=== PATIENT | female | born 1970 | race Caucasian/White ===

== ENCOUNTER 2018-10-22 12:49 | Emergency (ER) | payer SELFPAY ==
[2018-10-22] MEDS ORDERED: NA CHLORIDE 0.9% 1,000 ML ONE (13:37)
--- NOTE | 2018-10-22 13:43 | EKG ---
Test Date: 2018-10-22 Test Time: 13:34:25 [employer]: SHARON MEASUREMENT RESULTS: Intervals: Rate: 57 CA: 176 QRSD: 72 QT: 450 QTc: 438 [place]: P: 67 CA: 176 QRS: 38 T: 26 INTERPRETIVE STATEMENTS: Sinus bradycardia Otherwise normal ECG Compared to ECG 04/28/2004 06:34:00 Sinus rhythm no longer present Electronically Signed On 10-22-18 13:42:39 CDT by Alonzo Dutton
[2018-10-22 14:03] LABS: Absolute Lymphocytes (CBC) 2.7 K/uL (0.7-4.9); Basophils % 1.1 % (0-1.3); Hematocrit 45.7 % (36.0-45.0); Lymphocytes % 26.1 % (15.3-44.8); MPV 8.2 fL (7.6-11.3); RBC Red Blood Cell Count 4.91 M/uL (3.86-4.86)
[2018-10-22 14:27] LABS: Albumin 3.8 g/dL (3.4-5.0); Bilirubin Direct 0.1 mg/dL (0-0.2); Bilirubin Total 0.6 mg/dL (0.2-1.0); Potassium 3.9 mmol/L (3.5-5.1); Protein, Total 7.4 g/dL (6.4-8.2)
--- NOTE | 2018-10-22 14:29 | RAD REPORT ---
EXAM DESCRIPTION: CT - Head Brain Wo Cont - 10/22/2018 1:52 pm CLINICAL HISTORY: Dizziness COMPARISON: None TECHNIQUE: Computed axial tomography of the head was obtained. IV contrast was not requested. All CT scans are performed using dose optimization technique as appropriate and may include automated exposure control or mA/KV adjustment according to patient size. FINDINGS: An intracranial bleed is not seen . The ventricles are normal in caliber. No extra-axial fluid collection is noted. Moderate low-density areas within periventricular, deep and subcortical white matter Fluid within the sinuses/ mastoids is not seen. IMPRESSION: Moderate low-density areas within periventricular, deep and subcortical white matter. Th horace may be secondary to ischemic changes secondary to small vessel disease. Demyelinating process can also result in this appearance. Further evaluation with MRI with contrast would be helpful to determ ine if there is an acute process
--- NOTE | 2018-10-22 15:26 | ER ---
Nurse's Notes [facility] Name: Danette Stapleton Age: 48 yrs Sex: Female : 1970 Arrival Date: 10/22/2018 Time: 12:53 Bed 14 Private MD: Diagnosis: Orthostatic hypotension;Benign paroxysmal vertigo Presentation: 10/22 12:57 Presenting complaint: Patient states: I have been feeling dizzy for the last three la1 days, worse when I lay down. Transition of care: patient was not received from another setting of care. Onset of symptoms was October 22, 2018. Risk Assessment: Do you want to hurt yourself or someone else? Patient reports no desire to harm self or others. Initial Sepsis Screen: Does the patient meet any 2 criteria? No. Patient's initial sepsis screen is negative. Does the patient have a suspected source of infection? No. Patient's initial sepsis screen is negative. Care prior to arrival: None. 12:57 Method Of Arrival: Ambulatory la1 12:57 Acuity: KESHIA 3 la1 Historical: - Allergies: 12:58 No Known Allergies; la1 - PMHx: 12:58 Hypertension; la1 - Immunization history:: Adult Immunizations up to date. - Social history:: Smoking status: Patient uses tobacco products, smokes two packs cigarettes per day. - Ebola Screening: : No symptoms or risks identified at this time. Screenin:38 Abuse screen: Denies threats or abuse. Denies injuries from another. Nutritional jl7 screening: No deficits noted. Tuberculosis screening: No symptoms or risk factors identified. Fall Risk IV access (20 points). Total Ortiz Fall Scale indicates No Risk (0-24 pts). Assessment: 14:08 General: Appears in no apparent distress. comfortable, Behavior is calm, cooperative, jl7 appropriate for age. Pain: Denies pain. Neuro: Level of Consciousness is awake, alert, obeys commands, Oriented to person, place, time, situation, Denies weakness dizziness. Cardiovascular: Denies chest pain, Patient's skin is warm and dry. Respiratory: Airway is patent Respiratory effort is even, unlabored, Respiratory pattern is regular, symmetrical, Denies shortness of breath. GI: No signs and/or symptoms were reported involving the gastrointestinal system. : No signs and/or symptoms were reported regarding the genitourinary system. EENT: No signs and/or symptoms were reported regarding the EENT system. Derm: Skin is pink, warm \T\ dry. Musculoskeletal: No signs and/or symptoms reported regarding the musculoskeletal system. 15:00 Reassessment: Patient appears in no apparent distress at this time. No changes from jl7 previously documented assessment. Patient and/or family updated on plan of care and expected duration. Pain level reassessed. Patient is alert, oriented x 3, equal unlabored respirations, skin warm/dry/pink. Vital Signs: 12:58 BP 150 / 95; Pulse 61; Resp 14; Temp 97.4; Pulse Ox 98% on R/A; Weight 83.91 kg; Height la1 5 ft. 2 in. (157.48 cm); 13:46 BP 144 / 67 Supine; Pulse 56; Resp 16; Pulse Ox 100% ; lt1 13:46 BP 149 / 73 Sitting; Pulse 61; lt1 13:46 BP 135 / 73 Standing; Pulse 55; lt1 14:48 BP 133 / 72; Pulse 65; Resp 16; Pulse Ox 99% ; jl7 12:58 Body Mass Index 33.84 (83.91 kg, 157.48 cm) la1 ED Course: 12:53 Patient arrived in ED. cf2 12:58 Triage completed. la1 12:59 Arm band placed on left wrist. la1 13:10 Henry Vargas NP is PHCP. pm1 13:10 Jax Adkins MD is Attending Physician. pm1 13:30 Patient has correct armband on for positive identification. Placed in gown. Bed in low jl7 position. Call light in reach. Side rails up X 1. Pulse ox on. NIBP on. 13:45 Missed attempt(s): 22 gauge in right antecubital area. lt1 13:46 Initial lab(s) drawn, by ED staff, sent to lab. Inserted saline lock: 22 gauge in left lt1 hand, using aseptic technique. 14:00 CT Head Brain wo Cont In Process Unspecified. EDMS 14:08 Jenna Wakefield RN is Primary Nurse. jl7 16:01 No provider procedures requiring assistance completed. IV discontinued, intact, jl7 bleeding controlled, No redness/swelling at site. Pressure dressing applied. Administered Medications: 14:08 Drug: NS 0.9% 1000 ml Route: IV; Rate: 1000 ml; Site: left hand; [facility] 15:00 Follow up: Response: No adverse reaction; IV Status: Completed infusion; IV Intake: jl7 1000ml Intake: 15:00 IV: 1000ml; Total: 1000ml. jl7 Outcome: 15:25 Discharge ordered by . pm1 16:01 Discharged to home ambulatory. jl7 16:01 Condition: stable 16:01 Discharge instructions given to patient, Instructed on discharge instructions, follow up and referral plans. medication usage, Demonstrated understanding of instructions, follow-up care, medications, Prescriptions given X 1. 16:02 Patient left the ED. jl7 Signatures: Dispatcher [employer] EDMS Nikhil Sherwood RN RN la1 Henry Vargas NP SURGICAL ASST pm1 Jenna Wakefield RN RN jl7 Sandra Crenshaw lt1 Nando Dodge cf2
--- NOTE | 2018-10-22 15:26 | EDPHYS ---
Physician Documentation [facility] Name: Danette Stapleton Age: 48 yrs Sex: Female : 1970 Arrival Date: 10/22/2018 Time: 12:53 Bed 14 Private MD: ED Physician Jax Adkins HPI: 10/22 13:25 This 48 yrs old Female presents to ER via Ambulatory with complaints of pm1 Dizziness. 13:25 The patient presents with sense of spinning, vertigo. Onset: The symptoms/episode pm1 began/occurred 3 day(s) ago. Context: occurred at home, occurred while the patient was changing position from lying to sitting, sitting to standing and turning from side to side while lying in bed. just prior to the episode the patient experienced no apparent symptoms. Modifying factors: The symptoms are alleviated by staying still, the symptoms are aggravated by changing position. Associated signs and symptoms: Pertinent negatives: abdominal pain, chest pain, headache, numbness, palpitations, shortness of breath, tingling, vomiting. Severity of symptoms: in the emergency department the symptoms are unchanged Pain is currently a 0 / 10. Patient's baseline: Neuro: alert and fully oriented, Motor: no deficits, Ambulation: walks without assistance. The patient has not recently seen a physician. Historical: - Allergies: 12:58 No Known Allergies; la1 - PMHx: 12:58 Hypertension; la1 - Immunization history:: Adult Immunizations up to date. - Social history:: Smoking status: Patient uses tobacco products, smokes two packs cigarettes per day. - Ebola Screening: : No symptoms or risks identified at this time. ROS: 13:25 Constitutional: Negative for fever, chills, and weight loss, Eyes: Negative for injury, pm1 pain, redness, and discharge, ENT: Negative for injury, pain, and discharge, Neck: Negative for injury, pain, and swelling, Cardiovascular: Negative for chest pain, palpitations, and edema, Respiratory: Negative for shortness of breath, cough, wheezing, and pleuritic chest pain, Abdomen/GI: Negative for abdominal pain, nausea, vomiting, diarrhea, and constipation, Back: Negative for injury and pain, : Negative for injury, bleeding, discharge, and swelling, MS/Extremity: Negative for injury and deformity, Skin: Negative for injury, rash, and discoloration. 13:25 Neuro: Positive for dizziness, Negative for headache, numbness, tingling, weakness. Exam: 13:25 Constitutional: This is a well developed, well nourished patient who is awake, alert, pm1 and in no acute distress. Head/Face: Normocephalic, atraumatic. Eyes: Pupils equal round and reactive to light, extra-ocular motions intact. Lids and lashes normal. Conjunctiva and sclera are non-icteric and not injected. Cornea within normal limits. Periorbital areas with no swelling, redness, or edema. ENT: Nares patent. No nasal discharge, no septal abnormalities noted. Tympanic membranes are normal and external auditory canals are clear. Oropharynx with no redness, swelling, or masses, exudates, or evidence of obstruction, uvula midline. Mucous membranes moist. Neck: Trachea midline, no thyromegaly or masses palpated, and no cervical lymphadenopathy. Supple, full range of motion without nuchal rigidity, or vertebral point tenderness. No Meningismus. Chest/axilla: Normal chest wall appearance and motion. Nontender with no deformity. No lesions are appreciated. Cardiovascular: Regular rate and rhythm with a normal S1 and S2. No gallops, murmurs, or rubs. Normal PMI, no JVD. No pulse deficits. Respiratory: Lungs have equal breath sounds bilaterally, clear to auscultation and percussion. No rales, rhonchi or wheezes noted. No increased work of breathing, no retractions or nasal flaring. Abdomen/GI: Soft, non-tender, with normal bowel sounds. No distension or tympany. No guarding or rebound. No evidence of tenderness throughout. Back: No spinal tenderness. No costovertebral tenderness. Full range of motion. Skin: Warm, dry with normal turgor. Normal color with no rashes, no lesions, and no evidence of cellulitis. MS/ Extremity: Pulses equal, no cyanosis. Neurovascular intact. Full, normal range of motion. 13:25 Neuro: Orientation: is normal, Mentation: is normal, Cranial nerves: CN II- XII are normal as tested, Cerebellar function: normal finger to nose testing, Motor: is normal, moves all fours, Sensation: is normal, no obvious gross deficits, Gait: is steady, at a normal pace, without difficulty. Vital Signs: 12:58 BP 150 / 95; Pulse 61; Resp 14; Temp 97.4; Pulse Ox 98% on R/A; Weight 83.91 kg; Height la1 5 ft. 2 in. (157.48 cm); 13:46 BP 144 / 67 Supine; Pulse 56; Resp 16; Pulse Ox 100% ; lt1 13:46 BP 149 / 73 Sitting; Pulse 61; lt1 13:46 BP 135 / 73 Standing; Pulse 55; lt1 14:48 BP 133 / 72; Pulse 65; Resp 16; Pulse Ox 99% ; jl7 12:58 Body Mass Index 33.84 (83.91 kg, 157.48 cm) la1 MDM: 13:11 Patient medically screened. pm1 14:25 Data reviewed: vital signs. Data interpreted: Pulse oximetry: on room air is 100 %. pm1 Interpretation: normal. 15:19 Refusal of service: The patient/guardian displays adequate decision making capability pm1 and despite a detailed discussion of alternatives, benefits, risks, and consequences refuses: MRI: Patient's dizziness has improved with IV fluids. Discussed radiologist results with the patient. She does not want the MRI and wants to go home . 10/22 13:16 Order name: Basic Metabolic Panel; Complete Time: 14:57 pm1 10/22 13:16 Order name: CBC with Diff pm1 10/22 13:16 Order name: CT Head Brain wo Cont; Complete Time: 15:08 pm1 10/22 13:16 Order name: LFT's; Complete Time: 14:57 pm1 10/22 13:16 Order name: EKG; Complete Time: 13:19 pm1 10/22 13:16 Order name: EKG - Nurse/Tech; Complete Time: 13:46 pm1 10/22 13:16 Order name: IV Saline Lock; Complete Time: 13:46 pm1 10/22 13:16 Order name: Labs collected and sent; Complete Time: 13:46 pm1 10/22 13:16 Order name: Orthostatics; Complete Time: 13:46 pm1 Administered Medications: 14:08 Drug: NS 0.9% 1000 ml Route: IV; Rate: 1000 ml; Site: left hand; [facility] 15:00 Follow up: Response: No adverse reaction; IV Status: Completed infusion; IV Intake: jl7 1000ml Disposition: 16:07 Co-signature as Attending Physician, Jax Adkins MD I agree with the assessment and annie plan of care. Disposition: 10/22/18 15:25 Discharged to Home. Impression: Benign paroxysmal vertigo, Orthostatic hypotension. - Condition is Stable. - Discharge Instructions: Benign Positional Vertigo, Dehydration, Adult, Orthostatic Hypotension, Rehydration, Adult. - Prescriptions for Meclizine 25 mg Oral Tablet - take 1 tablet by ORAL route every 8 hours As needed; 30 tablet. - Medication Reconciliation Form, Thank You Letter, Antibiotic Education, Prescription Opioid Use form. - Follow up: Emergency Department; When: As needed; Reason: Worsening of condition. Follow up: Private Physician; When: 2 - 3 days; Reason: Recheck today's complaints, Continuance of care, Re-evaluation by your physician. - Problem is new. - Symptoms have improved. Signatures: Dispatcher [employer] EDJax Finch MD MD cha Attema, Lee RN RN la1 Henry Vargas NP PLATFORM LOADER pm1 Jenna Wakefield RN RN jl7 Corrections: (The following items were deleted from the chart) 16:02 15:25 10/22/2018 15:25 Discharged to Home. Impression: Benign paroxysmal jl7 vertigoOrthostatic hypotension. Condition is Stable. Forms are Medication Reconciliation Form, Thank You Letter, Antibiotic Education, Prescription Opioid Use. Follow up: Emergency Department; When: As needed; Reason: Worsening of condition. Follow up: Private Physician; When: 2 - 3 days; Reason: Recheck today's complaints, Continuance of care, Re-evaluation by your physician. Problem is new. Symptoms have improved. pm1
== END 2018-10-22 16:02 | disposition home or self-care (01) ==
LOC: ER 12:49
DX: I95.1 Orthostatic hypotension (principal); H81.10 Benign paroxysmal vertigo, unspecified ear; F17.210 Nicotine dependence, cigarettes, uncomplicated
CPT/HCPCS: 36415; 70450; 80048; 80076; 85025; 93005; 96360; 99284; J7030

== ENCOUNTER 2020-01-15 01:40 | Emergency (ER) | payer SELFPAY ==
[2020-01-15] MEDS ORDERED: ATROPINE SULF 1 MG/10 ML SYR IV ONE (02:09)
[2020-01-15] MEDS ORDERED: NA CHLORIDE 0.9% 1,000 ML ONE (02:22)
[2020-01-15 02:45] LABS: Protime INR 0.96
[2020-01-15 02:46] LABS: Absolute Lymphocytes (CBC) 3.3 K/uL (0.7-4.9); Basophils % 0.9 % (0-1.3); Hematocrit 41.6 % (36.0-45.0); MPV 7.4 fL (7.6-11.3); RBC Red Blood Cell Count 4.42 M/uL (3.86-4.86)
[2020-01-15 02:57] LABS: ALT/SGPT 75 U/L (12-78); AST/SGOT 87 U/L (15-37); Albumin 3.1 g/dL (3.4-5.0); Alkaline Phosphatase 118 U/L (45-117); BUN Blood Urea Nitrogen 13 mg/dL (7-18); Bicarbonate 24 mmol/L (21-32); Bilirubin Direct < 0.1 mg/dL (0-0.2); Bilirubin Total 0.3 mg/dL (0.2-1.0); Glucose Level 170 mg/dL (74-106); Magnesium 2.3 mg/dL (1.8-2.4); NT PRO-BNP 274 pg/mL (<125); Potassium 3.7 mmol/L (3.5-5.1); Protein, Total 6.7 g/dL (6.4-8.2); Sodium Level 139 mmol/L (136-145); Troponin (Emerg Dept Use Only) < 0.02 ng/mL (0.0-0.045)
--- NOTE | 2020-01-15 03:08 | EDPHYS ---
Physician Documentation [facility] Name: Danette Stapleton Age: 50 yrs Sex: Female : 1970 Arrival Date: 01/15/2020 Time: 01:41 Bed 2 Private MD: Earl Rogers H ED Physician Enmanuel Gómez HPI: 01/14 01:59 This 50 yrs old Female presents to ER via EMS with complaints of Chest Pain, mh7 Dizziness. 01:59 The patient or guardian reports chest pain that is located primarily in the substernal mh7 area. Onset: today, 30 minute(s) ago. The pain does not radiate. Associated signs and symptoms: Pertinent positives: dizziness, lightheadedness, shortness of breath, Pertinent negatives: abdominal pain, cough, diaphoresis, headache, lower extremity pain, lower extremity swelling, nausea, near syncope, palpitations, recent travel, syncope, vomiting. The chest pain is described as sharp. Duration: The patient or guardian reports a single episode, that is still ongoing. Modifying factors: The symptoms are alleviated by nothing. the symptoms are aggravated by nothing. Severity of pain: At its worst the pain was moderate today, in the emergency department the pain is unchanged. Historical: - Allergies: 01:51 No Known Allergies; mg2 - Home Meds: 01:51 Metoprolol Tartrate Oral [Active]; amlodipine oral [Active]; mg2 - PMHx: 01:51 Hypertension; mg2 - PSHx: 01:51 None; mg2 - Immunization history:: Flu vaccine status is unknown. - Social history:: Smoking status: Patient reports the use of cigarette tobacco products, Patient/guardian denies using alcohol, street drugs, IV drugs. ROS: 01:59 Constitutional: Negative for fever, chills, and weight loss, Eyes: Negative for injury, mh7 pain, redness, and discharge, ENT: Negative for injury, pain, and discharge, Neck: Negative for injury, pain, and swelling, Abdomen/GI: Negative for abdominal pain, nausea, vomiting, diarrhea, and constipation, Back: Negative for injury and pain, : Negative for injury, bleeding, discharge, and swelling, MS/Extremity: Negative for injury and deformity, Skin: Negative for injury, rash, and discoloration, Neuro: Negative for headache, weakness, numbness, tingling, and seizure, Psych: Negative for depression, anxiety, suicide ideation, homicidal ideation, and hallucinations, Allergy/Immunology: Negative for hives, rash, and allergies, Endocrine: Negative for neck swelling, polydipsia, polyuria, polyphagia, and marked weight changes, Hematologic/Lymphatic: Negative for swollen nodes, abnormal bleeding, and unusual bruising. Exam: 01:59 Head/Face: Normocephalic, atraumatic. Eyes: Pupils equal round and reactive to light, mh7 extra-ocular motions intact. Lids and lashes normal. Conjunctiva and sclera are non-icteric and not injected. Cornea within normal limits. Periorbital areas with no swelling, redness, or edema. Neck: Trachea midline, no thyromegaly or masses palpated, and no cervical lymphadenopathy. Supple, full range of motion without nuchal rigidity, or vertebral point tenderness. No Meningismus. Chest/axilla: Normal chest wall appearance and motion. Nontender with no deformity. No lesions are appreciated. 01:59 Abdomen/GI: Soft, non-tender, with normal bowel sounds. No distension or tympany. No guarding or rebound. No evidence of tenderness throughout. Back: No spinal tenderness. No costovertebral tenderness. Full range of motion. Skin: Warm, dry with normal turgor. Normal color with no rashes, no lesions, and no evidence of cellulitis. MS/ Extremity: Pulses equal, no cyanosis. Neurovascular intact. Full, normal range of motion. Neuro: Awake and alert, GCS 15, oriented to person, place, time, and situation. Cranial nerves II-XII grossly intact. Motor strength 5/5 in all extremities. Sensory grossly intact. Cerebellar exam normal. Normal gait. Psych: Awake, alert, with orientation to person, place and time. Behavior, mood, and affect are within normal limits. 01:59 Constitutional: The patient appears alert, awake, uncomfortable. 01:59 Cardiovascular: Rate: bradycardic, Rhythm: regular, Pulses: no pulse deficits are appreciated, Heart sounds: normal, normal S1and S2, Edema: is not appreciated, JVD: is not appreciated. 01:59 Respiratory: the patient does not display signs of respiratory distress, Respirations: normal, Breath sounds: wheezing: expiratory that is mild, is scattered, Respiratory rate: 18 Vital Signs: 01:46 BP 131 / 84; Pulse 37; Resp 18; Pulse Ox 97% on R/A; Height 5 ft. 2 in. (157.48 cm); mg2 02:00 BP 118 / 68; Pulse 40; Resp 18; Pulse Ox 93% on R/A; mg2 02:08 Temp 97.4(TE); mg2 02:46 BP 130 / 72; Pulse 40; Resp 18; Pulse Ox 94% on NC; mg2 02:56 Weight 95.8 kg; mg2 03:35 BP 130 / 76; Pulse 41; Resp 18; Temp 97.4; Pulse Ox 94% on 4 lpm NC; mg2 02:56 Body Mass Index 38.63 (95.80 kg, 157.48 cm) mg2 MDM: 01:53 Patient medically screened. [facility] 03:00 Differential diagnosis: abnormal EKG, acute myocardial infarction, acute pericarditis, mh7 anxiety, coronary artery disease chest wall pain, congestive heart failure costochondritis, myocarditis, pericarditis, pneumonia, pneumothorax, pulmonary embolus, stable angina, unstable angina. HEART Score: History: Moderately Suspicious (1), ECG: Significant ST-deviation (2), Age: > 45 and < 65 years (1), Risk Factors: 1 or 2 risk factors (1), [Hypertension] [Active Smoker]. Data reviewed: vital signs, nurses notes, EMS record, lab test result(s), cardiac enzymes, CBC, electrolytes, urinalysis, EKG, radiologic studies, plain films. Data interpreted: Pulse oximetry: on room air is 98 %. Interpretation: normal. Plan: O2 by NC applied. Counseling: I had a detailed discussion with the patient and/or guardian regarding: the historical points, exam findings, and any diagnostic results supporting the discharge/admit diagnosis, the presence of at least one elevated blood pressure reading (>120/80) during this emergency department visit, lab results, radiology results, the need to transfer to another facility, for higher level of care. Physician consultation: Dexter Trejo MD regarding patient's condition, after a discussion of the case, a recommendation for transfer for higher level of care is made. 01/14 01:53 Order name: Basic Metabolic Panel [facility] 01/14 01:53 Order name: CBC with Diff; Complete Time: 02:53 [facility] 11/15 01:53 Order name: LFT's [facility] 01/14 01:53 Order name: Magnesium [facility] 01/14 01:53 Order name: NT PRO-BNP [facility] 01/14 01:53 Order name: PT-INR; Complete Time: 02:53 [facility] 01/14 01:53 Order name: Troponin (emerg Dept Use Only) [facility] 01/14 01:53 Order name: XRAY Chest (1 view) [facility] 01/14 01:53 Order name: EKG; Complete Time: 01:54 [facility] 01/14 01:53 Order name: Cardiac monitoring; Complete Time: 02:00 [facility] 01/14 01:53 Order name: EKG - Nurse/Tech; Complete Time: 02:00 [facility] 01/14 01:53 Order name: IV Saline Lock; Complete Time: 02:00 [facility] 01/14 01:53 Order name: Labs collected and sent; Complete Time: 02:00 [facility] 01/14 01:53 Order name: O2 Per Protocol; Complete Time: 02:00 [facility] 01/14 01:53 Order name: O2 Sat Monitoring; Complete Time: 02:00 [facility] Administered Medications: 01:58 Drug: Atropine 0.5 mg Route: IVP; Site: left antecubital; ea 02:21 Follow up: Response: No adverse reaction mg2 03:16 Drug: PlaVIX 300 mg Route: PO; mg2 03:35 Follow up: Response: No adverse reaction ea 03:16 Drug: Tenecteplase 50 mg {Co-Signature: michelle (Teresa Newsome RN).} Route: IV; Rate: per mg2 protocol; Site: left hand; 03:35 Follow up: Response: No adverse reaction; IV Status: Completed infusion ea 03:39 Not Given (Hemodynamic Parameters): morphine 2 mg IVP once; (PAIN>8) RASS on ADMN: mg2 Combtv4, Very Agttd3, Agttd2, Rstlss1, AlertClm0, Drwsy-1, LtSdtn-2, ModSdtn-3, DpSdtn-4, UnArsble-5 x2 Disposition: 01/15/20 03:07 Transfer ordered to [facility]. Diagnosis are Acute STEMI, Bradycardia. - Reason for transfer: Higher level of care. - Accepting physician is Dr. Taveras. - Condition is Serious. - Problem is new. - Symptoms have improved. Signatures: Dispatcher [employer] Teresa Warren RN RN ea Gardose, Michele, RN RN mg2 Enmanuel Gómez MD MD 7 Teresa Newsome RN ea Corrections: (The following items were deleted from the chart) 03:42 03:07 01/15/2020 03:07 Transfer ordered to [facility]. mg2 Diagnosis is Acute STEMI; Bradycardia. Reason for transfer: Higher level of care. Accepting physician is Dr. Taveras. Condition is Serious. Problem is new. Symptoms have improved. mh7
--- NOTE | 2020-01-15 03:08 | ER ---
Nurse's Notes [facility] Name: Danette Stapleton Age: 50 yrs Sex: Female : 1970 Arrival Date: 01/15/2020 Time: 01:41 Bed 2 Private MD: Earl Rogers H Diagnosis: Acute STEMI;Bradycardia Presentation: 01/14 01:46 Chief complaint: EMS states: she has right sided chest pain radiating to the right arm mg2 and dizziness after she takes shower \T\ 2200 pm tonight. given aspirin 324 mg enroute. she was Sinus Shaquille on EKG. Coronavirus screen: Client denies travel out of the [place] in the last 14 days. Ebola Screen: No symptoms or risks identified at this time. Initial Sepsis Screen: Does the patient meet any 2 criteria? No. Patient's initial sepsis screen is negative. Does the patient have a suspected source of infection? No. Patient's initial sepsis screen is negative. Risk Assessment: Do you want to hurt yourself or someone else? Patient reports no desire to harm self or others. Onset of symptoms was January 14, 2020 at 22:00. 01:46 Method Of Arrival: EMS: [facility] mg2 01:46 Acuity: KESHIA 1 sg Historical: - Allergies: 01:51 No Known Allergies; mg2 - Home Meds: 01:51 Metoprolol Tartrate Oral [Active]; amlodipine oral [Active]; mg2 - PMHx: 01:51 Hypertension; mg2 - PSHx: 01:51 None; mg2 - Immunization history:: Flu vaccine status is unknown. - Social history:: Smoking status: Patient reports the use of cigarette tobacco products, Patient/guardian denies using alcohol, street drugs, IV drugs. Screenin:08 Abuse screen: Denies threats or abuse. Denies injuries from another. Nutritional mg2 screening: No deficits noted. Tuberculosis screening: No symptoms or risk factors identified. Fall Risk IV access (20 points). Assessment: 02:09 General: Appears in no apparent distress. comfortable, Behavior is calm, cooperative. mg2 Pain: Complains of pain in chest Pain radiates to right arm Pain currently is 6 out of 10 on a pain scale. Quality of pain is described as aching, pressure, radiating, sharp, Pain began gradually. Neuro: Level of Consciousness is awake, alert, obeys commands, Oriented to person, place, time, situation. Neuro: Reports dizziness. Cardiovascular: Capillary refill < 3 seconds Patient's skin is warm and dry. Respiratory: Airway is patent Respiratory effort is even, unlabored, Respiratory pattern is regular, symmetrical. GI: No signs and/or symptoms were reported involving the gastrointestinal system. : No signs and/or symptoms were reported regarding the genitourinary system. EENT: No signs and/or symptoms were reported regarding the EENT system. Derm: Skin is intact, is healthy with good turgor, Skin is pink, warm \T\ dry. normal. Musculoskeletal: Circulation, motion, and sensation intact. Capillary refill < 3 seconds. 02:47 Reassessment: radiology notified pt dispo txfr, request imaging to disc and reports per sg txfr center request. spoke with [facility]. 03:02 Reassessment: spoke with [facility] coordinator. 03:04 Reassessment: [facility] Coordinator reports that the fog is too dense for safe sg transport at this time. 03:35 Reassessment: Patient and/or family updated on plan of care and expected duration. Pain ea level reassessed. Patient is alert, oriented x 3, equal unlabored respirations, skin warm/dry/pink. [facility] at facility for transport. Report given to EMS. Pt left ED via stretcher per EMS. Pt tolerating well. 03:35 Reassessment: report given to ANIL Purvis- of [facility].- direct line ([phone]). mg2 report given to [facility]. patient is awake, alert, AOx4, still bradycardic \T\ 41 bpm. Both IV intact. Vital Signs: 01:46 BP 131 / 84; Pulse 37; Resp 18; Pulse Ox 97% on R/A; Height 5 ft. 2 in. (157.48 cm); mg2 02:00 BP 118 / 68; Pulse 40; Resp 18; Pulse Ox 93% on R/A; mg2 02:08 Temp 97.4(TE); mg2 02:46 BP 130 / 72; Pulse 40; Resp 18; Pulse Ox 94% on NC; mg2 02:56 Weight 95.8 kg; mg2 03:35 BP 130 / 76; Pulse 41; Resp 18; Temp 97.4; Pulse Ox 94% on 4 lpm NC; mg2 02:56 Body Mass Index 38.63 (95.80 kg, 157.48 cm) mg2 ED Course: 01:41 Patient arrived in ED. am2 01:41 Enmanuel Gómez MD is Attending Physician. mh7 01:41 Earl Rogers DO is Private Physician. am2 01:46 Tk Adan RN is Primary Nurse. mg2 01:49 Triage completed. mg2 01:50 pt placed to [employer] monitor at this time. sg 01:55 Inserted saline lock: 20 gauge in right forearm, using aseptic technique. ds4 01:55 Oxygen administration via nasal cannula \T\ 2L/min Response to oxygen therapy: o2 sg administer per Chest Pain order set. 02:07 XRAY Chest (1 view) In Process Unspecified. EDMS 02:08 No provider procedures requiring assistance completed. Maintain EMS IV. Dressing mg2 intact. Site clean \T\ dry. Gauge \T\ site: 20 \T\ LH. 02:10 Patient maintains SpO2 saturation greater than 95% on room air. mg2 02:10 Patient has correct armband on for positive identification. campus monitor on. Pulse mg2 ox on. NIBP on. Door closed. Warm blanket given. 02:10 Arm band placed on. mg2 02:25 Initiated transfer with Makenzie at [facility]. Faxed pts ekg per her request to the tt3 physician. 03:17 [facility] unable to fly pt due to weather. [facility] to transfer pt. tt3 03:19 Patient transferred, IV remains in place. ea 03:48 ANIL Frey, reported that the nurse from [facility] informed her that the pt is going tt3 to the blood and plasma laboratory assistant instead of going to the CCU. Called [facility] back and reported that to Yaima with [facility] to pass on to [place] [facility]. Administered Medications: 01:58 Drug: Atropine 0.5 mg Route: IVP; Site: left antecubital; ea 02:21 Follow up: Response: No adverse reaction mg2 03:16 Drug: PlaVIX 300 mg Route: PO; mg2 03:35 Follow up: Response: No adverse reaction ea 03:16 Drug: Tenecteplase 50 mg {Co-Signature: michelle (Teresa Newsome RN).} Route: IV; Rate: per mg2 protocol; Site: left hand; 03:35 Follow up: Response: No adverse reaction; IV Status: Completed infusion ea 03:39 Not Given (Hemodynamic Parameters): morphine 2 mg IVP once; (PAIN>8) RASS on ADMN: mg2 Combtv4, Very Agttd3, Agttd2, Rstlss1, AlertClm0, Drwsy-1, LtSdtn-2, ModSdtn-3, DpSdtn-4, UnArsble-5 x2 Outcome: 03:07 ER care complete, transfer ordered by . desiree 03:19 Instructed on the need for transfer, Demonstrated understanding of instructions. ea 03:41 Transferred by ground EMS to [facility], Transfer form completed. mg2 03:41 critical 03:42 Patient left the ED. mg2 Signatures: Dispatcher [employer] EDMS Ubaldo Charles RN Osorio Mccray ds4 Diana Flood am2 Teresa Newsome RN Tk Bragg ea RN Enmanuel Salcido MD MD 7 Cecil Victor tt3 Teresa Newsome RN, ea Corrections: (The following items were deleted from the chart) 01:54 01:46 Pulse 106bpm; Resp 18bpm; Pulse Ox 97% RA; Height 5 ft. 2 in.; mg2 mg2 02:11 01:49 BP 188 / 92; mg2 mg2 02:14 01:46 Acuity: KESHIA 3 mg2 sg 03:15 02:56 86.18 kg; BMI: 34.7; ea mg2
[2020-01-15] MEDS ORDERED: TENECTEPLASE 50 MG/10 ML VIAL IV ONE (03:14)
[2020-01-15] MEDS ORDERED: CLOPIDOGREL 75 MG TABLET ONE (03:14)
[2020-01-15 07:11] VITALS: TEMP 97.4
[2020-01-15 07:12] VITALS: O2SAT 94
[2020-01-15 07:14] VITALS: BP 130/76
--- NOTE | 2020-01-15 07:41 | EKG ---
Test Date: 2020-01-15 Test Time: 01:44:07 Garbage Collector: SWG MEASUREMENT RESULTS: Intervals: Rate: 38 MA: 252 QRSD: 74 QT: 506 QTc: 402 [place]: P: 61 MA: 252 QRS: 66 T: 95 INTERPRETIVE STATEMENTS: Age and gender specific ECG analysis Marked sinus bradycardia with 1st degree AV block ST elevation, consider inferior injury or acute infarct ACUTE MO Consider right ventricular involvement in acute inferior infarct Abnormal ECG Compared to ECG 10/22/2018 13:34:25 First degree AV block now present ST (T wave) deviation now present Myocardial infarct finding now present Myocardial infarct finding now present Electronically Signed On 01-15-20 07:40:24 MAINTENANCE PARTS TECHNICIAN by Dexter Trejo
--- NOTE | 2020-01-16 11:48 | RAD REPORT ---
EXAM DESCRIPTION: RAD - Chest Single View - 01/15/2020 2:08 am CLINICAL HISTORY: CHEST PAIN COMPARISON: None. FINDINGS: Single frontal radiograph view of the chest. Cardiomediastinal silhouette: Normal size and contour. Lungs: No consolidation, pneumothorax, or pleural effusion. Low lung volumes. Leads overlie the chest . Bones: No acute osseous abnormality. Upper abdomen: No abnormality identified. IMPRESSION: 1. No acute pulmonary process identified. Electronically signed by: Young Olvera 01/15/2020 2:29 AM LOUVER MORTISER OPERATOR Due to temporary technical issues with the PACS/Fluency reporting system, reports are being signed by the in house radiologist without review as a courtesy to ensure prompt reporting. The interpreting r adiologist is fully responsible for the content of the report.
== END 2020-01-15 03:42 | disposition short-term general hospital (02) ==
LOC: ER 01:40
DX: R00.1 Bradycardia, unspecified (principal); I21.3 ST elevation (STEMI) myocardial infarction of unspecified site; I10 Essential (primary) hypertension; F17.210 Nicotine dependence, cigarettes, uncomplicated
CPT/HCPCS: 36415; 71045; 80048; 80076; 83735; 83880; 84484; 85025; 85610; 92977; 93005; 96365; 96375; 99291; J3101; J7030

== ENCOUNTER 2021-02-24 20:03 | Emergency (ER) | payer SELFPAY ==
--- OUTSIDE RECORDS SUMMARY | 2021-02-24 20:11 | XMS REPORT | Continuity of Care Document ---
:1970 Author Organization [facility] t Address [address] [place] [address] Care Team Providers Name Role Phone KENIA Attending Clinician Unavailable IAN Attending Clinician Unavailable KENIA Admitting Clinician Unavailable Problems This patient has no known problems. Allergies, Adverse Reactions, Alerts Allergy Allergy Status Severity Reaction(s) Onset Inactive Treating Comm ents Source Name Type Date Date Clinician NO KNOWN Allergy Active [facility] ALLERGIE S Medications This patient has no known medications. Vital Signs Vital Name Observation Time Observation Value Comments Source WEIGHT 2020-01-27 03:00:00 89.132 kg WEIGHT 2020-01-26 05:02:00 89.994 kg WEIGHT 2020-01-25 06:38:00 88.905 kg WEIGHT 2020-01-24 06:00:00 98.1 kg WEIGHT 2020-01-23 06:00:00 109.7 kg WEIGHT 2020-01-22 05:00:00 110.1 kg WEIGHT 2020-01-21 05:00:00 112.7 kg WEIGHT 2020-01-20 06:00:00 113.8 kg WEIGHT 2020-01-17 06:00:00 101.1 kg WEIGHT 2020-01-16 06:00:00 104.2 kg HEIGHT 2020-01-15 03:55:00 160 cm WEIGHT 2020-01-15 03:55:00 95.8 kg WEIGHT 2020-01-27 03:00:00 89.132 kg WEIGHT 2020-01-26 05:02:00 89.994 kg WEIGHT 2020-01-25 06:38:00 88.905 kg WEIGHT 2020-01-24 06:00:00 98.1 kg WEIGHT 2020-01-23 06:00:00 109.7 kg WEIGHT 2020-01-22 05:00:00 110.1 kg WEIGHT 2020-01-21 05:00:00 112.7 kg WEIGHT 2020-01-20 06:00:00 113.8 kg WEIGHT 2020-01-17 06:00:00 101.1 kg WEIGHT 2020-01-16 06:00:00 104.2 kg HEIGHT 2020-01-15 03:55:00 160 cm WEIGHT 2020-01-15 03:55:00 95.8 kg Procedures This patient has no known procedures. Encounters Start End Encounter Admission Attending Care Care Encounter Source Date/Time Date/Time Type Type Clinicians Facility Department ID 2020-01-15 Inpatient ER KENIA, [facility] Cardiology [id number] [facility] 04:33:00 SOUTH 2020-02-10 2020-02-10 Outpatient [facility] [id number] [facility] 00:00:00 00:00:00 DAYDAY 2020-02-08 2020-02-08 Outpatient EL [facility] [id number] [facility] 00:00:00 00:00:00 DAYDAY Results Test Description Test Time Test Comments Results Result Comments Source AFB CULTURE + SMEAR (NON-SPUTUM) 2020-03-06 09:17:00 Test Item Value Reference Range Interpretation Comme nts CULTURE (BEAKER) (test code = 1095) No acid-fast bacilli isolated i n 42 days AFB SMEAR (BEAKER) (test code = 994) No acid fast bacilli seen LEGIONELLA [id number] 11:29:00 Test Item Value Reference Range Interpretation Comments CULTURE (BEAKER) No Legionella species (test code = 1095) isolated POCT-GLUCOSE [id number] 11:57:00 Test Item Value Reference Range Interpretation Comments POC-GLUCOSE METER 164 mg/dL 70-110 H : [facility] (test code = HERLINDA Cohn [facility], 1538) [id number]: Power Project Manager/Techni edgardo ID = [id number] for ANANDA FALL BASIC METABOLIC [id number] 10:19:00 Test Item Value Reference Range Interpretation Comments SODIUM (BEAKER) 131 meq/L 136-145 L (test code = 381) POTASSIUM (BEAKER) 3.4 meq/L 3.5-5.1 L (test code = 379) CHLORIDE (BEAKER) 97 meq/L 98-107 L (test code = 382) CO2 (BEAKER) (test 23 meq/L 22-29 code = 355) BLOOD UREA NITROGEN 19 mg/dL 7-21 (BEAKER) (test code = 354) CREATININE (BEAKER) 0.91 mg/dL 0.57-1.25 (test code = 358) GLUCOSE RANDOM 150 mg/dL 70-105 H (BEAKER) (test code = 652) CALCIUM (BEAKER) 8.2 mg/dL 8.4-10.2 L (test code = 697) EGFR (BEAKER) (test 66 mL/min/1.73 ESTIMA BARBARA GFR IS code = 1092) sq m NOT ACCURATE CREATININE CLEARANCE IN PREDICTING GLOMERULAR FILTRATION RATE . ESTIMATED GFR I S NOT APPLICABLE FOR DIALYSIS PATIEN TS. Power Project Manager ID - SANTA CPOCT-GLUCOSE [id number] 08:08:00 Test Item Value Reference Range Interpretation Comments POC-GLUCOSE METER 154 mg/dL 70-110 H : TESTED A T [facility] 6720 (BEAKER) (test code = HERLINDA CES[place], 1538) [id number]: Power Project Manager/Techni edgardo ID = [id number] for ANANDA FALL VIRUS [id number] 07:11:00 Test Item Value Reference Range Interpretation Comments CULTURE (BEAKER) (test code No virus isolated = 1095) CBC (HEMOGRAM ONLY)2020-01-27 05:42:00 Test Item Value Reference Range Interpretation Comments WHITE BLOOD CELL COUNT (BEAKER) 15.5 K/ L 3.5-10.5 H (test code = 775) RED BLOOD CELL COUNT (BEAKER) 2.90 M/ L 3.93-5.22 L (test code = 761) HEMOGLOBIN (BEAKER) (test code = 9.3 GM/DL 11.2-15.7 L 410) HEMATOCRIT (BEAKER) (test code = 28.8 % 34.1-44.9 L 411) MEAN CORPUSCULAR VOLUME (BEAKER) 99.3 fL 79.4-94.8 H (test code = 753) MEAN CORPUSCULAR HEMOGLOBIN 32.1 pg 25.6-32.2 (BEAKER) (test code = 751) MEAN CORPUSCULAR HEMOGLOBIN CONC 32.3 GM/DL 32.2-35.5 (BEAKER) (test code = 752) RED CELL DISTRIBUTION WIDTH 13.9 % 11.7-14.4 (BEAKER) (test code = 412) PLATELET COUNT (BEAKER) (test 311 K/CU MM 150-450 code = 756) MEAN PLATELET VOLUME (BEAKER) 10.5 fL 9.4-12.3 (test code = 754) NUCLEATED RED BLOOD CELLS 1 /100 WBC 0-0 H (BEAKER) (test code = 413) RAD, CHEST, 1 VIEW, NON [id number] 05:39:00Reason for exam:->ECMO, respiratory failureShould this be performed at the bedside?->Yes [facility] : 1970 Sex: FFINAL REPORT Chest one view. Clinical history: ECMO, respiratory aisha lure Comparison: Chest radiograph 01/26/2020. Technique: A single frontal view of the chest was obtained. Findings: The cardiomediastinal contours are normal. There is no focal pulmonary consolidation, pleural effusion or pneumothorax. There is no pulmonary edema. The osseous structures are unremarkable. Impression: No focal pulmonary consolidation. Signed: Nyasia Juan MDReport Verified Date/Time: 01/27/2020 05:39:52 [id number] 04:43:00 Test Item Value Reference Range Interpretation Comments MAGNESIUM (BEAKER) (test code = 1.8 mg/dL 1.6-2.6 627) Power Project Manager ID - [id number] 04:43:00 Test Item Value Reference Range Interpretation Comments PHOSPHORUS (BEAKER) (test code = 4.2 mg/dL 2.3-4.7 604) Power Project Manager ID - [id number] 22:07:00 Test Item Value Reference Range Interpretation Comments MAGNESIUM (BEAKER) (test code = 1.8 mg/dL 1.6-2.6 627) Power Project Manager ID - DBPOCT-GLUCOSE [id number] 21:34:00 Test Item Value Reference Range Interpretation Comments POC-GLUCOSE METER 125 mg/dL 70-110 H : TESTED A T [facility] 6720 (BEAKER) (test code [facility], = 1538) [id number]: Power Project Manager/Techni edgardo ID = [id number] for Betzy Kimble FUNGUS CULTURE + [id number] 20:02:00 Test Item Value Reference Range Interpretation Comments CULTURE (BEAKER) A 1+ Cassi glabrata (test code = 1095) FUNGUS SMEAR No fungi seen (AKER) (test code = 1406) POCT-GLUCOSE [id number] 17:31:00 Test Item Value Reference Range Interpretation Comments POC-GLUCOSE METER 130 mg/dL 70-110 H : TESTED A T [facility] 6720 (BEAKER) (test code = [facility], 1538) [id number]: Power Project Manager/Techni edgardo ID = [id number] for ANANDA FALL [id number] 15:16:00 Test Item Value Reference Range Interpretation Comments MAGNESIUM (BEAKER) (test code = 1.8 mg/dL 1.6-2.6 627) Power Project Manager ID - DBPOCT-GLUCOSE [id number] 12:57:00 Test Item Value Reference Range Interpretation Comments POC-GLUCOSE METER 162 mg/dL 70-110 H : TESTED A T [facility] 6720 (BEAKER) (test code = [facility], 1538) [id number]: Power Project Manager/Techni edgardo ID = [id number] for ANANDA FALL RAD, CHEST, 1 VIEW, NON [id number] 10:09:00Reason for exam:->ECMO, respiratory failureShould this be performed at the bedside?->Yes [facility] 1970 Sex: FFINAL REPORT RAD, CHEST, 1 VIEW, NON DEPT INDICATION: ECMO, respirato ry failure COMPARISON: Prior day's exam FINDINGS: Portable frontal view of the chest. IMPRESSION:Support Lines: None. Lungs and pleura: Improving aeration at the right base compared to the prior examination. No new consolidation. No pneumothorax.Heart and mediastinum: Stable contours.Additional findings: None. Signed: JR Canchola Robert MDReport Verified Date/Time: 01/26/2020 10:09:03 Reading Location: [address] Neuro Reading Room POCT-GLUCOSE METER 2020-01-26 08:34:00 Test Item Value Reference Range Interpretation Comments POC-GLUCOSE METER 162 mg/dL 70-110 H : TESTED A T [facility] 6720 (BEAKER) (test code = [facility] [place], 1538) [id number]: Power Project Manager/Techni edgardo ID = [id number] for BEA GUERREROALEX ANANDA CBC (HEMOGRAM ONLY)2020-01-26 07:00:00 Test Item Value Reference Range Interpretation Comments WHITE BLOOD CELL COUNT (BEAKER) 17.6 K/ L 3.5-10.5 H (test code = 775) RED BLOOD CELL COUNT (BEAKER) 2.91 M/ L 3.93-5.22 L (test code = 761) HEMOGLOBIN (BEAKER) (test code = 9.4 GM/DL 11.2-15.7 L 410) HEMATOCRIT (BEAKER) (test code = 29.3 % 34.1-44.9 L 411) MEAN CORPUSCULAR VOLUME (BEAKER) 100.7 fL 79.4-94.8 H (test code = 753) MEAN CORPUSCULAR HEMOGLOBIN 32.3 pg 25.6-32.2 H (BEAKER) (test code = 751) MEAN CORPUSCULAR HEMOGLOBIN CONC 32.1 GM/DL 32.2-35.5 L (BEAKER) (test code = 752) RED CELL DISTRIBUTION WIDTH 14.2 % 11.7-14.4 (BEAKER) (test code = 412) PLATELET COUNT (BEAKER) (test 305 K/CU MM 150-450 code = 756) MEAN PLATELET VOLUME (BEAKER) 10.6 fL 9.4-12.3 (test code = 754) NUCLEATED RED BLOOD CELLS 1 /100 WBC 0-0 H (BEAKER) (test code = 413) [id number] 06:26:00 Test Item Value Reference Range Interpretation Comments MAGNESIUM (BEAKER) (test code = 1.9 mg/dL 1.6-2.6 627) Power Project Manager ID - DARIUS [id number] 06:26:00 Test Item Value Reference Range Interpretation Comments PHOSPHORUS (BEAKER) (test code = 4.3 mg/dL 2.3-4.7 604) Power Project Manager ID - DARIUS [id number] 21:19:00 Test Item Value Reference Range Interpretation Comments MAGNESIUM (BEAKER) (test code = 2.0 mg/dL 1.6-2.6 627) Power Project Manager ID - [id number] 21:19:00 Test Item Value Reference Range Interpretation Comments POTASSIUM (BEAKER) (test code = 3.5 meq/L 3.5-5.1 379) Power Project Manager ID - BSPOCT-GLUCOSE [id number] 21:01:00 Test Item Value Reference Range Interpretation Comments POC-GLUCOSE METER 181 mg/dL 70-110 H : TESTED A T [facility] 6720 (BEAKER) (test code = [place], 1538) [id number]: Power Project Manager/Techni edgardo ID = [id number] for SAEID LIMON BLOOD [id number] 18:01:00 Test Item Value Reference Range Interpretation Comments CULTURE (BEAKER) (test No growth in 5 days code = 1095) BLOOD [id number] 18:01:00 Test Item Value Reference Range Interpretation Comments CULTURE (BEAKER) (test No growth in 5 days code = 1095) POCT-GLUCOSE [id number] 17:08:00 Test Item Value Reference Range Interpretation Comments POC-GLUCOSE METER 214 mg/dL 70-110 H : TESTED A T [facility] 6720 (BEAKER) (test code = [facility], 1538) [id number]: Power Project Manager/Techni edgardo ID = [id number] for Dalton, Zulma POCT-GLUCOSE [id number] 12:46:00 Test Item Value Reference Range Interpretation Comments POC-GLUCOSE METER 197 mg/dL 70-110 H : TESTED A T [facility] 6720 (BEAKER) (test code = [facility], 1538) [id number]: Power Project Manager/Techni edgardo ID = [id number] for Dalton, Zulma POCT-GLUCOSE [id number] 08:53:00 Test Item Value Reference Range Interpretation Comments POC-GLUCOSE METER 165 mg/dL 70-110 H : TESTED A T [facility] 6720 (BEAKER) (test code = [facility], 1538) [id number]: Power Project Manager/Techni edgardo ID = [id number] for Ro Tayo miltoneth [id number] 07:14:00 Test Item Value Reference Range Interpretation Comments POTASSIUM (BEAKER) (test code = 3.8 meq/L 3.5-5.1 379) Power Project Manager ID - PIAYA LRAD, CHEST, 1 VIEW, NON [id number] 07:03:00Reason for exam:->ECMO, respiratory failureShould this be performed at the bedside?->[facility] : 1970 Sex: FFINAL REPORT RAD, CHEST, 1 VIEW, NON DEPT INDICATION: ECMO, respirato ry failure COMPARISON: Prior day's exam FINDINGS: Portable frontal view of the chest. IMPRESSION:Support Lines: None Lungs and pleura: No significant change near spaces. Increasing small right effusion. No pneumothorax.Heart and mediastinum: Stable contours. Additional findings: None. Signed: JR Canchola Robert MDReport Verified Date/Time: 01/25/2020 07:03:07 Reading Location: [facility] Radiology Reading Room CBC (HEMOGRAM ONLY)2020-01-25 04:47:00 Test Item Value Reference Range Interpretation Comments WHITE BLOOD CELL COUNT (BEAKER) 19.6 K/ L 3.5-10.5 H (test code = 775) RED BLOOD CELL COUNT (BEAKER) 3.23 M/ L 3.93-5.22 L (test code = 761) HEMOGLOBIN (BEAKER) (test code = 10.4 GM/DL 11.2-15.7 L 410) HEMATOCRIT (BEAKER) (test code = 32.8 % 34.1-44.9 L 411) MEAN CORPUSCULAR VOLUME (BEAKER) 101.5 fL 79.4-94.8 H (test code = 753) MEAN CORPUSCULAR HEMOGLOBIN 32.2 pg 25.6-32.2 (BEAKER) (test code = 751) MEAN CORPUSCULAR HEMOGLOBIN CONC 31.7 GM/DL 32.2-35.5 L (BEAKER) (test code = 752) RED CELL DISTRIBUTION WIDTH 14.4 % 11.7-14.4 (BEAKER) (test code = 412) PLATELET COUNT (BEAKER) (test 358 K/CU MM 150-450 code = 756) MEAN PLATELET VOLUME (BEAKER) 10.4 fL 9.4-12.3 (test code = 754) NUCLEATED RED BLOOD CELLS 1 /100 WBC 0-0 H (BEAKER) (test code = 413) [id number] 04:38:00 Test Item Value Reference Range Interpretation Comments MAGNESIUM (BEAKER) (test code = 2.4 mg/dL 1.6-2.6 627) Power Project Manager ID - PIOSWALDO [id number] 04:38:00 Test Item Value Reference Range Interpretation Comments PHOSPHORUS (BEAKER) (test code = 4.4 mg/dL 2.3-4.7 604) Power Project Manager ID - LOVE [id number] 23:33:00 Test Item Value Reference Range Interpretation Comments MAGNESIUM (BEAKER) (test code = 2.5 mg/dL 1.6-2.6 627) Power Project Manager ID - PIOSWALDO LPOCT-GLUCOSE [id number] 23:14:00 Test Item Value Reference Range Interpretation Comments POC-GLUCOSE METER 172 mg/dL 70-110 H : [facility] (BEAKER) (test code = [place], 1538) [id number]: Power Project Manager/Techni edgardo ID = [id number] for Re yes, Sairy BASIC METABOLIC [id number] 16:08:00 Test Item Value Reference Range Interpretation Comments SODIUM (BEAKER) 150 meq/L 136-145 H (test code = 381) POTASSIUM (BEAKER) 3.4 meq/L 3.5-5.1 L (test code = 379) CHLORIDE (BEAKER) 115 meq/L 98-107 H (test code = 382) CO2 (BEAKER) (test 23 meq/L 22-29 code = 355) BLOOD UREA NITROGEN 30 mg/dL 7-21 H (BEAKER) (test code = 354) CREATININE (BEAKER) 1.01 mg/dL 0.57-1.25 (test code = 358) GLUCOSE RANDOM 194 mg/dL 70-105 H (BEAKER) (test code = 652) CALCIUM (BEAKER) 7.7 mg/dL 8.4-10.2 L (test code = 697) EGFR (BEAKER) (test 58 mL/min/1.73 ESTIMA BARBARA GFR IS code = 1092) sq m NOT ACCURATE CREATININE CLEARANCE IN PREDICTING GLOMERULAR FILTRATION RATE . ESTIMATED GFR I S NOT APPLICABLE FOR DIALYSIS PATIEN TS. Power Project Manager ID - [id number] 16:07:00 Test Item Value Reference Range Interpretation Comments MAGNESIUM (BEAKER) (test code = 1.9 mg/dL 1.6-2.6 627) Power Project Manager ID - BSMR, MRA, BRAIN, WITHOUT [id number] 15:56:00Unlisted Reason for Exam - Click Yes and Enter Reason Below->No [facility] 1970 Sex: FFINAL REPORT MRA Head Clinical History: Stroke, follow up Technique: MRA of the head utilizing 3-D xmmf-vz-suxgvd technique with 3-D reconstructions. Comparison: Same day MRI brain and MRA neck Findings: An anterior outpouching at the origin of the basilar artery measures 2 to 3 mm at the neck, consistent with aneurysm. There is a long segment fenestration of the leftvertebral artery. Small fenestration of the proximal basilar artery. No major branch vessel occlusion or high-grade focal stenosis. 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 Signed: Tracy Reynoso Verified Date/Time: 01/24/2020 15:56:25 MR, MRA, NECK, WITHOUT IV [id number] 14:30:00Unlisted Reason for Exam - Click Yes and Enter Reason Below->No [facility] 1970 Sex: FFINAL REPORT MR, MRA, NECK, WITHOUT IV CONTRAST INDICATION: Stroke, f ollow up TECHNIQUE: Multiplanar, multisequence MR images of the brain. 3-D time of flight MRA of the cranial and cervical circulation. 2-D time of flight MRA of the neck. 3D MIP angiographic post-processing was performed. Stenosis evaluation utilized NASCET criteria. COMPARISON: Noncontrast brain CT of the same date FINDINGS: MRA NECK:Common carotid arteries: Unremarkable. Bifurcations: No flow-limiting stenosis. Cervical internal carotid arteries: No flow limiting stenosis.Vertebral arteries: Origins are not well-seen. No flow limiting stenosis within the visualized cervical vertebral arterialsegments. Limited assessment of the V3 segment secondary to noncontrast technique. IMPRESSION: No flow limiting stenosis in the major branch vessels of the cervical circulation. Signed: Kaela Escoto MDReport Verified Date/Time: 01/24/2020 14:30:11 Reading Location: [address] Neuro Reading Room HEPATIC FUNCTION [id number] 14:10:00 Test Item Value Reference Range Interpretation Comments TOTAL PROTEIN (BEAKER) (test code = 6.4 gm/dL 6.0-8.3 770) ALBUMIN (BEAKER) (test code = 1145) 3.4 g/dL 3.5-5.0 L BILIRUBIN TOTAL (BEAKER) (test code 0.5 mg/dL 0.2-1.2 = 377) BILIRUBIN DIRECT (BEAKER) (test 0.3 mg/dL 0.1-0.5 code = 706) ALKALINE PHOSPHATASE (BEAKER) (test 72 U/L 40-150 code = 346) AST (SGOT) (BEAKER) (test code = 20 U/L 5-34 353) ALT (SGPT) (BEAKER) (test code = 29 U/L 6-55 347) Power Project Manager ID - DAMON FMR, BRAIN, WITHOUT [id number] 13:51:00Unlisted Reason for Exam - Click Yes and Enter Reason Below->No [facility] 1970 Sex: FFINAL REPORT MR, BRAIN, WITHOUT CONTRAST INDICATION: Stroke, follow up TECHNIQUE: Multiplanar, multisequence MR imaging of the brain was obtained. COMPARISON: None FINDINGS:Multiple small acute infarcts throughout the right MCA territory within the right frontal and parietal parenchyma. No hemorrhagic conversion or significant mass effect. Midline structures are normally developed. No abnormal susceptibility. Scattered T2/FLAIR hyperintense foci within the periventricular and subcortical white matter are nonspecific, however, statistically represent chronic microvascular ischemic changes. No hydrocephalus. Orbits are within normal limits. No obstructive paranasal sinus disease. Moderate mucosal thickening of the sphenoid sinuses. IMPRESSION: Multiple small acute infarcts throughout the right MCA territory within the right frontal and parietal parenchyma. No hemorrhagic conversion or significant mass effect. Signed: Kaela Escoto MDReport Verified Date/Time: 01/24/2020 13:51:33 Reading Location: [address] Neuro Reading Room POCT-GLUCOSE METER 2020-01-24 11:20:00 Test Item Value Reference Range Interpretation Comments POC-GLUCOSE METER 192 mg/dL 70-110 H : TESTED A T [facility] 6720 (BEAKER) (test code = [place], 1538) [id number]: Power Project Manager/Techni edgardo ID = [id number] for AGNIESZKA ANIKA MEDINA CBC (HEMOGRAM ONLY)2020-01-24 07:04:00 Test Item Value Reference Range Interpretation Comments WHITE BLOOD CELL COUNT (BEAKER) 17.1 K/ L 3.5-10.5 H (test code = 775) RED BLOOD CELL COUNT (BEAKER) 3.28 M/ L 3.93-5.22 L (test code = 761) HEMOGLOBIN (BEAKER) (test code = 10.8 GM/DL 11.2-15.7 L 410) HEMATOCRIT (BEAKER) (test code = 34.1 % 34.1-44.9 411) MEAN CORPUSCULAR VOLUME (BEAKER) 104.0 fL 79.4-94.8 H (test code = 753) MEAN CORPUSCULAR HEMOGLOBIN 32.9 pg 25.6-32.2 H (BEAKER) (test code = 751) MEAN CORPUSCULAR HEMOGLOBIN CONC 31.7 GM/DL 32.2-35.5 L (BEAKER) (test code = 752) RED CELL DISTRIBUTION WIDTH 14.3 % 11.7-14.4 (BEAKER) (test code = 412) PLATELET COUNT (BEAKER) (test 334 K/CU MM 150-450 code = 756) MEAN PLATELET VOLUME (BEAKER) 10.3 fL 9.4-12.3 (test code = 754) BASIC METABOLIC [id number] 04:45:00 Test Item Value Reference Range Interpretation Comments SODIUM (BEAKER) 151 meq/L 136-145 H (test code = 381) POTASSIUM (BEAKER) 3.9 meq/L 3.5-5.1 (test code = 379) CHLORIDE (BEAKER) 113 meq/L 98-107 H (test code = 382) CO2 (BEAKER) (test 29 meq/L 22-29 code = 355) BLOOD UREA NITROGEN 33 mg/dL 7-21 H (BEAKER) (test code = 354) CREATININE (BEAKER) 1.09 mg/dL 0.57-1.25 (test code = 358) GLUCOSE RANDOM 154 mg/dL 70-105 H (BEAKER) (test code = 652) CALCIUM (BEAKER) 8.7 mg/dL 8.4-10.2 (test code = 697) EGFR (BEAKER) (test 53 mL/min/1.73 ESTIMA BARBARA GFR IS code = 1092) sq m NOT ACCURATE CREATININE CLEARANCE IN PREDICTING GLOMERULAR FILTRATION RATE . ESTIMATED GFR I S NOT APPLICABLE FOR DIALYSIS PATIEN TS. Power Project Manager ID - [id number] 04:45:00 Test Item Value Reference Range Interpretation Comments MAGNESIUM (BEAKER) (test code = 2.6 mg/dL 1.6-2.6 627) Power Project Manager ID - [id number] 04:45:00 Test Item Value Reference Range Interpretation Comments PHOSPHORUS (BEAKER) (test code = 4.4 mg/dL 2.3-4.7 604) Power Project Manager ID - EDASIRAD, CHEST, 1 VIEW, NON [id number] 03:38:00Reason for exam:->ECMO, respiratory failureShould this be performed at the bedside?->[facility] : 1970 Sex: FFINAL REPORT RAD, CHEST, 1 VIEW, NON DEPT INDICATION: ECMO, respirato ry failure COMPARISON: Prior day's exam FINDINGS: Portable frontal view of the chest. IMPRESSION:Support Lines: None. Lungs and pleura: Improving aeration of the bilateral lower lungs with persistent bibasilar atelectasis and layering pleural effusions. No pneumothorax.Heart and mediastinum: Stable contours. Additional findings: None. Signed: Ifrah Lopez Verified Date/Time: 01/24/2020 03:38:01 SARS-COV2/RT-PCR ([facility]) 2020-01-23 21:17:00 Test Item Value Reference Range Interpretation Comments SARS-COV2/RT-PCR (test Negative Not Detected, Negative, code = 5383298) See external report for linked test SARS-COV-2 PERFORMING LAB [facility] ADAM (test code = 2531760) Negative result for this test determines that SARS-CoV-2 RNA was not present in the specimen above the Limit of Detection (LOD). However, Negative results do not preclude SARS-CoV-2 infection and should not be used as the sole basis for treatment or patient management decisions. Negative results mustbe combined with clinical observations, patient history, and epidemiological information. A false negative result may occur if a specimen is improperly collected, transported or handled. A false negative result should be considered if patient's recent exposures or clinical presentation indicate that COVID-19 (SARS-CoV-2) is likely and diagnostic tests for other causes of illness are negative. Re-testing should be considered in cases of suspected false negatives.The limit of detection for this assay is 800 copies/mL.This SARS CoV-2 test is a real-time RT-PCR test intended for the qualitative detection of nucleic acid from SARS-CoV-2 in a nasopharyngeal swab specimen collected from individuals susp ected of COVID-19 by their healthcare provider.This test has not been Food and Drug Administration (FDA) cleared or approved. This is a modified version of an approved Emergency Use Authorization (EUA) and is in the process of review by the FDA. Once authorized by the FDA, the issued EUA will be effective until the declaration that circumstances exist justifying the authorization of the emergency use of in vitro diagnostic tests for detection and/or diagnosis of COVID-19 is terminated under Section 564(b)(2) of the Act or the EUA is revoked under Section 564(g) of the Act.Fact Sheet for Healthcare Providers:https://www.[employer].com/sites/default/files/product/documents/Fact_Shee z_[place]_Worfnvmhh_Wsct_EVHO-IvF-4.pdfFact Sheet for Healthcare Patients:https://www.[facility].com/sites/default/files/product/ documents/Vjmt_Miwyc_Lksbabwx_Svrd_OFZS-RoK-7.pdfPerforming Laboratory:[facility] [id number], [place] [id number] METER 2020-01-23 18:41:00 Test Item Value Reference Range Interpretation Comments POC-GLUCOSE METER 171 mg/dL 70-110 H : TESTED Uvaldo Madsen [facility] 6720 (PATITO) (test code = HERLINDA C[place], 1538) [id number]: Power Project Manager/Techni edgardo ID = [id number] for REJI BARNES CT, BRAIN, WITHOUT [id number] 18:03:00Unlisted Reason for Exam - Click Yes and Enter Reason Below->No [facility] 1970 Sex: FAddendum BeginsREPORT STATUS:A The findings were relayed to CARA Oropeza at 6:03 PM on 01/23/2020. Signed: Tracy Reynoso MDReport Verified Date/Time: 01/23/2020 18:03:[address], BRAIN, WITHOUT CONTRAST INDICATION: Neuro deficit, acute, stroke suspected TECHNIQUE: Noncontrast axial imaging was obtained from the vertex to the skull base. Axial images were reconstructed using a bone algorithm. DOSE REDUCTION: Dose modulation, iterative reconstruction, and/or weight-based adjustment of the mA/kV was utilized to reduce the radiation dose to as low as reasonably achievable. COMPARISON: None. FINDINGS: Intracranial: Multiple foci of hypoattenuation with loss of friend-white differentiation within the right frontal and parietallobes, suspicious for acute MCA territory infarcts. No intracranial hemorrhage or abnormal extra-axial collection. No mass effect. No hydrocephalus. Scattered foci of hypoattenuation within the periventricular and subcortical white matter are a nonspecific finding commonly attributed to chronic small vessel ischemic disease. Osseous structures: No fracture. No suspicious lesion. Paranasal sinuses and mastoid air cells: No evidence of sinusitis. Mastoids are clear. Orbital contents: Globes are intact. IMPRESSION: 1.Suspect multifocal acute infarcts within the right MCA distribution. MRI may be performed to ascertain the timing.2.No acute intracranial hemorrhage. Addendum will be made to this report upon successful communication with the ordering physician. Signed: Tracy Reynoso VerifiedDate/Time: 01/23/2020 17:58:21 C METABOLIC [id number] 14:32:00 Test Item Value Reference Range Interpretation Comments SODIUM (BEAKER) 146 meq/L 136-145 H (test code = 381) POTASSIUM (BEAKER) 3.8 meq/L 3.5-5.1 (test code = 379) CHLORIDE (BEAKER) 110 meq/L 98-107 H (test code = 382) CO2 (BEAKER) (test 24 meq/L 22-29 code = 355) BLOOD UREA NITROGEN 35 mg/dL 7-21 H (BEAKER) (test code = 354) CREATININE (BEAKER) 1.15 mg/dL 0.57-1.25 (test code = 358) GLUCOSE RANDOM 152 mg/dL 70-105 H (BEAKER) (test code = 652) CALCIUM (BEAKER) 8.7 mg/dL 8.4-10.2 (test code = 697) EGFR (BEAKER) (test 50 mL/min/1.73 ESTIMA BARBARA GFR IS code = 1092) sq m NOT ACCURATE CREATININE CLEARANCE IN PREDICTING GLOMERULAR FILTRATION RATE . ESTIMATED GFR I S NOT APPLICABLE FOR DIALYSIS PATIEN TS. Power Project Manager ID - [id number] 14:32:00 Test Item Value Reference Range Interpretation Comments MAGNESIUM (BEAKER) (test code = 2.8 mg/dL 1.6-2.6 H 627) Power Project Manager ID - [id number] 11:55:00Medical Cytology Report Case: [id number] Authorizing Provider: Olive Cottrell NP Collected: 01/20/2020 02:19 PM Ordering Location: [place] [address] CCU Received: 01/23/2020 08:43 AM Pathologist: Jairo Baird MD Specimen: Bronchial Wash, (laterality not designated) BRONCHIAL WASHING(LATERALITY NOT SPECIFIED) (CYTOSPINS): - MUCOUS, ACUTE INFLAMMATION, HISTIOCYTES AND FEW SQUAMOUSCELLS PRESENT Signing Pathologist Direct Phone Line: [phone] signed by Jairo Baird MD on 01/23/2020 at 11:55 [id number] failure, systemic diseaseBRONCHIAL WASHING (LATERALITY NOT SPECIFIED)0.2 mls cloudy white fluid, 4 cytospinsPerformed. LimitedLow cellularityBaylor [facility], Department of Pathology, [address] [place] [address], [facility], [facility] of [facility], [address] [place] [address], [facility], Department of Pathology, [address] [place] [address], QDC (HEMOGRAM ONLY)2020-01-23 06:26:00 Test Item Value Reference Range Interpretation Comments WHITE BLOOD CELL COUNT (BEAKER) 16.8 K/ L 3.5-10.5 H (test code = 775) RED BLOOD CELL COUNT (BEAKER) 3.31 M/ L 3.93-5.22 L (test code = 761) HEMOGLOBIN (BEAKER) (test code = 10.4 GM/DL 11.2-15.7 L 410) HEMATOCRIT (BEAKER) (test code = 33.9 % 34.1-44.9 L 411) MEAN CORPUSCULAR VOLUME (BEAKER) 102.4 fL 79.4-94.8 H (test code = 753) MEAN CORPUSCULAR HEMOGLOBIN 31.4 pg 25.6-32.2 (BEAKER) (test code = 751) MEAN CORPUSCULAR HEMOGLOBIN CONC 30.7 GM/DL 32.2-35.5 L (BEAKER) (test code = 752) RED CELL DISTRIBUTION WIDTH 14.4 % 11.7-14.4 (BEAKER) (test code = 412) PLATELET COUNT (BEAKER) (test 294 K/CU MM 150-450 code = 756) MEAN PLATELET VOLUME (BEAKER) 10.4 fL 9.4-12.3 (test code = 754) NUCLEATED RED BLOOD CELLS 1 /100 WBC 0-0 H (BEAKER) (test code = 413) [id number] 06:24:00 Test Item Value Reference Range Interpretation Comments FIBRINOGEN LEVEL (BEAKER) (test 495 mg/dl 225-434 H code = 658) [id number] 06:10:00 Test Item Value Reference Range Interpretation Comments MAGNESIUM (BEAKER) 2.7 mg/dL 1.6-2.6 H Specimen slightly (test code = 627) hemolyzed Power Project Manager ID - [id number] 06:10:00 Test Item Value Reference Range Interpretation Comments PHOSPHORUS (BEAKER) 3.7 mg/dL 2.3-4.7 Specimen slightly (test code = 604) hemolyzed Power Project Manager ID - ADMINBASIC METABOLIC [id number] 06:10:00 Test Item Value Reference Range Interpretation Comments SODIUM (BEAKER) 148 meq/L 136-145 H (test code = 381) POTASSIUM (BEAKER) 4.0 meq/L 3.5-5.1 Specimen slightly (test code = 379) hemolyzed CHLORIDE (BEAKER) 112 meq/L 98-107 H (test code = 382) CO2 (BEAKER) (test 26 meq/L 22-29 code = 355) BLOOD UREA NITROGEN 35 mg/dL 7-21 H (BEAKER) (test code = 354) CREATININE (BEAKER) 1.08 mg/dL 0.57-1.25 Specimen slightly (test code = 358) hemolyzed GLUCOSE RANDOM 141 mg/dL 70-105 H (BEAKER) (test code = 652) CALCIUM (BEAKER) 8.5 mg/dL 8.4-10.2 (test code = 697) EGFR (BEAKER) (test 54 mL/min/1.73 ESTIMA BARBARA GFR IS code = 1092) sq m NOT ACCURATE CREATININE CLEARANCE IN PREDICTING GLOMERULAR FILTRATION RATE . ESTIMATED GFR I S NOT APPLICABLE FOR DIALYSIS PATIEN TS. Power Project Manager ID - ADMINBLOOD GAS, [id number] 05:55:00 Test Item Value Reference Range Interpretation Comments PH ARTERIAL (BEAKER) (test code = 7.47 7.35-7.45 H 383) PCO2 ARTERIAL (BEAKER) (test code 36 mm Hg 35-45 = 384) PO2 ARTERIAL (BEAKER) (test code = 60 mm Hg 80-90 L 385) O2 SATURATION ARTERIAL (BEAKER) 92.7 % 96.0-97.0 L (test code = 386) HCO3 ARTERIAL (BEAKER) (test code 26 mmol/L 21-29 = 388) BASE EXCESS ARTERIAL (BEAKER) 2.6 mmol/L -2.0-3.0 (test code = 387) PATIENT TEMPERATURE (BEAKER) (test 36.9 code = 1818) FIO2 (BEAKER) (test code = 1819) 60.0 RAD, CHEST, 1 VIEW, NON [id number] 04:28:00Reason for exam:->ECMO, respiratory failureShould this be performed at the bedside?->Yes [facility] 1970 Sex: FFINAL REPORT RAD, CHEST, 1 VIEW, NON DEPT INDICATION: ECMO, respirato ry failure COMPARISON: Prior day's exam FINDINGS: Portable frontal view of the chest. IMPRESSION:Support Lines: No significant change. Lungs and pleura: Increased basilar hazy opacities possibly layering effusions, atelectasis or aspiration. Improved left mid lung discoid atelectasis. No pneumothorax.Heart and mediastinum: Stable contours. Additional findings: None. Signed: Fredis Mclain MDReport Verified Date/Time: 01/23/2020 04:28:41 Electronically signed by: FREDIS MCLAIN MD on01/23/2020 04:28 AMPOCT-GLUCOSE METER 2020-01-23 01:13:00 Test Item Value Reference Range Interpretation Comments POC-GLUCOSE METER 135 mg/dL 70-110 H : TESTED A T [facility] 6720 (BEAKER) (test code = [facility] Suki [facility], 1538) [address]: Power Project Manager/Techni edgardo ID = [id number] for Wilbert Ivan [id number] 22:53:00 Test Item Value Reference Range Interpretation Comments MAGNESIUM (BEAKER) 2.6 mg/dL 1.6-2.6 Specimen slightly (test code = 627) hemolyzed Power Project Manager ID - DBPOCT-GLUCOSE [id number] 17:01:00 Test Item Value Reference Range Interpretation Comments POC-GLUCOSE METER 121 mg/dL 70-110 H : TESTED A T [facility] 6720 (BEAKER) (test code = [facility] Suki [facility], 1538) [address]: Power Project Manager/Techni edgardo ID = [id number] for TOMASA GARCIA [id number] 12:39:00 Test Item Value Reference Range Interpretation Comments MAGNESIUM (BEAKER) (test code = 2.6 mg/dL 1.6-2.6 627) Power Project Manager ID - SANTA [id number] 12:39:00 Test Item Value Reference Range Interpretation Comments POTASSIUM (BEAKER) (test code = 3.6 meq/L 3.5-5.1 379) Power Project Manager ID - SANTA CPOCT-GLUCOSE [id number] 12:32:00 Test Item Value Reference Range Interpretation Comments POC-GLUCOSE METER 116 mg/dL 70-110 H : TESTED A T [facility] 6720 (BEAKER) (test code [facility], = 1538) [address]: Power Project Manager/Techni edgardo ID = [id number] for NAI HYATT BRONCHIAL CULTURE + GRAM [id number] 10:03:00 Test Item Value Reference Range Interpretation Comments CULTURE (BEAKER) (test KLEBSIELLA A 4+ Kl ebsiella code = 1095) PNEUMONIAE SSP pneumoniae ss p PNEUMONIAE pneumoniae Amikacin (test code = S 1) Ampicillin + Sulbactam S (test code = 6) Aztreonam (test code = S 32) Cefepime (test code = S 51) Cefoxitin (test code = S 68) Ceftazidime (test code S = 27) Ceftriaxone (test code S = 52) Ertapenem (test code = S 38) Gentamicin (test code = S 18) Levofloxacin (test code S = 22) Meropenem (test code = S 34) Nitrofurantoin (test I code = 23) Piperacillin + S Tazobactam (test code = 29) Tetracycline (test code S = 2) Tobramycin (test code = S 25) Trimethoprim + S Sulfamethoxazole (test code = 47) GRAM STAIN RESULT 2+ WBCs (BEAKER) (test code = 1123) GRAM STAIN RESULT 1+ gram negative (BEAKER) (test code = rods 215728) GRAM STAIN RESULT 1+ gram positive (BEAKER) (test code = cocci in pairs 605612) and clusters RAD, CHEST, 1 VIEW, NON [id number] 08:28:00Reason for exam:->ECMO, respiratory failureShould this be performed at the bedside?->Yes [facility] 1970 Sex: FFINAL REPORT TECHNIQUE: Frontal view of the chest. INDICATION: 50-yea r-old woman with respiratory failure. COMPARISON: Chest radiograph 01/21/2020. FINDINGS: LINES/TUBES: Interval extubation and removal of the feeding tube. LUNGS: Decreased atelectasis in the right lower lung zone. Persistent atelectasis in the left midlung zone. No new consolidation or pulmonary edema. PLEURA: No pneumothorax or significant pleural effusion. HEART AND MEDIASTINUM: Cardiomediastinal silhouette is unchanged. BONES AND SOFT TISSUES: Unremarkable. IMPRESSION:Lines/tubes as above. Improved right basilar atelectasis. Otherwise, no significant change since 01/21/2020. Signed: Cecilio Harkins MDReport Verified Date/Time: 01/22/2020 08:28:57 Reading Location: [address] Consult Reading Room CBC (HEMOGRAM ONLY)2020-01-22 05:46:00 Test Item Value Reference Range Interpretation Comments WHITE BLOOD CELL COUNT (BEAKER) 15.0 K/ L 3.5-10.5 H (test code = 775) RED BLOOD CELL COUNT (BEAKER) 3.19 M/ L 3.93-5.22 L (test code = 761) HEMOGLOBIN (BEAKER) (test code = 10.2 GM/DL 11.2-15.7 L 410) HEMATOCRIT (BEAKER) (test code = 32.5 % 34.1-44.9 L 411) MEAN CORPUSCULAR VOLUME (BEAKER) 101.9 fL 79.4-94.8 H (test code = 753) MEAN CORPUSCULAR HEMOGLOBIN 32.0 pg 25.6-32.2 (BEAKER) (test code = 751) MEAN CORPUSCULAR HEMOGLOBIN CONC 31.4 GM/DL 32.2-35.5 L (BEAKER) (test code = 752) RED CELL DISTRIBUTION WIDTH 14.4 % 11.7-14.4 (BEAKER) (test code = 412) PLATELET COUNT (BEAKER) (test 229 K/CU MM 150-450 code = 756) MEAN PLATELET VOLUME (BEAKER) 10.3 fL 9.4-12.3 (test code = 754) NUCLEATED RED BLOOD CELLS 1 /100 WBC 0-0 H (BEAKER) (test code = 413) [id number] 05:32:00 Test Item Value Reference Range Interpretation Comments MAGNESIUM (BEAKER) 2.5 mg/dL 1.6-2.6 Specimen slightly (test code = 627) hemolyzed Power Project Manager ID - PIAYA [id number] 05:32:00 Test Item Value Reference Range Interpretation Comments PHOSPHORUS (BEAKER) 4.1 mg/dL 2.3-4.7 Specimen slightly (test code = 604) hemolyzed Power Project Manager ID - PIAYA LBASIC METABOLIC [id number] 05:32:00 Test Item Value Reference Range Interpretation Comments SODIUM (BEAKER) 147 meq/L 136-145 H (test code = 381) POTASSIUM (BEAKER) 3.6 meq/L 3.5-5.1 Specimen slightly (test code = 379) hemolyzed CHLORIDE (BEAKER) 111 meq/L 98-107 H (test code = 382) CO2 (BEAKER) (test 23 meq/L 22-29 code = 355) BLOOD UREA NITROGEN 31 mg/dL 7-21 H (BEAKER) (test code = 354) CREATININE (BEAKER) 1.09 mg/dL 0.57-1.25 Specimen slightly (test code = 358) hemolyzed GLUCOSE RANDOM 131 mg/dL 70-105 H (BEAKER) (test code = 652) CALCIUM (BEAKER) 8.6 mg/dL 8.4-10.2 (test code = 697) EGFR (BEAKER) (test 53 mL/min/1.73 ESTIMA BARBARA GFR IS code = 1092) sq m NOT ACCURATE CREATININE CLEARANCE IN PREDICTING GLOMERULAR FILTRATION RATE . ESTIMATED GFR I S NOT APPLICABLE FOR DIALYSIS PATIEN TS. Power Project Manager ID - PIAYA [id number] 04:52:00 Test Item Value Reference Range Interpretation Comments FIBRINOGEN LEVEL (BEAKER) (test 510 mg/dl 225-434 H code = 658) BLOOD GAS, [id number] 04:01:00 Test Item Value Reference Range Interpretation Comments PH VENOUS (BEAKER) (test code = 7.43 7.32-7.42 H 701) PCO2 VENOUS (BEAKER) (test code = 38 mm Hg 41-51 L 755) PO2 VENOUS (BEAKER) (test code = 54 mm Hg 25-40 H 702) O2 SATURATION VENOUS (BEAKER) 88.6 % 40.0-70.0 H (test code = 703) HCO3 VENOUS (BEAKER) (test code = 25 mmol/L 21-29 705) BASE EXCESS VENOUS (BEAKER) (test 0.7 mmol/L -2.0-3.0 code = 704) PATIENT TEMPERATURE (BEAKER) (test 37.4 code = 1818) FIO2 (BEAKER) (test code = 1819) 70.0 POCT-GLUCOSE [id number] 00:34:00 Test Item Value Reference Range Interpretation Comments POC-GLUCOSE METER 134 mg/dL 70-110 H : TESTED A T [facility] 6720 (BEAKER) (test code = [facility], 153) [address]: Power Project Manager/Techni edgardo ID = [id number] for Linus Mendez [id number] 23:33:00 Test Item Value Reference Range Interpretation Comments MAGNESIUM (BEAKER) (test code = 2.5 mg/dL 1.6-2.6 627) Power Project Manager ID - LOVE [id number] 23:33:00 Test Item Value Reference Range Interpretation Comments POTASSIUM (BEAKER) (test code = 3.6 meq/L 3.5-5.1 379) Power Project Manager ID - LOVE LPOCT-GLUCOSE [id number] 17:58:00 Test Item Value Reference Range Interpretation Comments POC-GLUCOSE METER 193 mg/dL 70-110 H : TESTED A T [facility] 6720 (BEAKER) (test code = [facility], 153) [address]: Power Project Manager/Techni edgardo ID = [id number] for RE YES, TOMASA [id number] 12:54:00 Test Item Value Reference Range Interpretation Comments MAGNESIUM (BEAKER) (test code = 2.5 mg/dL 1.6-2.6 627) Power Project Manager ID - SANTA [id number] 12:54:00 Test Item Value Reference Range Interpretation Comments POTASSIUM (BEAKER) (test code = 3.5 meq/L 3.5-5.1 379) Power Project Manager ID - SANTA CPOCT-GLUCOSE [id number] 12:32:00 Test Item Value Reference Range Interpretation Comments POC-GLUCOSE METER 159 mg/dL 70-110 H : TESTED A T [facility] 6720 (BEAKER) (test code = [facility], 153) [address]: Power Project Manager/Techni edgardo ID = [id number] for RE YES, TOMASA SPIN/CONCENTRATION [id number] 09:42:00 Test Item Value Reference Range Interpretation Comments CONCENTRATION CHARGED (BEAKER) (test Done code = 2657) RAD, CHEST, 1 VIEW, NON [id number] 08:01:00Reason for exam:->ECMO, respiratory failureShould this be performed at the bedside?->Yes [facility] 1970 Sex: FFINAL REPORT RAD, CHEST, 1 VIEW, NON DEPT INDICATION: ECMO, respirato ry failure COMPARISON: Prior day's exam FINDINGS: Portable frontal view of the chest. IMPRESSION:Support Lines: Stable. Lungs and pleura: Increased airspace and pleural opacities. No pneumothorax.Heart and mediastinum: Stable contours. Stable surgical changes.Additional findings: None. Signed: Kaela Escoto MDReport Verified Date/Time: 01/21/2020 08:01:01 Reading Location: [address] Neuro Reading Room COMPREHENSIVE METABOLIC [id number] 06:17:00 Test Item Value Reference Range Interpretation Comments TOTAL PROTEIN 6.0 gm/dL 6.0-8.3 (BEAKER) (test code = 770) ALBUMIN (BEAKER) 3.3 g/dL 3.5-5.0 L (test code = 1145) ALKALINE PHOSPHATASE 67 U/L 40-150 (BEAKER) (test code = 346) BILIRUBIN TOTAL 0.4 mg/dL 0.2-1.2 (BEAKER) (test code = 377) SODIUM (BEAKER) (test 143 meq/L 136-145 code = 381) POTASSIUM (BEAKER) 3.9 meq/L 3.5-5.1 (test code = 379) CHLORIDE (BEAKER) 110 meq/L 98-107 H (test code = 382) CO2 (BEAKER) (test 23 meq/L 22-29 code = 355) BLOOD UREA NITROGEN 44 mg/dL 7-21 H (BEAKER) (test code = 354) CREATININE (BEAKER) 1.23 mg/dL 0.57-1.25 (test code = 358) GLUCOSE RANDOM 195 mg/dL 70-105 H (BEAKER) (test code = 652) CALCIUM (BEAKER) 8.4 mg/dL 8.4-10.2 (test code = 697) AST (SGOT) (BEAKER) 28 U/L 5-34 (test code = 353) ALT (SGPT) (BEAKER) 43 U/L 6-55 (test code = 347) EGFR (BEAKER) (test 46 mL/min/1.73 ESTIMA BARBARA GFR IS code = 1092) sq m NOT ACCURATE CREATININE CLEARANCE IN PREDICTING GLOMERULAR FILTRATION RATE . ESTIMATED GFR I S NOT APPLICABLE FOR DIALYSIS PATIEN TS. Power Project Manager ID - [id number] 06:17:00 Test Item Value Reference Range Interpretation Comments MAGNESIUM (BEAKER) (test code = 2.5 mg/dL 1.6-2.6 627) Power Project Manager ID - [id number] 06:17:00 Test Item Value Reference Range Interpretation Comments PHOSPHORUS (BEAKER) (test code = 3.9 mg/dL 2.3-4.7 604) Power Project Manager ID - EDASICREATINE KINASE (CK)2020-01-21 06:17:00 Test Item Value Reference Range Interpretation Comments CREATINE KINASE TOTAL (BEAKER) (test 393 U/L 29-200 H code = 380) Power Project Manager ID - EDASICBC (HEMOGRAM ONLY)2020-01-21 05:57:00 Test Item Value Reference Range Interpretation Comments WHITE BLOOD CELL COUNT (BEAKER) 12.0 K/ L 3.5-10.5 H (test code = 775) RED BLOOD CELL COUNT (BEAKER) 3.00 M/ L 3.93-5.22 L (test code = 761) HEMOGLOBIN (BEAKER) (test code = 9.5 GM/DL 11.2-15.7 L 410) HEMATOCRIT (BEAKER) (test code = 29.8 % 34.1-44.9 L 411) MEAN CORPUSCULAR VOLUME (BEAKER) 99.3 fL 79.4-94.8 H (test code = 753) MEAN CORPUSCULAR HEMOGLOBIN 31.7 pg 25.6-32.2 (BEAKER) (test code = 751) MEAN CORPUSCULAR HEMOGLOBIN CONC 31.9 GM/DL 32.2-35.5 L (BEAKER) (test code = 752) RED CELL DISTRIBUTION WIDTH 14.3 % 11.7-14.4 (BEAKER) (test code = 412) PLATELET COUNT (BEAKER) (test 188 K/CU MM 150-450 code = 756) MEAN PLATELET VOLUME (BEAKER) 10.1 fL 9.4-12.3 (test code = 754) NUCLEATED RED BLOOD CELLS 1 /100 WBC 0-0 H (BEAKER) (test code = 413) BLOOD GAS, [id number] 05:42:00 Test Item Value Reference Range Interpretation Comments PH ARTERIAL (BEAKER) (test code = 7.47 7.35-7.45 H 383) PCO2 ARTERIAL (BEAKER) (test code 34 mm Hg 35-45 L = 384) PO2 ARTERIAL (BEAKER) (test code = 74 mm Hg 80-90 L 385) O2 SATURATION ARTERIAL (BEAKER) 95.2 % 96.0-97.0 L (test code = 386) HCO3 ARTERIAL (BEAKER) (test code 24 mmol/L 21-29 = 388) BASE EXCESS ARTERIAL (BEAKER) 0.5 mmol/L -2.0-3.0 (test code = 387) PATIENT TEMPERATURE (BEAKER) (test 38.0 code = 1818) FIO2 (BEAKER) (test code = 1819) 40.0 HEPARIN ASSAY - [id number] 05:39:00 Test Item Value Reference Range Interpretation Comments UNFRACTIONATED HEPARIN-ANTI 10A < u/ml 0.30-0.70 L (BEAKER) (test code = 1606) Recommendations for Monitoring Unfractionated Heparin Therapeutic Range: 0.3- 0.7 u/mL with continuous IV infusionLACTIC ACID, [id number] 05:39:00 Test Item Value Reference Range Interpretation Comments LACTATE BLOOD VENOUS (2) (BEAKER) 1.25 mmol/L 0.50-2.20 (test code = 2872) Power Project Manager ID - EDASIPROTHROMBIN [id number] 05:36:00 Test Item Value Reference Range Interpretation Comments PROTIME (BEAKER) (test code = 14.7 seconds 11.9-14.2 H 759) INR (BEAKER) (test code = 370) 1.18 <=5.90 Effective 07/28/2018: PT Reference Range ChangeNew: 11.9-14.2 Previous: 11.7- 14.7RECOMMENDED COUMADIN/WARFARIN INR THERAPY RANGESSTANDARD DOSE: 2.0-3.0 Includes: PROPHYLAXIS for venous thrombosis, systemic embolization; TREATMENT for venous thrombosis and/or pulmonary embolus.HIGH RISK: Target INR is2.5-3.5 for patients wiht mechanical heart valves.[id number] 05:36:00 Test Item Value Reference Range Interpretation Comments FIBRINOGEN LEVEL (BEAKER) (test 479 mg/dl 225-434 H code = 658) OXYGEN SATURATION, [id number] 05:08:00 Test Item Value Reference Range Interpretation Comments O2 SATURATION (MEASURED) (BEAKER) 85.9 % (test code = 1455) POCT-GLUCOSE [id number] 23:59:00 Test Item Value Reference Range Interpretation Comments POC-GLUCOSE METER 171 mg/dL 70-110 H : Notified RN/MD: (BEAKER) (test code = TESTED AT [facility] 6668 6888) [facility], [address]: Power Project Manager/Techni edgardo ID = [id number] for SA GALICIAJADEN BASIC METABOLIC [id number] 22:06:00 Test Item Value Reference Range Interpretation Comments SODIUM (BEAKER) 141 meq/L 136-145 (test code = 381) POTASSIUM (BEAKER) 3.8 meq/L 3.5-5.1 (test code = 379) CHLORIDE (BEAKER) 108 meq/L 98-107 H (test code = 382) CO2 (BEAKER) (test 20 meq/L 22-29 L code = 355) BLOOD UREA NITROGEN 44 mg/dL 7-21 H (BEAKER) (test code = 354) CREATININE (BEAKER) 1.34 mg/dL 0.57-1.25 H (test code = 358) GLUCOSE RANDOM 234 mg/dL 70-105 H (BEAKER) (test code = 652) CALCIUM (BEAKER) 8.2 mg/dL 8.4-10.2 L (test code = 697) EGFR (BEAKER) (test 42 mL/min/1.73 ESTIMA BARBARA GFR IS code = 1092) sq m NOT ACCURATE CREATININE CLEARANCE IN PREDICTING GLOMERULAR FILTRATION RATE . ESTIMATED GFR I S NOT APPLICABLE FOR DIALYSIS PATIEN TS. Power Project Manager ID - [id number] 22:06:00 Test Item Value Reference Range Interpretation Comments MAGNESIUM (PATITO) (test code = 2.5 mg/dL 1.6-2.6 627) Power Project Manager ID - DBPOCT-GLUCOSE [id number] 18:27:00 Test Item Value Reference Range Interpretation Comments POC-GLUCOSE METER 200 mg/dL 70-110 H : TESTED A T [facility] 6720 (PATITO) (test code = HERLINDA Cohn [place], 1538) [address]: Power Project Manager/Techni edgardo ID = [id number] for CARLIE HOLLIDAY RAD, ABDOMEN/KUB, 1 VIEW [id number] 17:36:00Reason for exam:->abdominal distensionShould this be performed at the bedside?->Yes [facility] 1970 Sex: FFINAL REPORT TECHNIQUE: Frontal view of the abdomen. INDICATION: 50-y ear-old woman with abdominal distention. COMPARISON: Abdomen radiographs 01/18/2020. IMPRESSION:Nonspecific bowel gas pattern with mild gaseous distention of the transverse colon. Unchanged feeding tube terminates over the expected region of the proximal duodenum. Otherwise, no significant change since 01/18/2020. Signed: Cecilio Harkins MDReport Verified Date/Time: 01/20/2020 17:36:10 Reading Location: [facility] C0[facility] Consult Reading Room URINALYSIS W/ REFLEX URINE [id number] 17:15:00 Test Item Value Reference Range Interpretation Comments COLOR (BEAKER) (test code = 470) Yellow CLARITY (BEAKER) (test code = 469) Clear SPECIFIC GRAVITY UA (BEAKER) (test 1.019 1.001-1.035 code = 468) PH UA (BEAKER) (test code = 467) 8.0 5.0-8.0 PROTEIN UA (BEAKER) (test code = 20 mg/dL Negative A 464) GLUCOSE UA (BEAKER) (test code = Negative Negative 365) KETONES UA (BEAKER) (test code = Negative Negative 371) BILIRUBIN UA (BEAKER) (test code = Negative Negative 462) BLOOD UA (BEAKER) (test code = 461) Moderate Negative A NITRITE UA (BEAKER) (test code = Negative Negative 465) LEUKOCYTE ESTERASE UA (BEAKER) Negative Negative (test code = 466) UROBILINOGEN UA (BEAKER) (test code 0.2 mg/dL 0.2-1.0 = 463) RBC UA (BEAKER) (test code = 519) 112 /HPF WBC UA (BEAKER) (test code = 520) 0 /HPF SOURCE(BEAKER) (test code = 2795) Power Project Manager ID - [auto]Power Project Manager ID - techHEPARIN ASSAY - [id number] 15:43:00 Test Item Value Reference Range Interpretation Comments UNFRACTIONATED HEPARIN-ANTI 10A < u/ml 0.30-0.70 L (BEAKER) (test code = 1606) Recommendations for Monitoring Unfractionated Heparin Therapeutic Range: 0.3- 0.7 u/mL with continuous IV infusionBASIC METABOLIC [id number] 15:25:00 Test Item Value Reference Range Interpretation Comments SODIUM (BEAKER) 142 meq/L 136-145 (test code = 381) POTASSIUM (BEAKER) 4.0 meq/L 3.5-5.1 (test code = 379) CHLORIDE (BEAKER) 108 meq/L 98-107 H (test code = 382) CO2 (BEAKER) (test 23 meq/L 22-29 code = 355) BLOOD UREA NITROGEN 42 mg/dL 7-21 H (BEAKER) (test code = 354) CREATININE (BEAKER) 1.47 mg/dL 0.57-1.25 H (test code = 358) GLUCOSE RANDOM 214 mg/dL 70-105 H (BEAKER) (test code = 652) CALCIUM (BEAKER) 8.3 mg/dL 8.4-10.2 L (test code = 697) EGFR (BEAKER) (test 38 mL/min/1.73 ESTIMA BARBARA GFR IS code = 1092) sq m NOT ACCURATE CREATININE CLEARANCE IN PREDICTING GLOMERULAR FILTRATION RATE . ESTIMATED GFR I S NOT APPLICABLE FOR DIALYSIS PATIEN TS. Power Project Manager ID - [id number] 15:25:00 Test Item Value Reference Range Interpretation Comments MAGNESIUM (BEAKER) (test code = 2.3 mg/dL 1.6-2.6 627) Power Project Manager ID - ADMINPOCT-GLUCOSE [id number] 12:00:00 Test Item Value Reference Range Interpretation Comments POC-GLUCOSE METER 179 mg/dL 70-110 H : TESTED A T [facility] 6720 (PATITO) (test code = HERLINDA Cohn [facility], 1538) [id number]: Power Project Manager/Techni edgardo ID = [id number] for FO X, PARISA RAD, CHEST, 1 VIEW, NON [id number] 07:46:00Reason for exam:->ECMO, respiratory failureShould this be performed at the bedside?->Yes [facility] 1970 Sex: FFINAL REPORT CLINICAL HISTORY: ECMO, respiratory failure TECHNIQUE: 1 view of the chest. COMPARISON: 01/19/2020 IMPRESSION: The supporting lines and tubes are similar appearing. Right lower lung airspace opacity appears slightly increased. Left lower lung opacity is unchanged. A small layering right pleural effusion is again noted. The cardiomediastinal silhouette is magnified by technique. Signed: Vale Torres MDReport Verified Date/Time: 01/20/2020 07:46:44 Reading Location: [facility] Radiology Reading Room HEPARIN ASSAY - [id number] 05:12:00 Test Item Value Reference Range Interpretation Comments UNFRACTIONATED HEPARIN-ANTI 10A < u/ml 0.30-0.70 L (BEAKER) (test code = 1606) Recommendations for Monitoring Unfractionated Heparin Therapeutic Range: 0.3- 0.7 u/mL with continuous IV infusionPROTHROMBIN [id number] 04:58:00 Test Item Value Reference Range Interpretation Comments PROTIME (ICON AircraftAKER) (test code = 14.3 seconds 11.9-14.2 H 759) INR (BEAKER) (test code = 370) 1.14 <=5.90 Effective 07/28/2018: PT Reference Range ChangeNew: 11.9-14.2 Previous: 11.7- 14.7RECOMMENDED COUMADIN/WARFARIN INR THERAPY RANGESSTANDARD DOSE: 2.0-3.0 Includes: PROPHYLAXIS for venous thrombosis, systemic embolization; TREATMENT for venous thrombosis and/or pulmonary embolus.HIGH RISK: Target INR is2.5-3.5 for patients wiht mechanical heart valves.[id number] 04:58:00 Test Item Value Reference Range Interpretation Comments FIBRINOGEN LEVEL (BEAKER) (test 598 mg/dl 225-434 H code = 658) [id number] 04:58:00 Test Item Value Reference Range Interpretation Comments PARTIAL THROMBOPLASTIN TIME 25.4 seconds 22.5-36.0 (BEAKER) (test code = 760) [id number] 04:34:00 Test Item Value Reference Range Interpretation Comments MAGNESIUM (BEAKER) 2.4 mg/dL 1.6-2.6 Specimen slightly (test code = 627) hemolyzed Power Project Manager ID - [id number] 04:34:00 Test Item Value Reference Range Interpretation Comments PHOSPHORUS (BEAKER) 3.7 mg/dL 2.3-4.7 Specimen slightly (test code = 604) hemolyzed Power Project Manager ID - EDASICOMPREHENSIVE METABOLIC [id number] 04:34:00 Test Item Value Reference Range Interpretation Comments TOTAL PROTEIN 6.4 gm/dL 6.0-8.3 Specimen sligh tly (BEAKER) (test code = hemoly zed 770) ALBUMIN (BEAKER) 3.4 g/dL 3.5-5.0 L Specimen sl ightly (test code = 1145) hemolyzed ALKALINE PHOSPHATASE 73 U/L 40-150 (BEAKER) (test code = 346) BILIRUBIN TOTAL 0.6 mg/dL 0.2-1.2 Specimen sli ghtly (BEAKER) (test code = hemoly zed 377) SODIUM (BEAKER) (test 142 meq/L 136-145 code = 381) POTASSIUM (BEAKER) 3.3 meq/L 3.5-5.1 L Specimen slightly (test code = 379) hemolyzed CHLORIDE (BEAKER) 104 meq/L 98-107 (test code = 382) CO2 (BEAKER) (test 25 meq/L 22-29 code = 355) BLOOD UREA NITROGEN 37 mg/dL 7-21 H (BEAKER) (test code = 354) CREATININE (BEAKER) 1.30 mg/dL 0.57-1.25 H Specimen slightly (test code = 358) hemolyzed GLUCOSE RANDOM 164 mg/dL 70-105 H (BEAKER) (test code = 652) CALCIUM (BEAKER) 8.7 mg/dL 8.4-10.2 (test code = 697) AST (SGOT) (BEAKER) 41 U/L 5-34 H Specimen slightly (test code = 353) hemolyzed ALT (SGPT) (BEAKER) 49 U/L 6-55 Specimen slightly (test code = 347) hemolyzed EGFR (BEAKER) (test 44 mL/min/1.73 ESTIMA BARBARA GFR IS code = 1092) sq m NOT ACCURATE CREATININE CLEARANCE IN PREDICTING GLOMERULAR FILTRATION RATE . ESTIMATED GFR I S NOT APPLICABLE FOR DIALYSIS PATIEN TS. Power Project Manager ID - EDASICREATINE KINASE (CK)2020-01-20 04:34:00 Test Item Value Reference Range Interpretation Comments CREATINE KINASE TOTAL (BEAKER) (test 335 U/L 29-200 H code = 380) Power Project Manager ID - EDASILACTIC ACID, [id number] 04:24:00 Test Item Value Reference Range Interpretation Comments LACTATE BLOOD 0.8 mmol/L 0.5-2.2 Specimen sligh tly ARTERIAL (2) (BEAKER) hemoly zed (test code = 2874) Power Project Manager ID - LOVE LCBC (HEMOGRAM ONLY)2020-01-20 04:23:00 Test Item Value Reference Range Interpretation Comments WHITE BLOOD CELL COUNT (BEAKER) 10.3 K/ L 3.5-10.5 (test code = 775) RED BLOOD CELL COUNT (BEAKER) 3.28 M/ L 3.93-5.22 L (test code = 761) HEMOGLOBIN (BEAKER) (test code = 10.3 GM/DL 11.2-15.7 L 410) HEMATOCRIT (BEAKER) (test code = 31.9 % 34.1-44.9 L 411) MEAN CORPUSCULAR VOLUME (BEAKER) 97.3 fL 79.4-94.8 H (test code = 753) MEAN CORPUSCULAR HEMOGLOBIN 31.4 pg 25.6-32.2 (BEAKER) (test code = 751) MEAN CORPUSCULAR HEMOGLOBIN CONC 32.3 GM/DL 32.2-35.5 (BEAKER) (test code = 752) RED CELL DISTRIBUTION WIDTH 14.2 % 11.7-14.4 (BEAKER) (test code = 412) PLATELET COUNT (BEAKER) (test 168 K/CU MM 150-450 code = 756) MEAN PLATELET VOLUME (BEAKER) 9.7 fL 9.4-12.3 (test code = 754) NUCLEATED RED BLOOD CELLS 1 /100 WBC 0-0 H (BEAKER) (test code = 413) CALCIUM, [id number] 04:20:00 Test Item Value Reference Range Interpretation Comments CALCIUM IONIZED (BEAKER) (test 1.08 mmol/L 1.12-1.27 L code = 698) PH, BLOOD (BEAKER) (test code = 7.52 1810) BLOOD GAS, [id number] 04:16:00 Test Item Value Reference Range Interpretation Comments PH ARTERIAL (BEAKER) (test code = 7.51 7.35-7.45 H 383) PCO2 ARTERIAL (BEAKER) (test code 34 mm Hg 35-45 L = 384) PO2 ARTERIAL (BEAKER) (test code = 101 mm Hg 80-90 H 385) O2 SATURATION ARTERIAL (BEAKER) 98.0 % 96.0-97.0 H (test code = 386) HCO3 ARTERIAL (BEAKER) (test code 27 mmol/L 21-29 = 388) BASE EXCESS ARTERIAL (BEAKER) 4.2 mmol/L -2.0-3.0 H (test code = 387) PATIENT TEMPERATURE (BEAKER) (test 37.5 code = 1818) FIO2 (BEAKER) (test code = 1819) 40.0 OXYGEN SATURATION, [id number] 04:16:00 Test Item Value Reference Range Interpretation Comments O2 SATURATION (MEASURED) (BEAKER) 78.4 % (test code = 1455) [id number] 02:02:00 Test Item Value Reference Range Interpretation Comments POTASSIUM (BEAKER) (test code = 3.5 meq/L 3.5-5.1 379) Power Project Manager ID - EDASIPOCT-GLUCOSE [id number] 00:12:00 Test Item Value Reference Range Interpretation Comments POC-GLUCOSE METER 164 mg/dL 70-110 H : Notified RN/MD: (BEAKER) (test code = TESTED AT [facility] 6720 9722) [facility], [id number]: Power Project Manager/Techni edgardo ID = [id number] for JADEN MICHELLE [id number] 21:42:00 Test Item Value Reference Range Interpretation Comments MAGNESIUM (BEAKER) 2.6 mg/dL 1.6-2.6 Specimen slightly (test code = 627) hemolyzed Power Project Manager ID - DBBASIC METABOLIC [id number] 21:42:00 Test Item Value Reference Range Interpretation Comments SODIUM (BEAKER) 139 meq/L 136-145 (test code = 381) POTASSIUM (BEAKER) 3.2 meq/L 3.5-5.1 L Specimen slightly (test code = 379) hemolyzed CHLORIDE (BEAKER) 100 meq/L 98-107 (test code = 382) CO2 (BEAKER) (test 27 meq/L 22-29 code = 355) BLOOD UREA NITROGEN 34 mg/dL 7-21 H (BEAKER) (test code = 354) CREATININE (BEAKER) 1.28 mg/dL 0.57-1.25 H Specimen slightly (test code = 358) hemolyzed GLUCOSE RANDOM 164 mg/dL 70-105 H (BEAKER) (test code = 652) CALCIUM (BEAKER) 8.5 mg/dL 8.4-10.2 (test code = 697) EGFR (BEAKER) (test 44 mL/min/1.73 ESTIMA BARBARA GFR IS code = 1092) sq m NOT ACCURATE CREATININE CLEARANCE IN PREDICTING GLOMERULAR FILTRATION RATE . ESTIMATED GFR I S NOT APPLICABLE FOR DIALYSIS PATIEN TS. Power Project Manager ID - DBPOCT-GLUCOSE [id number] 18:39:00 Test Item Value Reference Range Interpretation Comments POC-GLUCOSE METER 193 mg/dL 70-110 H : TESTED A T [facility] 6720 (BEAKER) (test code = HERLINDA Cohn [facility], 1538) [address]: Power Project Manager/Techni edgardo ID = [id number] for KOSTA SPANN HEPARIN ASSAY - [id number] 14:48:00 Test Item Value Reference Range Interpretation Comments UNFRACTIONATED HEPARIN-ANTI 10A < u/ml 0.30-0.70 L (BEAKER) (test code = 1606) Recommendations for Monitoring Unfractionated Heparin Therapeutic Range: 0.3- 0.7 u/mL with continuous IV infusionBASIC METABOLIC [id number] 14:04:00 Test Item Value Reference Range Interpretation Comments SODIUM (BEAKER) 141 meq/L 136-145 (test code = 381) POTASSIUM (BEAKER) 3.2 meq/L 3.5-5.1 L (test code = 379) CHLORIDE (BEAKER) 101 meq/L 98-107 (test code = 382) CO2 (BEAKER) (test 34 meq/L 22-29 H code = 355) BLOOD UREA NITROGEN 32 mg/dL 7-21 H (BEAKER) (test code = 354) CREATININE (BEAKER) 1.30 mg/dL 0.57-1.25 H (test code = 358) GLUCOSE RANDOM 196 mg/dL 70-105 H (BEAKER) (test code = 652) CALCIUM (BEAKER) 8.4 mg/dL 8.4-10.2 (test code = 697) EGFR (BEAKER) (test 44 mL/min/1.73 ESTIMA BARBARA GFR IS code = 1092) sq m NOT ACCURATE CREATININE CLEARANCE IN PREDICTING GLOMERULAR FILTRATION RATE . ESTIMATED GFR I S NOT APPLICABLE FOR DIALYSIS PATIEN TS. Power Project Manager ID - [id number] 14:04:00 Test Item Value Reference Range Interpretation Comments MAGNESIUM (BEAKER) (test code = 2.4 mg/dL 1.6-2.6 627) Power Project Manager ID - JMBLOOD GAS, [id number] 13:25:00 Test Item Value Reference Range Interpretation Comments PH ARTERIAL (BEAKER) (test code = 7.54 7.35-7.45 H 383) PCO2 ARTERIAL (BEAKER) (test code 35 mm Hg 35-45 = 384) PO2 ARTERIAL (BEAKER) (test code = 64 mm Hg 80-90 L 385) O2 SATURATION ARTERIAL (BEAKER) 94.8 % 96.0-97.0 L (test code = 386) HCO3 ARTERIAL (BEAKER) (test code 29 mmol/L 21-29 = 388) BASE EXCESS ARTERIAL (BEAKER) 6.1 mmol/L -2.0-3.0 H (test code = 387) PATIENT TEMPERATURE (BEAKER) (test 37.0 code = 1818) FIO2 (BEAKER) (test code = 1819) 40.0 POCT-GLUCOSE [id number] 13:02:00 Test Item Value Reference Range Interpretation Comments POC-GLUCOSE METER 180 mg/dL 70-110 H : TESTED A T [facility] 6720 (BEAKER) (test code [facility], = 1538) [id number]: Power Project Manager/Techni edgardo ID = [id number] for EBER TOSULAIMAN TROPONIN [id number] 06:01:00 Test Item Value Reference Range Interpretation Comments TROPONIN I (BEAKER) (test code = 17.95 ng/mL 0.00-0.03 397) Troponin I (TnI) levels must be interpreted in the context of the presenting symptoms and the clinical findings. Elevated TnI levels indicate myocardial damage, but are not specific for ischemic heart disease. Elevated TnI levels are seen in patients with other cardiac conditions (including myocarditis and congestive heart failure), and slight TnI elevations occur in patients with other conditions, including sepsis, renal failure, acidosis, acute neurological disease, and persistent tachyarrhythmia.Power Project Manager ID - PIAYA LPROTHROMBIN [id number] 04:50:00 Test Item Value Reference Range Interpretation Comments PROTIME (BEAKER) (test code = 14.0 seconds 11.9-14.2 759) INR (BEAKER) (test code = 370) 1.11 <=5.90 Effective 07/28/2018: PT Reference Range ChangeNew: 11.9-14.2 Previous: 11.7- 14.7RECOMMENDED COUMADIN/WARFARIN INR THERAPY RANGESSTANDARD DOSE: 2.0-3.0 Includes: PROPHYLAXIS for venous thrombosis, systemic embolization; TREATMENT for venous thrombosis and/or pulmonary embolus.HIGH RISK: Target INR is2.5-3.5 for patients wiht mechanical heart valves.COMPREHENSIVE METABOLIC PANEL 2020-01-19 04:50:00 Test Item Value Reference Range Interpretation Comments TOTAL PROTEIN 5.8 gm/dL 6.0-8.3 L (BEAKER) (test code = 770) ALBUMIN (BEAKER) 3.1 g/dL 3.5-5.0 L (test code = 1145) ALKALINE PHOSPHATASE 69 U/L 40-150 (BEAKER) (test code = 346) BILIRUBIN TOTAL 0.4 mg/dL 0.2-1.2 (BEAKER) (test code = 377) SODIUM (BEAKER) (test 140 meq/L 136-145 code = 381) POTASSIUM (BEAKER) 3.6 meq/L 3.5-5.1 (test code = 379) CHLORIDE (BEAKER) 102 meq/L 98-107 (test code = 382) CO2 (BEAKER) (test 26 meq/L 22-29 code = 355) BLOOD UREA NITROGEN 32 mg/dL 7-21 H (BEAKER) (test code = 354) CREATININE (BEAKER) 1.35 mg/dL 0.57-1.25 H (test code = 358) GLUCOSE RANDOM 169 mg/dL 70-105 H (BEAKER) (test code = 652) CALCIUM (BEAKER) 8.2 mg/dL 8.4-10.2 L (test code = 697) AST (SGOT) (BEAKER) 38 U/L 5-34 H (test code = 353) ALT (SGPT) (BEAKER) 47 U/L 6-55 (test code = 347) EGFR (BEAKER) (test 42 mL/min/1.73 ESTIMA BARBARA GFR IS code = 1092) sq m NOT ACCURATE CREATININE CLEARANCE IN PREDICTING GLOMERULAR FILTRATION RATE . ESTIMATED GFR I S NOT APPLICABLE FOR DIALYSIS PATIEN TS. Power Project Manager ID - LOVE [id number] 04:50:00 Test Item Value Reference Range Interpretation Comments MAGNESIUM (BEAKER) (test code = 2.2 mg/dL 1.6-2.6 627) Power Project Manager ID - LOVE [id number] 04:50:00 Test Item Value Reference Range Interpretation Comments PHOSPHORUS (BEAKER) (test code = 4.3 mg/dL 2.3-4.7 604) Power Project Manager ID - LOVE LCREATINE KINASE (CK)2020-01-19 04:50:00 Test Item Value Reference Range Interpretation Comments CREATINE KINASE TOTAL (BEAKER) (test 479 U/L 29-200 H code = 380) Power Project Manager ID - LOVE [id number] 04:50:00 Test Item Value Reference Range Interpretation Comments FIBRINOGEN LEVEL (BEAKER) (test 546 mg/dl 225-434 H code = 658) [id number] 04:50:00 Test Item Value Reference Range Interpretation Comments PARTIAL THROMBOPLASTIN TIME 24.8 seconds 22.5-36.0 (BEAKER) (test code = 760) LACTIC ACID, [id number] 04:36:00 Test Item Value Reference Range Interpretation Comments LACTATE BLOOD ARTERIAL (2) 1.4 mmol/L 0.5-2.2 (BEAKER) (test code = 2874) Power Project Manager ID - LOVE LCBC (HEMOGRAM ONLY)2020-01-19 04:24:00 Test Item Value Reference Range Interpretation Comments WHITE BLOOD CELL COUNT (BEAKER) 10.4 K/ L 3.5-10.5 (test code = 775) RED BLOOD CELL COUNT (BEAKER) 2.91 M/ L 3.93-5.22 L (test code = 761) HEMOGLOBIN (BEAKER) (test code = 9.4 GM/DL 11.2-15.7 L 410) HEMATOCRIT (BEAKER) (test code = 28.9 % 34.1-44.9 L 411) MEAN CORPUSCULAR VOLUME (BEAKER) 99.3 fL 79.4-94.8 H (test code = 753) MEAN CORPUSCULAR HEMOGLOBIN 32.3 pg 25.6-32.2 H (BEAKER) (test code = 751) MEAN CORPUSCULAR HEMOGLOBIN CONC 32.5 GM/DL 32.2-35.5 (BEAKER) (test code = 752) RED CELL DISTRIBUTION WIDTH 14.6 % 11.7-14.4 H (BEAKER) (test code = 412) PLATELET COUNT (BEAKER) (test 131 K/CU MM 150-450 L code = 756) MEAN PLATELET VOLUME (BEAKER) 9.7 fL 9.4-12.3 (test code = 754) NUCLEATED RED BLOOD CELLS 0 /100 WBC 0-0 (BEAKER) (test code = 413) BLOOD GAS, [id number] 04:20:00 Test Item Value Reference Range Interpretation Comments PH ARTERIAL (BEAKER) (test code = 7.47 7.35-7.45 H 383) PCO2 ARTERIAL (BEAKER) (test code 39 mm Hg 35-45 = 384) PO2 ARTERIAL (BEAKER) (test code = 62 mm Hg 80-90 L 385) O2 SATURATION ARTERIAL (BEAKER) 93.3 % 96.0-97.0 L (test code = 386) HCO3 ARTERIAL (BEAKER) (test code 28 mmol/L 21-29 = 388) BASE EXCESS ARTERIAL (BEAKER) 3.8 mmol/L -2.0-3.0 H (test code = 387) PATIENT TEMPERATURE (BEAKER) (test 36.7 code = 1818) FIO2 (BEAKER) (test code = 1819) 35.0 CALCIUM, [id number] 04:20:00 Test Item Value Reference Range Interpretation Comments CALCIUM IONIZED (BEAKER) (test 1.06 mmol/L 1.12-1.27 L code = 698) PH, BLOOD (BEAKER) (test code = 7.46 1810) OXYGEN SATURATION, [id number] 04:19:00 Test Item Value Reference Range Interpretation Comments O2 SATURATION (MEASURED) (BEAKER) 72.6 % (test code = 1455) RAD, CHEST, 1 VIEW, NON [id number] 03:49:00Reason for exam:->ECMO, respiratory failureShould this be performed at the bedside?->Yes [facility] 1970 Sex: FFINAL REPORT RAD, CHEST, 1 VIEW, NON DEPT INDICATION: ECMO, respirato ry failure COMPARISON: Prior day's exam FINDINGS: Portable frontal view of the chest. IMPRESSION:Support Lines: Burgin-Brandi catheter has been removed. NG tube is been exchanged for a duotube extends below the field of view. Right IJ sheath is in place. ET tube terminates 4 cm above the bang. Lungsand pleura: Unchanged airspace and pleural opacities. No pneumothorax.Heart and mediastinum: Stable contours. Additional findings: None. Signed: Fredis Mclain MDReport Verified Date/Time: 01/19/202003:49:38 [id number] 20:39:00 Test Item Value Reference Range Interpretation Comments POTASSIUM (BEAKER) (test code = 3.7 meq/L 3.5-5.1 379) Power Project Manager ID - BSBLOOD GAS, [id number] 20:18:00 Test Item Value Reference Range Interpretation Comments PH ARTERIAL (BEAKER) (test code = 7.44 7.35-7.45 383) PCO2 ARTERIAL (BEAKER) (test code 38 mm Hg 35-45 = 384) PO2 ARTERIAL (BEAKER) (test code = 72 mm Hg 80-90 L 385) O2 SATURATION ARTERIAL (BEAKER) 94.9 % 96.0-97.0 L (test code = 386) HCO3 ARTERIAL (BEAKER) (test code 25 mmol/L 21-29 = 388) BASE EXCESS ARTERIAL (BEAKER) 0.5 mmol/L -2.0-3.0 (test code = 387) PATIENT TEMPERATURE (BEAKER) (test 37.1 code = 1818) FIO2 (BEAKER) (test code = 1819) 35.0 CALCIUM, [id number] 20:18:00 Test Item Value Reference Range Interpretation Comments CALCIUM IONIZED (BEAKER) (test 1.05 mmol/L 1.12-1.27 L code = 698) PH, BLOOD (BEAKER) (test code = 7.44 1810) BLOOD GAS, [id number] 17:26:00 Test Item Value Reference Range Interpretation Comments PH ARTERIAL (BEAKER) (test code = 7.42 7.35-7.45 383) PCO2 ARTERIAL (BEAKER) (test code 39 mm Hg 35-45 = 384) PO2 ARTERIAL (BEAKER) (test code = 83 mm Hg 80-90 385) O2 SATURATION ARTERIAL (BEAKER) 96.3 % 96.0-97.0 (test code = 386) HCO3 ARTERIAL (BEAKER) (test code 25 mmol/L 21-29 = 388) BASE EXCESS ARTERIAL (BEAKER) 0.4 mmol/L -2.0-3.0 (test code = 387) PATIENT TEMPERATURE (BEAKER) (test 37.2 code = 1818) FIO2 (BEAKER) (test code = 1819) 40.0 GLUCOSE-STAT [id number] 17:26:00 Test Item Value Reference Range Interpretation Comments GLUCOSE RANDOM (BEAKER) (test code 146 mg/dL 70-110 H = 652) RAD, ABDOMEN/KUB, 1 VIEW [id number] 15:19:00Reason for exam:->[facility] : 1970 Sex: FFINAL REPORT CLINICAL HISTORY: feeding tube placement TECHNIQUE: Supi ne abdomen IMPRESSION: The tip of the feeding tube is in the duodenum. There is a nonspecific paucity of bowel gas, and dilated fluid-filled loops of bowel cannot be excluded. The partially visualized bowel gas pattern is nonspecific. Signed: Vale Torres MDReport Verified Date/Time: 01/18/2020 15:19:34 Reading Location: [facility] Radiology Reading Room BASI METABOLIC [id number] 15:08:00 Test Item Value Reference Range Interpretation Comments SODIUM (BEAKER) 141 meq/L 136-145 (test code = 381) POTASSIUM (BEAKER) 3.7 meq/L 3.5-5.1 (test code = 379) CHLORIDE (BEAKER) 107 meq/L 98-107 (test code = 382) CO2 (BEAKER) (test 23 meq/L 22-29 code = 355) BLOOD UREA NITROGEN 19 mg/dL 7-21 (BEAKER) (test code = 354) CREATININE (BEAKER) 1.29 mg/dL 0.57-1.25 H (test code = 358) GLUCOSE RANDOM 162 mg/dL 70-105 H (BEAKER) (test code = 652) CALCIUM (BEAKER) 7.7 mg/dL 8.4-10.2 L (test code = 697) EGFR (BEAKER) (test 44 mL/min/1.73 ESTIMA BARBARA GFR IS code = 1092) sq m NOT ACCURATE CREATININE CLEARANCE IN PREDICTING GLOMERULAR FILTRATION RATE . ESTIMATED GFR I S NOT APPLICABLE FOR DIALYSIS PATIEN TS. Power Project Manager ID - [id number] 15:06:00 Test Item Value Reference Range Interpretation Comments MAGNESIUM (BEAKER) (test code = 2.3 mg/dL 1.6-2.6 627) Power Project Manager ID - ADMINCALCIUM, [id number] 14:58:00 Test Item Value Reference Range Interpretation Comments CALCIUM IONIZED (BEAKER) (test 1.04 mmol/L 1.12-1.27 L code = 698) PH, BLOOD (BEAKER) (test code = 7.40 1810) Check serum Ionized Calcium level after 4 hours after IV Calcium replacement. BLOOD GAS, [id number] 12:58:00 Test Item Value Reference Range Interpretation Comments PH ARTERIAL (BEAKER) (test code = 7.36 7.35-7.45 383) PCO2 ARTERIAL (BEAKER) (test code 42 mm Hg 35-45 = 384) PO2 ARTERIAL (BEAKER) (test code 79 mm Hg 80-90 L = 385) O2 SATURATION ARTERIAL (BEAKER) 94.7 % 96.0-97.0 L (test code = 386) HCO3 ARTERIAL (BEAKER) (test code 23 mmol/L 21-29 = 388) BASE EXCESS ARTERIAL (BEAKER) -2.2 mmol/L -2.0-3.0 L (test code = 387) PATIENT TEMPERATURE (BEAKER) 37.6 (test code = 1818) FIO2 (BEAKER) (test code = 1819) 40.0 GLUCOSE-STAT [id number] 12:58:00 Test Item Value Reference Range Interpretation Comments GLUCOSE RANDOM (BEAKER) (test code 168 mg/dL 70-110 H = 652) POCT-GLUCOSE [id number] 10:16:00 Test Item Value Reference Range Interpretation Comments POC-GLUCOSE METER 119 mg/dL 70-110 H : [facility] (BEAKER) (test code = HERLINDA Cohn [place], 1538) [id number]: Power Project Manager/Techni edgardo ID = [id number] for GÓMEZ CHOWDARY GLUCOSE-STAT [id number] 07:58:00 Test Item Value Reference Range Interpretation Comments GLUCOSE RANDOM (BEAKER) (test code = 99 mg/dL 70-110 652) BLOOD GAS, [id number] 07:58:00 Test Item Value Reference Range Interpretation Comments PH ARTERIAL (BEAKER) (test code = 7.43 7.35-7.45 383) PCO2 ARTERIAL (BEAKER) (test code 37 mm Hg 35-45 = 384) PO2 ARTERIAL (BEAKER) (test code 107 mm Hg 80-90 H = 385) O2 SATURATION ARTERIAL (BEAKER) 97.9 % 96.0-97.0 H (test code = 386) HCO3 ARTERIAL (BEAKER) (test code 24 mmol/L 21-29 = 388) BASE EXCESS ARTERIAL (BEAKER) -0.1 mmol/L -2.0-3.0 (test code = 387) PATIENT TEMPERATURE (BEAKER) 38.1 (test code = 1818) FIO2 (BEAKER) (test code = 1819) 60.0 [id number] 06:56:00 Test Item Value Reference Range Interpretation Comments FIBRINOGEN LEVEL (BEAKER) (test 562 mg/dl 225-434 H code = 658) TROPONIN [id number] 05:20:00 Test Item Value Reference Range Interpretation Comments TROPONIN I (BEAKER) (test code = 18.09 ng/mL 0.00-0.03 HH 397) Troponin I (TnI) levels must be interpreted in the context of the presenting symptoms and the clinical findings. Elevated TnI levels indicate myocardial damage, but are not specific for ischemic heart disease. Elevated TnI levels are seen in patients with other cardiac conditions (including myocarditis and congestive heart failure), and slight TnI elevations occur in patients with other conditions, including sepsis, renal failure, acidosis, acute neurological disease, and persistent tachyarrhythmia.Power Project Manager ID - EDASICOMPREHENSIVE METABOLIC [id number] 04:43:00 Test Item Value Reference Range Interpretation Comments TOTAL PROTEIN 5.3 gm/dL 6.0-8.3 L (BEAKER) (test code = 770) ALBUMIN (BEAKER) 2.8 g/dL 3.5-5.0 L (test code = 1145) ALKALINE PHOSPHATASE 69 U/L 40-150 (BEAKER) (test code = 346) BILIRUBIN TOTAL 0.4 mg/dL 0.2-1.2 (BEAKER) (test code = 377) SODIUM (BEAKER) (test 139 meq/L 136-145 code = 381) POTASSIUM (BEAKER) 4.0 meq/L 3.5-5.1 (test code = 379) CHLORIDE (BEAKER) 108 meq/L 98-107 H (test code = 382) CO2 (BEAKER) (test 24 meq/L 22-29 code = 355) BLOOD UREA NITROGEN 13 mg/dL 7-21 (BEAKER) (test code = 354) CREATININE (BEAKER) 0.99 mg/dL 0.57-1.25 (test code = 358) GLUCOSE RANDOM 127 mg/dL 70-105 H (BEAKER) (test code = 652) CALCIUM (BEAKER) 7.9 mg/dL 8.4-10.2 L (test code = 697) AST (SGOT) (BEAKER) 67 U/L 5-34 H (test code = 353) ALT (SGPT) (BEAKER) 60 U/L 6-55 H (test code = 347) EGFR (BEAKER) (test 60 mL/min/1.73 ESTIMA BARBARA GFR IS code = 1092) sq m NOT ACCURATE CREATININE CLEARANCE IN PREDICTING GLOMERULAR FILTRATION RATE . ESTIMATED GFR I S NOT APPLICABLE FOR DIALYSIS PATIEN TS. Power Project Manager ID - EDASICREATINE KINASE (CK)2020-01-18 04:34:00 Test Item Value Reference Range Interpretation Comments CREATINE KINASE TOTAL (BEAKER) (test 849 U/L 29-200 H code = 380) Power Project Manager ID - [id number] 04:33:00 Test Item Value Reference Range Interpretation Comments MAGNESIUM (BEAKER) (test code = 2.1 mg/dL 1.6-2.6 627) Power Project Manager ID - [id number] 04:33:00 Test Item Value Reference Range Interpretation Comments PHOSPHORUS (BEAKER) (test code = 4.5 mg/dL 2.3-4.7 604) Power Project Manager ID - EDASILACTIC ACID, [id number] 04:22:00 Test Item Value Reference Range Interpretation Comments LACTATE BLOOD ARTERIAL (2) 0.8 mmol/L 0.5-2.2 (BEAKER) (test code = 2874) Power Project Manager ID - EDASIPROTHROMBIN TIME/[id number] 04:21:00 Test Item Value Reference Range Interpretation Comments PROTIME (BEAKER) (test code = 13.6 seconds 11.9-14.2 759) INR (BEAKER) (test code = 370) 1.07 <=5.90 Effective 07/28/2018: PT Reference Range ChangeNew: 11.9-14.2 Previous: 11.7- 14.7RECOMMENDED COUMADIN/WARFARIN INR THERAPY RANGESSTANDARD DOSE: 2.0-3.0 Includes: PROPHYLAXIS for venous thrombosis, systemic embolization; TREATMENT for venous thrombosis and/or pulmonary embolus.HIGH RISK: Target INR is2.5-3.5 for patients wiht mechanical heart valves.[id number] 04:21:00 Test Item Value Reference Range Interpretation Comments PARTIAL THROMBOPLASTIN TIME 31.0 seconds 22.5-36.0 (BEAKER) (test code = 760) CBC (HEMOGRAM ONLY)2020-01-18 04:12:00 Test Item Value Reference Range Interpretation Comments WHITE BLOOD CELL COUNT (BEAKER) 11.9 K/ L 3.5-10.5 H (test code = 775) RED BLOOD CELL COUNT (BEAKER) 2.95 M/ L 3.93-5.22 L (test code = 761) HEMOGLOBIN (BEAKER) (test code = 9.5 GM/DL 11.2-15.7 L 410) HEMATOCRIT (BEAKER) (test code = 29.8 % 34.1-44.9 L 411) MEAN CORPUSCULAR VOLUME (BEAKER) 101.0 fL 79.4-94.8 H (test code = 753) MEAN CORPUSCULAR HEMOGLOBIN 32.2 pg 25.6-32.2 (BEAKER) (test code = 751) MEAN CORPUSCULAR HEMOGLOBIN CONC 31.9 GM/DL 32.2-35.5 L (BEAKER) (test code = 752) RED CELL DISTRIBUTION WIDTH 14.4 % 11.7-14.4 (BEAKER) (test code = 412) PLATELET COUNT (BEAKER) (test 114 K/CU MM 150-450 L code = 756) MEAN PLATELET VOLUME (BEAKER) 9.8 fL 9.4-12.3 (test code = 754) NUCLEATED RED BLOOD CELLS 0 /100 WBC 0-0 (BEAKER) (test code = 413) OXYGEN SATURATION, [id number] 04:03:00 Test Item Value Reference Range Interpretation Comments O2 SATURATION (MEASURED) (BEAKER) 82.0 % (test code = 1455) BLOOD GAS, [id number] 04:03:00 Test Item Value Reference Range Interpretation Comments PH ARTERIAL (BEAKER) (test code = 7.35 7.35-7.45 383) PCO2 ARTERIAL (BEAKER) (test code 46 mm Hg 35-45 H = 384) PO2 ARTERIAL (BEAKER) (test code 107 mm Hg 80-90 H = 385) O2 SATURATION ARTERIAL (BEAKER) 97.5 % 96.0-97.0 H (test code = 386) HCO3 ARTERIAL (BEAKER) (test code 24 mmol/L 21-29 = 388) BASE EXCESS ARTERIAL (BEAKER) -1.3 mmol/L -2.0-3.0 (test code = 387) PATIENT TEMPERATURE (BEAKER) 37.4 (test code = 1818) FIO2 (BEAKER) (test code = 1819) 60.0 CALCIUM, [id number] 04:03:00 Test Item Value Reference Range Interpretation Comments CALCIUM IONIZED (BEAKER) (test 1.06 mmol/L 1.12-1.27 L code = 698) PH, BLOOD (BEAKER) (test code = 7.35 1810) RAD, CHEST, 1 VIEW, NON [id number] 04:02:00Reason for exam:->ECMO, respiratory failureShould this be performed at the bedside?->Yes [facility] 1970 Sex: FFINAL REPORT RAD, CHEST, 1 VIEW, NON DEPT INDICATION: ECMO, respirato ry failure COMPARISON: Exam from 10 hours prior FINDINGS: Portable frontal view of the chest. IMPRESSION: Support Lines: Stable. Lungs and pleura: No significant change in bilateral hazy airspace opacities. No new consolidation or pleural effusion. No pneumothorax.Heart and mediastinum: Stable conto urs.Additional findings: None. Signed: [facility] Verified Date/Time: 01/18/2020 04:02:48 POCT-GLUCOSE [id number] 00:30:00 Test Item Value Reference Range Interpretation Comments POC-GLUCOSE METER 116 mg/dL 70-110 H : TESTED A T [facility] 6720 (BEAKER) (test code = [facility], 1538) [id number]: Power Project Manager/Techni edgardo ID = [id number] for Bhakti Stephenson BLOOD GAS, [id number] 00:21:00 Test Item Value Reference Range Interpretation Comments PH ARTERIAL (BEAKER) (test code = 7.40 7.35-7.45 383) PCO2 ARTERIAL (BEAKER) (test code 41 mm Hg 35-45 = 384) PO2 ARTERIAL (BEAKER) (test code 95 mm Hg 80-90 H = 385) O2 SATURATION ARTERIAL (BEAKER) 97.2 % 96.0-97.0 H (test code = 386) HCO3 ARTERIAL (BEAKER) (test code 25 mmol/L 21-29 = 388) BASE EXCESS ARTERIAL (BEAKER) -0.2 mmol/L -2.0-3.0 (test code = 387) PATIENT TEMPERATURE (BEAKER) 37.1 (test code = 1818) FIO2 (BEAKER) (test code = 1819) 60.0 POCT-GLUCOSE [id number] 22:51:00 Test Item Value Reference Range Interpretation Comments POC-GLUCOSE METER 109 mg/dL 70-110 : TESTED A T [facility] 6720 (BEAKER) (test code = [facility], 1538) [id number]: Power Project Manager/Techni edgardo ID = [id number] for Bhakti Stephenson BASIC METABOLIC [id number] 21:13:00 Test Item Value Reference Range Interpretation Comments SODIUM (BEAKER) 138 meq/L 136-145 (test code = 381) POTASSIUM (BEAKER) 3.8 meq/L 3.5-5.1 (test code = 379) CHLORIDE (BEAKER) 107 meq/L 98-107 (test code = 382) CO2 (BEAKER) (test 23 meq/L 22-29 code = 355) BLOOD UREA NITROGEN 11 mg/dL 7-21 (BEAKER) (test code = 354) CREATININE (BEAKER) 0.81 mg/dL 0.57-1.25 (test code = 358) GLUCOSE RANDOM 125 mg/dL 70-105 H (BEAKER) (test code = 652) CALCIUM (BEAKER) 8.1 mg/dL 8.4-10.2 L (test code = 697) EGFR (BEAKER) (test 75 mL/min/1.73 ESTIMA BARBARA GFR IS code = 1092) sq m NOT ACCURATE CREATININE CLEARANCE IN PREDICTING GLOMERULAR FILTRATION RATE . ESTIMATED GFR I S NOT APPLICABLE FOR DIALYSIS PATIEN TS. Power Project Manager ID - [id number] 21:13:00 Test Item Value Reference Range Interpretation Comments MAGNESIUM (BEAKER) (test code = 2.3 mg/dL 1.6-2.6 627) Power Project Manager ID - BSBLOOD GAS, [id number] 20:45:00 Test Item Value Reference Range Interpretation Comments PH ARTERIAL (BEAKER) (test code = 7.35 7.35-7.45 383) PCO2 ARTERIAL (BEAKER) (test code 44 mm Hg 35-45 = 384) PO2 ARTERIAL (BEAKER) (test code 90 mm Hg 80-90 = 385) O2 SATURATION ARTERIAL (BEAKER) 96.8 % 96.0-97.0 (test code = 386) HCO3 ARTERIAL (BEAKER) (test code 24 mmol/L 21-29 = 388) BASE EXCESS ARTERIAL (BEAKER) -1.6 mmol/L -2.0-3.0 (test code = 387) PATIENT TEMPERATURE (BEAKER) 36.3 (test code = 1818) FIO2 (BEAKER) (test code = 1819) 60.0 LACTIC ACID, [id number] 19:43:00 Test Item Value Reference Range Interpretation Comments LACTATE BLOOD ARTERIAL (2) 1.0 mmol/L 0.5-2.2 (BEAKER) (test code = 2874) Power Project Manager ID - BSBLOOD GAS, [id number] 19:06:00 Test Item Value Reference Range Interpretation Comments PH ARTERIAL (BEAKER) (test code = 7.32 7.35-7.45 L 383) PCO2 ARTERIAL (BEAKER) (test code 50 mm Hg 35-45 H = 384) PO2 ARTERIAL (BEAKER) (test code 90 mm Hg 80-90 = 385) O2 SATURATION ARTERIAL (BEAKER) 96.6 % 96.0-97.0 (test code = 386) HCO3 ARTERIAL (BEAKER) (test code 25 mmol/L 21-29 = 388) BASE EXCESS ARTERIAL (BEAKER) -1.5 mmol/L -2.0-3.0 (test code = 387) PATIENT TEMPERATURE (BEAKER) 36.1 (test code = 1818) FIO2 (BEAKER) (test code = 1819) 60.0 GLUCOSE-STAT [id number] 19:06:00 Test Item Value Reference Range Interpretation Comments GLUCOSE RANDOM (BEAKER) (test code 134 mg/dL 70-110 H = 652) BLOOD GAS, [id number] 17:59:00 Test Item Value Reference Range Interpretation Comments PH ARTERIAL (BEAKER) (test code = 7.30 7.35-7.45 L 383) PCO2 ARTERIAL (BEAKER) (test code 50 mm Hg 35-45 H = 384) PO2 ARTERIAL (BEAKER) (test code 85 mm Hg 80-90 = 385) O2 SATURATION ARTERIAL (BEAKER) 95.7 % 96.0-97.0 L (test code = 386) HCO3 ARTERIAL (BEAKER) (test code 25 mmol/L -29 = 388) BASE EXCESS ARTERIAL (BEAKER) -2.3 mmol/L -2.0-3.0 L (test code = 387) PATIENT TEMPERATURE (BEAKER) 36.3 (test code = 1818) FIO2 (BEAKER) (test code = 1819) 60.0 GLUCOSE-STAT [id number] 17:59:00 Test Item Value Reference Range Interpretation Comments GLUCOSE RANDOM (BEAKER) (test code 145 mg/dL 70-110 H = 652) POCT-GLUCOSE [id number] 16:14:00 Test Item Value Reference Range Interpretation Comments POC-GLUCOSE METER 161 mg/dL 70-110 H : [facility] (test code = [facility] [place], 1538) [id number]: Power Project Manager/Techni edgardo ID = [id number] for GÓMEZ CHOWDARY BLOOD GAS, [id number] 15:15:00 Test Item Value Reference Range Interpretation Comments PH ARTERIAL (BEAKER) (test code = 7.38 7.35-7.45 383) PCO2 ARTERIAL (BEAKER) (test code 40 mm Hg 35-45 = 384) PO2 ARTERIAL (BEAKER) (test code 87 mm Hg 80-90 = 385) O2 SATURATION ARTERIAL (BEAKER) 97.1 % 96.0-97.0 H (test code = 386) HCO3 ARTERIAL (BEAKER) (test code 23 mmol/L 21-29 = 388) BASE EXCESS ARTERIAL (BEAKER) -2.3 mmol/L -2.0-3.0 L (test code = 387) PATIENT TEMPERATURE (BEAKER) 35.0 (test code = 1818) FIO2 (BEAKER) (test code = 1819) 70.0 GLUCOSE-STAT [id number] 15:15:00 Test Item Value Reference Range Interpretation Comments GLUCOSE RANDOM (BEAKER) (test code 153 mg/dL 70-110 H = 652) RAD, CHEST, 1 VIEW, NON [id number] 13:48:00Reason for exam:->s/p ecmo decannulationShould this be performed at the bedside?->Yes [facility] 1970 Sex: FFINAL REPORT CLINICAL HISTORY: s/p ecmo decannulation TECHNIQUE: 1 v iew of the chest. COMPARISON: 01/17/2020 IMPRESSION: The inferior approach ECMO cannula has been removed. The other lines and tubes remain. Bilateral airspace opacities are unchanged. Blunting of left costophrenic angle is noted. The cardiomediastinal silhouette is magnified by technique. Signed: Vale Torres MDReport Verified Date/Time: 01/17/2020 13:48:55 Reading [facility] GLUCOSE-STAT [id number] 13:28:00 Test Item Value Reference Range Interpretation Comments GLUCOSE RANDOM (BEAKER) (test code 151 mg/dL 70-110 H = 652) BLOOD GAS, [id number] 13:27:00 Test Item Value Reference Range Interpretation Comments PH ARTERIAL (BEAKER) (test code = 7.35 7.35-7.45 383) PCO2 ARTERIAL (BEAKER) (test code 43 mm Hg 35-45 = 384) PO2 ARTERIAL (BEAKER) (test code 65 mm Hg 80-90 L = 385) O2 SATURATION ARTERIAL (BEAKER) 93.8 % 96.0-97.0 L (test code = 386) HCO3 ARTERIAL (BEAKER) (test code 24 mmol/L 21-29 = 388) BASE EXCESS ARTERIAL (BEAKER) -2.1 mmol/L -2.0-3.0 L (test code = 387) PATIENT TEMPERATURE (BEAKER) 35.0 (test code = 1818) FIO2 (BEAKER) (test code = 1819) 60.0 [id number] 12:37:00 Test Item Value Reference Range Interpretation Comments MAGNESIUM (BEAKER) 2.2 mg/dL 1.6-2.6 Specimen moderately (test code = 627) hemolyzed Power Project Manager GAGAN [facility] FCOMPREHENSIVE METABOLIC [id number] 12:37:00 Test Item Value Reference Range Interpretation Comments TOTAL PROTEIN 5.7 gm/dL 6.0-8.3 L Specimen moder ately (BEAKER) (test code = hemoly zed 770) ALBUMIN (BEAKER) 2.8 g/dL 3.5-5.0 L Specimen mo derately (test code = 1145) hemolyzed ALKALINE PHOSPHATASE 77 U/L 40-150 (BEAKER) (test code = 346) BILIRUBIN TOTAL 0.4 mg/dL 0.2-1.2 Specimen mod erately (BEAKER) (test code = hemoly zed 377) SODIUM (BEAKER) (test 136 meq/L 136-145 code = 381) POTASSIUM (BEAKER) 4.1 meq/L 3.5-5.1 Specimen moderately (test code = 379) hemolyzed CHLORIDE (BEAKER) 106 meq/L 98-107 (test code = 382) CO2 (BEAKER) (test 22 meq/L 22-29 code = 355) BLOOD UREA NITROGEN 8 mg/dL 7-21 (BEAKER) (test code = 354) CREATININE (BEAKER) 0.75 mg/dL 0.57-1.25 Specimen moderately (test code = 358) hemolyzed GLUCOSE RANDOM 157 mg/dL 70-105 H (BEAKER) (test code = 652) CALCIUM (BEAKER) 8.6 mg/dL 8.4-10.2 (test code = 697) AST (SGOT) (BEAKER) 92 U/L 5-34 H Specimen moderately (test code = 353) hemolyzed ALT (SGPT) (BEAKER) 67 U/L 6-55 H Specimen moderately (test code = 347) hemolyzed EGFR (BEAKER) (test 82 mL/min/1.73 ESTIMA BARBARA GFR IS code = 1092) sq m NOT ACCURATE CREATININE CLEARANCE IN PREDICTING GLOMERULAR FILTRATION RATE . ESTIMATED GFR I S NOT APPLICABLE FOR DIALYSIS PATIALEX TS. Power Project Manager ID - DAMON [id number] 12:30:00 Test Item Value Reference Range Interpretation Comments PARTIAL THROMBOPLASTIN TIME 32.8 seconds 22.5-36.0 (BEAKER) (test code = 760) While on heparin. aPTT target range 50 to 80 seconds Notify MD if aPTT is out of range.PT/[id number] 12:30:00 Test Item Value Reference Range Interpretation Comments PROTIME (BEAKER) (test code = 13.8 seconds 11.9-14.2 759) INR (BEAKER) (test code = 370) 1.09 <=5.90 PARTIAL THROMBOPLASTIN TIME 32.8 seconds 22.5-36.0 (BEAKER) (test code = 760) Effective 07/28/2018: PT Reference Range ChangeNew: 11.9-14.2 Previous: 11.7- 14.7RECOMMENDED COUMADIN/WARFARIN INR THERAPY RANGESSTANDARD DOSE: 2.0-3.0 Includes: PROPHYLAXIS for venous thrombosis, systemic embolization; TREATMENT for venous thrombosis and/or pulmonary embolus.HIGH RISK: Target INR is2.5-3.5 for patients wiht mechanical heart valves.PROTHROMBIN [id number] 12:29:00 Test Item Value Reference Range Interpretation Comments PROTIME (BEAKER) (test code = 13.8 seconds 11.9-14.2 759) INR (BEAKER) (test code = 370) 1.09 <=5.90 Effective 07/28/2018: PT Reference Range ChangeNew: 11.9-14.2 Previous: 11.7- 14.7RECOMMENDED COUMADIN/WARFARIN INR THERAPY RANGESSTANDARD DOSE: 2.0-3.0 Includes: PROPHYLAXIS for venous thrombosis, systemic embolization; TREATMENT for venous thrombosis and/or pulmonary embolus.HIGH RISK: Target INR is2.5-3.5 for patients wiht mechanical heart valves.While on heparin. aPTT target range 50 to 80 seconds Notify MD if aPTT is out of range.LACTIC ACID, [id number] 12:25:00 Test Item Value Reference Range Interpretation Comments LACTATE BLOOD ARTERIAL (2) 1.7 mmol/L 0.5-2.2 (BEAKER) (test code = 2874) Power Project Manager GAGAN - DAMON [facility] (HEMOGRAM ONLY)2020-01-17 12:20:00 Test Item Value Reference Range Interpretation Comments WHITE BLOOD CELL COUNT (BEAKER) 7.9 K/ L 3.5-10.5 (test code = 775) RED BLOOD CELL COUNT (BEAKER) 3.16 M/ L 3.93-5.22 L (test code = 761) HEMOGLOBIN (BEAKER) (test code = 10.2 GM/DL 11.2-15.7 L 410) HEMATOCRIT (BEAKER) (test code = 31.7 % 34.1-44.9 L 411) MEAN CORPUSCULAR VOLUME (BEAKER) 100.3 fL 79.4-94.8 H (test code = 753) MEAN CORPUSCULAR HEMOGLOBIN 32.3 pg 25.6-32.2 H (BEAKER) (test code = 751) MEAN CORPUSCULAR HEMOGLOBIN CONC 32.2 GM/DL 32.2-35.5 (BEAKER) (test code = 752) RED CELL DISTRIBUTION WIDTH 14.2 % 11.7-14.4 (BEAKER) (test code = 412) PLATELET COUNT (BEAKER) (test 110 K/CU MM 150-450 L code = 756) MEAN PLATELET VOLUME (BEAKER) 9.8 fL 9.4-12.3 (test code = 754) NUCLEATED RED BLOOD CELLS 0 /100 WBC 0-0 (BEAKER) (test code = 413) SODIUM NA-STAT [id number] 12:12:00 Test Item Value Reference Range Interpretation Comments SODIUM (BEAKER) (test code = 381) 137 meq/L 136-145 POTASSIUM-STAT [id number] 12:12:00 Test Item Value Reference Range Interpretation Comments POTASSIUM (BEAKER) (test code = 3.7 meq/L 3.6-5.5 379) BLOOD GAS, [id number] 12:12:00 Test Item Value Reference Range Interpretation Comments PH ARTERIAL (BEAKER) (test code = 7.31 7.35-7.45 L 383) PCO2 ARTERIAL (BEAKER) (test code 47 mm Hg 35-45 H = 384) PO2 ARTERIAL (BEAKER) (test code 86 mm Hg 80-90 = 385) O2 SATURATION ARTERIAL (BEAKER) 95.8 % 96.0-97.0 L (test code = 386) HCO3 ARTERIAL (BEAKER) (test code 23 mmol/L 21-29 = 388) BASE EXCESS ARTERIAL (BEAKER) -3.4 mmol/L -2.0-3.0 L (test code = 387) PATIENT TEMPERATURE (BEAKER) 36.7 (test code = 1818) FIO2 (BEAKER) (test code = 1819) 60.0 GLUCOSE-STAT [id number] 12:12:00 Test Item Value Reference Range Interpretation Comments GLUCOSE RANDOM (BEAKER) (test code 145 mg/dL 70-110 H = 652) HGB/HCT (H&H) - STAT [id number] 12:12:00 Test Item Value Reference Range Interpretation Comments HEMOGLOBIN (BEAKER) (test code = 10.9 GM/DL 12.0-15.0 L 410) HEMATOCRIT (BEAKER) (test code = 32.0 % 36.0-45.0 L 411) OXYGEN SATURATION, [id number] 12:12:00 Test Item Value Reference Range Interpretation Comments O2 SATURATION (MEASURED) (BEAKER) 80.1 % (test code = 1455) [id number] 10:54:00 Test Item Value Reference Range Interpretation Comments TRIGLYCERIDES (BEAKER) 394 mg/dL Speci men slightly (test code = 540) hemolyzed TRIGLYCERIDE REFERENCE RANGELow Risk <150Borderline Risk 150-199High Risk 200-499Very High Risk>=500Operator ID - SANTA CSpecimen slightly lipemic HEMOGLOBIN [id number] 09:48:00 Test Item Value Reference Range Interpretation Comments HEMOGLOBIN A1C (BEAKER) (test code = 6.4 % 4.3-6.1 H 368) SODIUM NA-STAT [id number] 09:44:00 Test Item Value Reference Range Interpretation Comments SODIUM (BEAKER) (test code = 381) 135 meq/L 136-145 L POTASSIUM-STAT [id number] 09:44:00 Test Item Value Reference Range Interpretation Comments POTASSIUM (BEAKER) (test code = 3.6 meq/L 3.6-5.5 379) CALCIUM, [id number] 09:44:00 Test Item Value Reference Range Interpretation Comments CALCIUM IONIZED (BEAKER) (test 1.08 mmol/L 1.12-1.27 L code = 698) PH, BLOOD (BEAKER) (test code = 7.34 1810) BLOOD GAS, [id number] 09:44:00 Test Item Value Reference Range Interpretation Comments PH ARTERIAL (BEAKER) (test code = 7.35 7.35-7.45 383) PCO2 ARTERIAL (BEAKER) (test code 44 mm Hg 35-45 = 384) PO2 ARTERIAL (BEAKER) (test code 166 mm Hg 80-90 H = 385) O2 SATURATION ARTERIAL (BEAKER) 99.1 % 96.0-97.0 H (test code = 386) HCO3 ARTERIAL (BEAKER) (test code 24 mmol/L 21-29 = 388) BASE EXCESS ARTERIAL (BEAKER) -2.0 mmol/L -2.0-3.0 (test code = 387) PATIENT TEMPERATURE (BEAKER) 36.0 (test code = 1818) FIO2 (BEAKER) (test code = 1819) 100.0 GLUCOSE-STAT [id number] 09:44:00 Test Item Value Reference Range Interpretation Comments GLUCOSE RANDOM (BEAKER) (test code 164 mg/dL 70-110 H = 652) HGB/HCT (H&H) - STAT [id number] 09:44:00 Test Item Value Reference Range Interpretation Comments HEMOGLOBIN (BEAKER) (test code = 11.3 GM/DL 12.0-15.0 L 410) HEMATOCRIT (BEAKER) (test code = 33.0 % 36.0-45.0 L 411) BLOOD GAS, [id number] 07:27:00 Test Item Value Reference Range Interpretation Comments PH ARTERIAL (BEAKER) (test code = 7.39 7.35-7.45 383) PCO2 ARTERIAL (BEAKER) (test code 40 mm Hg 35-45 = 384) PO2 ARTERIAL (BEAKER) (test code 83 mm Hg 80-90 = 385) O2 SATURATION ARTERIAL (BEAKER) 96.4 % 96.0-97.0 (test code = 386) HCO3 ARTERIAL (BEAKER) (test code 24 mmol/L 21-29 = 388) BASE EXCESS ARTERIAL (BEAKER) -1.0 mmol/L -2.0-3.0 (test code = 387) PATIENT TEMPERATURE (BEAKER) 36.4 (test code = 1818) FIO2 (BEAKER) (test code = 1819) 60.0 POCT-GLUCOSE [id number] 07:21:00 Test Item Value Reference Range Interpretation Comments POC-GLUCOSE METER 173 mg/dL 70-110 H : TESTED A T [facility] 6720 (BEAKER) (test code = [facility], 1538) 15[address]: Power Project Manager/Techni edgardo ID = [id number] for LIANET, RUBEN THROMBOELASTOGRAPH (TEG)2020-01-17 06:39:00 Test Item Value Reference Range Interpretation Comments TEG ACTIVATED CLOTTING TIME 51.5 minutes 4.0-7.0 H (BEAKER) (test code = 1407) TEG FIBRINOGEN ACTIVITY (BEAKER) 11.8 degrees 61.0-73.0 L (test code = 1408) TEG PLT. AGGREGATION (BEAKER) 19.0 MM 55.0-65.0 L (test code = 1409) TGH ACTIVATED CLOTTING TIME 9.1 minutes 4.0-7.0 H (BEAKER) (test code = 1411) TGH FIBRINOGEN ACTIVITY (BEAKER) 75.2 degrees 61.0-73.0 H (test code = 1412) TGH PLT. AGGREGATION (BEAKER) 62.9 MM 55.0-65.0 (test code = 1413) POCT-GLUCOSE [id number] 05:46:00 Test Item Value Reference Range Interpretation Comments POC-GLUCOSE METER 150 mg/dL 70-110 H : TESTED A T [facility] 6720 ([facility]) (test code = [facility], 1538) [id number]: Power Project Manager/Techni edgardo ID = [id number] for YASMIN AMAD, RUBEN POCT-GLUCOSE [id number] 05:42:00 Test Item Value Reference Range Interpretation Comments POC-GLUCOSE METER 146 mg/dL 70-110 H : TESTED A T [facility] 6720 ([facility]) (test code = [facility], 1538) [id number]: Power Project Manager/Techni edgardo ID = [id number] for YASMIN AMAD, RUBEN TROPONIN [id number] 05:04:00 Test Item Value Reference Range Interpretation Comments TROPONIN I ([facility]) (test code = 21.20 ng/mL 0.00-0.03 [facility]) Troponin I (TnI) levels must be interpreted in the context of the presenting symptoms and the clinical findings. Elevated TnI levels indicate myocardial damage, but are not specific for ischemic heart disease. Elevated TnI levels are seen in patients with other cardiac conditions (including myocarditis and congestive heart failure), and slight TnI elevations occur in patients with other conditions, including sepsis, renal failure, acidosis, acute neurological disease, and persistent tachyarrhythmia.Power Project Manager ID - DARIUS MHEPARIN ASSAY - [id number] 05:01:00 Test Item Value Reference Range Interpretation Comments UNFRACTIONATED HEPARIN-ANTI 10A 0.18 u/ml 0.30-0.70 L ([facility]) (test code = 1606) Recommendations for Monitoring Unfractionated Heparin Therapeutic Range: 0.3- 0.7 u/mL with continuous IV infusionWhile on heparin. aPTT target range 50 to 80 seconds Notify MD if aPTT is out of range.LACTATE DEHYDROGENASE ([facility])2020-01-17 05:00:00 Test Item Value Reference Range Interpretation Comments LACTATE DEHYDROGENASE 748 U/L 125-220 H Specim en slightly ([facility]) (test code = hemoly zed 635) Power Project Manager ID - DARIUS [id number] 04:59:00 Test Item Value Reference Range Interpretation Comments PARTIAL THROMBOPLASTIN TIME 60.8 seconds 22.5-36.0 H (BEAKER) (test code = 760) While on heparin. aPTT target range 50 to 80 seconds Notify MD if aPTT is out of range.COMPREHENSIVE METABOLIC [id number] 04:59:00 Test Item Value Reference Range Interpretation Comments TOTAL PROTEIN 6.0 gm/dL 6.0-8.3 Specimen sligh tly (BEAKER) (test code = hemoly zed 770) ALBUMIN (BEAKER) 3.0 g/dL 3.5-5.0 L Specimen sl ightly (test code = 1145) hemolyzed ALKALINE PHOSPHATASE 82 U/L 40-150 (BEAKER) (test code = 346) BILIRUBIN TOTAL 0.8 mg/dL 0.2-1.2 Specimen sli ghtly (BEAKER) (test code = hemoly zed 377) SODIUM (BEAKER) (test 136 meq/L 136-145 code = 381) POTASSIUM (BEAKER) 4.7 meq/L 3.5-5.1 Specimen slightly (test code = 379) hemolyzed CHLORIDE (BEAKER) 105 meq/L 98-107 (test code = 382) CO2 (BEAKER) (test 24 meq/L 22-29 code = 355) BLOOD UREA NITROGEN 7 mg/dL 7-21 (BEAKER) (test code = 354) CREATININE (BEAKER) 0.71 mg/dL 0.57-1.25 Specimen slightly (test code = 358) hemolyzed GLUCOSE RANDOM 159 mg/dL 70-105 H (BEAKER) (test code = 652) CALCIUM (BEAKER) 8.1 mg/dL 8.4-10.2 L (test code = 697) AST (SGOT) (BEAKER) 111 U/L 5-34 H Specimen slightly (test code = 353) hemolyzed ALT (SGPT) (BEAKER) 76 U/L 6-55 H Specimen slightly (test code = 347) hemolyzed EGFR (BEAKER) (test INSUFFIC IENT CLINICAL code = 1092) DATA TO CALCULA TE ESTIMATED GFR. Power Project Manager ID - DARIUS MSpecimen slightly lipemicPROTHROMBIN TIME/[id number] 04:58:00 Test Item Value Reference Range Interpretation Comments PROTIME (BEAKER) (test code = 14.8 seconds 11.9-14.2 H 759) INR (BEAKER) (test code = 370) 1.20 <=5.90 Effective 07/28/2018: PT Reference Range ChangeNew: 11.9-14.2 Previous: 11.7- 14.7RECOMMENDED COUMADIN/WARFARIN INR THERAPY RANGESSTANDARD DOSE: 2.0-3.0 Includes: PROPHYLAXIS for venous thrombosis, systemic embolization; TREATMENT for venous thrombosis and/or pulmonary embolus.HIGH RISK: Target INR is2.5-3.5 for patients wiht mechanical heart valves.While on heparin. aPTT target range 50 to 80 seconds Notify MD if aPTT is out of range.[id number] 04:58:00 Test Item Value Reference Range Interpretation Comments FIBRINOGEN LEVEL (BEAKER) (test 571 mg/dl 225-434 H code = 658) While on heparin. aPTT target range 50 to 80 seconds Notify MD if aPTT is out of range.[id number] 04:54:00 Test Item Value Reference Range Interpretation Comments MAGNESIUM (BEAKER) 2.2 mg/dL 1.6-2.6 Specimen slightly (test code = 627) hemolyzed Power Project Manager ID - DARIUS MCREATINE KINASE (CK)2020-01-17 04:54:00 Test Item Value Reference Range Interpretation Comments CREATINE KINASE TOTAL (BEAKER) (test 1618 U/L 29-200 H code = 380) Power Project Manager ID - DARIUS MLACTIC ACID, [id number] 04:48:00 Test Item Value Reference Range Interpretation Comments LACTATE BLOOD ARTERIAL (2) 0.6 mmol/L 0.5-2.2 (BEAKER) (test code = 2874) Power Project Manager ID - EDASICALCIUM, [id number] 04:38:00 Test Item Value Reference Range Interpretation Comments CALCIUM IONIZED (BEAKER) (test 1.10 mmol/L 1.12-1.27 L code = 698) PH, BLOOD (BEAKER) (test code = 7.29 9280) Check serum Ionized Calcium level after 4 hours after IV Calcium replacement.Check serum Ionized Calcium level after 4 hours after IV Calcium replacement.BLOOD GAS, [id number] 04:38:00 Test Item Value Reference Range Interpretation Comments PH ARTERIAL (BEAKER) (test code = 7.29 7.35-7.45 L 383) PCO2 ARTERIAL (BEAKER) (test code 55 mm Hg 35-45 H = 384) PO2 ARTERIAL (BEAKER) (test code 73 mm Hg 80-90 L = 385) O2 SATURATION ARTERIAL (BEAKER) 93.1 % 96.0-97.0 L (test code = 386) HCO3 ARTERIAL (BEAKER) (test code 26 mmol/L 21-29 = 388) BASE EXCESS ARTERIAL (BEAKER) -1.7 mmol/L -2.0-3.0 (test code = 387) PATIENT TEMPERATURE (BEAKER) 36.7 (test code = 1818) FIO2 (BEAKER) (test code = 1819) 65.0 OXYGEN SATURATION, [id number] 04:37:00 Test Item Value Reference Range Interpretation Comments O2 SATURATION (MEASURED) (BEAKER) 76.5 % (test code = 1455) CBC (HEMOGRAM ONLY)2020-01-17 04:37:00 Test Item Value Reference Range Interpretation Comments WHITE BLOOD CELL COUNT (BEAKER) 9.9 K/ L 3.5-10.5 (test code = 775) RED BLOOD CELL COUNT (BEAKER) 3.35 M/ L 3.93-5.22 L (test code = 761) HEMOGLOBIN (BEAKER) (test code = 10.8 GM/DL 11.2-15.7 L 410) HEMATOCRIT (BEAKER) (test code = 33.3 % 34.1-44.9 L 411) MEAN CORPUSCULAR VOLUME (BEAKER) 99.4 fL 79.4-94.8 H (test code = 753) MEAN CORPUSCULAR HEMOGLOBIN 32.2 pg 25.6-32.2 (BEAKER) (test code = 751) MEAN CORPUSCULAR HEMOGLOBIN CONC 32.4 GM/DL 32.2-35.5 (BEAKER) (test code = 752) RED CELL DISTRIBUTION WIDTH 14.5 % 11.7-14.4 H (BEAKER) (test code = 412) PLATELET COUNT (BEAKER) (test 141 K/CU MM 150-450 L code = 756) MEAN PLATELET VOLUME (BEAKER) 9.6 fL 9.4-12.3 (test code = 754) NUCLEATED RED BLOOD CELLS 0 /100 WBC 0-0 (BEAKER) (test code = 413) POCT-GLUCOSE [id number] 04:02:00 Test Item Value Reference Range Interpretation Comments POC-GLUCOSE METER 158 mg/dL 70-110 H : TESTED A T [facility] 6720 (BEAKER) (test code = HERLINDA Cohn [facility], 1538) [address]: Power Project Manager/Techni edgardo ID = [id number] for YASMIN AMAD, RUBEN LACTIC ACID, [id number] 03:01:00 Test Item Value Reference Range Interpretation Comments LACTATE BLOOD ARTERIAL (2) 0.7 mmol/L 0.5-2.2 (BEAKER) (test code = 2874) Power Project Manager ID - EDASIPOCT-GLUCOSE [id number] 02:54:00 Test Item Value Reference Range Interpretation Comments POC-GLUCOSE METER 159 mg/dL 70-110 H : TESTED A T [facility] 6720 (BEAKER) (test code = HERLINDA Cohn [facility], 1538) [id number]: Power Project Manager/Techni edgardo ID = [id number] for AH AMAD, RUBEN BLOOD GAS, [id number] 02:50:00 Test Item Value Reference Range Interpretation Comments PH ARTERIAL (BEAKER) (test code = 7.35 7.35-7.45 383) PCO2 ARTERIAL (BEAKER) (test code 44 mm Hg 35-45 = 384) PO2 ARTERIAL (BEAKER) (test code 66 mm Hg 80-90 L = 385) O2 SATURATION ARTERIAL (BEAKER) 92.6 % 96.0-97.0 L (test code = 386) HCO3 ARTERIAL (BEAKER) (test code 24 mmol/L 21-29 = 388) BASE EXCESS ARTERIAL (BEAKER) -1.9 mmol/L -2.0-3.0 (test code = 387) PATIENT TEMPERATURE (BEAKER) 36.5 (test code = 1818) FIO2 (BEAKER) (test code = 1819) 65.0 RAD, CHEST, 1 VIEW, NON [id number] 02:15:00Reason for exam:->ECMO, respiratory failureShould this be performed at the bedside?->Yes [facility] 1970 Sex: FFINAL REPORT Chest one view. Clinical history: ECMO, respiratory aisha lure Comparison: Chest radiograph 01/16/2020, 9:27 PM. Technique: A single frontal view of the chestwas obtained. Findings:Support lines and tubes are in satisfactory positions.The cardiomediastinal contours are stable. There are diffuse bilateral airspace opacities, not significantly changed. Thereis no definite pleural effusion. There is no pneumothorax. Signed: Nyasia Juan Verified Date/Time: 01/17/2020 02:15:51 POCT-GLUCOSE [id number] 01:24:00 Test Item Value Reference Range Interpretation Comments POC-GLUCOSE METER 142 mg/dL 70-110 H : TESTED A T [facility] 6720 (BEAKER) (test code = [facility], 1538) [id number]: Power Project Manager/Techni edgardo ID = [id number] for AH AMAD, RUBEN POCT-GLUCOSE [id number] 01:23:00 Test Item Value Reference Range Interpretation Comments POC-GLUCOSE METER 143 mg/dL 70-110 H : TESTED A T [facility] 6720 (BEAKER) (test code = [facility], 1538) 08784: Power Project Manager/Techni edgardo ID = [id number] for AH AMAD, RUBEN LACTIC ACID, [id number] 00:57:00 Test Item Value Reference Range Interpretation Comments LACTATE BLOOD ARTERIAL (2) 0.7 mmol/L 0.5-2.2 (BEAKER) (test code = 2874) Power Project Manager ID - ADMINSpecimen slightly lipemicBLOOD GAS, [id number] 00:44:00 Test Item Value Reference Range Interpretation Comments PH ARTERIAL (BEAKER) (test code = 7.46 7.35-7.45 H 383) PCO2 ARTERIAL (BEAKER) (test code 33 mm Hg 35-45 L = 384) PO2 ARTERIAL (BEAKER) (test code 67 mm Hg 80-90 L = 385) O2 SATURATION ARTERIAL (BEAKER) 94.5 % 96.0-97.0 L (test code = 386) HCO3 ARTERIAL (BEAKER) (test code 23 mmol/L 21-29 = 388) BASE EXCESS ARTERIAL (BEAKER) -0.1 mmol/L -2.0-3.0 (test code = 387) PATIENT TEMPERATURE (BEAKER) 36.8 (test code = 1818) FIO2 (BEAKER) (test code = 1819) 50.0 SARS-COV2/RT-PCR ([facility])2020-01-17 00:42:00 Test Item Value Reference Range Interpretation Comments SARS-COV2/RT-PCR (test Negative Not Detected, Negative, code = 1410217) See external report for linked test SARS-COV-2 PERFORMING LAB [facility] (test code = 7195466) Negative result for this test determines that SARS-CoV-2 RNA was not present in the specimen above the Limit of Detection (LOD). However, Negative results do not preclude SARS-CoV-2 infection and should not be used as the sole basis for treatment or patient management decisions. Negative results mustbe combined with clinical observations, patient history, and epidemiological information. A false negative result may occur if a specimen is improperly collected, transported or handled. A false negative result should be considered if patient's recent exposures or clinical presentation indicate that COVID-19 (SARS-CoV-2) is likely and diagnostic tests for other causes of illness are negative. Re-testing should be considered in cases of suspected false negatives.The limit of detection for this assay is 800 copies/mL.This SARS CoV-2 test is a real-time RT-PCR test intended for the qualitative detection of nucleic acid from SARS-CoV-2 in a nasopharyngeal swab specimen collected from individuals suspected of COVID-19 by their healthcare provider.This test has not been Food and Drug Administration (FDA) cleared or approved. This is a modified version of an approved Emergency Use Authorization (EUA) and is in the process of review by the FDA. Once authorized by the FDA, the issued EUA will be effective until the declaration that circumstances exist justifying the authorization of the emergency use of in vitro diagnostic tests for detection and/or diagnosis of COVID-19 is terminated under Section 564(b)(2) of the Act or the EUA is revoked under Section 564(g) of the Act.Fact Sheet for Healthcare Providers:https://www.[employer]/sites/default/files/product/documents/Fact_Shee f_TS_Itqjkiepu_Kmnc_SGHU-VqJ-7.pdfFact Sheet for Healthcare Patients:https://www.[employer]/sites/default/files/product/ documents/Piua_Qizls_Gzgcrdbv_Wmqo_IZGK-EoG-0.pdfPerforming Laboratory:[facility], [place] [address]RFFXYD ACID, ARTERIAL 2020-01-16 23:58:00 Test Item Value Reference Range Interpretation Comments LACTATE BLOOD 0.9 mmol/L 0.5-2.2 Specimen moder ately ARTERIAL (2) (BEAKER) hemoly zed (test code = 2874) Power Project Manager ID - ADMINSpecimen slightly lipemicPOCT-GLUCOSE [id number] 23:37:00 Test Item Value Reference Range Interpretation Comments POC-GLUCOSE METER 137 mg/dL 70-110 H : TESTED A T [facility] 6720 (BEAKER) (test code = HERLINDA Cohn [facility], 1538) 53840: Power Project Manager/Techni edgardo ID = [id number] for AH AMAD, RUBEN BLOOD GAS, [id number] 23:35:00 Test Item Value Reference Range Interpretation Comments PH ARTERIAL (BEAKER) (test code = 7.50 7.35-7.45 H 383) PCO2 ARTERIAL (BEAKER) (test code 30 mm Hg 35-45 L = 384) PO2 ARTERIAL (BEAKER) (test code = 72 mm Hg 80-90 L 385) O2 SATURATION ARTERIAL (BEAKER) 96.0 % 96.0-97.0 (test code = 386) HCO3 ARTERIAL (BEAKER) (test code 23 mmol/L 21-29 = 388) BASE EXCESS ARTERIAL (BEAKER) 0.4 mmol/L -2.0-3.0 (test code = 387) PATIENT TEMPERATURE (BEAKER) (test 36.7 code = 1818) FIO2 (BEAKER) (test code = 1819) 50.0 POCT-GLUCOSE [id number] 23:02:00 Test Item Value Reference Range Interpretation Comments POC-GLUCOSE METER 137 mg/dL 70-110 H : TESTED A T [facility] 6720 (PATITO) (test code = [facility] Suki [facility], 1538) 11532: Power Project Manager/Techni edgardo ID = [id number] for AH AMAD, RUBEN POCT-GLUCOSE [id number] 22:58:00 Test Item Value Reference Range Interpretation Comments POC-GLUCOSE METER 89 mg/dL 70-110 : TESTED A T [facility] 6720 (PATITO) (test code = [facility], 1538) 60168: Power Project Manager/Techni edgardo ID = [id number] for AHAM AD, RUBEN RAD, CHEST, 1 VIEW, NON [id number] 22:40:00Reason for exam:- >hypoxiaShould this be performed at the bedside?->Yes [facility] 1970 Sex: FFINAL REPORT Chest, 1 view. History: Hypoxia. Comparison: 01/16/2020at 1413. IMPRESSION: Support lines/tubes identified in stable position. Airspace opacities identified within the left perihilar and midlung zone which are increased from the prior examination. The right lung is grossly clear. There is no evidence for pneumothorax. The cardiomediastinal silhouette is stable in appearance. No acute osseous abnormalities identified. Signed: Moise Moran Verified Date/Time: 01/16/2020 22:40:05 Reading Location: [address] Consult Reading Room RAD, ABDOMEN/KUB, 1 VIEW [id number] 22:13:00Reason for exam:->distension [facility] 1970 Sex: FFINAL REPORT TECHNIQUE: Supine views of the abdomen. INDICATION: Dist ention. COMPARISON: Exam from 13 hours prior. FINDINGS/IMPRESSION: The enteric tube descends below the gastroesophageal junction and has been advanced now terminating in the antropyloric region of thestomach. ECMO cannula overlies the right hemiabdomen and lower chest. A pulmonary arterial catheter terminates at the right main pulmonary outflow tract. Bowel gas pattern is nonspecific with paucity of bowel gas similar in appearance compared to prior. Otherwise, no acute interval abnormality. Signed: Paradise Lindo MDReport Verified Date/Time: 01/16/2020 22:13:06 VANCOMYCIN LEVEL, [id number] 21:49:00 Test Item Value Reference Range Interpretation Comments VANCOMYCIN TROUGH (BEAKER) (test 5.9 ug/mL 10.0-20.0 L code = 522) Power Project Manager ID - [id number] 21:11:00 Test Item Value Reference Range Interpretation Comments PARTIAL THROMBOPLASTIN TIME 60.2 seconds 22.5-36.0 H (BEAKER) (test code = 760) While on heparin. aPTT target range 50 to 80 seconds Notify MD if aPTT is out of range. SCREEN, [id number] 21:09:00 Test Item Value Reference Range Interpretation Comments TEST URINE (BEAKER) (test Negative code = 583) BLOOD GAS, [id number] 20:56:00 Test Item Value Reference Range Interpretation Comments PH ARTERIAL (BEAKER) (test code = 7.45 7.35-7.45 383) PCO2 ARTERIAL (BEAKER) (test code 34 mm Hg 35-45 L = 384) PO2 ARTERIAL (BEAKER) (test code 72 mm Hg 80-90 L = 385) O2 SATURATION ARTERIAL (BEAKER) 95.3 % 96.0-97.0 L (test code = 386) HCO3 ARTERIAL (BEAKER) (test code 23 mmol/L 21-29 = 388) BASE EXCESS ARTERIAL (BEAKER) -0.6 mmol/L -2.0-3.0 (test code = 387) PATIENT TEMPERATURE (BEAKER) 36.9 (test code = 1818) FIO2 (BEAKER) (test code = 1819) 50.0 OXYGEN SATURATION, [id number] 20:54:00 Test Item Value Reference Range Interpretation Comments O2 SATURATION (MEASURED) (BEAKER) 73.1 % (test code = 1455) BLOOD GAS, [id number] 20:30:00 Test Item Value Reference Range Interpretation Comments PH ARTERIAL (BEAKER) (test code = 7.41 7.35-7.45 383) PCO2 ARTERIAL (BEAKER) (test code 37 mm Hg 35-45 = 384) PO2 ARTERIAL (BEAKER) (test code 557 mm Hg 80-90 H = 385) O2 SATURATION ARTERIAL (BEAKER) 99.9 % 96.0-97.0 H (test code = 386) HCO3 ARTERIAL (BEAKER) (test code 23 mmol/L 21-29 = 388) BASE EXCESS ARTERIAL (BEAKER) -1.1 mmol/L -2.0-3.0 (test code = 387) PATIENT TEMPERATURE (BEAKER) 36.8 (test code = 1818) FIO2 (BEAKER) (test code = 1819) 100.0 BASIC METABOLIC [id number] 19:20:00 Test Item Value Reference Range Interpretation Comments SODIUM (BEAKER) (test 138 meq/L 136-145 code = 381) POTASSIUM (BEAKER) 4.2 meq/L 3.5-5.1 Specimen moderately (test code = 379) hemolyzed CHLORIDE (BEAKER) 108 meq/L 98-107 H (test code = 382) CO2 (BEAKER) (test 23 meq/L 22-29 code = 355) BLOOD UREA NITROGEN 6 mg/dL 7-21 L (BEAKER) (test code = 354) CREATININE (BEAKER) 0.65 mg/dL 0.57-1.25 Specimen moderately (test code = 358) hemolyzed GLUCOSE RANDOM 142 mg/dL 70-105 H (BEAKER) (test code = 652) CALCIUM (BEAKER) 7.9 mg/dL 8.4-10.2 L (test code = 697) EGFR (BEAKER) (test INSUFFIC IENT CLINICAL code = 1092) DATA TO CALCULA TE ESTIMATED GFR. Power Project Manager ID - [id number] 19:18:00 Test Item Value Reference Range Interpretation Comments MAGNESIUM (BEAKER) 2.1 mg/dL 1.6-2.6 Specimen moderately (test code = 627) hemolyzed Power Project Manager ID - BSLACTIC ACID, [id number] 19:13:00 Test Item Value Reference Range Interpretation Comments LACTATE BLOOD 2.4 mmol/L 0.5-2.2 H Specimen sligh tly ARTERIAL (2) (BEAKER) hemoly zed (test code = 2874) Power Project Manager ID - BSSpecimen slightly lipemicTHROMBOELASTOGRAPH (TEG)2020-01-16 18:59:00 Test Item Value Reference Range Interpretation Comments TEG ACTIVATED CLOTTING TIME 20.0 minutes 4.0-7.0 H (BEAKER) (test code = 1407) TEG FIBRINOGEN ACTIVITY (BEAKER) 42.2 degrees 61.0-73.0 L (test code = 1408) TEG PLT. AGGREGATION (BEAKER) 65.1 MM 55.0-65.0 H (test code = 1409) TEG FIBRINOLYSIS (BEAKER) (test 0.0 % 0.0-5.0 code = 1410) TGH ACTIVATED CLOTTING TIME 6.1 minutes 4.0-7.0 (BEAKER) (test code = 1411) TGH FIBRINOGEN ACTIVITY (BEAKER) 67.4 degrees 61.0-73.0 (test code = 1412) TGH PLT. AGGREGATION (BEAKER) 66.4 MM 55.0-65.0 H (test code = 1413) TGH FIBRINOLYSIS (BEAKER) (test 0.0 % 0.0-5.0 code = 1414) BLOOD GAS, [id number] 18:55:00 Test Item Value Reference Range Interpretation Comments PH ARTERIAL (BEAKER) (test code = 7.46 7.35-7.45 H 383) PCO2 ARTERIAL (BEAKER) (test code 32 mm Hg 35-45 L = 384) PO2 ARTERIAL (BEAKER) (test code 68 mm Hg 80-90 L = 385) O2 SATURATION ARTERIAL (BEAKER) 95.0 % 96.0-97.0 L (test code = 386) HCO3 ARTERIAL (BEAKER) (test code 22 mmol/L 21-29 = 388) BASE EXCESS ARTERIAL (BEAKER) -1.0 mmol/L -2.0-3.0 (test code = 387) PATIENT TEMPERATURE (BEAKER) 36.4 (test code = 1818) FIO2 (BEAKER) (test code = 1819) 50.0 GLUCOSE-STAT [id number] 18:55:00 Test Item Value Reference Range Interpretation Comments GLUCOSE RANDOM (BEAKER) (test code 138 mg/dL 70-110 H = 652) HGB/HCT (H&H) - STAT [id number] 18:55:00 Test Item Value Reference Range Interpretation Comments HEMOGLOBIN (BEAKER) (test code = 11.2 GM/DL 12.0-15.0 L 410) HEMATOCRIT (BEAKER) (test code = 33.0 % 36.0-45.0 L 411) SODIUM NA-STAT [id number] 18:54:00 Test Item Value Reference Range Interpretation Comments SODIUM (BEAKER) (test code = 381) 135 meq/L 136-145 L POTASSIUM-STAT [id number] 18:54:00 Test Item Value Reference Range Interpretation Comments POTASSIUM (BEAKER) (test code = 3.9 meq/L 3.6-5.5 379) POCT-GLUCOSE [id number] 18:20:00 Test Item Value Reference Range Interpretation Comments POC-GLUCOSE METER 167 mg/dL 70-110 H : TESTED A T [facility] 6720 (BEAKER) (test code = [facility]DA [place], 1538) [address]: Power Project Manager/Techni edgardo ID = [id number] for MO DIC, MALCOLM POCT-GLUCOSE [id number] 17:33:00 Test Item Value Reference Range Interpretation Comments POC-GLUCOSE METER 166 mg/dL 70-110 H : TESTED A T [facility] 6720 (BEAKER) (test code = [facility], 1538) 01848: Power Project Manager/Techni edgardo ID = [id number] for MO DIC, MALCOLM BLOOD GAS, [id number] 17:29:00 Test Item Value Reference Range Interpretation Comments PH ARTERIAL (BEAKER) (test code = 7.46 7.35-7.45 H 383) PCO2 ARTERIAL (BEAKER) (test code 32 mm Hg 35-45 L = 384) PO2 ARTERIAL (BEAKER) (test code 69 mm Hg 80-90 L = 385) O2 SATURATION ARTERIAL (BEAKER) 95.4 % 96.0-97.0 L (test code = 386) HCO3 ARTERIAL (BEAKER) (test code 23 mmol/L 21-29 = 388) BASE EXCESS ARTERIAL (BEAKER) -0.9 mmol/L -2.0-3.0 (test code = 387) PATIENT TEMPERATURE (BEAKER) 36.4 (test code = 1818) FIO2 (BEAKER) (test code = 1819) 50.0 POCT-GLUCOSE [id number] 15:32:00 Test Item Value Reference Range Interpretation Comments POC-GLUCOSE METER 157 mg/dL 70-110 H : TESTED A T [facility] 6720 (BEAKER) (test code = [facility], 1538) [id number]: Power Project Manager/Techni edgardo ID = [id number] for MO DIC, MALCOLM RAD, CHEST, 1 VIEW, NON [id number] 14:44:00Reason for exam:->Post bronchoscopyShould this be performed at the bedside?->Yes [facility] 1970 Sex: FFINAL REPORT History: Status post bronchoscopy Comparison: 01/16/2020 at 0034 hours Findings: No pneumothorax is visualized. Airspace consolidation in the left perihilar region and left lung base, increased since the prior study. Question small left pleural effusion. Endotracheal tube tip is 4 cm proximal to the bang. Right jugular pulmonary arterial catheter is inthe region of the right atrium. ECMO cannula projects at the junction of the superior vena cava and right atrium. Nasogastric tube passes below the diaphragm, with the tip not imaged. Signed: Sherri Raphaeleport Verified Date/Time: 01/16/2020 14:44:03 Reading Location: [facility] Radiology Reading Room APTT 2020-01-16 14:14:00 Test Item Value Reference Range Interpretation Comments PARTIAL THROMBOPLASTIN TIME 64.8 seconds 22.5-36.0 H (BEAKER) (test code = 760) While on heparin. aPTT target range 50 to 80 seconds Notify if aPTT is out of range.[id number] 14:07:00 Test Item Value Reference Range Interpretation Comments POTASSIUM (BEAKER) 4.1 meq/L 3.5-5.1 Specimen slightly (test code = 379) hemolyzed Power Project Manager ID - EDASIPOCT-GLUCOSE [id number] 13:52:00 Test Item Value Reference Range Interpretation Comments POC-GLUCOSE METER 150 mg/dL 70-110 H : TESTED A T [facility] 6720 (BEAKER) (test code = HERLINDA Cohn [place], 1538) 39[address]: Power Project Manager/Techni edgardo ID = [id number] for MALCOLM ELLIS HEMOGLOBIN [id number] 12:51:00 Test Item Value Reference Range Interpretation Comments HEMOGLOBIN A1C (BEAKER) (test code = 6.4 % 4.3-6.1 H 368) POCT-GLUCOSE [id number] 12:15:00 Test Item Value Reference Range Interpretation Comments POC-GLUCOSE METER 130 mg/dL 70-110 H : TESTED A T [facility] 6720 (Publictivity) (test code = HERLINDA Cohn [facility], 1538) 91409: Power Project Manager/Techni edgardo ID = [id number] for MO DIC, MALCOLM POCT-GLUCOSE [id number] 11:09:00 Test Item Value Reference Range Interpretation Comments POC-GLUCOSE METER 94 mg/dL 70-110 : TESTED A T [facility] 6720 (PATITO) (test code = HERLINDA Cohn [facility], 1538) 74995: Power Project Manager/Techni edgardo ID = [id number] for RAMA C, MALCOLM LACTIC ACID, [id number] 10:53:00 Test Item Value Reference Range Interpretation Comments LACTATE BLOOD 1.6 mmol/L 0.5-2.2 Specimen sligh tly ARTERIAL (2) ([employer]) hemoly zed (test code = 2874) Power Project Manager ID - EDASISpecimen slightly lipemicRAD, ABDOMEN/KUB, 1 VIEW AP 2020-01-16 10:49:00Reason for exam:->abdominal distension [facility] 1970 Sex: FFINAL REPORT CLINICAL HISTORY: abdominal distension TECHNIQUE: Supine abdomen COMPARISON: None IMPRESSION: There is a nonspecific paucity of bowel gas, and dilated fluid-filled loops of bowel cannot be excluded. Free air and air-fluid levels are not definitively seen, but also cannot be excluded on the supine view. The tip of the nasogastric tube appears to be in the gastric fundus with the sidehole near the gastroesophageal junction. Advancement is recommended. Signed: Vale Torreseport Verified Date/Time: 01/16/2020 10:49:18 Reading Location: [facility] Radiology Reading Room BLOOD GAS, [id number] 10:48:00 Test Item Value Reference Range Interpretation Comments PH ARTERIAL (BEAKER) (test code = 7.46 7.35-7.45 H 383) PCO2 ARTERIAL (BEAKER) (test code 34 mm Hg 35-45 L = 384) PO2 ARTERIAL (BEAKER) (test code = 123 mm Hg 80-90 H 385) O2 SATURATION ARTERIAL (BEAKER) 98.7 % 96.0-97.0 H (test code = 386) HCO3 ARTERIAL (BEAKER) (test code 24 mmol/L 21-29 = 388) BASE EXCESS ARTERIAL (BEAKER) 0.2 mmol/L -2.0-3.0 (test code = 387) PATIENT TEMPERATURE (BEAKER) (test 36.4 code = 1818) FIO2 (BEAKER) (test code = 1819) 50.0 THROMBOELASTOGRAPH (TEG)2020-01-16 10:07:00 Test Item Value Reference Range Interpretation Comments TEG ACTIVATED CLOTTING TIME 18.6 minutes 4.0-7.0 H (BEAKER) (test code = 1407) TEG FIBRINOGEN ACTIVITY (BEAKER) 37.4 degrees 61.0-73.0 L (test code = 1408) TEG PLT. AGGREGATION (BEAKER) 57.7 MM 55.0-65.0 (test code = 1409) TEG FIBRINOLYSIS (BEAKER) (test 0.0 % 0.0-5.0 code = 1410) TGH ACTIVATED CLOTTING TIME 7.0 minutes 4.0-7.0 (BEAKER) (test code = 1411) TGH FIBRINOGEN ACTIVITY (BEAKER) 69.4 degrees 61.0-73.0 (test code = 1412) TGH PLT. AGGREGATION (BEAKER) 63.1 MM 55.0-65.0 (test code = 1413) TGH FIBRINOLYSIS (BEAKER) (test 0.1 % 0.0-5.0 code = 1414) SARS-COV2/RT-PCR ([facility])2020-01-16 10:06:00 Test Item Value Reference Range Interpretation Comments SARS-COV2/RT-PCR (test Negative Not Detected, Negative, code = 9247202) See external report for linked test SARS-COV-2 PERFORMING LAB [facility] ADAM (test code = 7684354) Negative result for this test determines that SARS-CoV-2 RNA was not present in the specimen above the Limit of Detection (LOD). However, Negative results do not preclude SARS-CoV-2 infection and should not be used as the sole basis for treatment or patient management decisions. Negative results mustbe combined with clinical observations, patient history, and epidemiological information. A false negative result may occur if a specimen is improperly collected, transported or handled. A false negative result should be considered if patient's recent exposures or clinical presentation indicate that COVID-19 (SARS-CoV-2) is likely and diagnostic tests for other causes of illness are negative. Re-testing should be considered in cases of suspected false negatives.The limit of detection for this assay is 800 copies/mL.This SARS CoV-2 test is a real-time RT-PCR test intended for the qualitative detection of nucleic acid from SARS-CoV-2 in a nasopharyngeal swab specimen collected from individuals suspected of COVID-19 by their healthcare provider.This test has not been Food and Drug Administration (FDA) cleared or approved. This is a modified version of an approved Emergency Use Authorization (EUA) and is in the process of review by the FDA. Once authorized by the FDA, the issued EUA will be effective until the declaration that circumstances exist justifying the authorization of the emergency use of in vitro diagnostic tests for detection and/or diagnosis of COVID-19 is terminated under Section 564(b)(2) of the Act or the EUA is revoked under Section 564(g) of the Act.Fact Sheet for Healthcare Providers:https://www.Advitechidel.com/sites/default/files/product/documents/Fact_Shee u_XY_Jleohyiwi_Uqfu_ETZZ-FpK-7.pdfFact Sheet for Healthcare Patients:https://www.Advitechidel.com/sites/default/files/product/ documents/Qisj_Jtghb_Wdtwladu_Hebz_XPOL-VzJ-4.pdfPerforming Laboratory:[facility], [place] [address]HFUTAG ACID, ARTERIAL 2020-01-16 09:58:00 Test Item Value Reference Range Interpretation Comments LACTATE BLOOD ARTERIAL (2) 2.3 mmol/L 0.5-2.2 H (BEAKER) (test code = 2874) Power Project Manager ID - EDASIPOCT-GLUCOSE [id number] 09:44:00 Test Item Value Reference Range Interpretation Comments POC-GLUCOSE METER 101 mg/dL 70-110 : [facility] (BEAKER) (test code = [place], 1538) [address]: Power Project Manager/Techni edgardo ID = [id number] for MO DIC, MALCOLM [id number] 08:40:00 Test Item Value Reference Range Interpretation Comments MAGNESIUM (BEAKER) 2.4 mg/dL 1.6-2.6 Specimen slightly (test code = 627) hemolyzed Power Project Manager ID - [id number] 08:40:00 Test Item Value Reference Range Interpretation Comments POTASSIUM (BEAKER) 3.6 meq/L 3.5-5.1 Specimen slightly (test code = 379) hemolyzed Power Project Manager ID - EDASICREATINE KINASE (CK)2020-01-16 08:40:00 Test Item Value Reference Range Interpretation Comments CREATINE KINASE TOTAL (BEAKER) (test 1245 U/L 29-200 H code = 380) Power Project Manager ID - [id number] 08:40:00 Test Item Value Reference Range Interpretation Comments PARTIAL THROMBOPLASTIN TIME 61.8 seconds 22.5-36.0 H (BEAKER) (test code = 760) While on heparin. aPTT target range 50 to 80 seconds Notify MD if aPTT is out of range.PROTHROMBIN [id number] 08:39:00 Test Item Value Reference Range Interpretation Comments PROTIME (BEAKER) (test code = 15.2 seconds 11.9-14.2 H 759) INR (BEAKER) (test code = 370) 1.23 <=5.90 Effective 07/28/2018: PT Reference Range ChangeNew: 11.9-14.2 Previous: 11.7- 14.7RECOMMENDED COUMADIN/WARFARIN INR THERAPY RANGESSTANDARD DOSE: 2.0-3.0 Includes: PROPHYLAXIS for venous thrombosis, systemic embolization; TREATMENT for venous thrombosis and/or pulmonary embolus.HIGH RISK: Target INR is2.5-3.5 for patients wiht mechanical heart valves.While on heparin. aPTT target range 50 to 80 seconds Notify MD if aPTT is out of range.POCT-GLUCOSE [id number] 08:31:00 Test Item Value Reference Range Interpretation Comments POC-GLUCOSE METER 115 mg/dL 70-110 H : TESTED A T [facility] 6720 (BEAKER) (test code = [facility], 1538) [address]: Power Project Manager/Techni edgardo ID = [id number] for CO BURN, SUZETTE BLOOD GAS, [id number] 08:21:00 Test Item Value Reference Range Interpretation Comments PH ARTERIAL (BEAKER) (test code = 7.47 7.35-7.45 H 383) PCO2 ARTERIAL (BEAKER) (test code 32 mm Hg 35-45 L = 384) PO2 ARTERIAL (BEAKER) (test code 69 mm Hg 80-90 L = 385) O2 SATURATION ARTERIAL (BEAKER) 95.4 % 96.0-97.0 L (test code = 386) HCO3 ARTERIAL (BEAKER) (test code 23 mmol/L 21-29 = 388) BASE EXCESS ARTERIAL (BEAKER) -0.6 mmol/L -2.0-3.0 (test code = 387) PATIENT TEMPERATURE (BEAKER) 36.4 (test code = 1818) FIO2 (BEAKER) (test code = 1819) 50.0 CALCIUM, [id number] 08:21:00 Test Item Value Reference Range Interpretation Comments CALCIUM IONIZED (BEAKER) (test 1.07 mmol/L 1.12-1.27 L code = 698) PH, BLOOD (BEAKER) (test code = 7.46 1810) Check serum Ionized Calcium level after 4 hours after IV Calcium replacement.Check serum Ionized Calcium level after 4 hours after IV Calcium replacement.POCT-GLUCOSE [id number] 06:14:00 Test Item Value Reference Range Interpretation Comments POC-GLUCOSE METER 140 mg/dL 70-110 H : TESTED A T [facility] 6720 (BEAKER) (test code = [facility], 153) [id number]: Power Project Manager/Techni edgardo ID = [id number] for THOMAS SALGADO (V)VALDEZEL CALCIUM, [id number] 05:50:00 Test Item Value Reference Range Interpretation Comments CALCIUM IONIZED (BEAKER) (test 1.04 mmol/L 1.12-1.27 L code = 698) PH, BLOOD (BEAKER) (test code = 7.48 1810) POCT-GLUCOSE [id number] 05:34:00 Test Item Value Reference Range Interpretation Comments POC-GLUCOSE METER 158 mg/dL 70-110 H : [facility] (BEAKER) (test code = [address] [address] [place], 1538) [address]: Power Project Manager/Techni edgardo ID = [id number] for THOMAS SALGADO (MARITA [place] [id number] 05:33:00 Test Item Value Reference Range Interpretation Comments MAGNESIUM (BEAKER) (test code = 2.0 mg/dL 1.6-2.6 627) Power Project Manager ID - EDASIHEPARIN ASSAY - [id number] 05:21:00 Test Item Value Reference Range Interpretation Comments UNFRACTIONATED HEPARIN-ANTI 10A 0.22 u/ml 0.30-0.70 L (BEAKER) (test code = 1606) Recommendations for Monitoring Unfractionated Heparin Therapeutic Range: 0.3- 0.7 u/mL with continuous IV infusionTROPONIN [id number] 05:19:00 Test Item Value Reference Range Interpretation Comments TROPONIN I (BEAKER) (test code = 47.81 ng/mL 0.00-0.03 HH 397) Troponin I (TnI) levels must be interpreted in the context of the presenting symptoms and the clinical findings. Elevated TnI levels indicate myocardial damage, but are not specific for ischemic heart disease. Elevated TnI levels are seen in patients with other cardiac conditions (including myocarditis and congestive heart failure), and slight TnI elevations occur in patients with other conditions, including sepsis, renal failure, acidosis, acute neurological disease, and persistent tachyarrhythmia.Power Project Manager ID - [id number] 05:17:00 Test Item Value Reference Range Interpretation Comments FIBRINOGEN LEVEL (BEAKER) (test 340 mg/dl 225-434 code = 658) PROTHROMBIN [id number] 05:16:00 Test Item Value Reference Range Interpretation Comments PROTIME (BEAKER) (test code = 14.7 seconds 11.9-14.2 H 759) INR (BEAKER) (test code = 370) 1.18 <=5.90 Effective 07/28/2018: PT Reference Range ChangeNew: 11.9-14.2 Previous: 11.7- 14.7RECOMMENDED COUMADIN/WARFARIN INR THERAPY RANGESSTANDARD DOSE: 2.0-3.0 Includes: PROPHYLAXIS for venous thrombosis, systemic embolization; TREATMENT for venous thrombosis and/or pulmonary embolus.HIGH RISK: Target INR is2.5-3.5 for patients wiht mechanical heart valves.COMPREHENSIVE METABOLIC PANEL 2020-01-16 05:10:00 Test Item Value Reference Range Interpretation Comments TOTAL PROTEIN 5.5 gm/dL 6.0-8.3 L Specimen sligh tly (BEAKER) (test code = hemoly zed 770) ALBUMIN (BEAKER) 3.1 g/dL 3.5-5.0 L Specimen sl ightly (test code = 1145) hemolyzed ALKALINE PHOSPHATASE 72 U/L 40-150 (BEAKER) (test code = 346) BILIRUBIN TOTAL 0.6 mg/dL 0.2-1.2 Specimen sli ghtly (BEAKER) (test code = hemoly zed 377) SODIUM (BEAKER) (test 140 meq/L 136-145 code = 381) POTASSIUM (BEAKER) 3.4 meq/L 3.5-5.1 L Specimen slightly (test code = 379) hemolyzed CHLORIDE (BEAKER) 108 meq/L 98-107 H (test code = 382) CO2 (BEAKER) (test 22 meq/L 22-29 code = 355) BLOOD UREA NITROGEN 10 mg/dL 7-21 (BEAKER) (test code = 354) CREATININE (BEAKER) 0.74 mg/dL 0.57-1.25 Specimen slightly (test code = 358) hemolyzed GLUCOSE RANDOM 166 mg/dL 70-105 H (BEAKER) (test code = 652) CALCIUM (BEAKER) 8.0 mg/dL 8.4-10.2 L (test code = 697) AST (SGOT) (BEAKER) 172 U/L 5-34 H Specimen slightly (test code = 353) hemolyzed ALT (SGPT) (BEAKER) 98 U/L 6-55 H Specimen slightly (test code = 347) hemolyzed EGFR (BEAKER) (test INSUFFIC IENT CLINICAL code = 1092) DATA TO CALCULA TE ESTIMATED GFR. Power Project Manager ID - EDASISpecimen slightly lipemicLACTATE DEHYDROGENASE (LDH) 2020-01-16 05:10:00 Test Item Value Reference Range Interpretation Comments LACTATE DEHYDROGENASE 817 U/L 125-220 H Specim en slightly (BEAKER) (test code = hemoly zed 635) Power Project Manager ID - EDASICREATINE KINASE (CK)2020-01-16 05:09:00 Test Item Value Reference Range Interpretation Comments CREATINE KINASE TOTAL (BEAKER) (test 1346 U/L 29-200 H code = 380) Power Project Manager ID - EDASILACTIC ACID, [id number] 05:03:00 Test Item Value Reference Range Interpretation Comments LACTATE BLOOD 2.5 mmol/L 0.5-2.2 H Specimen moder ately ARTERIAL (2) (BEAKER) hemoly zed (test code = 2874) Power Project Manager ID - EDASISpecimen slightly lipemicOXYGEN SATURATION, MEASURED 2020-01-16 04:54:00 Test Item Value Reference Range Interpretation Comments O2 SATURATION (MEASURED) (BEAKER) 80.1 % (test code = 1455) BLOOD GAS, [id number] 04:53:00 Test Item Value Reference Range Interpretation Comments PH ARTERIAL (BEAKER) (test code = 7.48 7.35-7.45 H 383) PCO2 ARTERIAL (BEAKER) (test code 31 mm Hg 35-45 L = 384) PO2 ARTERIAL (BEAKER) (test code 75 mm Hg 80-90 L = 385) O2 SATURATION ARTERIAL (BEAKER) 96.3 % 96.0-97.0 (test code = 386) HCO3 ARTERIAL (BEAKER) (test code 23 mmol/L 21-29 = 388) BASE EXCESS ARTERIAL (BEAKER) -0.4 mmol/L -2.0-3.0 (test code = 387) PATIENT TEMPERATURE (BEAKER) 36.5 (test code = 1818) FIO2 (BEAKER) (test code = 1819) 60.0 POCT-GLUCOSE [id number] 04:45:00 Test Item Value Reference Range Interpretation Comments POC-GLUCOSE METER 158 mg/dL 70-110 H : TESTED A T [facility] 6720 (BEAKER) (test code = [place], 1538) [id number]: Power Project Manager/Techni edgardo ID = [id number] for THOMAS SALGADO (Tay)MARITA CBC (HEMOGRAM ONLY)2020-01-16 04:44:00 Test Item Value Reference Range Interpretation Comments WHITE BLOOD CELL COUNT (BEAKER) 11.1 K/ L 3.5-10.5 H (test code = 775) RED BLOOD CELL COUNT (BEAKER) 3.44 M/ L 3.93-5.22 L (test code = 761) HEMOGLOBIN (BEAKER) (test code = 11.0 GM/DL 11.2-15.7 L 410) HEMATOCRIT (BEAKER) (test code = 32.9 % 34.1-44.9 L 411) MEAN CORPUSCULAR VOLUME (BEAKER) 95.6 fL 79.4-94.8 H (test code = 753) MEAN CORPUSCULAR HEMOGLOBIN 32.0 pg 25.6-32.2 (BEAKER) (test code = 751) MEAN CORPUSCULAR HEMOGLOBIN CONC 33.4 GM/DL 32.2-35.5 (BEAKER) (test code = 752) RED CELL DISTRIBUTION WIDTH 13.7 % 11.7-14.4 (BEAKER) (test code = 412) PLATELET COUNT (BEAKER) (test 172 K/CU MM 150-450 code = 756) MEAN PLATELET VOLUME (BEAKER) 9.3 fL 9.4-12.3 L (test code = 754) NUCLEATED RED BLOOD CELLS 0 /100 WBC 0-0 (BEAKER) (test code = 413) POCT-GLUCOSE [id number] 03:35:00 Test Item Value Reference Range Interpretation Comments POC-GLUCOSE METER 192 mg/dL 70-110 H : TESTED A T [facility] 6720 (BEAKER) (test code = [facility], 1538) [address]: Power Project Manager/Techni edgardo ID = [id number] for THOMAS SALGADO (Tay)MARITA LACTIC ACID, [id number] 03:24:00 Test Item Value Reference Range Interpretation Comments LACTATE BLOOD 2.6 mmol/L 0.5-2.2 H Specimen sligh tly ARTERIAL (2) (BEAKER) hemoly zed (test code = 2874) Power Project Manager ID - EDASISpecimen slightly lipemicBLOOD GAS, [id number] 03:09:00 Test Item Value Reference Range Interpretation Comments PH ARTERIAL (BEAKER) (test code = 7.47 7.35-7.45 H 383) PCO2 ARTERIAL (BEAKER) (test code 31 mm Hg 35-45 L = 384) PO2 ARTERIAL (BEAKER) (test code 65 mm Hg 80-90 L = 385) O2 SATURATION ARTERIAL (BEAKER) 94.7 % 96.0-97.0 L (test code = 386) HCO3 ARTERIAL (BEAKER) (test code 22 mmol/L 21-29 = 388) BASE EXCESS ARTERIAL (BEAKER) -0.6 mmol/L -2.0-3.0 (test code = 387) PATIENT TEMPERATURE (BEAKER) 36.4 (test code = 1818) FIO2 (BEAKER) (test code = 1819) 60.0 POCT-GLUCOSE [id number] 02:41:00 Test Item Value Reference Range Interpretation Comments POC-GLUCOSE METER 186 mg/dL 70-110 H : TESTED A T [facility] 6720 (BEAKER) (test code = [facility], 1538) [address]: Power Project Manager/Techni edgardo ID = [id number] for THOMAS SALGADO (V), MARITA POCT-GLUCOSE [id number] 02:40:00 Test Item Value Reference Range Interpretation Comments POC-GLUCOSE METER 189 mg/dL 70-110 H : TESTED A T [facility] 6720 (BEAKER) (test code = [facility], 1538) [address]: Power Project Manager/Techni edgardo ID = [id number] for THOMAS SALGADO (V), MARITA [id number] 01:26:00 Test Item Value Reference Range Interpretation Comments PARTIAL THROMBOPLASTIN TIME 48.1 seconds 22.5-36.0 H (BEAKER) (test code = 760) While on heparin. aPTT target range 50 to 80 seconds Notify MD if aPTT is out of range.RAD, CHEST, 1 VIEW, NON [id number] 01:04:00Reason for exam:->ECMO, respiratory failureShould this be performed at the bedside?->Yes [facility] 1970 Sex: FFINAL REPORT Chest one view. Clinical history: ECMO, respiratory aisha lure Comparison: Chest radiograph 01/15/2020, 5:37 PM. Technique: A single frontal view of the chestwas obtained. Findings: There has been interval removal of intra-aortic balloon pump.Support lines and tubes are in satisfactory positions.The cardiomediastinal contours are stable. There is a left lower lobe opacity which may represent atelectasis and/or pneumonia. There is no pulmonary edema, pleural effusion or pneumothorax. Signed: Nyasia Juan MDRveterans administration medical center Verified Date/Time: 01/16/2020 01:04:29 BLOOD GAS, [id number] 00:39:00 Test Item Value Reference Range Interpretation Comments PH ARTERIAL (BEAKER) (test code = 7.48 7.35-7.45 H 383) PCO2 ARTERIAL (BEAKER) (test code 31 mm Hg 35-45 L = 384) PO2 ARTERIAL (BEAKER) (test code 76 mm Hg 80-90 L = 385) O2 SATURATION ARTERIAL (BEAKER) 96.4 % 96.0-97.0 (test code = 386) HCO3 ARTERIAL (BEAKER) (test code 23 mmol/L 21-29 = 388) BASE EXCESS ARTERIAL (BEAKER) -0.1 mmol/L -2.0-3.0 (test code = 387) PATIENT TEMPERATURE (BEAKER) 36.6 (test code = 1818) FIO2 (BEAKER) (test code = 1819) 60.0 LACTIC ACID, [id number] 00:34:00 Test Item Value Reference Range Interpretation Comments LACTATE BLOOD ARTERIAL (2) 3.2 mmol/L 0.5-2.2 H (BEAKER) (test code = 2874) Power Project Manager ID - EDASISpecimen slightly lipemicPOCT-GLUCOSE [id number] 00:33:00 Test Item Value Reference Range Interpretation Comments POC-GLUCOSE METER 229 mg/dL 70-110 H : TESTED A T [facility] 6720 (BEAKER) (test code = [facility], 1538) 13851: Power Project Manager/Techni edgardo ID = [id number] for THOMAS GUILON (V), MARITA POCT-GLUCOSE [id number] 23:33:00 Test Item Value Reference Range Interpretation Comments POC-GLUCOSE METER 227 mg/dL 70-110 H : TESTED A T [facility] 6720 (BEAKER) (test code = [facility], 1538) 6[address]: Power Project Manager/Techni edgardo ID = [id number] for JU GUILON (V), MARITA POCT-GLUCOSE [id number] 22:57:00 Test Item Value Reference Range Interpretation Comments POC-GLUCOSE METER 218 mg/dL 70-110 H : TESTED A T [facility] 6720 (BEAKER) (test code = [facility], 1538) 35[address]: Power Project Manager/Techni edgardo ID = [id number] for JU GUILON (V), MARITA CREATINE KINASE (CK)2020-01-15 22:41:00 Test Item Value Reference Range Interpretation Comments CREATINE KINASE TOTAL (BEAKER) (test 1800 U/L 29-200 H code = 380) Power Project Manager ID - EDASILACTIC ACID, [id number] 22:38:00 Test Item Value Reference Range Interpretation Comments LACTATE BLOOD ARTERIAL (2) 3.7 mmol/L 0.5-2.2 H (BEAKER) (test code = 2874) Power Project Manager ID - EDASISpecimen slightly lipemicBLOOD GAS, [id number] 22:16:00 Test Item Value Reference Range Interpretation Comments PH ARTERIAL (BEAKER) (test code = 7.46 7.35-7.45 H 383) PCO2 ARTERIAL (BEAKER) (test code 31 mm Hg 35-45 L = 384) PO2 ARTERIAL (BEAKER) (test code 65 mm Hg 80-90 L = 385) O2 SATURATION ARTERIAL (BEAKER) 94.4 % 96.0-97.0 L (test code = 386) HCO3 ARTERIAL (BEAKER) (test code 21 mmol/L 21-29 = 388) BASE EXCESS ARTERIAL (BEAKER) -2.0 mmol/L -2.0-3.0 (test code = 387) PATIENT TEMPERATURE (BEAKER) 36.6 (test code = 1818) FIO2 (BEAKER) (test code = 1819) 60.0 POCT-GLUCOSE [id number] 21:49:00 Test Item Value Reference Range Interpretation Comments POC-GLUCOSE METER 238 mg/dL 70-110 H : TESTED A T [facility] 6720 (BEAKER) (test code = [facility] [employer] [facility], 1538) 67[address]: Power Project Manager/Techni edgardo ID = [id number] for THOMAS SALGADO (Tay)MARITA THROMBOELASTOGRAPH (TEG)2020-01-15 20:53:00 Test Item Value Reference Range Interpretation Comments TEG ACTIVATED CLOTTING TIME 9.6 minutes 4.0-7.0 H (BEAKER) (test code = 1407) TEG FIBRINOGEN ACTIVITY (BEAKER) 52.8 degrees 61.0-73.0 L (test code = 1408) TEG PLT. AGGREGATION (BEAKER) 60.7 MM 55.0-65.0 (test code = 1409) TEG FIBRINOLYSIS (BEAKER) (test 0.0 % 0.0-5.0 code = 1410) TGH ACTIVATED CLOTTING TIME 5.8 minutes 4.0-7.0 (BEAKER) (test code = 1411) TGH FIBRINOGEN ACTIVITY (BEAKER) 70.7 degrees 61.0-73.0 (test code = 1412) TGH PLT. AGGREGATION (BEAKER) 63.7 MM 55.0-65.0 (test code = 1413) TGH FIBRINOLYSIS (BEAKER) (test 2.0 % 0.0-5.0 code = 1414) LACTIC ACID, [id number] 20:45:00 Test Item Value Reference Range Interpretation Comments LACTATE BLOOD ARTERIAL (2) 4.1 mmol/L 0.5-2.2 HH (BEAKER) (test code = 2874) Power Project Manager ID - EDASISpecimen slightly lipemicPOCT-GLUCOSE [id number] 20:36:00 Test Item Value Reference Range Interpretation Comments POC-GLUCOSE METER 247 mg/dL 70-110 H : TESTED A T [facility] 6720 (BEAKER) (test code = HERLINDA Cohn [facility], 1538) [address]: Power Project Manager/Techni edgardo ID = [id number] for MARITA MASSEY CREATINE KINASE (CK)2020-01-15 20:33:00 Test Item Value Reference Range Interpretation Comments CREATINE KINASE TOTAL (BEAKER) (test 1984 U/L 29-200 H code = 380) Power Project Manager ID - EDASIPOTASSIUM-STAT [id number] 20:15:00 Test Item Value Reference Range Interpretation Comments POTASSIUM (BEAKER) (test code = 3.2 meq/L 3.6-5.5 L 379) BLOOD GAS, [id number] 20:15:00 Test Item Value Reference Range Interpretation Comments PH ARTERIAL (BEAKER) (test code = 7.48 7.35-7.45 H 383) PCO2 ARTERIAL (BEAKER) (test code 29 mm Hg 35-45 L = 384) PO2 ARTERIAL (BEAKER) (test code 67 mm Hg 80-90 L = 385) O2 SATURATION ARTERIAL (BEAKER) 95.2 % 96.0-97.0 L (test code = 386) HCO3 ARTERIAL (BEAKER) (test code 21 mmol/L 21-29 = 388) BASE EXCESS ARTERIAL (BEAKER) -1.5 mmol/L -2.0-3.0 (test code = 387) PATIENT TEMPERATURE (BEAKER) 36.4 (test code = 1818) FIO2 (BEAKER) (test code = 1819) 60.0 LACTIC ACID, [id number] 19:11:00 Test Item Value Reference Range Interpretation Comments LACTATE BLOOD 5.8 mmol/L 0.5-2.2 HH Specimen sligh tly ARTERIAL (2) (BEAKER) hemoly zed (test code = 2874) Power Project Manager ID - EDASISpecimen slightly [id number] 18:44:00 Test Item Value Reference Range Interpretation Comments PARTIAL THROMBOPLASTIN TIME 41.0 seconds 22.5-36.0 H (BEAKER) (test code = 760) While on heparin. aPTT target range 50 to 80 seconds Notify MD if aPTT is out of range.POCT-GLUCOSE [id number] 18:39:00 Test Item Value Reference Range Interpretation Comments POC-GLUCOSE METER 269 mg/dL 70-110 H : TESTED A T [facility] 6720 (BEAKER) (test code = [place], 1538) [id number]: Power Project Manager/Techni edgardo ID = [id number] for QU BRITTANY RAMOS BLOOD GAS, [id number] 18:31:00 Test Item Value Reference Range Interpretation Comments PH ARTERIAL (BEAKER) (test code = 7.46 7.35-7.45 H 383) PCO2 ARTERIAL (BEAKER) (test code 30 mm Hg 35-45 L = 384) PO2 ARTERIAL (BEAKER) (test code 69 mm Hg 80-90 L = 385) O2 SATURATION ARTERIAL (BEAKER) 95.2 % 96.0-97.0 L (test code = 386) HCO3 ARTERIAL (BEAKER) (test code 21 mmol/L 21-29 = 388) BASE EXCESS ARTERIAL (BEAKER) -2.7 mmol/L -2.0-3.0 L (test code = 387) PATIENT TEMPERATURE (BEAKER) 36.4 (test code = 1818) FIO2 (BEAKER) (test code = 1819) 100.0 RAD, CHEST, 1 VIEW, NON [id number] 17:59:00Reason for exam:->PA-cath placementShould this be performed at the bedside?->Yes [facility] 1970 Sex: FFINAL REPORT History: Pulmonary arterial catheter placement. FINDINGS: Single AP view of the chest shows a new right internal jugular pulmonary arterial catheter to lie with its tip in the expected location of the pulmonary outflow tract. Other tube and line positions appear stable. No pneumothorax. The heart and mediastinum are stable. As before, the heart is enlarged. Lung volumes remain low. Mild patchy bilateral pulmonary airspace opacity is present, likely mild lung edema. Small to moderate left-sided pleural effusion is suspected. IMPRESSION: 1. Pulmonary arterial catheter tip in the expected location of the pulmonary outflow tract. No pneumothorax. 2. Findings consistent with mild congestive failure. Small to moderate left-sided pleural effusion is also suspected. Signed: Lia Lewis MDReport Verified Date/Time: 01/15/2020 17:59:34 Reading Location: [address] Transitional Reading Room LACTIC ACID, [id number] 17:45:00 Test Item Value Reference Range Interpretation Comments LACTATE BLOOD 7.3 mmol/L 0.5-2.2 HH Specimen moder ately ARTERIAL (2) (BEAKER) hemoly zed (test code = 2874) Power Project Manager ID - EDASICREATINE KINASE (CK)2020-01-15 17:16:00 Test Item Value Reference Range Interpretation Comments CREATINE KINASE TOTAL (BEAKER) (test 2312 U/L 29-200 H code = 380) Power Project Manager ID - EDASIOXYGEN SATURATION, [id number] 17:01:00 Test Item Value Reference Range Interpretation Comments O2 SATURATION (MEASURED) (BEAKER) 81.8 % (test code = 1455) POCT-GLUCOSE [id number] 17:00:00 Test Item Value Reference Range Interpretation Comments POC-GLUCOSE METER 280 mg/dL 70-110 H : [facility] ([facility] (test code = CHRISTIEVALERI Cohn [facility], 1538) [id number]: Power Project Manager/Techni edgardo ID = [id number] for QU IBLAT, BRITTANY BLOOD GAS, [id number] 16:59:00 Test Item Value Reference Range Interpretation Comments PH ARTERIAL (BEAKER) (test code = 7.45 7.35-7.45 383) PCO2 ARTERIAL (BEAKER) (test code 30 mm Hg 35-45 L = 384) PO2 ARTERIAL (BEAKER) (test code 74 mm Hg 80-90 L = 385) O2 SATURATION ARTERIAL (BEAKER) 95.9 % 96.0-97.0 L (test code = 386) HCO3 ARTERIAL (BEAKER) (test code 20 mmol/L 21-29 L = 388) BASE EXCESS ARTERIAL (BEAKER) -2.9 mmol/L -2.0-3.0 L (test code = 387) PATIENT TEMPERATURE (BEAKER) 36.4 (test code = 1818) FIO2 (BEAKER) (test code = 1819) 60.0 LACTIC ACID, [id number] 14:54:00 Test Item Value Reference Range Interpretation Comments LACTATE BLOOD ARTERIAL (2) 9.5 mmol/L 0.5-2.2 HH (BEAKER) (test code = 2874) Power Project Manager ID - EDASICOMPREHENSIVE METABOLIC [id number] 14:54:00 Test Item Value Reference Range Interpretation Comments TOTAL PROTEIN 4.9 gm/dL 6.0-8.3 L (BEAKER) (test code = 770) ALBUMIN (BEAKER) 2.8 g/dL 3.5-5.0 L (test code = 1145) ALKALINE PHOSPHATASE 81 U/L 40-150 (BEAKER) (test code = 346) BILIRUBIN TOTAL 0.8 mg/dL 0.2-1.2 (BEAKER) (test code = 377) SODIUM (BEAKER) (test 141 meq/L 136-145 code = 381) POTASSIUM (BEAKER) 3.7 meq/L 3.5-5.1 (test code = 379) CHLORIDE (BEAKER) 108 meq/L 98-107 H (test code = 382) CO2 (BEAKER) (test 20 meq/L 22-29 L code = 355) BLOOD UREA NITROGEN 15 mg/dL 7-21 (BEAKER) (test code = 354) CREATININE (BEAKER) 0.99 mg/dL 0.57-1.25 (test code = 358) GLUCOSE RANDOM 290 mg/dL 70-105 H (BEAKER) (test code = 652) CALCIUM (BEAKER) 8.1 mg/dL 8.4-10.2 L (test code = 697) AST (SGOT) (BEAKER) 296 U/L 5-34 H (test code = 353) ALT (SGPT) (BEAKER) 125 U/L 6-55 H (test code = 347) EGFR (BEAKER) (test INSUFFIC IENT CLINICAL code = 1092) DATA TO CALCULA TE ESTIMATED GFR. Power Project Manager ID - [id number] 14:53:00 Test Item Value Reference Range Interpretation Comments MAGNESIUM (BEAKER) (test code = 1.7 mg/dL 1.6-2.6 627) Power Project Manager ID - EDASICREATINE KINASE ([id number] 14:53:00 Test Item Value Reference Range Interpretation Comments CREATINE KINASE TOTAL (BEAKER) (test 2781 U/L 29-200 H code = 380) Power Project Manager ID - EDASIANTITHROMBIN [id number] 14:35:00 Test Item Value Reference Range Interpretation Comments ANTITHROMBIN III ACTIVITY (BEAKER) 68.0 % 80.0-120.0 L (test code = 711) While on heparin. aPTT target range 50 to 80 seconds Notify MD if aPTT is out of range.[id number] 14:18:00 Test Item Value Reference Range Interpretation Comments PARTIAL THROMBOPLASTIN TIME 69.6 seconds 22.5-36.0 H (BEAKER) (test code = 760) OXYGEN SATURATION, [id number] 14:04:00 Test Item Value Reference Range Interpretation Comments O2 SATURATION (MEASURED) (BEAKER) 90.3 % (test code = 1455) BLOOD GAS, [id number] 14:03:00 Test Item Value Reference Range Interpretation Comments PH ARTERIAL (BEAKER) (test code = 7.40 7.35-7.45 383) PCO2 ARTERIAL (BEAKER) (test code 31 mm Hg 35-45 L = 384) PO2 ARTERIAL (BEAKER) (test code 101 mm Hg 80-90 H = 385) O2 SATURATION ARTERIAL (BEAKER) 97.8 % 96.0-97.0 H (test code = 386) HCO3 ARTERIAL (BEAKER) (test code 19 mmol/L 21-29 L = 388) BASE EXCESS ARTERIAL (BEAKER) -5.1 mmol/L -2.0-3.0 L (test code = 387) PATIENT TEMPERATURE (BEAKER) 36.4 (test code = 1818) FIO2 (BEAKER) (test code = 1819) 80.0 THROMBOELASTOGRAPH (TEG)2020-01-15 13:58:00 Test Item Value Reference Range Interpretation Comments TEG ACTIVATED CLOTTING No Cl ot Detected TIME (BEAKER) (test code = 1407) TEG FIBRINOGEN ACTIVITY No C lot Detected. (BEAKER) (test code = 1408) TEG PLT. AGGREGATION No Clot Detected. (BEAKER) (test code = 1409) TEG FIBRINOLYSIS No Clot Det ected. (BEAKER) (test code = 1410) TGH ACTIVATED CLOTTING 7.1 minutes 4.0-7.0 H TIME (BEAKER) (test code = 1411) TGH FIBRINOGEN ACTIVITY 71.2 degrees 61.0-73.0 (BEAKER) (test code = 1412) TGH PLT. AGGREGATION 61.9 MM 55.0-65.0 (BEAKER) (test code = 1413) TGH FIBRINOLYSIS 0.0 % 0.0-5.0 (BEAKER) (test code = 1414) POCT-GLUCOSE [id number] 13:40:00 Test Item Value Reference Range Interpretation Comments POC-GLUCOSE METER 280 mg/dL 70-110 H : TESTED A T [facility] ([facility]) (test code = CHRISTIEVALERI CESAR [place], 1538) [address]: Power Project Manager/Techni edgardo ID = [id number] for QU IBJASKARAN BRITTANY [id number] 13:33:00 Test Item Value Reference Range Interpretation Comments D-DIMER QUANTITATIVE (ICON AircraftAKER) 6.93 MG/L FEU <0.50 H (test code = 671) Intended Use: The D-Dimer Assay can be used to aid in the diagnosis of Deep Vein Thrombosis (DVT) and Pulmonary Embolism Disease (PED).In patients with low pre- test probability, various studies concerning STA Liatest D-dimer test have reported that with a cutoff value of 0.50 MG/L FEU, the Negative Predictive Value (NPV) regarding the exclusion of thrombosis is within 95-100% range.While on heparin. aPTT target range 50 to 80 seconds Notify MD if aPTT is out of range.[id number] 13:27:00 Test Item Value Reference Range Interpretation Comments PARTIAL THROMBOPLASTIN TIME 129.5 seconds 22.5-36.0 H (ICON AircraftAKER) (test code = 760) While on heparin. aPTT target range 50 to 80 seconds Notify MD if aPTT is out of range.LACTIC ACID, [id number] 13:23:00 Test Item Value Reference Range Interpretation Comments LACTATE BLOOD ARTERIAL (2) 10.2 mmol/L 0.5-2.2 HH (BEAKER) (test code = 2874) Power Project Manager ID - EDASIPROTHROMBIN TIME/[id number] 13:23:00 Test Item Value Reference Range Interpretation Comments PROTIME (BEAKER) (test code = 15.5 seconds 11.9-14.2 H 759) INR (BEAKER) (test code = 370) 1.26 <=5.90 Effective 07/28/2018: PT Reference Range ChangeNew: 11.9-14.2 Previous: 11.7- 14.7RECOMMENDED COUMADIN/WARFARIN INR THERAPY RANGESSTANDARD DOSE: 2.0-3.0 Includes: PROPHYLAXIS for venous thrombosis, systemic embolization; TREATMENT for venous thrombosis and/or pulmonary embolus.HIGH RISK: Target INR is2.5-3.5 for patients wiht mechanical heart valves.While on heparin. aPTT target range 50 to 80 seconds Notify MD if aPTT is out of range.B-TYPE NATRIURETIC FACTOR (BNP) 2020-01-15 13:07:00 Test Item Value Reference Range Interpretation Comments B-TYPE NATRIURETIC PEPTIDE (BEAKER) 137 pg/mL 0-100 H (test code = 700) Power Project Manager ID - EDASICREATINE KINASE (CK)2020-01-15 13:04:00 Test Item Value Reference Range Interpretation Comments CREATINE KINASE TOTAL (BEAKER) (test 2747 U/L 29-200 H code = 380) Power Project Manager ID - EDASIBLOOD GAS, [id number] 12:39:00 Test Item Value Reference Range Interpretation Comments PH ARTERIAL (BEAKER) (test code = 7.40 7.35-7.45 383) PCO2 ARTERIAL (BEAKER) (test code 34 mm Hg 35-45 L = 384) PO2 ARTERIAL (BEAKER) (test code 110 mm Hg 80-90 H = 385) O2 SATURATION ARTERIAL (BEAKER) 98.2 % 96.0-97.0 H (test code = 386) HCO3 ARTERIAL (BEAKER) (test code 21 mmol/L 21-29 = 388) BASE EXCESS ARTERIAL (BEAKER) -3.8 mmol/L -2.0-3.0 L (test code = 387) PATIENT TEMPERATURE (BEAKER) 36.4 (test code = 1818) FIO2 (BEAKER) (test code = 1819) 100.0 BLOOD GAS, [id number] 12:14:00 Test Item Value Reference Range Interpretation Comments PH ARTERIAL (BEAKER) (test code = 7.40 7.35-7.45 383) PCO2 ARTERIAL (BEAKER) (test code 31 mm Hg 35-45 L = 384) PO2 ARTERIAL (BEAKER) (test code 488 mm Hg 80-90 H = 385) O2 SATURATION ARTERIAL (BEAKER) 99.9 % 96.0-97.0 H (test code = 386) HCO3 ARTERIAL (BEAKER) (test code 19 mmol/L 21-29 L = 388) BASE EXCESS ARTERIAL (BEAKER) -4.9 mmol/L -2.0-3.0 L (test code = 387) PATIENT TEMPERATURE (BEAKER) 36.4 (test code = 1818) FIO2 (BEAKER) (test code = 1819) 100.0 RAD, CHEST, 1 VIEW, NON [id number] 12:03:00Reason for exam:->ECMO cannulationShould this be performed at the bedside?->Yes [facility] 1970 Sex: FFINAL REPORT History: ECMO cannulation. FINDINGS: Chest, single view: Single AP view of the chest shows low lung volumes. Multiple life support tubes and lines are present and appear in expected positions including an ECMO catheter which appears to have been placed through a femoral approach and overlies the right atrium. Lung volumes are low. Slight increased opacity is present in the lung bases, likely atelectasis. Mild increased pulmonary vascularity is present without overt edema. No pneumothorax. Heart and mediastinum are unremarkable. Bones are unremarkable. IMPRESSION: 1. Multiple life support tubes and lines appear in expected positions. No pneumothorax. 2. L ow lung volumes and probable bilateral lower lobe atelectasis. Signed: Lia Lewis MDReport Verified Date/Time: 01/15/2020 12:03:38 Reading Location: [address] Transitional Reading Room BLOOD GAS, [id number] 11:01:00 Test Item Value Reference Range Interpretation Comments PH ARTERIAL (BEAKER) (test code 7.29 7.35-7.45 L = 383) PCO2 ARTERIAL (BEAKER) (test 32 mm Hg 35-45 L code = 384) PO2 ARTERIAL (BEAKER) (test code 108 mm Hg 80-90 H = 385) O2 SATURATION ARTERIAL (BEAKER) 97.6 % 96.0-97.0 H (test code = 386) HCO3 ARTERIAL (BEAKER) (test 15 mmol/L 21-29 L code = 388) BASE EXCESS ARTERIAL (BEAKER) -10.6 mmol/L -2.0-3.0 L (test code = 387) PATIENT TEMPERATURE (BEAKER) 36.7 (test code = 1818) FIO2 (BEAKER) (test code = 1819) 100.0 GLUCOSE-STAT [id number] 11:01:00 Test Item Value Reference Range Interpretation Comments GLUCOSE RANDOM (BEAKER) (test code 329 mg/dL 70-110 H = 652) POTASSIUM-STAT [id number] 11:01:00 Test Item Value Reference Range Interpretation Comments POTASSIUM (BEAKER) (test code = 2.9 meq/L 3.6-5.5 L 379) HGB/HCT (H&H) - STAT [id number] 11:00:00 Test Item Value Reference Range Interpretation Comments HEMOGLOBIN (BEAKER) (test code = 12.9 GM/DL 12.0-15.0 410) HEMATOCRIT (BEAKER) (test code = 38.0 % 36.0-45.0 411) SODIUM NA-STAT [id number] 10:59:00 Test Item Value Reference Range Interpretation Comments SODIUM (BEAKER) (test code = 381) 136 meq/L 136-145 TROPONIN [id number] 10:50:00 Test Item Value Reference Range Interpretation Comments TROPONIN I (BEAKER) (test code = 174.53 ng/mL 0.00-0.03 HH 397) Troponin I (TnI) levels must be interpreted in the context of the presenting symptoms and the clinical findings. Elevated TnI levels indicate myocardial damage, but are not specific for ischemic heart disease. Elevated TnI levels are seen in patients with other cardiac conditions (including myocarditis and congestive heart failure), and slight TnI elevations occur in patients with other conditions, including sepsis, renal failure, acidosis, acute neurological disease, and persistent tachyarrhythmia.Power Project Manager ID - EDASIOperator ID - EDASI LACTIC ACID, [id number] 10:43:00 Test Item Value Reference Range Interpretation Comments LACTATE BLOOD 9.0 mmol/L 0.5-2.2 HH Specimen sligh tly ARTERIAL (2) (BEAKER) hemoly zed (test code = 2874) Power Project Manager ID - EDASICOMPREHENSIVE METABOLIC [id number] 10:42:00 Test Item Value Reference Range Interpretation Comments TOTAL PROTEIN 5.7 gm/dL 6.0-8.3 L Specimen sligh tly (BEAKER) (test code = hemoly zed 770) ALBUMIN (BEAKER) 3.2 g/dL 3.5-5.0 L Specimen sl ightly (test code = 1145) hemolyzed ALKALINE PHOSPHATASE 104 U/L 40-150 (BEAKER) (test code = 346) BILIRUBIN TOTAL 0.8 mg/dL 0.2-1.2 Specimen sli ghtly (BEAKER) (test code = hemoly zed 377) SODIUM (BEAKER) (test 137 meq/L 136-145 code = 381) POTASSIUM (BEAKER) 2.7 meq/L 3.5-5.1 L Specimen slightly (test code = 379) hemolyzed CHLORIDE (BEAKER) 103 meq/L 98-107 (test code = 382) CO2 (BEAKER) (test 15 meq/L 22-29 L code = 355) BLOOD UREA NITROGEN 15 mg/dL 7-21 (BEAKER) (test code = 354) CREATININE (BEAKER) 1.10 mg/dL 0.57-1.25 Specimen slightly (test code = 358) hemolyzed GLUCOSE RANDOM 393 mg/dL 70-105 H (BEAKER) (test code = 652) CALCIUM (BEAKER) 8.7 mg/dL 8.4-10.2 (test code = 697) AST (SGOT) (BEAKER) 299 U/L 5-34 H Specimen slightly (test code = 353) hemolyzed ALT (SGPT) (BEAKER) 126 U/L 6-55 H Specimen slightly (test code = 347) hemolyzed EGFR (BEAKER) (test INSUFFIC IENT CLINICAL code = 1092) DATA TO CALCULA TE ESTIMATED GFR. Power Project Manager ID - [id number] 10:30:00 Test Item Value Reference Range Interpretation Comments PARTIAL THROMBOPLASTIN TIME > seconds 22.5-36.0 HH (BEAKER) (test code = 760) CBC (HEMOGRAM ONLY)2020-01-15 10:04:00 Test Item Value Reference Range Interpretation Comments WHITE BLOOD CELL COUNT (BEAKER) 17.9 K/ L 3.5-10.5 H (test code = 775) RED BLOOD CELL COUNT (BEAKER) 4.07 M/ L 3.93-5.22 (test code = 761) HEMOGLOBIN (BEAKER) (test code = 13.1 GM/DL 11.2-15.7 410) HEMATOCRIT (BEAKER) (test code = 40.1 % 34.1-44.9 411) MEAN CORPUSCULAR VOLUME (BEAKER) 98.5 fL 79.4-94.8 H (test code = 753) MEAN CORPUSCULAR HEMOGLOBIN 32.2 pg 25.6-32.2 (BEAKER) (test code = 751) MEAN CORPUSCULAR HEMOGLOBIN CONC 32.7 GM/DL 32.2-35.5 (BEAKER) (test code = 752) RED CELL DISTRIBUTION WIDTH 13.4 % 11.7-14.4 (BEAKER) (test code = 412) PLATELET COUNT (BEAKER) (test 252 K/CU MM 150-450 code = 756) MEAN PLATELET VOLUME (BEAKER) 9.4 fL 9.4-12.3 (test code = 754) NUCLEATED RED BLOOD CELLS 0 /100 WBC 0-0 (BEAKER) (test code = 413) CALCIUM, [id number] 09:55:00 Test Item Value Reference Range Interpretation Comments CALCIUM IONIZED (BEAKER) (test 1.13 mmol/L 1.12-1.27 code = 698) PH, BLOOD (BEAKER) (test code = 7.27 1810) OXYGEN SATURATION, [id number] 09:53:00 Test Item Value Reference Range Interpretation Comments O2 SATURATION (MEASURED) (BEAKER) 88.6 % (test code = 1455) [id number] 07:04:00 Test Item Value Reference Range Interpretation Comments ACTIVATED CLOTTING TIME 401 sec : 74 -137 seconds, (BEAKER) (test code = Baseli ne: TESTED AT 441) [address], [facility] 30: Power Project Manager/Techni edgardo ID = [id number] for PAULETTE KRAMER [id number] 06:13:00 Test Item Value Reference Range Interpretation Comments ACTIVATED CLOTTING TIME 241 sec : 74 -137 seconds, (BEAKER) (test code = Baseli ne: TESTED AT 441) [address], [facility] 30: Power Project Manager/Techni edgardo ID = [id number] for SE LEMON PAULETTE
[2021-02-24] MEDS ORDERED: IBUPROFEN 400 MG TAB ONE (22:55)
[2021-02-24] MEDS ORDERED: HYDROCODONE/APAP 7.5/325 MG TAB ONE (22:56)
[2021-02-24 23:39] LABS: Absolute Lymphocytes (CBC) 2.6 K/uL (0.7-4.9); Hematocrit 42.5 % (36.0-45.0); Lymphocytes % 13.6 % (15.3-44.8); MPV 7.5 fL (7.6-11.3); RBC Red Blood Cell Count 5.41 M/uL (3.86-4.86)
--- NOTE | 2021-02-24 23:47 | ER ---
Nurse's Notes [facility] Name: Danette Stapleton Age: 51 yrs Sex: Female : 1970 Arrival Date: 02/24/2021 Time: 20:05 Bed 12 Private MD: Diagnosis: Displaced fracture of base of neck of right femur, initial encounter for closed fracture;Hypertensive heart disease without heart failure Presentation: 02/24 20:05 Chief complaint: Patient states: has been having right hip pain for 3 weeks , right hip iw popped while walking down the porch tonight. Coronavirus screen: At this time, the client does not indicate any symptoms associated with coronavirus-19. Ebola Screen: Patient negative for fever greater than or equal to 101.5 degrees Fahrenheit, and additional compatible Ebola Virus Disease symptoms Patient denies exposure to infectious person. Patient denies travel to an Ebola-affected area in the 21 days before illness onset. No symptoms or risks identified at this time. Initial Sepsis Screen: Does the patient meet any 2 criteria? No. Patient's initial sepsis screen is negative. Does the patient have a suspected source of infection? No. Patient's initial sepsis screen is negative. Risk Assessment: Do you want to hurt yourself or someone else? Patient reports no desire to harm self or others. Onset of symptoms was February 24, 2021. 20:05 Method Of Arrival: EMS: [facility] iw 20:05 Acuity: KESHIA 3 iw Triage Assessment: 23:45 General: Appears in no apparent distress. Behavior is cooperative. iw Historical: - Allergies: 20:06 No Known Allergies; iw - PMHx: 20:06 Hypertension; Myocardial infarction; cva; iw Screenin/27 01:00 Abuse screen: Denies threats or abuse. Denies injuries from another. Nutritional iw screening: No deficits noted. Tuberculosis screening: No symptoms or risk factors identified. Fall Risk Fall in past 12 months (25 points). Assessment: 02/24 23:00 General: Appears in no apparent distress. uncomfortable, Behavior is calm, cooperative. iw Pain: Complains of pain in right hip. Neuro: Level of Consciousness is awake, alert, obeys commands, Oriented to person, place, time, situation, Moves all extremities. Full function. Cardiovascular: Patient's skin is warm and dry. Respiratory: Respiratory effort is even, unlabored, Respiratory pattern is regular. Derm: Skin is intact, is healthy with good turgor. Musculoskeletal: Range of motion: intact in all extremities. 02/25 01:50 Reassessment: Patient appears in no apparent distress at this time. Patient and/or iw family updated on plan of care and expected duration. Pain level reassessed. Patient is alert, oriented x 3, equal unlabored respirations, skin warm/dry/pink. Vital Signs: 02/24 22:58 BP 224 / 110; Pulse 89; Resp 16; Pulse Ox 95% on R/A; iw 02/25 00:43 BP 203 / 107; Pulse 70; iw 00:52 BP 182 / 73; Pulse 66; Resp 22 S; Pulse Ox 95% on R/A; iw 01:28 BP 151 / 78; Pulse 80; Resp 22; Pulse Ox 94% on R/A; iw ED Course: 02/24 20:05 Patient arrived in ED. mw2 20:06 Triage completed. iw 20:08 Jax Orantes PA is PHCP. cp 20:08 William Metcalf MD is Attending Physician. cp 20:26 Radiology exam delayed due to pt unable to stand from wheelchair upon picking pt up md1 from ED lobby. 22:31 Georgia Tristan, RN is Primary Nurse. iw 23:14 XRAY Pelvis In Process Unspecified. EDMS 23:14 XRAY Hip RIGHT 2 view In Process Unspecified. EDMS 23:30 Initial lab(s) drawn, by pr, sent to lab. Inserted saline lock: 20 gauge in right kj1 antecubital area, using aseptic technique. Blood collected. 23:30 Thakur cath inserted, using sterile technique, 16 Fr., by me, balloon inflated, urine kj1 specimen collected. 23:31 initiated a transfer with Elza from [facility] [place]. mw2 23:43 initiated a transfer with Rebekah from [facility] [place]. mw2 23:50 X-ray(s) taken. kj1 23:53 [facility] denied due to capacity. mw2 23:54 initiated a transfer with Amaris from [facility]. mw2 02/25 00:37 administrative approval given by Amaris Carlson/ patient has been accepted to [address] to the ER/ Dr. Juarez accepted the patient in transfer/ report to be called to [phone]. 01:13 XRAY Chest (1 view) In Process Unspecified. EDMS Administered Medications: 02/24 22:58 Drug: Hydrocodone-Acetaminophen (7.5 mg-325 mg) 1 tabs Route: PO; iw 22:58 Drug: Ibuprofen 800 mg Route: PO; iw 23:22 CANCELLED (Physician Discretion): Dilaudid (HYDROmorphone) 1 mg IVP once; RASS on cp ADMIN: Combtv4, Very Agttd3, Agttd2, Rstlss1, AlertClm0, Drwsy-1, Lt Sdtn-2, Mod Sdtn-3, Dp Sdtn-4, UnArsble-5 23:58 Drug: morphine 4 mg Route: IVP; Site: right antecubital; iw 23:59 Drug: Trandate (labetalol) 20 mg Route: IVP; Site: right antecubital; iw 02/25 00:53 Not Given (Physician Discretion): Albuterol 2.5 mg Inhalation once cp 00:53 Not Given (Physician Discretion): AtroVENT (ipratropium) Aerosol 0.5 mg Inhalation once cp 00:55 CANCELLED (Physician Discretion): Albuterol - atroVENT (ipratropium) (3:1) (2.5 mg - cp 0.5 mg) 3 ml Nebulizer once 01:27 Not Given (Hemodynamic Parameters): hydrALAZINE 10 mg IVP once iw 01:27 Drug: Xopenex (levalbuterol) (3) 1.25 mg Route: Inhalation; iw 01:38 Not Given (Patient Refused): NS 0.9% 1000 ml IV at 100 ml/hr continuous iw 01:38 Not Given (Patient Refused): GI Cocktail without - (Maalox Suspension 30 ml, iw Lidocaine Liquid 2 % 15 ml) PO once Outcome: 02/24 23:47 ER care complete, transfer ordered by . horacio 02/25 01:54 Patient left the ED. iw Signatures: Dispatcher [employer] EDMS Georgia Tristan RN RN iw Jax Orantes PA PA cp Senia Randhawa mw2 Lona Mayo kj1 Di Sa[place], Shanta md1
--- NOTE | 2021-02-24 23:48 | EDPHYS ---
Physician Documentation [facility] Name: Danette Stapleton Age: 51 yrs Sex: Female : 1970 Arrival Date: 02/24/2021 Time: 20:05 Bed 12 Private MD: ED Physician William Metcalf HPI: 02/24 20:08 This 51 yrs old Female presents to ER via EMS with complaints of Hip Pain. cp 20:08 The patient or guardian reports pain. cp 20:08 The complaints affect the right hip. cp 20:08 Onset: The symptoms/episode began/occurred 3-4 weeks ago, became worse tonight. cp 20:08 Associated signs and symptoms: Pertinent negatives: abdominal pain, chest pain, fever, cp headache, trauma. 20:08 Patient reports she has been using a walker due to right hip pain over past several cp weeks and hip pain suddenly became worse after she stumbled while going down ramp at home. Patient denies fall. Historical: - Allergies: 20:06 No Known Allergies; iw - PMHx: 20:06 Hypertension; Myocardial infarction; cva; iw ROS: 20:15 MS/extremity: Positive for pain, of the right hip, Negative for injury or acute cp deformity, paresthesias. 20:15 Constitutional: Negative for body aches, chills, fever, poor PO intake. cp 20:15 Respiratory: Positive for wheezing, Negative for cough. 20:15 Eyes: Negative for injury, pain, redness, and discharge. cp 20:15 ENT: Negative for ear pain, sore throat, difficulty swallowing, difficulty handling secretions. 20:15 Cardiovascular: Negative for chest pain, edema, palpitations. 20:15 Abdomen/GI: Negative for abdominal pain, nausea, vomiting, and diarrhea. 20:15 Back: Negative for pain at rest, pain with movement. cp 20:15 Neuro: Negative for altered mental status, headache, numbness, weakness. 20:15 All other systems are negative. Exam: 20:20 Constitutional: The patient appears in no acute distress, alert, awake, cp non-diaphoretic, non-toxic, well developed, well nourished, obese. 20:20 Head/Face: Normocephalic, atraumatic. cp 20:20 Eyes: Periorbital structures: appear normal, Conjunctiva: normal, no exudate, no injection, Sclera: no appreciated abnormality, Lids and lashes: appear normal, bilaterally. 20:20 ENT: External ear(s): are unremarkable, Nose: is normal, Mouth: Lips: moist, Oral mucosa: moist, Posterior pharynx: Airway: no evidence of obstruction, patent. 20:20 Neck: ROM/movement: is normal, is supple, without pain, no range of motions limitations. 20:20 Chest/axilla: Inspection: normal. 20:20 Cardiovascular: Rate: normal, Rhythm: regular, Edema: is not appreciated, JVD: is not appreciated. 20:20 Respiratory: the patient does not display signs of respiratory distress, Respirations: normal, no use of accessory muscles, no retractions, labored breathing, is not present, Breath sounds: bronchial sounds, that are mild, are heard diffusely, wheezing: that is mild, is heard diffusely. 20:20 Abdomen/GI: Inspection: obese Bowel sounds: active, all quadrants, Palpation: abdomen is soft and non-tender, in all quadrants. 20:20 Back: pain, is absent. 20:20 Musculoskeletal/extremity: Extremities: grossly normal except: noted in the right hip: pain, tenderness, ROM: limited active range of motion due to pain, in the right hip. 20:20 Neuro: Orientation: to person, place \\T\\ time. Mentation: is normal, Motor: moves all fours, strength is normal. Vital Signs: 22:58 BP 224 / 110; Pulse 89; Resp 16; Pulse Ox 95% on R/A; iw 02/25 00:43 BP 203 / 107; Pulse 70; iw 00:52 BP 182 / 73; Pulse 66; Resp 22 S; Pulse Ox 95% on R/A; iw 01:28 BP 151 / 78; Pulse 80; Resp 22; Pulse Ox 94% on R/A; iw MDM: 02/24 22:21 Patient medically screened. cp 23:00 Differential diagnosis: intertrochanteric fracture, femoral neck fracture, femoral cp shaft fracture, bursitis. 23:15 Data reviewed: vital signs, nurses notes, radiologic studies, plain films. cp 23:15 Test interpretation: by ED physician or midlevel provider: xrays of right hip show cp femoral neck fracture. Counseling: I had a detailed discussion with the patient and/or guardian regarding: the historical points, exam findings, and any diagnostic results supporting the discharge/admit diagnosis, radiology results, the need to transfer to another facility, [facility] does not immediately have the required specialist. 02/24 23:12 Order name: Basic Metabolic Panel; Complete Time: 00:42 cp 02/25 00:43 Interpretation: Normal except: NA 134; GLUC 154; BUN 22; GFR 55. 02/24 23:12 Order name: CBC with Diff; Complete Time: 00:42 cp 02/25 00:43 Interpretation: Normal except: WBC 19.10; RBC 5.41; MCV 78.6; MCH 24.7; MCHC 31.4; PLT cp 466; RDW 17.7; MPV 7.5; JANINE% 79.4; LYM% 13.6; NEUT A 15.2. 02/24 23:12 Order name: LFT's; Complete Time: 00:42 02/24 23:12 Order name: Magnesium; Complete Time: 00:42 02/24 23:12 Order name: PT-INR 02/24 23:12 Order name: Troponin (emerg Dept Use Only); Complete Time: 00:42 02/24 20:09 Order name: XRAY Pelvis 02/24 20:09 Order name: XRAY Hip RIGHT 2 view 02/24 23:19 Order name: COVID-19 SARS RT PCR (Document "Date of Onset" if Symptomatic) 2 02/24 23:19 Order name: SARS-COV-2 RT PCR; Complete Time: 00:42 EDHI 02/25 00:54 Order name: XRAY Chest (1 view) 02/25 01:12 Order name: Urine Dipstick-Ancillary EDHI 02/24 23:12 Order name: Cardiac monitoring; Complete Time: 01:39 02/24 23:12 Order name: EKG - Nurse/Tech; Complete Time: 01:39 02/24 23:12 Order name: IV Saline Lock; Complete Time: 01:39 02/24 23:12 Order name: Labs collected and sent; Complete Time: 01:39 02/24 23:12 Order name: O2 Per Protocol; Complete Time: 01:39 02/24 23:12 Order name: O2 Sat Monitoring; Complete Time: 01:39 02/24 23:19 Order name: Thakur; Complete Time: 23:47 cp 02/25 00:53 Order name: Urine Dipstick-Ancillary (obtain specimen); Complete Time: 01:38 cp Administered Medications: 22:58 Drug: Hydrocodone-Acetaminophen (7.5 mg-325 mg) 1 tabs Route: PO; iw 22:58 Drug: Ibuprofen 800 mg Route: PO; iw 23:22 CANCELLED (Physician Discretion): Dilaudid (HYDROmorphone) 1 mg IVP once; RASS on cp ADMIN: Combtv4, Very Agttd3, Agttd2, Rstlss1, AlertClm0, Drwsy-1, Lt Sdtn-2, Mod Sdtn-3, Dp Sdtn-4, UnArsble-5 23:58 Drug: morphine 4 mg Route: IVP; Site: right antecubital; iw 23:59 Drug: Trandate (labetalol) 20 mg Route: IVP; Site: right antecubital; iw 02/25 00:53 Not Given (Physician Discretion): Albuterol 2.5 mg Inhalation once cp 00:53 Not Given (Physician Discretion): AtroVENT (ipratropium) Aerosol 0.5 mg Inhalation once cp 00:55 CANCELLED (Physician Discretion): Albuterol - atroVENT (ipratropium) (3:1) (2.5 mg - cp 0.5 mg) 3 ml Nebulizer once 01:27 Not Given (Hemodynamic Parameters): hydrALAZINE 10 mg IVP once iw 01:27 Drug: Xopenex (levalbuterol) (3) 1.25 mg Route: Inhalation; iw 01:38 Not Given (Patient Refused): NS 0.9% 1000 ml IV at 100 ml/hr continuous iw 01:38 Not Given (Patient Refused): GI Cocktail without - (Maalox Suspension 30 ml, iw Lidocaine Liquid 2 % 15 ml) PO once Disposition: 06:09 Co-signature as Attending Physician, William Metcalf MD. pkl Disposition Summary: 02/24/21 23:47 Transfer Ordered Reason: Higher level of care cp Condition: Stable cp Problem: new cp Symptoms: have improved cp Transfer Location: [facility](02/25/21 00:42) cp Accepting Physician: DR Juarez(02/25/21 01:54) iw Diagnosis - Displaced fracture of base of neck of right femur, initial encounter for closed cp fracture - Hypertensive heart disease without heart failure cp Forms: - Medication Reconciliation Form cp - SBAR form cp Signatures: Dispatcher [employer] EDWilliam Sutherland MD MD pkGeorgia Hatfield RN RN iw Jax Orantes, PA PA cp Corrections: (The following items were deleted from the chart) 02/24 23:22 23:19 Dilaudid (HYDROmorphone) 1 mg IVP once; RASS on ADMIN: Combtv4, Very Agttd3, cp Agttd2, Rstlss1, AlertClm0, Drwsy-1, Lt Sdtn-2, Mod Sdtn-3, Dp Sdtn-4, UnArsble-5 ordered. cp 02/25 00:42 02/24 23:47 Doctor cp cp 02/25 00:42 02/24 23:47 [facility] cp cp 02/25 00:55 00:54 Albuterol - atroVENT (ipratropium) (3:1) (2.5 mg - 0.5 mg) 3 ml Nebulizer once cp ordered. cp 01:38 00:53 Urine Test ordered. cp iw 01:54 00:42 DR Juarez cp iw
[2021-02-24] MEDS ORDERED: ALBUTEROL 2.5 MG/3 ML NEB SOL ONE (23:50)
[2021-02-24] MEDS ORDERED: IPRATROPIUM BROM 0.5MG/2.5ML ONE (23:50)
[2021-02-24] MEDS ORDERED: MORPHINE 4 MG/ML SYR ONE (23:50)
[2021-02-24] MEDS ORDERED: LABETALOL 20 MG/4ML SYRINGE IV ONE (23:51)
[2021-02-24 23:59] LABS: ALT/SGPT 27 U/L (12-78); AST/SGOT 8 U/L (15-37); Albumin 3.4 g/dL (3.4-5.0); Alkaline Phosphatase 165 U/L (45-117); BUN Blood Urea Nitrogen 22 mg/dL (7-18); Bicarbonate 29 mmol/L (21-32); Bilirubin Direct 0.2 mg/dL (0-0.2); Bilirubin Total 0.7 mg/dL (0.2-1.0); Glucose Level 154 mg/dL (74-106); Magnesium 2.4 mg/dL (1.8-2.4); Potassium 3.8 mmol/L (3.5-5.1); Protein, Total 7.2 g/dL (6.4-8.2); Sodium Level 134 mmol/L (136-145); Troponin (Emerg Dept Use Only) < 0.02 ng/mL (0.0-0.045)
[2021-02-25 01:05] LABS: Protime INR 0.98
[2021-02-25 01:13] LABS: Urine Blood Trace-intact (Negative); Urine Glucose Negative (Negative); Urine Protein 1+ (Negative); Urine Specific Gravity 1.025 (1.005-1.030)
[2021-02-25] MEDS ORDERED: LEVALBUTEROL 1.25 MG/3 ML NEB ONE (01:26)
[2021-02-25] MEDS ORDERED: MORPHINE 4 MG/ML SYR ONE (01:37)
[2021-02-25 02:04] VITALS: BP 151/78; O2SAT 94
--- NOTE | 2021-02-25 07:57 | RAD REPORT ---
EXAM DESCRIPTION: RAD - Pelvis - 02/24/2021 11:14 pm CLINICAL HISTORY: hip pain COMPARISON: Hip Right 2 View dated 02/24/2021 TECHNIQUE: AP imaging of the pelvis was obtained. FINDINGS: Detail is limited on this portable study. Patient has L4-5 disc and endplate degenerative changes. Facet joint degenerative change also suspected. Lumbar spine assessment is limited on a sing le-view portable pelvis examination. No fracture of the bony pelvis identified. Surgical clips overlie the lower pelvis. No significant SI joint finding. Left hip joint and proximal left femur are intact. Right femoral neck fracture is present detailed on the separate right hip report. IMPRESSION: No fracture of the bony pelvis. Right femur fracture detailed on separate right hip report.
--- NOTE | 2021-02-25 07:59 | RAD REPORT ---
EXAM DESCRIPTION: RAD - Hip Right 2 View - 02/24/2021 11:14 pm CLINICAL HISTORY: PAIN COMPARISON: Pelvis dated 02/24/2021 FINDINGS: AP and frog-leg views of the right hip were obtained. Transverse fracture is present through the base of the femoral neck. Extension into the intertrochant elisha region is not identified. No pathologic bone changes are present. The medial margin of the femor al shaft fracture is impacted into the femoral neck. Lesser trochanter is intact. No AVN or focal hea d abnormality. No significant soft tissue finding. IMPRESSION: Right femoral neck fracture as detailed.
--- NOTE | 2021-02-25 08:30 | RAD REPORT ---
EXAM DESCRIPTION: RAD - Chest Single View - 02/25/2021 1:13 am CLINICAL HISTORY: SOB COMPARISON: January 2020 TECHNIQUE: AP portable chest image was obtained 02/25/2021 1:13 am . FINDINGS: Lungs are clear. Heart and vasculature are normal. No measurable pleural effusion and no p neumothorax. No acute bony abnormality seen. No acute aortic findings suspected. IMPRESSION: No acute cardiopulmonary process. No significant change from comparison study.
== END 2021-02-25 01:54 | disposition short-term general hospital (02) ==
LOC: ER 20:03
DX: S72.041A Displaced fracture of base of neck of right femur, initial encounter for closed fracture (principal); I11.9 Hypertensive heart disease without heart failure; W18.40XA Slipping, tripping and stumbling without falling, unspecified, initial encounter; Y93.01 Activity, walking, marching and hiking; Y92.009 Unspecified place in unspecified non-institutional (private) residence as the place of occurrence of the external cause; I10 Essential (primary) hypertension
CPT/HCPCS: 36415; 51702; 71045; 72170; 80048; 80076; 81003; 83735; 84484; 85025; 85610; 96374; 96375; 99285; U0003

== ENCOUNTER 2022-03-30 12:32 | Observation (INO) | payer OTHER, SELFPAY ==
--- OUTSIDE RECORDS SUMMARY | 2022-03-30 12:53 | XMS REPORT | Continuity of Care Document ---
:1970 Author Organization [facility] t Address [address] [place] [address] Care Team Providers Name Role Phone None, None Primary Care Physician Unavailable SHERRI STERN Attending Clinician Unavailable [place] Attending Clinician Unavailable DAYDAY COTTRELL Attending Clinician Unavailable [place] Admitting Clinician Unavailable Problems Condition Condition Condition Status Onset Resolution Last Treating Co mments Source Name Details Category Date Date Treatment Clinician Date Lactic Lactic Disease Active 2019-[address] [facility] [address] [facility] STEMI (ST STEMI (ST Disease Active 2019-[address] [facility] elevation elevation 15 Luke s myocardial myocardial 00:00: Me dical infarction infarction 00 Ce nter ) ) Cardiogeni Cardiogeni Disease Active 2019-[address] c shock. c shock. 03-16kes [facility] ECMO [facility] ECMO 00:00: Medical (01/14; (01/14; [address] 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 Smoker Smoker Disease Active [facility] Wheezing Wheezing Disease Active [facility] Allergies, Adverse Reactions, Alerts Allergy Allergy Status Severity Reaction(s) Onset Inactive Treating Comm ents Source Name Type Date Date Clinician NO KNOWN Allergy Active [facility]IE S Social History Social Habit Start Date Stop Date Quantity Comments Source Exposure to Not sure [facility] SARS-CoV-2 (event) Tobacco use and 2020-02-10 2020-02-10 Never used [facility] exposure 00:00:00 00:00:00 Medical Center History of tobacco 2020-01-26 [address] smoker [facility] use 00[facility]:00 Medical Center Sex Assigned At [birth year] [facility] 00:00:00 00:00:00 Medical Center Smoking Status Start Date Stop Date Source Tobacco smoking [facility] consumption unknown Former smoker 2020-02-10 00:00:00 2020-02-10 [facility] 00:00:00 Center Medications Ordered Filled Start Stop Current Ordering Indication Dosage Frequency Signature Comments Components Source Medication Medication Date Date Medication? Clinician (SIG) Name Name oxyCODONE 2020-03 Yes TAKE ONE UT (Roxicodone 2-30 (1) Health ) 10 MG 00:00: TABLET(S) immediate 00 BY MOUTH release EVERY SIX tablet HOURS FOR 5 DAYS. Vital Signs Vital Name Observation Time Observation [...] Procedures This patient has no known procedures. Plan of Care Planned Activity Planned Date Details Comments Source Future Scheduled 2022-03-[address] [facility] Test 00:00:00 (12+) [code = Medical Center DEPRESSION SCREENING (12+)] Future Scheduled 2021-10-31 INFLUENZA VACCINE (#1) [facility] 00:00:00 [code = INFLUENZA Medical Ce nter VACCINE (#1)] Future Scheduled 2021-02-[address] [facility] Test 00:00:00 Counseling and Medical Cente r Screening (12+) [code = Tobacco Cessation Counseling and Screening (12+)] Future Scheduled 2021 SHINGLES VACCINES ([address] [facility] Test 00:00:00 2) [code = SHINGLES Medical Center VACCINES (1 of 2)] Future Scheduled 2016-01-05 Lipid panel (procedure) [facility] Test 00:00:00 [code = 43944469] Medical Ce nter Future Scheduled 1992-01-05 Screening for malignant [facility] Test 00:00:00 neoplasm of cervix Medical C enter (procedure) [code = 422616215] Future Scheduled 1990 DTAP/TDAP/TD VACCINES [facility] 00:00:00 (1 - Tdap) [code = Medical C enter DTAP/TDAP/TD VACCINES (1 - Tdap)] Future Scheduled 1989 HEPATITIS C SCREENING [facility] 00:00:00 [code = HEPATITIS C Medical Center SCREENING] Future Scheduled 1970 COVID-19 VACCINE (#1) [facility] 00:00:00 [code = COVID-[address] VACCINE (#1)] Future Scheduled 1971 Screening for malignant [facility] Test 00:00:00 neoplasm of breast Medical C enter (procedure) [code = 425693273] Future Scheduled 1971 CT Colonography (combo) [facility] Test 00:00:00 [code = CT Colonography [facility] (combo)] Future Scheduled 1971 Screening for malignant [facility] Test 00:00:00 neoplasm of colon Medical Ce nter (procedure) [code = 252553777] Future Scheduled 1971 Screening for malignant [facility] Test 00:00:00 neoplasm of colon Medical Ce nter (procedure) [code = 037885123] Future Scheduled 1971 Screening for malignant [facility] Test 00:00:00 neoplasm of colon Medical Ce nter (procedure) [code = 128602946] Future Scheduled 1971 Screening for malignant [facility] Test 00:00:00 neoplasm of colon Medical Ce nter (procedure) [code = 340443821] Future Scheduled 1970 Sigmoidoscopy [code = [facility] Test 00:00:00 Sigmoidoscopy] Medical Cente r Encounters Start End Encounter Admission Attending Care Care Encounter Source Date/Time Date/Time Type Type Clinicians Facility Department ID 2021-05-29 Outpatient STERN, [facility] [id number] [place] 01:04:22 SHERRI [id number] [facility] 2021-03-12 Outpatient STERN, [facility] [id number] [place] 13:36:00 [facility] 2021-03-12 Outpatient [facility] [id number] [place] 12:49:26 [facility] 2021-03-04 Outpatient STERN, [facility] [id number] [place] 14:24:55 [facility] 2020-01-15 Inpatient ER MASSUMI, [facility] Cardiology [id number] [facility] 04:33:00 [facility] 2021-03-12 2021-03-12 Office Stern, [facility] [id number] [place] 13:15:00 13:34:32 Visit Sherri CALDERÓN AND [id number] Health [facility] [id number] MEDICAL [id number] [address] 2020-02-10 2020-02-10 Outpatient VINITA COTTRELL [facility] [id number] [facility] 00:00:00 00:00:00 DAYDAY 2020-02-08 2020-02-08 Outpatient EL VINITA COTTRELL [facility] [id number] [facility] 00:00:00 00:00:00 DAYDAY Results Test Description Test Time Test Comments Results Result Comments Source AFB CULTURE + SMEAR (NON-SPUTUM) 2020-03-06 09:17:00 Test Item Value Reference Range Interpretation Comme nts CULTURE (BEAKER) (test code = 1095) No acid-fast bacilli isolated i n 42 days AFB SMEAR (BEAKER) (test code = 994) No acid fast bacilli seen LEGIONELLA [id number] 11:29:00 Test Item Value Reference Range Interpretation Comments CULTURE (BEAKER) No Legionella species (test code = 1095) isolated POCT-GLUCOSE [id number] 11:57:00 Test Item Value Reference Range Interpretation Comments POC-GLUCOSE METER 164 mg/dL 70-110 H : TESTED A T [facility] 6720 (BEAKER) (test code = [place], 1538) 22324: Instructional Technology Instructor/Techni edgardo ID = [id number] for ANANDA FALL BASIC METABOLIC [id number] 10:19:00 Test Item Value Reference Range Interpretation [...] S NOT APPLICABLE FOR DIALYSIS PATIEN TS. Instructional Technology Instructor ID - SANTA CPOCT-GLUCOSE [id number] 08:08:00 Test Item Value Reference Range Interpretation Comments POC-GLUCOSE METER 154 mg/dL 70-110 H : TESTED A T [facility] 6720 (BEAKER) (test code = [place], 1538) 78618: Instructional Technology Instructor/Techni edgardo ID = [id number] for ANANDA FALL VIRUS [id number] 07:11:00 Test Item Value Reference Range Interpretation [...] = 413) RAD, CHEST, 1 VIEW, NON [id number] 05:39:00Reason for exam:->ECMO, respiratory failureShould this be performed at the bedside?->Yes [facility] 1970 Sex: FFINALREPORT Chest one view. Clinical history: ECMO, respiratory failure Comparison: Chest radiograph 01/26/2020. Technique: A single frontal view of the chest was obtained. Findings: The cardiomediastinal contours are normal. There is no focal pulmonary consolidation, pleural effusion or pneumothorax. There is no pulmonary edema. The osseous structures are unremarkable. Impression: Nofocal pulmonary consolidation. Signed: Nyasia Juan MDReport Verified Date/Time: 01/27/2020 05:39:52 [id number] 04:43:00 Test Item Value Reference Range Interpretation Comments MAGNESIUM (BEAKER) (test code = 1.8 mg/dL 1.6-2.6 627) Instructional Technology Instructor ID - [id number] 04:43:00 Test Item Value Reference Range Interpretation Comments PHOSPHORUS (BEAKER) (test code = 4.2 mg/dL 2.3-4.7 604) Instructional Technology Instructor ID - [id number] 22:07:00 Test Item Value Reference Range Interpretation Comments MAGNESIUM (BEAKER) (test code = 1.8 mg/dL 1.6-2.6 627) Instructional Technology Instructor ID - DBPOCT-GLUCOSE [id number] 21:34:00 Test Item Value Reference Range Interpretation Comments POC-GLUCOSE METER 125 mg/dL 70-110 H : TESTED A T [facility] (BEAKER) (test code [facility], = 1538) 21489: Instructional Technology Instructor/Techni edgardo ID = [id number] for Betzy Kimble FUNGUS CULTURE + [id number] 20:02:00 Test Item Value Reference Range Interpretation Comments CULTURE (BEAKER) A 1+ Cassi glabrata (test code = 1095) FUNGUS SMEAR No fungi seen (BEAKER) (test code = 1406) POCT-GLUCOSE [id number] 17:31:00 Test Item Value Reference Range Interpretation Comments POC-GLUCOSE METER 130 mg/dL 70-110 H : TESTED A T [facility] 6720 (BEAKER) (test code = HERLINDA Cohn [facility], 1538) 90685: Instructional Technology Instructor/Techni edgardo ID = [id number] for ANANDA FALL [id number] 15:16:00 Test Item Value Reference Range Interpretation Comments MAGNESIUM (BEAKER) (test code = 1.8 mg/dL 1.6-2.6 627) Instructional Technology Instructor ID - DBPOCT-GLUCOSE [id number] 12:57:00 Test Item Value Reference Range Interpretation Comments POC-GLUCOSE METER 162 mg/dL 70-110 H : TESTED A T [facility] 6720 (BEAKER) (test code = [facility] C[facility], 1538) 99730: Instructional Technology Instructor/Techni edgardo ID = [id number] for ANANDA FALL RAD, CHEST, 1 VIEW, NON [id number] 10:09:00Reason for exam:->ECMO, respiratory failureShould this be performed at the bedside?->Yes [facility] 1970 Sex: FFINALREPORT RAD, CHEST, 1 VIEW, NON DEPT INDICATION: ECMO, respiratory failure COMPARISON: Prior day's exam FINDINGS: Portable frontal view of the chest. IMPRESSION: Support Lines: None. Lungs and pleura: Improving aeration at the right base compared to the prior examination. No new consolidation. No pneumothorax.Heart and mediastinum: Stable contours.Additional findings: None. Signed: JR Canchola Robert MDReport Verified Date/Time: 01/26/2020 10:09:03 Reading Location: [facility] C013V Neuro Reading Room POCT-GLUCOSE [id number] 08:34:00 Test Item Value Reference Range Interpretation Comments POC-GLUCOSE METER 162 mg/dL 70-110 H : TESTED A T [facility] 6720 (BEAKER) (test code = [place], 1538) 07544: Instructional Technology Instructor/Techni edgardo ID = [id number] for ANANDA FALL CBC (HEMOGRAM ONLY)2020-01-26 07:00:00 Test Item Value [...] 0-0 H (BEAKER) (test code = 413) [id number] 06:26:00 Test Item Value Reference Range Interpretation Comments MAGNESIUM (BEAKER) (test code = 1.9 mg/dL 1.6-2.6 627) Instructional Technology Instructor ID - DARIUS [id number] 06:26:00 Test Item Value Reference Range Interpretation Comments PHOSPHORUS (BEAKER) (test code = 4.3 mg/dL 2.3-4.7 604) Instructional Technology Instructor ID - DARIUS [id number] 21:19:00 Test Item Value Reference Range Interpretation Comments MAGNESIUM (BEAKER) (test code = 2.0 mg/dL 1.6-2.6 627) Instructional Technology Instructor ID - [id number] 21:19:00 Test Item Value Reference Range Interpretation Comments POTASSIUM (BEAKER) (test code = 3.5 meq/L 3.5-5.1 379) Instructional Technology Instructor ID - BSPOCT-GLUCOSE [id number] 21:01:00 Test Item Value Reference Range Interpretation Comments POC-GLUCOSE METER 181 mg/dL 70-110 H : TESTED A T [facility] 6720 (BEAKER) (test code = [facility], 1538) 78306: Instructional Technology Instructor/Techni edgardo ID = [id number] for BRAXTON, SAEID Y BLOOD [id number] 18:01:00 Test Item Value Reference Range Interpretation Comments CULTURE (BEAKER) (test No growth in 5 days code = 1095) BLOOD [id number] 18:01:00 Test Item Value Reference Range Interpretation Comments CULTURE (BEAKER) (test No growth in 5 days code = 1095) POCT-GLUCOSE [id number] 17:08:00 Test Item Value Reference Range Interpretation Comments POC-GLUCOSE METER 214 mg/dL 70-110 H : TESTED A T [facility] 6720 (BEAKER) (test code = [facility], 1538) 09146: Instructional Technology Instructor/Techni edgardo ID = [id number] for Zulma Hoffman POCT-GLUCOSE [id number] 12:46:00 Test Item Value Reference Range Interpretation Comments POC-GLUCOSE METER 197 mg/dL 70-110 H : TESTED A T [facility] 6720 (BEAKER) (test code = [facility], 1538) 64520: Instructional Technology Instructor/Techni edgardo ID = [id number] for Zulma Hoffman POCT-GLUCOSE [id number] 08:53:00 Test Item Value Reference Range Interpretation Comments POC-GLUCOSE METER 165 mg/dL 70-110 H : TESTED A T [facility] 6720 (BEAKER) (test code = [facility], 1538) 58425: Instructional Technology Instructor/Techni edgardo ID = [id number] for Mychal Julien [id number] 07:14:00 Test Item Value Reference Range Interpretation Comments POTASSIUM (GURPREETAKER) (test code = 3.8 meq/L 3.5-5.1 379) Instructional Technology Instructor ID - PIAYA LRAD, CHEST, 1 VIEW, NON [id number] 07:03:00Reason for exam:->ECMO, respiratory failureShould this be performed at the bedside?->[facility] 1970 Sex: FFINALREPORT RAD, CHEST, 1 VIEW, NON DEPT INDICATION: ECMO, respiratory failure COMPARISON: Prior day's exam FINDINGS: Portable frontal view of the chest. IMPRESSION: Support Lines: NoneLungs and pleura: No significant change near spaces. Increasing small right effusion. No pneumothorax.Heart and mediastinum: Stable contours. Additional findings: None. Signed: JR Canchola Robert MDRepthu Verified Date/Time: 01/25/2020 07:03:07 Reading Location: [facility] Rad[facility] Reading Room CBC (HEMOGRAM ONLY)2020-01-25 04:47:00 [...] 0-0 H (BEAKER) (test code = 413) [id number] 04:38:00 Test Item Value Reference Range Interpretation Comments MAGNESIUM (BEAKER) (test code = 2.4 mg/dL 1.6-2.6 627) Instructional Technology Instructor ID - LOVE [id number] 04:38:00 Test Item Value Reference Range Interpretation Comments PHOSPHORUS (BEAKER) (test code = 4.4 mg/dL 2.3-4.7 604) Instructional Technology Instructor ID - LOVE [id number] 23:33:00 Test Item Value Reference Range Interpretation Comments MAGNESIUM (BEAKER) (test code = 2.5 mg/dL 1.6-2.6 627) Instructional Technology Instructor ID - PIAYA LPOCT-GLUCOSE [id number] 23:14:00 Test Item Value Reference Range Interpretation Comments POC-GLUCOSE METER 172 mg/dL 70-110 H : TESTED A T [facility] (BEAKER) (test code = [place], 1538) 50138: Instructional Technology Instructor/Techni edgardo ID = [id number] for Re yes, Sairy BASIC METABOLIC [id number] 16:08:00 Test Item Value Reference Range Interpretation [...] S NOT APPLICABLE FOR DIALYSIS PATIEN TS. Instructional Technology Instructor ID - [id number] 16:07:00 Test Item Value Reference Range Interpretation Comments MAGNESIUM (BEAKER) (test code = 1.9 mg/dL 1.6-2.6 627) Instructional Technology Instructor ID - BSMR, MRA, BRAIN, WITHOUT [id number] 15:56:00Unlisted Reason for Exam - Click Yes and Enter Reason Below->No [facility] 1970 Sex: FFINALREPORT MRA Head Clinical History: Stroke, follow up Technique: MRA of the head utilizing 3-D bbqg-dk-sikmxm technique with 3-D reconstructions. Comparison: Same day MRI brain and MRA neck Findings: An anterior outpouching at the origin of the basilar artery measures 2 to 3 mm at the neck, consistent with aneurysm. There is a long segment fenestration of the left vertebral artery. Small fenestration of the proximal basilar artery. No major branch vessel occlusion or high-grade focal stenosis. 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 Signed: Tracy Reynoso [facility] Verified Date/Time: 01/24/2020 15:56:25 MR, MRA, NECK, WITHOUT IV [id number] 14:30:00Unlisted Reason for Exam - Click Yes and Enter Reason Below->No [facility] : 1970 Sex: FFINALREPORT MR, MRA, NECK, WITHOUT IV CONTRAST INDICATION: Stroke, follow up TECHNIQUE: Multiplanar, multisequence MR images of [...] limiting stenosis within the visualized cervical vertebral arterial segments. Limited ass essment of the V3 segment secondary to noncontrast technique. IMPRESSION: No flow limiting stenosis in the major branch vessels of the cervical circulation. Signed: Kaela Esocto MDReport Verified Date/Time: 01/24/2020 14:30:11 Reading Location: [address] Neuro Reading Room HEPATIC FUNCTION [id number] 14:10:00 Test Item Value Reference Range Interpretation [...] (test code = 29 U/L 6-55 347) Instructional Technology Instructor ID - DAMON FMR, BRAIN, WITHOUT [id number] 13:51:00Unlisted Reason for Exam - Click Yes and Enter Reason Below->No [facility] : 1970 Sex: FFINALREPORT MR, BRAIN, WITHOUT CONTRAST INDICATION: Stroke, follow up TECHNIQUE: Multiplanar, multisequence MR imaging of the brain was obtained. COMPARISON: None FINDINGS:Multiple small acute infarcts throughout the right MCA territory within the right frontal and parietal parenchyma.No hemorrhagic conversion or significant mass effect. Midline structures are normally developed. No abnormal susceptibility. Scattered T2/FLAIR hyperintense foci within the periventricular and subcortical white matter are nonspecific, however, statistically represent chronic microvascular ischemic changes. No hydrocephalus. Orbits are within normal limits. No obstructive paranasal sinus disease. Moderate mucosal thickening of the sphenoid sinuses. IMPRESSION: Multiple small acute infarcts throughoutthe right MCA territory within the right frontal and parietal parenchyma. No hemorrhagic conversion or significant mass effect. Signed: Kaela Escoto MDReport Verified Date/Time: 01/24/2020 13:51:33 Reading Location: [address] Neuro Reading Room POCT-GLUCOSE [id number] 11:20:00 Test Item Value Reference Range Interpretation Comments POC-GLUCOSE METER 192 mg/dL 70-110 H : TESTED A T [facility] 6720 (BEAKER) (test code = [facility] Cohn [facility], 1538) 73089: Instructional Technology Instructor/Techni edgardo ID = [id number] for ANIKA MESA CBC (HEMOGRAM ONLY)2020-01-24 07:04:00 Test Item Value [...] 9.4-12.3 (test code = 754) BASIC METABOLIC [id number] 04:45:00 Test Item Value Reference Range Interpretation [...] S NOT APPLICABLE FOR DIALYSIS PATIEN TS. Instructional Technology Instructor ID - [id number] 04:45:00 Test Item Value Reference Range Interpretation Comments MAGNESIUM (BEAKER) (test code = 2.6 mg/dL 1.6-2.6 627) Instructional Technology Instructor ID - [id number] 04:45:00 Test Item Value Reference Range Interpretation Comments PHOSPHORUS (BEAKER) (test code = 4.4 mg/dL 2.3-4.7 604) Instructional Technology Instructor ID - EDASIRAD, CHEST, 1 VIEW, NON [id number] 03:38:00Reason for exam:->ECMO, respiratory failureShould this be performed at the bedside?->[facility] 1970 Sex: FFINALREPORT RAD, CHEST, 1 VIEW, NON DEPT INDICATION: ECMO, respiratory failure COMPARISON: Prior day's exam FINDINGS: Portable frontal view of the chest. IMPRESSION: Support Lines: None. Lungs and pleura: Improving aeration of the bilateral lower lungs with persistent bibasilar atelectasis and layering pleural effusions. No pneumothorax.Heart and mediastinum: Stable contours. Additional findings: None. Signed: Ifrah Lopez [facility] Verified Date/Time: 01/24/2020 03:38:01 SARS-COV2/RT-PCR ([facility])2020-01-23 21:17:00 Test Item Value Reference Range Interpretation Comments SARS-COV2/RT-PCR (test Negative Not Detected, Negative, code = 6878762) See external report for linked test SARS-COV-2 PERFORMING LAB [facility] ADAM (test code = 7554521) Negative result for this test determines that SARS-CoV-2 RNA was not present in the specimen above the Limit of Detection (LOD). However, Negative results do not preclude SARS-CoV-2 infection and should not be used as the sole basis for treatment or patient management decisions. Negative results must be combined with clinical observations, patient history, and [...] justifying the authorization of the emergency use ofin vitro diagnostic tests for detection and/or diagnosis of COVID-19 is terminated under Section 564(b)(2) of the Act or the EUA is revoked under Section 564(g) of the Act.Fact Sheet for Healthcare Prov iders:https://www.[employer]/sites/default/files/product/documents/Fact_Sheet_HC _Xemhddcpy_Hhtf_SRSE-HaZ-4.pdfFact Sheet for Healthcare Patients:https://www.[employer]/sites/default/files/product/docume nts/Vnyn_Tbyey_Hthuglop_Vtyj_POTA-OzM-1.pdfPerforming Laboratory:[facility], [place] [address]MXNO-RRIEPDI METER 2020-01-23 18:41:00 Test Item Value Reference Range Interpretation Comments POC-GLUCOSE METER 171 mg/dL 70-110 H : TESTED A T [facility] 6720 (PATITO) (test code = [facility] C[facility], 1538) 30093: Instructional Technology Instructor/Techni edgardo ID = [id number] for BE RNABE, REJI CT, BRAIN, WITHOUT [id number] 18:03:00Unlisted Reason for Exam - Click Yes and Enter Reason Below->No [facility] 1970 Sex: FAddendum BeginsREPORT STATUS:A The findings were relayed to CARA Oropeza at 6:03 PM on 01/23/2020. Signed: Tracy Reynoso Verified Date/Time: 01/23/2020 18:03:31 Addendum EndsFINAL REPORT [...] friend-white differentiation within the right frontal and parietal lobes, suspicious for acute MCA territory infarcts. No [...] distribution. MRI may be performed to ascertain thetiming.2.No acute intracranial hemorrhage. Addendum will be made to this report upon successful communication with the ordering physician. Signed: Tracy Reynoso Verified Date/Time: 01/23/202017:58:21 BASI METABOLIC [id number] 14:32:00 Test Item Value Reference Range Interpretation [...] S NOT APPLICABLE FOR DIALYSIS PATIEN TS. Instructional Technology Instructor ID - [id number] 14:32:00 Test Item Value Reference Range Interpretation Comments MAGNESIUM (BEAKER) (test code = 2.8 mg/dL 1.6-2.6 H 627) Instructional Technology Instructor ID - [id number] 11:55:00Medical Cytology Report Case: [id number] Authorizing Provider: Olive Cottrell NP Collected: 01/20/2020 02:19 PM Ordering Location: [place] [address] CCU Received: 01/23/2020 08:43 AM Pathologist: Jairo Baird MD Specimen: Bronchial Wash, (laterality not designated) BRONCHIAL WASHING (LATERALITY NOT SPECIFIED) (CYTOSPINS): - MUCOUS, ACUTE INFLAMMATION, HISTIOCYTES AND FEW SQUAMOUS CELLS P RESENT Signing Pathologist Direct Phone Line: [phone] signed by Jairo Baird MD on 01/23/2020 at 11:55 [id number] failure, systemic diseaseBRONCHIAL WASHING (LATERALITY NOT SPECIFIED)0.2 mls cloudy white fluid, 4 cytospinsPerformed. LimitedLow cellularityBaylor [facility], Department of Pathology, [address] [place] [address], [facility], [facility] of [facility]ology, [address] [place], [place] [id number], [facility], Department of [facility]ology, [address] [place] [address], UDX (HEMOGRAM ONLY)2020-01-23 06:26:00 Test Item Value Reference [...] 0-0 H (BEAKER) (test code = 413) [id number] 06:24:00 Test Item Value Reference Range Interpretation Comments FIBRINOGEN LEVEL (BEAKER) (test 495 mg/dl 225-434 H code = 658) [id number] 06:10:00 Test Item Value Reference Range Interpretation Comments MAGNESIUM (BEAKER) 2.7 mg/dL 1.6-2.6 H Specimen slightly (test code = 627) hemolyzed Instructional Technology Instructor ID - [id number] 06:10:00 Test Item Value Reference Range Interpretation Comments PHOSPHORUS (BEAKER) 3.7 mg/dL 2.3-4.7 Specimen slightly (test code = 604) hemolyzed Instructional Technology Instructor ID - ADMINBASIC METABOLIC [id number] 06:10:00 Test Item Value Reference Range Interpretation [...] S NOT APPLICABLE FOR DIALYSIS PATIEN TS. Instructional Technology Instructor ID - ADMINBLOOD GAS, [id number] 05:55:00 Test Item Value Reference Range Interpretation [...] 1819) 60.0 RAD, CHEST, 1 VIEW, NON [id number] 04:28:00Reason for exam:->ECMO, respiratory failureShould this be performed at the bedside?->Yes [facility] 1970 Sex: FFINALREPORT RAD, CHEST, 1 VIEW, NON DEPT INDICATION: ECMO, respiratory failure COMPARISON: Prior day's exam FINDINGS: Portable frontal view of the chest. IMPRESSION: Support Lines: No significant change. Lungs and pleura: Increased basilar hazy opacities possibly layering effusions, atelectasis or aspiration. Improved left mid lung discoid atelectasis. No pneumothorax.Heart and mediast inum: Stable contours. Additional findings: None. Signed: Fredis Mclain MDReport Verified Date/Time: 01/23/2020 04:28:41 POCT-GLUCOSE [id number] 01:13:00 Test Item Value Reference Range Interpretation Comments POC-GLUCOSE METER 135 mg/dL 70-110 H : TESTED A T [facility] 6720 (BEAKER) (test code = [place], 1538) [address]: Instructional Technology Instructor/Techni edgardo ID = [id number] for Rochellecarmencita Wilbertsuki Naylor [id number] 22:53:00 Test Item Value Reference Range Interpretation Comments MAGNESIUM (BEAKER) 2.6 mg/dL 1.6-2.6 Specimen slightly (test code = 627) hemolyzed Instructional Technology Instructor ID - DBPOCT-GLUCOSE [id number] 17:01:00 Test Item Value Reference Range Interpretation Comments POC-GLUCOSE METER 121 mg/dL 70-110 H : TESTED A T [facility] 6720 (BEAKER) (test code = HERLINDA Cohn [facility], 1538) [address]: Instructional Technology Instructor/Techni edgardo ID = [id number] for RE YES, TOMASA [id number] 12:39:00 Test Item Value Reference Range Interpretation Comments MAGNESIUM (BEAKER) (test code = 2.6 mg/dL 1.6-2.6 627) Instructional Technology Instructor ID - SANTA [id number] 12:39:00 Test Item Value Reference Range Interpretation Comments POTASSIUM (BEAKER) (test code = 3.6 meq/L 3.5-5.1 379) Instructional Technology Instructor ID - SANTA CPOCT-GLUCOSE [id number] 12:32:00 Test Item Value Reference Range Interpretation Comments POC-GLUCOSE METER 116 mg/dL 70-110 H : TESTED A T [facility] 6720 (BEAKER) (test code [facility], = 1538) [address]: Instructional Technology Instructor/Techni edgardo ID = [id number] for NAI HYATT BRONCHIAL CULTURE + GRAM [id number] 10:03:00 Test Item Value Reference Range Interpretation [...] gram negative (BEAKER) (test code = rods 553145) GRAM STAIN RESULT 1+ gram positive (BEAKER) (test code = cocci in pairs 290844) and clusters RAD, CHEST, 1 VIEW, NON [id number] 08:28:00Reason for exam:->ECMO, respiratory failureShould this be performed at the bedside?->Yes [facility] 1970 Sex: FFINAL REPORT TECHNIQUE: Frontal view of the chest. INDICATION: 50-year-old woman with respiratory failure. COMPARISON: Chest radiograph 01/21/2020. FINDINGS: LINES/TUBES: Interval extubation and removal of the feeding tube. LUNGS: Decreased atelectasis in the right lower lung zone. Pers istent atelectasis in the left midlung zone. No new consolidation or pulmonary edema. PLEURA: No pneumothorax or significant pleural effusion. HEART AND MEDIASTINUM: Cardiomediastinal silhouette is unchanged. BONES AND SOFT TISSUES: Unremarkable. IMPRESSION:Lines/tubes as above. Improved right basilar atelectasis. Otherwise, no significant change since 01/21/2020. Signed: Cecilio Harkins MDReport Verified Date/Time: 01/22/2020 08:28:57 Reading Location: [facility] [id number] Consult Reading Room CBC (HEMOGRAM ONLY)2020-01-22 05:46:00 [...] 0-0 H (BEAKER) (test code = 413) [id number] 05:32:00 Test Item Value Reference Range Interpretation Comments MAGNESIUM (BEAKER) 2.5 mg/dL 1.6-2.6 Specimen slightly (test code = 627) hemolyzed Instructional Technology Instructor ID - PIAYA [id number] 05:32:00 Test Item Value Reference Range Interpretation Comments PHOSPHORUS (BEAKER) 4.1 mg/dL 2.3-4.7 Specimen slightly (test code = 604) hemolyzed Instructional Technology Instructor ID - PIAYA LBASIC METABOLIC [id number] 05:32:00 Test Item Value Reference Range Interpretation [...] S NOT APPLICABLE FOR DIALYSIS PATIEN TS. Instructional Technology Instructor ID - PIAYA [id number] 04:52:00 Test Item Value Reference Range Interpretation Comments FIBRINOGEN LEVEL (BEAKER) (test 510 mg/dl 225-434 H code = 658) BLOOD GAS, [id number] 04:01:00 Test Item Value Reference Range Interpretation [...] (BEAKER) (test code = 1819) 70.0 POCT-GLUCOSE [id number] 00:34:00 Test Item Value Reference Range Interpretation Comments POC-GLUCOSE METER 134 mg/dL 70-110 H : [facility] ([facility]ER) (test code = [place], 1538) [address]: Instructional Technology Instructor/Techni edgardo ID = [id number] for Linus Mendez [id number] 23:33:00 Test Item Value Reference Range Interpretation Comments MAGNESIUM (BEAKER) (test code = 2.5 mg/dL 1.6-2.6 627) Instructional Technology Instructor ID - LOVE [id number] 23:33:00 Test Item Value Reference Range Interpretation Comments POTASSIUM (BEAKER) (test code = 3.6 meq/L 3.5-5.1 379) Instructional Technology Instructor ID - LOVE LPOCT-GLUCOSE [id number] 17:58:00 Test Item Value Reference Range Interpretation Comments POC-GLUCOSE METER 193 mg/dL 70-110 H : TESTED A T [facility] 6720 (BEAKER) (test code = [facility] Suki [facility], 1538) [address]: Instructional Technology Instructor/Techni edgardo ID = [id number] for RE YES, TOMASA [id number] 12:54:00 Test Item Value Reference Range Interpretation Comments MAGNESIUM (BEAKER) (test code = 2.5 mg/dL 1.6-2.6 627) Instructional Technology Instructor ID - SANTA [id number] 12:54:00 Test Item Value Reference Range Interpretation Comments POTASSIUM (BEAKER) (test code = 3.5 meq/L 3.5-5.1 379) Instructional Technology Instructor ID - SANTA CPOCT-GLUCOSE [id number] 12:32:00 Test Item Value Reference Range Interpretation Comments POC-GLUCOSE METER 159 mg/dL 70-110 H : TESTED A T [facility] 6720 (BEAKER) (test code = [facility], 1538) [address]: Instructional Technology Instructor/Techni edgardo ID = [id number] for RE YES, TOMASA SPIN/CONCENTRATION [id number] 09:42:00 Test Item Value Reference Range Interpretation Comments CONCENTRATION CHARGED (BEAKER) (test Done code = 2657) RAD, CHEST, 1 VIEW, NON [id number] 08:01:00Reason for exam:->ECMO, respiratory failureShould this be performed at the bedside?->Yes [facility]OR [facility] : 1970 Sex: FFINALREPORT RAD, CHEST, 1 VIEW, NON DEPT INDICATION: ECMO, respiratory failure COMPARISON: Prior day's exam FINDINGS: Portable frontal view of the chest. IMPRESSION: Support Lines: Stable. Lungs and pleura: Increased airspace and pleural opacities. No pneumothorax.Heart and mediastinum: Stable contours. Stable surgical changes.Additional findings: None. Signed: Kaela Escoto MDReport Verified Date/Time: 01/21/2020 08:01:01 Reading Location: [address] Neuro Reading Room COMPREHENSIVE METABOLIC [id number] 06:17:00 Test Item Value Reference Range Interpretation [...] S NOT APPLICABLE FOR DIALYSIS PATIEN TS. Instructional Technology Instructor ID - [id number] 06:17:00 Test Item Value Reference Range Interpretation Comments MAGNESIUM (BEAKER) (test code = 2.5 mg/dL 1.6-2.6 627) Instructional Technology Instructor ID - [id number] 06:17:00 Test Item Value Reference Range Interpretation Comments PHOSPHORUS (BEAKER) (test code = 3.9 mg/dL 2.3-4.7 604) Instructional Technology Instructor ID - EDASICREATINE KINASE (CK)2020-01-21 06:17:00 Test Item Value Reference Range Interpretation Comments CREATINE KINASE TOTAL (BEAKER) (test 393 U/L 29-200 H code = 380) Instructional Technology Instructor ID - EDASICBC (HEMOGRAM ONLY)2020-01-21 05:57:00 Test [...] (BEAKER) (test code = 413) BLOOD GAS, [id number] 05:42:00 Test Item Value Reference Range Interpretation [...] code = 1819) 40.0 HEPARIN ASSAY - [id number] 05:39:00 Test Item Value Reference Range Interpretation Comments UNFRACTIONATED HEPARIN-ANTI 10A < u/ml 0.30-0.70 L (BEAKER) (test code = 1606) Recommendations for Monitoring Unfractionated Heparin Therapeutic Range: 0.3-0.7 u/mL with continuous IV infusionLACTIC ACID, [id number] 05:39:00 Test Item Value Reference Range Interpretation Comments LACTATE BLOOD VENOUS (2) (BEAKER) 1.25 mmol/L 0.50-2.20 (test code = 2872) Instructional Technology Instructor ID - EDASIPROTHROMBIN [id number] 05:36:00 Test Item Value Reference Range Interpretation Comments PROTIME (BEAKER) (test code = 14.7 seconds 11.9-14.2 H 759) INR (BEAKER) (test code = 370) 1.18 <=5.90 Effective 07/28/2018: PT Reference Range ChangeNew: 11.9-14.2 Previous: 11.7- 14.7RECOMMENDED COUMADIN/WARFARIN INR THERAPY RANGESSTANDARD DOSE: 2.0-3.0 Includes: PROPHYLAXIS for venous thrombosis, systemic embolization; TREATMENT for venous thrombosis and/or pulmonary embolus.HIGH RISK: Target INR is 2.5-3.5 for patients wiht mechanical heart valves.[id number] 05:36:00 Test Item Value Reference Range Interpretation Comments FIBRINOGEN LEVEL (BEAKER) (test 479 mg/dl 225-434 H code = 658) OXYGEN SATURATION, [id number] 05:08:00 Test Item Value Reference Range Interpretation Comments O2 SATURATION (MEASURED) (BEAKER) 85.9 % (test code = 1455) POCT-GLUCOSE [id number] 23:59:00 Test Item Value Reference Range Interpretation Comments POC-GLUCOSE METER 171 mg/dL 70-110 H : Notified RN/MD: (BEAKER) (test code = TESTED AT [facility] 6795 1535) [facility], [address]: Instructional Technology Instructor/Techni edgardo ID = [id number] for JADEN MICHELLE BASIC METABOLIC [id number] 22:06:00 Test Item Value Reference Range Interpretation [...] S NOT APPLICABLE FOR DIALYSIS PATIEN TS. Instructional Technology Instructor ID - [id number] 22:06:00 Test Item Value Reference Range Interpretation Comments MAGNESIUM (BEAKER) (test code = 2.5 mg/dL 1.6-2.6 627) Instructional Technology Instructor ID - DBPOCT-GLUCOSE [id number] 18:27:00 Test Item Value Reference Range Interpretation Comments POC-GLUCOSE METER 200 mg/dL 70-110 H : TESTED A T [facility] 6720 (BEAKER) (test code = [place], 1538) [address]: Instructional Technology Instructor/Techni edgardo ID = [id number] for AG CARLIE GAMBLE RAD, ABDOMEN/KUB, 1 VIEW [id number] 17:36:00Reason for exam:->abdominal distensionShould this be performed at the bedside?->Yes [facility] : 1970 Sex: FFINAL REPORT TECHNIQUE: Frontal view of the abdomen. INDICATION: 50-year-old woman with abdominal distention. COMPARISON: Abdomen radiographs 01/18/2020. IMPRESSION:Nonspecific bowel gas pattern with mild gaseous distention of the transverse colon. Unchanged feeding tube terminates over the expected region of the proximal duodenum. Otherwise, no significant change since 01/18/2020. Signed: Cecilio Harkins MDReport Verified Date/Time: 01/20/2020 17:36:10 Reading Location: [address] URINALYSIS W/ REFLEX URINE [id number] 17:15:00 Test Item Value Reference Range Interpretation [...] 0 /HPF SOURCE(BEAKER) (test code = 2795) Instructional Technology Instructor ID - [auto]Instructional Technology Instructor ID - techHEPARIN ASSAY - [id number] 15:43:00 Test Item Value Reference Range Interpretation Comments UNFRACTIONATED HEPARIN-ANTI 10A < u/ml 0.30-0.70 L (BEAKER) (test code = 1606) Recommendations for Monitoring Unfractionated Heparin Therapeutic Range: 0.3-0.7 u/mL with continuous IV infusionBASIC METABOLIC [id number] 15:25:00 Test Item Value Reference Range Interpretation [...] S NOT APPLICABLE FOR DIALYSIS PATIEN TS. Instructional Technology Instructor ID - [id number] 15:25:00 Test Item Value Reference Range Interpretation Comments MAGNESIUM (PATITO) (test code = 2.3 mg/dL 1.6-2.6 627) Instructional Technology Instructor ID - ADMINPOCT-GLUCOSE [id number] 12:00:00 Test Item Value Reference Range Interpretation Comments POC-GLUCOSE METER 179 mg/dL 70-110 H : [facility] (PATITO) (test code = HERLINDA [place], 1538) [address]: Instructional Technology Instructor/Techni edgardo ID = [id number] for FO X, PARISA RAD, CHEST, 1 VIEW, NON [id number] 07:46:00Reason for exam:->ECMO, respiratory failureShould this be performed at the bedside?->Yes [facility] : 1970 Sex: FFINAL REPORT CLINICAL HISTORY: ECMO, respiratory failure TECHNIQUE: 1 view of the chest. COMPARISON: 01/19/2020 IMPRESSION: The supporting lines and tubes are similar appearing. Right lower lung airspace opacity appears slightly increased. Left lower lung opacity is unchanged. A small layering right pleural effusion is again noted. The cardiomediastinal silhouette is magnified by techn ique. Signed: Vale Torres Verified Date/Time: 01/20/2020 07:46:44 Reading Location: [facility] Radiology Reading Room HEPARIN ASSAY - UNFRACTIONATED 2020-01-20 05:12:00 Test Item Value Reference Range Interpretation Comments UNFRACTIONATED HEPARIN-ANTI 10A < u/ml 0.30-0.70 L (PATITO) (test code = 1606) Recommendations for Monitoring Unfractionated Heparin Therapeutic Range: 0.3-0.7 u/mL with continuous IV infusionPROTHROMBIN [id number] 04:58:00 Test Item Value Reference Range Interpretation Comments PROTIME (BEAKER) (test code = 14.3 seconds 11.9-14.2 H 759) INR (BEAKER) (test code = 370) 1.14 <=5.90 Effective 07/28/2018: PT Reference Range ChangeNew: 11.9-14.2 Previous: 11.7- 14.7RECOMMENDED COUMADIN/WARFARIN INR THERAPY RANGESSTANDARD DOSE: 2.0-3.0 Includes: PROPHYLAXIS for venous thrombosis, systemic embolization; TREATMENT for venous thrombosis and/or pulmonary embolus.HIGH RISK: Target INR is 2.5-3.5 for patients wiht mechanical heart valves.[id number] 04:58:00 Test Item Value Reference Range Interpretation Comments FIBRINOGEN LEVEL (BEAKER) (test 598 mg/dl 225-434 H code = 658) [id number] 04:58:00 Test Item Value Reference Range Interpretation Comments PARTIAL THROMBOPLASTIN TIME 25.4 seconds 22.5-36.0 (BEAKER) (test code = 760) [id number] 04:34:00 Test Item Value Reference Range Interpretation Comments MAGNESIUM (BEAKER) 2.4 mg/dL 1.6-2.6 Specimen slightly (test code = 627) hemolyzed Instructional Technology Instructor ID - [id number] 04:34:00 Test Item Value Reference Range Interpretation Comments PHOSPHORUS (BEAKER) 3.7 mg/dL 2.3-4.7 Specimen slightly (test code = 604) hemolyzed Instructional Technology Instructor ID - EDASICOMPREHENSIVE METABOLIC [id number] 04:34:00 Test Item Value Reference Range Interpretation [...] S NOT APPLICABLE FOR DIALYSIS PATIEN TS. Instructional Technology Instructor ID - EDASICREATINE KINASE (CK)2020-01-20 04:34:00 Test Item Value Reference Range Interpretation Comments CREATINE KINASE TOTAL (BEAKER) (test 335 U/L 29-200 H code = 380) Instructional Technology Instructor ID - EDASILACTIC ACID, [id number] 04:24:00 Test Item Value Reference Range Interpretation Comments LACTATE BLOOD 0.8 mmol/L 0.5-2.2 Specimen sligh tly ARTERIAL (2) (BEAKER) hemoly zed (test code = 2874) Instructional Technology Instructor ID - LOVE LCBC (HEMOGRAM ONLY)2020-01-20 04:23:00 [...] H (BEAKER) (test code = 413) CALCIUM, [id number] 04:20:00 Test Item Value Reference Range Interpretation Comments CALCIUM IONIZED (BEAKER) (test 1.08 mmol/L 1.12-1.27 L code = 698) PH, BLOOD (BEAKER) (test code = 7.52 1810) BLOOD GAS, [id number] 04:16:00 Test Item Value Reference Range Interpretation [...] (test code = 1819) 40.0 OXYGEN SATURATION, [id number] 04:16:00 Test Item Value Reference Range Interpretation Comments O2 SATURATION (MEASURED) (BEAKER) 78.4 % (test code = 1455) [id number] 02:02:00 Test Item Value Reference Range Interpretation Comments POTASSIUM (BEAKER) (test code = 3.5 meq/L 3.5-5.1 379) Instructional Technology Instructor ID - EDASIPOCT-GLUCOSE [id number] 00:12:00 Test Item Value Reference Range Interpretation Comments POC-GLUCOSE METER 164 mg/dL 70-110 H : Notified RN/MD: (BEAKER) (test code = TESTED AT [facility] 6720 1538) [facility], [address]: Instructional Technology Instructor/Techni edgardo ID = [id number] for JADEN MICHELLE [id number] 21:42:00 Test Item Value Reference Range Interpretation Comments MAGNESIUM (BEAKER) 2.6 mg/dL 1.6-2.6 Specimen slightly (test code = 627) hemolyzed Instructional Technology Instructor ID - DBBASIC METABOLIC [id number] 21:42:00 Test Item Value Reference Range Interpretation [...] S NOT APPLICABLE FOR DIALYSIS PATIEN TS. Instructional Technology Instructor ID - DBPOCT-GLUCOSE [id number] 18:39:00 Test Item Value Reference Range Interpretation Comments POC-GLUCOSE METER 193 mg/dL 70-110 H : [facility] 67[facility] (BEAKER) (test code = [place]LINDA [place], 1538) [address]: Instructional Technology Instructor/Techni edgardo ID = [id number] for KOSTA SPANN HEPARIN ASSAY - [id number] 14:48:00 Test Item Value Reference Range Interpretation Comments UNFRACTIONATED HEPARIN-ANTI 10A < u/ml 0.30-0.70 L (BEAKER) (test code = 1606) Recommendations for Monitoring Unfractionated Heparin Therapeutic Range: 0.3-0.7 u/mL with continuous IV infusionBASIC METABOLIC [id number] 14:04:00 Test Item Value Reference Range Interpretation [...] S NOT APPLICABLE FOR DIALYSIS PATIEN TS. Instructional Technology Instructor ID - [id number] 14:04:00 Test Item Value Reference Range Interpretation Comments MAGNESIUM (BEAKER) (test code = 2.4 mg/dL 1.6-2.6 627) Instructional Technology Instructor ID - JMBLOOD GAS, [id number] 13:25:00 Test Item Value Reference Range Interpretation [...] (BEAKER) (test code = 1819) 40.0 POCT-GLUCOSE [id number] 13:02:00 Test Item Value Reference Range Interpretation Comments POC-GLUCOSE METER 180 mg/dL 70-110 H : TESTED A T [facility] 6720 (BEAKER) (test code [facility], = 1538) [address]: Instructional Technology Instructor/Techni edgardo ID = [id number] for EBER TOSULAIMAN TROPONIN [id number] 06:01:00 Test Item Value Reference Range Interpretation [...] failure, acidosis, acute neurological disease, and persistent tachyarrhythmia.Instructional Technology Instructor ID - PIAYA LPROTHROMBIN [id number] 04:50:00 Test Item Value Reference Range Interpretation Comments PROTIME (BEAKER) (test code = 14.0 seconds 11.9-14.2 759) INR (BEAKER) (test code = 370) 1.11 <=5.90 Effective 07/28/2018: PT Reference Range ChangeNew: 11.9-14.2 Previous: 11.7- 14.7RECOMMENDED COUMADIN/WARFARIN INR THERAPY RANGESSTANDARD DOSE: 2.0-3.0 Includes: PROPHYLAXIS for venous thrombosis, systemic embolization; TREATMENT for venous thrombosis and/or pulmonary embolus.HIGH RISK: Target INR is 2.5-3.5 for patients wiht mechanical heart valves.COMPREHENSIVE METABOLIC [...] S NOT APPLICABLE FOR DIALYSIS PATIEN TS. Instructional Technology Instructor ID - PIAYA [id number] 04:50:00 Test Item Value Reference Range Interpretation Comments MAGNESIUM (BEAKER) (test code = 2.2 mg/dL 1.6-2.6 627) Instructional Technology Instructor ID - LOVE [id number] 04:50:00 Test Item Value Reference Range Interpretation Comments PHOSPHORUS (BEAKER) (test code = 4.3 mg/dL 2.3-4.7 604) Instructional Technology Instructor ID Luz ALEMAN LCREATINE KINASE (CK)2020-01-19 04:50:00 Test Item Value Reference Range Interpretation Comments CREATINE KINASE TOTAL (BEAKER) (test 479 U/L 29-200 H code = 380) Instructional Technology Instructor ID - LOVE [id number] 04:50:00 Test Item Value Reference Range Interpretation Comments FIBRINOGEN LEVEL (BEAKER) (test 546 mg/dl 225-434 H code = 658) [id number] 04:50:00 Test Item Value Reference Range Interpretation Comments PARTIAL THROMBOPLASTIN TIME 24.8 seconds 22.5-36.0 (BEAKER) (test code = 760) LACTIC ACID, [id number] 04:36:00 Test Item Value Reference Range Interpretation Comments LACTATE BLOOD ARTERIAL (2) 1.4 mmol/L 0.5-2.2 (BEAKER) (test code = 2874) Instructional Technology Instructor ID - LOVE LCBC (HEMOGRAM ONLY)2020-01-19 04:24:00 [...] (BEAKER) (test code = 413) BLOOD GAS, [id number] 04:20:00 Test Item Value Reference Range Interpretation [...] (BEAKER) (test code = 1819) 35.0 CALCIUM, [id number] 04:20:00 Test Item Value Reference Range Interpretation Comments CALCIUM IONIZED (BEAKER) (test 1.06 mmol/L 1.12-1.27 L code = 698) PH, BLOOD (BEAKER) (test code = 7.46 1810) OXYGEN SATURATION, [id number] 04:19:00 Test Item Value Reference Range Interpretation Comments O2 SATURATION (MEASURED) (BEAKER) 72.6 % (test code = 1455) RAD, CHEST, 1 VIEW, NON [id number] 03:49:00Reason for exam:->ECMO, respiratory failureShould this be performed at the bedside?->Yes [facility] 1970 Sex: FFINALREPORT RAD, CHEST, 1 VIEW, NON DEPT INDICATION: ECMO, respiratory failure COMPARISON: Prior day's exam FINDINGS: Portable frontal view of the chest. IMPRESSION: Support Lines: [place]andi catheter has been removed. NG tube is been exchanged for a duotube extends below the field of view. Right IJ sheath is in place. ET tube terminates 4 cm above the bang. Lungs and pleura: Unchanged airspace and pleural opacities. No pneumothorax.Heart and mediastinum: Stable contours. Additionalfindings: None. Signed: Fredis Mclain MDReport Verified Date/Time: 01/19/2020 03:49:38 [id number] 20:39:00 Test Item Value Reference Range Interpretation Comments POTASSIUM (BEAKER) (test code = 3.7 meq/L 3.5-5.1 379) Instructional Technology Instructor ID - BSBLOOD GAS, [id number] 20:18:00 Test Item Value Reference Range Interpretation [...] (BEAKER) (test code = 1819) 35.0 CALCIUM, [id number] 20:18:00 Test Item Value Reference Range Interpretation Comments CALCIUM IONIZED (BEAKER) (test 1.05 mmol/L 1.12-1.27 L code = 698) PH, BLOOD (BEAKER) (test code = 7.44 1810) BLOOD GAS, [id number] 17:26:00 Test Item Value Reference Range Interpretation [...] (BEAKER) (test code = 1819) 40.0 GLUCOSE-STAT [id number] 17:26:00 Test Item Value Reference Range Interpretation Comments GLUCOSE RANDOM (BEAKER) (test code 146 mg/dL 70-110 H = 652) RAD, ABDOMEN/KUB, 1 VIEW [id number] 15:19:00Reason for exam:->[facility] : 1970 Sex: FFINALREPORT CLINICAL HISTORY: feeding tube placement TECHNIQUE: Supine abdomen IMPRESSION: The tip of the feeding tube is in the duodenum. There is a nonspecific paucity of bowel gas, and dilated fluid-filled loops of bowel cannot be excluded. The partially visualized bowel gas patternis nonspecific. Signed: Vale Torres MDReport Verified Date/Time: 01/18/2020 15:19:34 Reading Location: [facility] Radiology Reading Room BASIC METABOLIC [id number] 15:08:00 Test Item Value Reference Range Interpretation [...] S NOT APPLICABLE FOR DIALYSIS PATIEN TS. Instructional Technology Instructor ID - [id number] 15:06:00 Test Item Value Reference Range Interpretation Comments MAGNESIUM (BEAKER) (test code = 2.3 mg/dL 1.6-2.6 627) Instructional Technology Instructor ID - ADMINCALCIUM, [id number] 14:58:00 Test Item Value Reference Range Interpretation Comments CALCIUM IONIZED (BEAKER) (test 1.04 mmol/L 1.12-1.27 L code = 698) PH, BLOOD (BEAKER) (test code = 7.40 1810) Check serum Ionized Calcium level after 4 hours after IV Calcium replacement. BLOOD GAS, [id number] 12:58:00 Test Item Value Reference Range Interpretation [...] (BEAKER) (test code = 1819) 40.0 GLUCOSE-STAT [id number] 12:58:00 Test Item Value Reference Range Interpretation Comments GLUCOSE RANDOM (BEAKER) (test code 168 mg/dL 70-110 H = 652) POCT-GLUCOSE [id number] 10:16:00 Test Item Value Reference Range Interpretation Comments POC-GLUCOSE METER 119 mg/dL 70-110 H : TESTED A T [facility] 6720 (BEAKER) (test code = [place], 1538) [id number]: Instructional Technology Instructor/Techni edgardo ID = [id number] for GÓMEZ CHOWDARY GLUCOSE-STAT [id number] 07:58:00 Test Item Value Reference Range Interpretation Comments GLUCOSE RANDOM (BEAKER) (test code = 99 mg/dL 70-110 652) BLOOD GAS, [id number] 07:58:00 Test Item Value Reference Range Interpretation [...] FIO2 (BEAKER) (test code = 1819) 60.0 [id number] 06:56:00 Test Item Value Reference Range Interpretation Comments FIBRINOGEN LEVEL (BEAKER) (test 562 mg/dl 225-434 H code = 658) TROPONIN [id number] 05:20:00 Test Item Value Reference Range Interpretation Comments TROPONIN I (BEAKER) (test code = 18.09 ng/mL 0.00-0.03 397) Troponin I (TnI) levels [...] failure, acidosis, acute neurological disease, and persistent tachyarrhythmia.Instructional Technology Instructor ID - EDASICOMPREHENSIVE METABOLIC [id number] 04:43:00 Test Item Value Reference Range Interpretation [...] S NOT APPLICABLE FOR DIALYSIS PATIEN TS. Instructional Technology Instructor ID - EDASICREATINE KINASE (CK)2020-01-18 04:34:00 Test Item Value Reference Range Interpretation Comments CREATINE KINASE TOTAL (BEAKER) (test 849 U/L 29-200 H code = 380) Instructional Technology Instructor ID - [id number] 04:33:00 Test Item Value Reference Range Interpretation Comments MAGNESIUM (BEAKER) (test code = 2.1 mg/dL 1.6-2.6 627) Instructional Technology Instructor ID - [id number] 04:33:00 Test Item Value Reference Range Interpretation Comments PHOSPHORUS (BEAKER) (test code = 4.5 mg/dL 2.3-4.7 604) Instructional Technology Instructor ID - EDASILACTIC ACID, [id number] 04:22:00 Test Item Value Reference Range Interpretation Comments LACTATE BLOOD ARTERIAL (2) 0.8 mmol/L 0.5-2.2 (BEAKER) (test code = 2874) Instructional Technology Instructor ID - EDASIPROTHROMBIN [id number] 04:21:00 Test Item Value Reference Range Interpretation Comments PROTIME (BEAKER) (test code = 13.6 seconds 11.9-14.2 759) INR (BEAKER) (test code = 370) 1.07 <=5.90 Effective 07/28/2018: PT Reference Range ChangeNew: 11.9-14.2 Previous: 11.7- 14.7RECOMMENDED COUMADIN/WARFARIN INR THERAPY RANGESSTANDARD DOSE: 2.0-3.0 Includes: PROPHYLAXIS for venous thrombosis, systemic embolization; TREATMENT for venous thrombosis and/or pulmonary embolus.HIGH RISK: Target INR is 2.5-3.5 for patients wiht mechanical heart valves.[id number] 04:21:00 Test Item Value Reference Range Interpretation [...] (BEAKER) (test code = 413) OXYGEN SATURATION, [id number] 04:03:00 Test Item Value Reference Range Interpretation Comments O2 SATURATION (MEASURED) (BEAKER) 82.0 % (test code = 1455) BLOOD GAS, [id number] 04:03:00 Test Item Value Reference Range Interpretation [...] (BEAKER) (test code = 1819) 60.0 CALCIUM, [id number] 04:03:00 Test Item Value Reference Range Interpretation Comments CALCIUM IONIZED (BEAKER) (test 1.06 mmol/L 1.12-1.27 L code = 698) PH, BLOOD (BEAKER) (test code = 7.35 1810) RAD, CHEST, 1 VIEW, NON [id number] 04:02:00Reason for exam:->ECMO, respiratory failureShould this be performed at the bedside?->Yes [facility] : 1970 Sex: FFINALREPORT RAD, CHEST, 1 VIEW, NON DEPT INDICATION: ECMO, respiratory failure COMPARISON: Exam from 10 hours prior FINDINGS: Portable frontal view of the chest. IMPRESSION: Support Lines: Stable. Lungs and pleura: No significant change in bilateral hazy airspace opacities. No new consolidation or pleural effusion. No pneumothorax.Heart and mediastinum: Stable contours.Additional findings: None. Signed: Paradise Lindo MDReport Verified Date/Time: 01/18/2020 04:02:48 POCT- GLUCOSE [id number] 00:30:00 Test Item Value Reference Range Interpretation Comments POC-GLUCOSE METER 116 mg/dL 70-110 H : TESTED A T [facility] 6720 (BEAKER) (test code = [place]LINDA C[place], 1538) [address]: Instructional Technology Instructor/Techni edgardo ID = [id number] for Bhakti Stephenson BLOOD GAS, [id number] 00:21:00 Test Item Value Reference Range Interpretation [...] (BEAKER) (test code = 1819) 60.0 POCT-GLUCOSE [id number] 22:51:00 Test Item Value Reference Range Interpretation Comments POC-GLUCOSE METER 109 mg/dL 70-110 : [facility] (BEAKER) (test code = [place], 1538) [address]: Instructional Technology Instructor/Techni edgardo ID = [id number] for Bhakti Stephenson BASIC METABOLIC [id number] 21:13:00 Test Item Value Reference Range Interpretation [...] S NOT APPLICABLE FOR DIALYSIS PATIEN TS. Instructional Technology Instructor ID - [id number] 21:13:00 Test Item Value Reference Range Interpretation Comments MAGNESIUM (BEAKER) (test code = 2.3 mg/dL 1.6-2.6 627) Instructional Technology Instructor ID - BSBLOOD GAS, [id number] 20:45:00 Test Item Value Reference Range Interpretation [...] (test code = 1819) 60.0 LACTIC ACID, [id number] 19:43:00 Test Item Value Reference Range Interpretation Comments LACTATE BLOOD ARTERIAL (2) 1.0 mmol/L 0.5-2.2 (BEAKER) (test code = 2874) Instructional Technology Instructor ID - BSBLOOD GAS, [id number] 19:06:00 Test Item Value Reference Range Interpretation [...] (BEAKER) (test code = 1819) 60.0 GLUCOSE-STAT [id number] 19:06:00 Test Item Value Reference Range Interpretation Comments GLUCOSE RANDOM (BEAKER) (test code 134 mg/dL 70-110 H = 652) BLOOD GAS, [id number] 17:59:00 Test Item Value Reference Range Interpretation [...] (BEAKER) (test code = 1819) 60.0 GLUCOSE-STAT [id number] 17:59:00 Test Item Value Reference Range Interpretation Comments GLUCOSE RANDOM (BEAKER) (test code 145 mg/dL 70-110 H = 652) POCT-GLUCOSE [id number] 16:14:00 Test Item Value Reference Range Interpretation Comments POC-GLUCOSE METER 161 mg/dL 70-110 H : TESTED A T [facility] 6720 (BEAKER) (test code = [place], 1538) [address]: Instructional Technology Instructor/Techni edgardo ID = [id number] for GÓMEZ CHOWDARY BLOOD GAS, [id number] 15:15:00 Test Item Value Reference Range Interpretation [...] (BEAKER) (test code = 1819) 70.0 GLUCOSE-STAT [id number] 15:15:00 Test Item Value Reference Range Interpretation Comments GLUCOSE RANDOM (BEAKER) (test code 153 mg/dL 70-110 H = 652) RAD, CHEST, 1 VIEW, NON [id number] 13:48:00Reason for exam:->s/p ecmo decannulationShould this be performed at the bedside?->Yes [facility] 1970 Sex: FFINALREPORT CLINICAL HISTORY: s/p ecmo decannulation TECHNIQUE: 1 view of the chest.COMPARISON: 01/17/2020 IMPRESSION: The inferior approach ECMO cannula has been removed. The other lines and tubes remain. Bilateral airspace opacities are unchanged. Blunting of left costophrenic angleis noted. The cardiomediastinal silhouette is magnified by technique. Signed: Vale Torres MDReportVerified Date/Time: 01/17/2020 13:48:55 Reading Location: [facility] Radiology Reading Room OSE-STAT [id number] 13:28:00 Test Item Value Reference Range Interpretation Comments GLUCOSE RANDOM (BEAKER) (test code 151 mg/dL 70-110 H = 652) BLOOD GAS, [id number] 13:27:00 Test Item Value Reference Range Interpretation [...] FIO2 (BEAKER) (test code = 1819) 60.0 [id number] 12:37:00 Test Item Value Reference Range Interpretation Comments MAGNESIUM (BEAKER) 2.2 mg/dL 1.6-2.6 Specimen moderately (test code = 627) hemolyzed Instructional Technology Instructor GAGAN - DAMON FCOMPREHENSIVE METABOLIC [id number] 12:37:00 Test Item Value Reference Range Interpretation [...] S NOT APPLICABLE FOR DIALYSIS PATIEN TS. Instructional Technology Instructor ID - DAMON [id number] 12:30:00 Test Item Value Reference Range Interpretation Comments PARTIAL THROMBOPLASTIN TIME 32.8 seconds 22.5-36.0 (BEAKER) (test code = 760) While on heparin. aPTT target range 50 to 80 seconds Notify MD if aPTT is out of range.[id number] 12:30:00 Test Item Value Reference Range Interpretation [...] thrombosis and/or pulmonary embolus.HIGH RISK: Target INR is 2.5-3.5 for patients wiht mechanical heart valves.PROTHROMBIN [id number] 12:29:00 Test Item Value Reference Range Interpretation Comments PROTIME (BEAKER) (test code = 13.8 seconds 11.9-14.2 759) INR (BEAKER) (test code = 370) 1.09 <=5.90 Effective 07/28/2018: PT Reference Range ChangeNew: 11.9-14.2 Previous: 11.7- 14.7RECOMMENDED COUMADIN/WARFARIN INR THERAPY RANGESSTANDARD DOSE: 2.0-3.0 Includes: PROPHYLAXIS for venous thrombosis, systemic embolization; TREATMENT for venous thrombosis and/or pulmonary embolus.HIGH RISK: Target INR is 2.5-3.5 for patients wiht mechanical heart valves.While on heparin. aPTT target range 50 to 80 secondsNotify MD if aPTT is out of range.LACTIC ACID, [id number] 12:25:00 Test Item Value Reference Range Interpretation Comments LACTATE BLOOD ARTERIAL (2) 1.7 mmol/L 0.5-2.2 (BEAKER) (test code = 2874) Instructional Technology Instructor ID - DAMON [facility] (HEMOGRAM ONLY)2020-01-17 12:20:00 Test Item Value Reference [...] (BEAKER) (test code = 413) SODIUM NA-STAT [id number] 12:12:00 Test Item Value Reference Range Interpretation Comments SODIUM (BEAKER) (test code = 381) 137 meq/L 136-145 POTASSIUM-STAT [id number] 12:12:00 Test Item Value Reference Range Interpretation Comments POTASSIUM (BEAKER) (test code = 3.7 meq/L 3.6-5.5 379) BLOOD GAS, [id number] 12:12:00 Test Item Value Reference Range Interpretation [...] (BEAKER) (test code = 1819) 60.0 GLUCOSE-STAT [id number] 12:12:00 Test Item Value Reference Range Interpretation Comments GLUCOSE RANDOM (BEAKER) (test code 145 mg/dL 70-110 H = 652) HGB/HCT (H&H) - STAT [id number] 12:12:00 Test Item Value Reference Range Interpretation Comments HEMOGLOBIN (BEAKER) (test code = 10.9 GM/DL 12.0-15.0 L 410) HEMATOCRIT (BEAKER) (test code = 32.0 % 36.0-45.0 L 411) OXYGEN SATURATION, [id number] 12:12:00 Test Item Value Reference Range Interpretation Comments O2 SATURATION (MEASURED) (BEAKER) 80.1 % (test code = 1455) [id number] 10:54:00 Test Item Value Reference Range Interpretation Comments TRIGLYCERIDES (BEAKER) 394 mg/dL Speci men slightly (test code = 540) hemolyzed TRIGLYCERIDE REFERENCE RANGELow Risk <150Borderline Risk 150-199High Risk 200-499Very High Risk >=500Operator ID - SANTA CSpecimen slightly lipemic HEMOGLOBIN [id number] 09:48:00 Test Item Value Reference Range Interpretation Comments HEMOGLOBIN A1C (BEAKER) (test code = 6.4 % 4.3-6.1 H 368) SODIUM NA-STAT [id number] 09:44:00 Test Item Value Reference Range Interpretation Comments SODIUM (BEAKER) (test code = 381) 135 meq/L 136-145 L POTASSIUM-STAT [id number] 09:44:00 Test Item Value Reference Range Interpretation Comments POTASSIUM (BEAKER) (test code = 3.6 meq/L 3.6-5.5 379) CALCIUM, [id number] 09:44:00 Test Item Value Reference Range Interpretation Comments CALCIUM IONIZED (BEAKER) (test 1.08 mmol/L 1.12-1.27 L code = 698) PH, BLOOD (BEAKER) (test code = 7.34 1810) BLOOD GAS, [id number] 09:44:00 Test Item Value Reference Range Interpretation [...] (BEAKER) (test code = 1819) 100.0 GLUCOSE-STAT [id number] 09:44:00 Test Item Value Reference Range Interpretation Comments GLUCOSE RANDOM (BEAKER) (test code 164 mg/dL 70-110 H = 652) HGB/HCT (H&H) - STAT [id number] 09:44:00 Test Item Value Reference Range Interpretation Comments HEMOGLOBIN (BEAKER) (test code = 11.3 GM/DL 12.0-15.0 L 410) HEMATOCRIT (BEAKER) (test code = 33.0 % 36.0-45.0 L 411) BLOOD GAS, [id number] 07:27:00 Test Item Value Reference Range Interpretation [...] (BEAKER) (test code = 1819) 60.0 POCT-GLUCOSE [id number] 07:21:00 Test Item Value Reference Range Interpretation Comments POC-GLUCOSE METER 173 mg/dL 70-110 H : TESTED A T [facility] 6720 (BEAKER) (test code = [facility] [employer] [facility], 1538) [address]: Instructional Technology Instructor/Techni edgardo ID = [id number] for AH AMAD, RUBEN THROMBOELASTOGRAPH (TEG)2020-01-17 06:39:00 Test Item Value [...] MM 55.0-65.0 (test code = 1413) POCT-GLUCOSE [id number] 05:46:00 Test Item Value Reference Range Interpretation Comments POC-GLUCOSE METER 150 mg/dL 70-110 H : TESTED A T [facility] 6720 (BEAKER) ([facility] = [facility] 1538) [address]: Instructional Technology Instructor/Techni edgardo ID = [id number] for AH AMAD, RUBEN POCT-GLUCOSE [id number] 05:42:00 Test Item Value Reference Range Interpretation Comments POC-GLUCOSE METER 146 mg/dL 70-110 H : TESTED A T [facility] 6720 ([facility]) (test code = [place], 1538) [address]: Instructional Technology Instructor/Techni edgardo ID = [id number] for RUBEN URIARTE TROPONIN [id number] 05:04:00 Test Item Value Reference Range Interpretation Comments TROPONIN I ([facility]) (test code = 21.20 ng/mL 0.00-0.03 [facility]) Troponin I (TnI) levels must be [...] failure, acidosis, acute neurological disease, and persistent tachyarrhythmia.Instructional Technology Instructor ID - DARIUS MHEPARIN ASSAY - [id number] 05:01:00 Test Item Value Reference Range Interpretation Comments UNFRACTIONATED HEPARIN-ANTI 10A 0.18 u/ml 0.30-0.70 L ([facility]) (test code = 1606) Recommendations for Monitoring Unfractionated Heparin Therapeutic Range: 0.3-0.7 u/mL with continuous IV infusionWhile on heparin. aPTT target range 50 to 80 seconds Notify MD if aPTT is out of range.LACTATE DEHYDROGENASE (LDH)2020-01-17 05:00:00 Test Item Value Reference Range Interpretation Comments LACTATE DEHYDROGENASE 748 U/L 125-220 H Specim en slightly ([facility]) (test code = hemoly zed 635) Instructional Technology Instructor ID - DARIUS [id number] 04:59:00 Test Item Value Reference Range Interpretation Comments PARTIAL THROMBOPLASTIN TIME 60.8 seconds 22.5-36.0 H (AKER) (test code = 760) While on heparin. aPTT target range 50 to 80 seconds Notify MD if aPTT is out of range.COMPREHENSIVE METABOLIC [id number] 04:59:00 Test Item Value Reference Range Interpretation Comments TOTAL PROTEIN 6.0 gm/dL 6.0-8.3 Specimen sligh tly (BEAKER) (test code = hemoly zed 770) ALBUMIN ([facility]) 3.0 g/dL 3.5-5.0 L Specimen sl ightly [...] 1092) DATA TO CALCULA TE ESTIMATED GFR. Instructional Technology Instructor ID - DARIUS MSpecimen slightly lipemicPROTHROMBIN [id number] 04:58:00 Test Item Value Reference Range Interpretation Comments PROTIME (BEAKER) (test code = 14.8 seconds 11.9-14.2 H 759) INR (BEAKER) (test code = 370) 1.20 <=5.90 Effective 07/28/2018: PT Reference Range ChangeNew: 11.9-14.2 Previous: 11.7- 14.7RECOMMENDED COUMADIN/WARFARIN INR THERAPY RANGESSTANDARD DOSE: 2.0-3.0 Includes: PROPHYLAXIS for venous thrombosis, systemic embolization; TREATMENT for venous thrombosis and/or pulmonary embolus.HIGH RISK: Target INR is 2.5-3.5 for patients wiht mechanical heart valves.While on heparin. aPTT target range 50 to 80 secondsNotify MD if aPTT is out of range.[id number] 04:58:00 Test Item Value Reference Range Interpretation Comments FIBRINOGEN LEVEL (BEAKER) (test 571 mg/dl 225-434 H code = 658) While on heparin. aPTT target range 50 to 80 seconds Notify MD if aPTT is out of range.[id number] 04:54:00 Test Item Value Reference Range Interpretation Comments MAGNESIUM (BEAKER) 2.2 mg/dL 1.6-2.6 Specimen slightly (test code = 627) hemolyzed Instructional Technology Instructor ID - DARIUS MCREATINE KINASE (CK)2020-01-17 04:54:00 Test Item Value Reference Range Interpretation Comments CREATINE KINASE TOTAL (BEAKER) (test 1618 U/L 29-200 H code = 380) Instructional Technology Instructor ID - DARIUS MLACTIC ACID, [id number] 04:48:00 Test Item Value Reference Range Interpretation Comments LACTATE BLOOD ARTERIAL (2) 0.6 mmol/L 0.5-2.2 (BEAKER) (test code = 2874) Instructional Technology Instructor ID - EDASICALCIUM, [id number] 04:38:00 Test Item Value Reference Range Interpretation Comments CALCIUM IONIZED (BEAKER) (test 1.10 mmol/L 1.12-1.27 L code = 698) PH, BLOOD (BEAKER) (test code = 7.29 1810) Check serum Ionized Calcium level after 4 hours after IV Calcium replacement.Check serum Ionized Calcium level after 4 hours after IV Calcium replacement.BLOOD GAS, [id number] 04:38:00 Test Item Value Reference Range Interpretation [...] (test code = 1819) 65.0 OXYGEN SATURATION, [id number] 04:37:00 Test Item Value Reference Range Interpretation [...] 0-0 (BEAKER) (test code = 413) POCT-GLUCOSE [id number] 04:02:00 Test Item Value Reference Range Interpretation Comments POC-GLUCOSE METER 158 mg/dL 70-110 H : TESTED A T [facility] 6720 (BEAKER) (test code = HERLINDA ORTI[place], 1538) [address]: Instructional Technology Instructor/Techni edgardo ID = [id number] for AH AMAD, RUBEN LACTIC ACID, [id number] 03:01:00 Test Item Value Reference Range Interpretation Comments LACTATE BLOOD ARTERIAL (2) 0.7 mmol/L 0.5-2.2 (BEAKER) (test code = 2874) Instructional Technology Instructor ID - EDASIPOCT-GLUCOSE [id number] 02:54:00 Test Item Value Reference Range Interpretation Comments POC-GLUCOSE METER 159 mg/dL 70-110 H : [facility] ([facility]ER[facility] (test code = [place]LINDA [place], 1538) [address]: Instructional Technology Instructor/Techni edgardo ID = [id number] for RUBEN URIARTE BLOOD GAS, [id number] 02:50:00 Test Item Value Reference Range Interpretation [...] 1819) 65.0 RAD, CHEST, 1 VIEW, NON [id number] 02:15:00Reason for exam:->ECMO, respiratory failureShould this be performed at the bedside?->Yes [facility] : 1970 Sex: FFINALREPORT Chest one view. Clinical history: ECMO, respiratory failure Comparison: Chest radiograph 01/16/2020, 9:27 PM. Technique: A single frontal view of the chest was obtained. Findings:Support lines and tubes are in satisfactory positions.The cardiomediastinal contours are stable. There are diffuse bilateral airspace opacities, not significantly changed. There is no definite pleural effusion. There is no pneumothorax. Signed: Nyasia Juan Verified Date/Time: 01/17/2020 02:15:51 POCT-GLUCOSE [id number] 01:24:00 Test Item Value Reference Range Interpretation Comments POC-GLUCOSE METER 142 mg/dL 70-110 H : TESTED A T [facility] 6720 (BEAKER) (test code = [facility], 1538) [address]: Instructional Technology Instructor/Techni edgardo ID = [id number] for AH AMAD, RUBEN POCT-GLUCOSE [id number] 01:23:00 Test Item Value Reference Range Interpretation Comments POC-GLUCOSE METER 143 mg/dL 70-110 H : TESTED A T [facility] 6720 (BEAKER) (test code = [facility], 1538) 690[address]: Instructional Technology Instructor/Techni edgardo ID = [id number] for AH AMAD, RUBEN LACTIC ACID, [id number] 00:57:00 Test Item Value Reference Range Interpretation Comments LACTATE BLOOD ARTERIAL (2) 0.7 mmol/L 0.5-2.2 (BEAKER) (test code = 2874) Instructional Technology Instructor ID - ADMINSpecimen slightly lipemicBLOOD GAS, [id number] 00:44:00 Test Item Value Reference Range Interpretation [...] (BEAKER) (test code = 1819) 50.0 SARS-COV2/RT-PCR ([facility])2020-01-17 00:42:00 Test Item Value Reference Range Interpretation Comments SARS-COV2/RT-PCR (test Negative Not Detected, Negative, code = 4668961) See external report for linked test SARS-COV-2 PERFORMING LAB [facility] ADAM (test code = 1757522) Negative result for this test determines that SARS-CoV-2 RNA was not present in the specimen above the Limit of Detection (LOD). However, Negative results do not preclude SARS-CoV-2 infection and should not be used as the sole basis for treatment or patient management decisions. Negative results must be combined with clinical observations, patient history, and [...] justifying the authorization of the emergency use ofin vitro diagnostic tests for detection and/or diagnosis of COVID-19 is terminated under Section 564(b)(2) of the Act or the EUA is revoked under Section 564(g) of the Act.Fact Sheet for Healthcare Prov iders:https://www.[employer] - It's what's in store/sites/default/files/product/documents/Fact_Sheet_HC _Ajvhayigt_Ozpg_CWPM-AgG-4.pdfFact Sheet for Healthcare Patients:https://www.[employer] - It's what's in store/sites/default/files/product/docume nts/Uyvc_Gjmao_Rqtkdyrv_Emzx_HJOM-MyU-8.pdfPerforming Laboratory:[facility], [place] [address]DXOYCU ACID, ARTERIAL 2020-01-16 23:58:00 Test Item Value Reference Range Interpretation Comments LACTATE BLOOD 0.9 mmol/L 0.5-2.2 Specimen moder ately ARTERIAL (2) (BEAKER) hemoly zed (test code = 2874) Instructional Technology Instructor ID - ADMINSpecimen slightly lipemicPOCT-GLUCOSE [id number] 23:37:00 Test Item Value Reference Range Interpretation Comments POC-GLUCOSE METER 137 mg/dL 70-110 H : TESTED A T [facility] 6720 (BEAKER) (test code = [facility], 1538) 16[address]: Instructional Technology Instructor/Techni edgardo ID = [id number] for AH AMAD, RUBEN BLOOD GAS, [id number] 23:35:00 Test Item Value Reference Range Interpretation [...] (BEAKER) (test code = 1819) 50.0 POCT-GLUCOSE [id number] 23:02:00 Test Item Value Reference Range Interpretation Comments POC-GLUCOSE METER 137 mg/dL 70-110 H : TESTED A T [facility] 6720 (BEAKER) (test code = [facility], 1538) 41115: Instructional Technology Instructor/Techni edgardo ID = [id number] for AH AMAD, RUBEN POCT-GLUCOSE [id number] 22:58:00 Test Item Value Reference Range Interpretation Comments POC-GLUCOSE METER 89 mg/dL 70-110 : TESTED Uvaldo Madsen [facility] 6720 (PATITO) (test code = [place], 1538) 247[address]: Instructional Technology Instructor/Techni edgardo ID = [id number] for AHAM RUBEN HAWLEY RAD, CHEST, 1 VIEW, NON [id number] 22:40:00Reason for exam:- >hypoxiaShould this be performed at the bedside?->Yes [facility] 1970 Sex: FFINALREPORT Chest, 1 view. History: Hypoxia. Comparison: 01/16/2020 at 1413. IMPRESSION: Support lines/tubes identified in stable position. Airspace opacities identified within the leftperihilar and midlung zone which are increased from the prior examination. The right lung is grosslyclear. There is no evidence for pneumothorax. The cardiomediastinal silhouette is stable in appearance. No acute osseous abnormalities identified. Signed: Moise Moran MDRort Verified Date/Time: 01/16/2020 22:40:05 Reading Location: [address] Consult Reading Room RAD, ABDOMEN/KUB, 1 VIEW [id number] 22:13:00Reason for exam:->distension [facility] 1970 Sex: FFINALREPORT TECHNIQUE: Supine views of the abdomen. INDICATION: Distention. COMPARISON: Exam from 13 hours prior. FINDINGS/IMPRESSION: The enteric tube descends below the gastroesophageal junction and has been advanced now terminating in the antropyloric region of the stomach. ECMO cannula overlies the right hemiabdomen and lower chest. A pulmonary arterial catheter terminates at the right main pulmonary outflow tract. Bowel gas pattern is nonspecific with paucity of bowel gas similar in appearance compared to prior. Otherwise, no acute interval abnormality. Signed: Paradise Lindo MDReport Verified Date/Time: 01/16/2020 22:13:06 VANCOMYCIN LEVEL, [id number] 21:49:00 Test Item Value Reference Range Interpretation Comments VANCOMYCIN TROUGH (BEAKER) (test 5.9 ug/mL 10.0-20.0 L code = 522) Instructional Technology Instructor ID - [id number] 21:11:00 Test Item Value Reference Range Interpretation Comments PARTIAL THROMBOPLASTIN TIME 60.2 seconds 22.5-36.0 H (BEAKER) (test code = 760) While on heparin. aPTT target range 50 to 80 seconds Notify if aPTT is out of range. SCREEN, [id number] 21:09:00 Test Item Value Reference Range Interpretation Comments TEST URINE (BEAKER) (test Negative code = 583) BLOOD GAS, [id number] 20:56:00 Test Item Value Reference Range Interpretation [...] (test code = 1819) 50.0 OXYGEN SATURATION, [id number] 20:54:00 Test Item Value Reference Range Interpretation Comments O2 SATURATION (MEASURED) (BEAKER) 73.1 % (test code = 1455) BLOOD GAS, [id number] 20:30:00 Test Item Value Reference Range Interpretation [...] (test code = 1819) 100.0 BASIC METABOLIC [id number] 19:20:00 Test Item Value Reference Range Interpretation [...] 1092) DATA TO CALCULA TE ESTIMATED GFR. Instructional Technology Instructor ID - [id number] 19:18:00 Test Item Value Reference Range Interpretation Comments MAGNESIUM (BEAKER) 2.1 mg/dL 1.6-2.6 Specimen moderately (test code = 627) hemolyzed Instructional Technology Instructor ID - BSLACTIC ACID, [id number] 19:13:00 Test Item Value Reference Range Interpretation Comments LACTATE BLOOD 2.4 mmol/L 0.5-2.2 H Specimen sligh tly ARTERIAL (2) (BEAKER) hemoly zed (test code = 2874) Instructional Technology Instructor ID - BSSpecimen slightly lipemicTHROMBOELASTOGRAPH (TEG)2020-01-16 18:59:00 [...] % 0.0-5.0 code = 1414) BLOOD GAS, [id number] 18:55:00 Test Item Value Reference Range Interpretation [...] (BEAKER) (test code = 1819) 50.0 GLUCOSE-STAT [id number] 18:55:00 Test Item Value Reference Range Interpretation Comments GLUCOSE RANDOM (BEAKER) (test code 138 mg/dL 70-110 H = 652) HGB/HCT (H&H) - STAT [id number] 18:55:00 Test Item Value Reference Range Interpretation Comments HEMOGLOBIN (BEAKER) (test code = 11.2 GM/DL 12.0-15.0 L 410) HEMATOCRIT (BEAKER) (test code = 33.0 % 36.0-45.0 L 411) SODIUM NA-STAT [id number] 18:54:00 Test Item Value Reference Range Interpretation Comments SODIUM (BEAKER) (test code = 381) 135 meq/L 136-145 L POTASSIUM-STAT [id number] 18:54:00 Test Item Value Reference Range Interpretation Comments POTASSIUM (BEAKER) (test code = 3.9 meq/L 3.6-5.5 379) POCT-GLUCOSE [id number] 18:20:00 Test Item Value Reference Range Interpretation Comments POC-GLUCOSE METER 167 mg/dL 70-110 H : TESTED A T [facility] 6720 (BEAKER) (test code = [facility], 153) 63157: Instructional Technology Instructor/Techni edgardo ID = [id number] for MO DIC, MALCOLM POCT-GLUCOSE [id number] 17:33:00 Test Item Value Reference Range Interpretation Comments POC-GLUCOSE METER 166 mg/dL 70-110 H : TESTED A T [facility] 6720 (BEAKER) (test code = [facility], 1538) 91453: Instructional Technology Instructor/Techni edgardo ID = [id number] for MO DIC, MALCOLM BLOOD GAS, [id number] 17:29:00 Test Item Value Reference Range Interpretation [...] (BEAKER) (test code = 1819) 50.0 POCT-GLUCOSE [id number] 15:32:00 Test Item Value Reference Range Interpretation Comments POC-GLUCOSE METER 157 mg/dL 70-110 H : TESTED A T [facility] 6720 (BEAKER) (test code = [facility], 1538) 46900: Instructional Technology Instructor/Techni edgardo ID = [id number] for MO DIC, MALCOLM RAD, CHEST, 1 VIEW, NON [id number] 14:44:00Reason for exam:->Post bronchoscopyShould this be performed at the bedside?->Yes [facility] 1970 Sex: FFINALREPORT History: Status post bronchoscopy Comparison: 01/16/2020 at 0034 hours Findings: No pneumothorax is visualized. Airspace consolidation in the left perihilar region and left lung base, increased since the prior study. Question small left pleural effusion. Endotracheal tube tip is 4 cm proximal to the bang. Right jugular pulmonary arterial catheter is in the region of the r ight atrium. ECMO cannula projects at the junction of the superior vena cava and right atrium. Nasogastric tube passes below the diaphragm, with the tip not imaged. Signed: Sherri Raphael MDReport Verified Date/Time: 01/16/2020 14:44:03 Reading Location: [facility] Radiology Reading Room Electronically signedby: SHERRI RAPHAEL MD on 01/16/2020 02:44 [id number] 14:14:00 Test Item Value Reference Range Interpretation Comments PARTIAL THROMBOPLASTIN TIME 64.8 seconds 22.5-36.0 H (BEAKER) (test code = 760) While on heparin. aPTT target range 50 to 80 seconds Notify if aPTT is out of range.[id number] 14:07:00 Test Item Value Reference Range Interpretation Comments POTASSIUM (BEAKER) 4.1 meq/L 3.5-5.1 Specimen slightly (test code = 379) hemolyzed Instructional Technology Instructor ID - EDASIPOCT-GLUCOSE [id number] 13:52:00 Test Item Value Reference Range Interpretation Comments POC-GLUCOSE METER 150 mg/dL 70-110 H : TESTED A T [facility] 6720 ([employer]) (test code = [facility] [place], 153) 39628: Instructional Technology Instructor/Techni edgardo ID = [id number] for MO DIC, MALCOLM HEMOGLOBIN [id number] 12:51:00 Test Item Value Reference Range Interpretation Comments HEMOGLOBIN A1C (BEAKER) (test code = 6.4 % 4.3-6.1 H 368) POCT-GLUCOSE [id number] 12:15:00 Test Item Value Reference Range Interpretation Comments POC-GLUCOSE METER 130 mg/dL 70-110 H : TESTED A T [facility] 6720 (BEAKER) (test code = [facility] [place], 1538) 05840: Instructional Technology Instructor/Techni edgardo ID = [id number] for MO DIC, MALCOLM POCT-GLUCOSE [id number] 11:09:00 Test Item Value Reference Range Interpretation Comments POC-GLUCOSE METER 94 mg/dL 70-110 : TESTED A T [facility] 6720 (BEAKER) (test code = [employer] [place], 1538) 54499: Instructional Technology Instructor/Techni edgardo ID = [id number] for MALCOLM ESCALANTE LACTIC ACID, [id number] 10:53:00 Test Item Value Reference Range Interpretation Comments LACTATE BLOOD 1.6 mmol/L 0.5-2.2 Specimen sligh tly ARTERIAL (2) (BEAKER) hemoly zed (test code = 2874) Instructional Technology Instructor ID - EDASISpecimen slightly lipemicRAD, ABDOMEN/KUB, 1 VIEW AP 2020-01-16 10:49:00Reason for exam:->[facility]dominal distension [facility] 1970 Sex: FFINALREPORT CLINICAL HISTORY: abdominal distension TECHNIQUE: Supine abdomen COMPARISON: None IMPRESSION: There is a nonspecific paucity of bowel gas, and dilated fluid-filled loops of bowel cannot be excluded. Free air and air-fluid levels are not definitively seen, but also cannot beexcluded on the supine view. The tip of the nasogastric tube appears to be in the gastric fundus with the sidehole near the gastroesophageal junction. Advancement is recommended. Signed: Vale Torres MDReport Verified Date/Time: 01/16/2020 10:49:18 Reading Location: [facility] Radiology Reading Room BLOOD GAS, [id number] 10:48:00 Test Item Value Reference Range Interpretation [...] 0.1 % 0.0-5.0 code = 1414) SARS-COV2/RT-PCR ([facility])2020-01-16 10:06:00 Test Item Value Reference Range Interpretation Comments SARS-COV2/RT-PCR (test Negative Not Detected, Negative, code = 2034192) See external report for linked test SARS-COV-2 PERFORMING LAB [facility] ADAM (test code = 6401945) Negative result for this test determines that SARS-CoV-2 RNA was not present in the specimen above the Limit of Detection (LOD). However, Negative results do not preclude SARS-CoV-2 infection and should not be used as the sole basis for treatment or patient management decisions. Negative results must be combined with clinical observations, patient history, and [...] justifying the authorization of the emergency use ofin vitro diagnostic tests for detection and/or diagnosis of COVID-19 is terminated under Section 564(b)(2) of the Act or the EUA is revoked under Section 564(g) of the Act.Fact Sheet for Healthcare Prov iders:https://www.Sgnam.[employer] - It's what's in store/sites/default/files/product/documents/Fact_Sheet_HC _Opamvfhzl_Mkvf_EBXW-ExG-1.pdfFact Sheet for Healthcare Patients:https://www.Tawkers/sites/default/files/product/docume nts/Rwuc_Ollql_Buebjmkq_Ybci_MRGV-ZtB-5.pdfPerforming Laboratory:[facility], [place] [address]MQLWJY ACID, ARTERIAL 2020-01-16 09:58:00 Test Item Value Reference Range Interpretation Comments LACTATE BLOOD ARTERIAL (2) 2.3 mmol/L 0.5-2.2 H (PATITO) (test code = 2874) Instructional Technology Instructor ID - EDASIPOCT-GLUCOSE [id number] 09:44:00 Test Item Value Reference Range Interpretation Comments POC-GLUCOSE METER 101 mg/dL 70-110 : TESTED A T [facility] 6720 (PATITO) (test code = [facility] [place], 1538) 69907: Instructional Technology Instructor/Techni edgardo ID = [id number] for MO DICMALCOLM [id number] 08:40:00 Test Item Value Reference Range Interpretation Comments MAGNESIUM (BEAKER) 2.4 mg/dL 1.6-2.6 Specimen slightly (test code = 627) hemolyzed Instructional Technology Instructor ID - [id number] 08:40:00 Test Item Value Reference Range Interpretation Comments POTASSIUM (BEAKER) 3.6 meq/L 3.5-5.1 Specimen slightly (test code = 379) hemolyzed Instructional Technology Instructor ID - EDASICREATINE KINASE (CK)2020-01-16 08:40:00 Test Item Value Reference Range Interpretation Comments CREATINE KINASE TOTAL (BEAKER) (test 1245 U/L 29-200 H code = 380) Instructional Technology Instructor ID - [id number] 08:40:00 Test Item Value Reference Range Interpretation Comments PARTIAL THROMBOPLASTIN TIME 61.8 seconds 22.5-36.0 H (BEAKER) (test code = 760) While on heparin. aPTT target range 50 to 80 seconds Notify MD if aPTT is out of range.PROTHROMBIN TIME/[id number] 08:39:00 Test Item Value Reference Range Interpretation Comments PROTIME (BEAKER) (test code = 15.2 seconds 11.9-14.2 H 759) INR (BEAKER) (test code = 370) 1.23 <=5.90 Effective 07/28/2018: PT Reference Range ChangeNew: 11.9-14.2 Previous: 11.7- 14.7RECOMMENDED COUMADIN/WARFARIN INR THERAPY RANGESSTANDARD DOSE: 2.0-3.0 Includes: PROPHYLAXIS for venous thrombosis, systemic embolization; TREATMENT for venous thrombosis and/or pulmonary embolus.HIGH RISK: Target INR is 2.5-3.5 for patients wiht mechanical heart valves.While on heparin. aPTT target range 50 to 80 secondsNotify MD if aPTT is out of range.POCT-GLUCOSE [id number] 08:31:00 Test Item Value Reference Range Interpretation Comments POC-GLUCOSE METER 115 mg/dL 70-110 H : TESTED A T [facility] 6720 (BEAKER) (test code = [facility] [place], 1538) 93489: Instructional Technology Instructor/Techni edgardo ID = [id number] for CO BURN, SUZETTE BLOOD GAS, [id number] 08:21:00 Test Item Value Reference Range Interpretation [...] (BEAKER) (test code = 1819) 50.0 CALCIUM, [id number] 08:21:00 Test Item Value Reference Range Interpretation Comments CALCIUM IONIZED (BEAKER) (test 1.07 mmol/L 1.12-1.27 L code = 698) PH, BLOOD (BEAKER) (test code = 7.46 1810) Check serum Ionized Calcium level after 4 hours after IV Calcium replacement.Check serum Ionized Calcium level after 4 hours after IV Calcium replacement.POCT-GLUCOSE [id number] 06:14:00 Test Item Value Reference Range Interpretation Comments POC-GLUCOSE METER 140 mg/dL 70-110 H : TESTED A T [facility] 6720 (BEAKER) (test code = [employer] [facility], 1538) 34396: Instructional Technology Instructor/Techni edgardo ID = [id number] for THOMAS SALGADO (V), MARITA CALCIUM, [id number] 05:50:00 Test Item Value Reference Range Interpretation Comments CALCIUM IONIZED (BEAKER) (test 1.04 mmol/L 1.12-1.27 L code = 698) PH, BLOOD (BEAKER) (test code = 7.48 1810) POCT-GLUCOSE [id number] 05:34:00 Test Item Value Reference Range Interpretation Comments POC-GLUCOSE METER 158 mg/dL 70-110 H : TESTED A T [facility] 6720 (BEAKER) (test code = [employer] [facility], 1538) 10418: Instructional Technology Instructor/Techni edgardo ID = [id number] for MARITA MASSEY [id number] 05:33:00 Test Item Value Reference Range Interpretation Comments MAGNESIUM (GURPREETAKER) (test code = 2.0 mg/dL 1.6-2.6 627) Instructional Technology Instructor ID - EDASIHEPARIN ASSAY - [id number] 05:21:00 Test Item Value Reference Range Interpretation Comments UNFRACTIONATED HEPARIN-ANTI 10A 0.22 u/ml 0.30-0.70 L (PATITO) (test code = 1606) Recommendations for Monitoring Unfractionated Heparin Therapeutic Range: 0.3-0.7 u/mL with continuous IV infusionTROPONIN [id number] 05:19:00 Test Item Value Reference Range Interpretation Comments TROPONIN I (PATITO) (test code = 47.81 ng/mL 0.00-0.03 HH [...] failure, acidosis, acute neurological disease, and persistent tachyarrhythmia.Instructional Technology Instructor ID - [id number] 05:17:00 Test Item Value Reference Range Interpretation Comments FIBRINOGEN LEVEL (PATITO) (test 340 mg/dl 225-434 code = 658) PROTHROMBIN TIME/[id number] 05:16:00 Test Item Value Reference Range Interpretation Comments PROTIME (PATITO) (test code = 14.7 seconds 11.9-14.2 H 759) INR (PATITO) (test code = 370) 1.18 <=5.90 Effective 07/28/2018: PT Reference Range ChangeNew: 11.9-14.2 Previous: 11.7- 14.7RECOMMENDED COUMADIN/WARFARIN INR THERAPY RANGESSTANDARD DOSE: 2.0-3.0 Includes: PROPHYLAXIS for venous thrombosis, systemic embolization; TREATMENT for venous thrombosis and/or pulmonary embolus.HIGH RISK: Target INR is 2.5-3.5 for patients wiht mechanical heart valves.COMPREHENSIVE METABOLIC [...] 1092) DATA TO CALCULA TE ESTIMATED GFR. Instructional Technology Instructor ID - EDASISpecimen slightly lipemicLACTATE DEHYDROGENASE (LDH) 2020-01-16 05:10:00 Test Item Value Reference Range Interpretation Comments LACTATE DEHYDROGENASE 817 U/L 125-220 H Specim en slightly (BEAKER) (test code = hemoly zed 635) Instructional Technology Instructor ID - EDASICREATINE KINASE (CK)2020-01-16 05:09:00 Test Item Value Reference Range Interpretation Comments CREATINE KINASE TOTAL (BEAKER) (test 1346 U/L 29-200 H code = 380) Instructional Technology Instructor ID - EDASILACTIC ACID, [id number] 05:03:00 Test Item Value Reference Range Interpretation Comments LACTATE BLOOD 2.5 mmol/L 0.5-2.2 H Specimen moder ately ARTERIAL (2) (BEAKER) hemoly zed (test code = 2874) Instructional Technology Instructor ID - EDASISpecimen slightly lipemicOXYGEN SATURATION, MEASURED 2020-01-16 04:54:00 Test Item Value Reference Range Interpretation Comments O2 SATURATION (MEASURED) (BEAKER) 80.1 % (test code = 1455) BLOOD GAS, [id number] 04:53:00 Test Item Value Reference Range Interpretation [...] (BEAKER) (test code = 1819) 60.0 POCT-GLUCOSE [id number] 04:45:00 Test Item Value Reference Range Interpretation Comments POC-GLUCOSE METER 158 mg/dL 70-110 H : TESTED A T [facility] 6720 (BEAKER) (test code = [facility], 1538) 02507: Instructional Technology Instructor/Techni edgardo ID = [id number] for THOMAS CastilloTayMARITA Fleming CBC (HEMOGRAM ONLY)2020-01-16 04:44:00 Test Item Value [...] 0-0 (BEAKER) (test code = 413) POCT-GLUCOSE [id number] 03:35:00 Test Item Value Reference Range Interpretation Comments POC-GLUCOSE METER 192 mg/dL 70-110 H : TESTED A T [facility] 6720 (BEAKER) (test code = [facility], 1538) 86675: Instructional Technology Instructor/Techni edgardo ID = [id number] for THOMAS SALGADO (V) MARITA LACTIC ACID, [id number] 03:24:00 Test Item Value Reference Range Interpretation Comments LACTATE BLOOD 2.6 mmol/L 0.5-2.2 H Specimen sligh tly ARTERIAL (2) (BEAKER) hemoly zed (test code = 2874) Instructional Technology Instructor ID - EDASISpecayad slightly lipemicBLOOD GAS, [id number] 03:09:00 Test Item Value Reference Range Interpretation [...] (BEAKER) (test code = 1819) 60.0 POCT-GLUCOSE [id number] 02:41:00 Test Item Value Reference Range Interpretation Comments POC-GLUCOSE METER 186 mg/dL 70-110 H : TESTED A T [facility] 6720 (BEAKER) (test code = [facility], 1538) 03742: Instructional Technology Instructor/Techni edgardo ID = [id number] for THOMAS SALGADO (V), MARITA POCT-GLUCOSE [id number] 02:40:00 Test Item Value Reference Range Interpretation Comments POC-GLUCOSE METER 189 mg/dL 70-110 H : TESTED A T [facility] 6720 (BEAKER) (test code = [facility], 1538) 09170: Instructional Technology Instructor/Techni edgardo ID = [id number] for THOMAS SALGADO (V), MARITA [id number] 01:26:00 Test Item Value Reference Range Interpretation Comments PARTIAL THROMBOPLASTIN TIME 48.1 seconds 22.5-36.0 H (BEAKER) (test code = 760) While on heparin. aPTT target range 50 to 80 seconds Notify MD if aPTT is out of range.RAD, CHEST, 1 VIEW, NON [id number] 01:04:00Reason for exam:->ECMO, respiratory failureShould this be performed at the bedside?->Yes [facility] : 1970 Sex: FFINALREPORT Chest one view. Clinical history: ECMO, respiratory failure Comparison: Chest radiograph 01/15/2020, 5:37 PM. Technique: A single frontal view of the chest was obtained. Findings: There has been interval removal of intra-aortic balloon pump.Support lines and tubes are in satisfactory positions.The cardiomediastinal contours are stable. There is a left lower lobe opacity which may represent atelectasis and/or pneumonia. There is no pulmonary edema, pleural effusion or pneumothorax. Signed: Nyasia Juan MDRepbarnes-[facility] Verified Date/Time: 01/16/2020 01:04:29 BLOOD GAS, [id number] 00:39:00 Test Item Value Reference Range Interpretation [...] (test code = 1819) 60.0 LACTIC ACID, [id number] 00:34:00 Test Item Value Reference Range Interpretation Comments LACTATE BLOOD ARTERIAL (2) 3.2 mmol/L 0.5-2.2 H (BEAKER) (test code = 2874) Instructional Technology Instructor ID - EDASISpecimen slightly lipemicPOCT-GLUCOSE [id number] 00:33:00 Test Item Value Reference Range Interpretation Comments POC-GLUCOSE METER 229 mg/dL 70-110 H : [facility] ([facility] (test code = [place], 1538) 60627: Instructional Technology Instructor/Techni edgardo ID = [id number] for MARITA MASSEY POCT-GLUCOSE [id number] 23:33:00 Test Item Value Reference Range Interpretation Comments POC-GLUCOSE METER 227 mg/dL 70-110 H : TESTED A T [facility] 6720 (BEAKER) (test code = [facility], 1538) 08033: Instructional Technology Instructor/Techni edgardo ID = [id number] for THOMAS SALGADO (V)MARITA POCT-GLUCOSE [id number] 22:57:00 Test Item Value Reference Range Interpretation Comments POC-GLUCOSE METER 218 mg/dL 70-110 H : TESTED A T [facility] 6720 (BEAKER) (test code = [facility], 1538) 81133: Instructional Technology Instructor/Techni edgardo ID = [id number] for THOMAS SALGADO (V), MARITA CREATINE KINASE (CK)2020-01-15 22:41:00 Test Item Value Reference Range Interpretation Comments CREATINE KINASE TOTAL (BEAKER) (test 1800 U/L 29-200 H code = 380) Instructional Technology Instructor ID - EDASILACTIC ACID, [id number] 22:38:00 Test Item Value Reference Range Interpretation Comments LACTATE BLOOD ARTERIAL (2) 3.7 mmol/L 0.5-2.2 H (BEAKER) (test code = 2874) Instructional Technology Instructor ID - EDASISpecimen slightly lipemicBLOOD GAS, [id number] 22:16:00 Test Item Value Reference Range Interpretation [...] (BEAKER) (test code = 1819) 60.0 POCT-GLUCOSE [id number] 21:49:00 Test Item Value Reference Range Interpretation Comments POC-GLUCOSE METER 238 mg/dL 70-110 H : TESTED A T [facility] 6720 (BEAKER) (test code = [facility] [place], 1538) 48267: Instructional Technology Instructor/Techni edgardo ID = [id number] for THOMAS SALGADO (MARITA [place] THROMBOELASTOGRAPH (TEG)2020-01-15 20:53:00 Test Item Value Reference [...] % 0.0-5.0 code = 1414) LACTIC ACID, [id number] 20:45:00 Test Item Value Reference Range Interpretation Comments LACTATE BLOOD ARTERIAL (2) 4.1 mmol/L 0.5-2.2 HH (BEAKER) (test code = 2874) Instructional Technology Instructor ID - EDASISpecimen slightly lipemicPOCT-GLUCOSE [id number] 20:36:00 Test Item Value Reference Range Interpretation Comments POC-GLUCOSE METER 247 mg/dL 70-110 H : TESTED A T [facility] 6720 (BEAKER) (test code = [facility] [place], 1538) 16306: Instructional Technology Instructor/Techni edgardo ID = [id number] for MARITA MASSEY CREATINE KINASE (CK)2020-01-15 20:33:00 Test Item Value Reference Range Interpretation Comments CREATINE KINASE TOTAL (BEAKER) (test 1984 U/L 29-200 H code = 380) Instructional Technology Instructor ID - EDASIPOTASSIUM-STAT [id number] 20:15:00 Test Item Value Reference Range Interpretation Comments POTASSIUM (BEAKER) (test code = 3.2 meq/L 3.6-5.5 L 379) BLOOD GAS, [id number] 20:15:00 Test Item Value Reference Range Interpretation [...] (test code = 1819) 60.0 LACTIC ACID, [id number] 19:11:00 Test Item Value Reference Range Interpretation Comments LACTATE BLOOD 5.8 mmol/L 0.5-2.2 HH Specimen sligh tly ARTERIAL (2) (BEAKER) hemoly zed (test code = 2874) Instructional Technology Instructor ID - EDASISpecimen slightly [id number] 18:44:00 Test Item Value Reference Range Interpretation Comments PARTIAL THROMBOPLASTIN TIME 41.0 seconds 22.5-36.0 H (BEAKER) (test code = 760) While on heparin. aPTT target range 50 to 80 seconds Notify MD if aPTT is out of range.POCT-GLUCOSE [id number] 18:39:00 Test Item Value Reference Range Interpretation Comments POC-GLUCOSE METER 269 mg/dL 70-110 H : TESTED A T [facility] 6720 (BEAKER) (test code = [facility] [place], 1538) 19122: Instructional Technology Instructor/Techni edgardo ID = [id number] for QU IBLAT, BRITTANY BLOOD GAS, [id number] 18:31:00 Test Item Value Reference Range Interpretation [...] 1819) 100.0 RAD, CHEST, 1 VIEW, NON [id number] 17:59:00Reason for exam:->PA-cath placementShould this be performed at the bedside?->Yes [facility] : 1970 Sex: FFINAL REPORT History: Pulmonary arterial catheter placement. FINDINGS: Single AP view of the chest shows a new right internal jugular pulmonary arterial catheter to lie with its tip in the expected location of the pulmonary outflow tract. Other tube and line positions appear stable. Nopneumothorax. The heart and mediastinum are stable. As before, the heart is enlarged. Lung volumes remain low. Mild patchy bilateral pulmonary airspace opacity is present, likely mild lung edema. Smallto moderate left-sided pleural effusion is suspected. IMPRESSION: 1. Pulmonary arterial catheter tipin the expected location of the pulmonary outflow tract. No pneumothorax. 2. Findings consistent with mild congestive failure. Small to moderate left-sided pleural effusion is also suspected. Signed: Lia Lewis Verified Date/Time: 01/15/2020 17:59:34 Reading Location: [facility] C013T Transitional Reading Room LACTIC ACID, ARTERIAL 2020-01-15 17:45:00 Test Item Value Reference Range Interpretation Comments LACTATE BLOOD 7.3 mmol/L 0.5-2.2 HH Specimen moder ately ARTERIAL (2) (BEAKER) hemoly zed (test code = 2874) Instructional Technology Instructor ID - EDASICREATINE KINASE (CK)2020-01-15 17:16:00 Test Item Value Reference Range Interpretation Comments CREATINE KINASE TOTAL (BEAKER) (test 2312 U/L 29-200 H code = 380) Instructional Technology Instructor ID - EDASIOXYGEN SATURATION, [id number] 17:01:00 Test Item Value Reference Range Interpretation Comments O2 SATURATION (MEASURED) (BEAKER) 81.8 % (test code = 1455) POCT-GLUCOSE [id number] 17:00:00 Test Item Value Reference Range Interpretation Comments POC-GLUCOSE METER 280 mg/dL 70-110 H : TESTED A T [facility] 6720 (BEAKER) (test code = [place], 1538) [address]: Instructional Technology Instructor/Techni edgardo ID = [id number] for QU IBLAT, BRITTANY BLOOD GAS, [id number] 16:59:00 Test Item Value Reference Range Interpretation [...] (test code = 1819) 60.0 LACTIC ACID, [id number] 14:54:00 Test Item Value Reference Range Interpretation Comments LACTATE BLOOD ARTERIAL (2) 9.5 mmol/L 0.5-2.2 HH (BEAKER) (test code = 2874) Instructional Technology Instructor ID - EDASICOMPREHENSIVE METABOLIC [id number] 14:54:00 Test Item Value Reference Range Interpretation [...] 1092) DATA TO CALCULA TE ESTIMATED GFR. Instructional Technology Instructor ID - [id number] 14:53:00 Test Item Value Reference Range Interpretation Comments MAGNESIUM (BEAKER) (test code = 1.7 mg/dL 1.6-2.6 627) Instructional Technology Instructor ID - EDASICREATINE KINASE (CK)2020-01-15 14:53:00 Test Item Value Reference Range Interpretation Comments CREATINE KINASE TOTAL (BEAKER) (test 2781 U/L 29-200 H code = 380) Instructional Technology Instructor ID - EDASIANTITHROMBIN [id number] 14:35:00 Test Item Value Reference Range Interpretation Comments ANTITHROMBIN III ACTIVITY (BEAKER) 68.0 % 80.0-120.0 L (test code = 711) While on heparin. aPTT target range 50 to 80 seconds Notify MD if aPTT is out of range.[id number] 14:18:00 Test Item Value Reference Range Interpretation Comments PARTIAL THROMBOPLASTIN TIME 69.6 seconds 22.5-36.0 H (BEAKER) (test code = 760) OXYGEN SATURATION, [id number] 14:04:00 Test Item Value Reference Range Interpretation Comments O2 SATURATION (MEASURED) (BEAKER) 90.3 % (test code = 1455) BLOOD GAS, [id number] 14:03:00 Test Item Value Reference Range Interpretation [...] 0.0-5.0 (BEAKER) (test code = 1414) POCT-GLUCOSE [id number] 13:40:00 Test Item Value Reference Range Interpretation Comments POC-GLUCOSE METER 280 mg/dL 70-110 H : [facility] (BEAKER) (test code = [place], 1538) [address]: Instructional Technology Instructor/Techni edgardo ID = [id number] for QU OSCAR RAMOSILIA [id number] 13:33:00 Test Item Value Reference Range Interpretation Comments D-DIMER QUANTITATIVE (BEAKER) 6.93 MG/L FEU <0.50 H (test code [...] Notify MD if aPTT is out of range.[id number] 13:27:00 Test Item Value Reference Range Interpretation Comments PARTIAL THROMBOPLASTIN TIME 129.5 seconds 22.5-36.0 H (BEAKER) (test code = 760) While on heparin. aPTT target range 50 to 80 seconds Notify MD if aPTT is out of range.LACTIC ACID, [id number] 13:23:00 Test Item Value Reference Range Interpretation Comments LACTATE BLOOD ARTERIAL (2) 10.2 mmol/L 0.5-2.2 HH (BEAKER) (test code = 2874) Instructional Technology Instructor ID - EDASIPROTHROMBIN [id number] 13:23:00 Test Item Value Reference Range Interpretation Comments PROTIME (BEAKER) (test code = 15.5 seconds 11.9-14.2 H 759) INR (BEAKER) (test code = 370) 1.26 <=5.90 Effective 07/28/2018: PT Reference Range ChangeNew: 11.9-14.2 Previous: 11.7- 14.7RECOMMENDED COUMADIN/WARFARIN INR THERAPY RANGESSTANDARD DOSE: 2.0-3.0 Includes: PROPHYLAXIS for venous thrombosis, systemic embolization; TREATMENT for venous thrombosis and/or pulmonary embolus.HIGH RISK: Target INR is 2.5-3.5 for patients wiht mechanical heart valves.While on heparin. aPTT target range 50 to 80 secondsNotify MD if aPTT is out of range.B-TYPE NATRIURETIC FACTOR (BNP) 2020-01-15 13:07:00 Test Item Value Reference Range Interpretation Comments B-TYPE NATRIURETIC PEPTIDE (BEAKER) 137 pg/mL 0-100 H (test code = 700) Instructional Technology Instructor ID - EDASICREATINE KINASE (CK)2020-01-15 13:04:00 Test Item Value Reference Range Interpretation Comments CREATINE KINASE TOTAL (BEAKER) (test 2747 U/L 29-200 H code = 380) Instructional Technology Instructor ID - EDASIBLOOD GAS, [id number] 12:39:00 Test Item Value Reference Range Interpretation [...] (test code = 1819) 100.0 BLOOD GAS, [id number] 12:14:00 Test Item Value Reference Range Interpretation [...] 1819) 100.0 RAD, CHEST, 1 VIEW, NON [id number] 12:03:00Reason for exam:->ECMO cannulationShould this be performed at the bedside?->Yes [facility] 1970 Sex: FFINALREPORT History: ECMO cannulation. FINDINGS: Chest, single view: Single AP view of the chest shows low lung volumes. Multiple life support tubes and lines are present and appear in expected positions including an ECMO catheter which appears to have been placed through a femoral approach and overlies the right atrium. Lung volumes are low. Slight increased opacity is present in thelung bases, likely atelectasis. Mild increased pulmonary vascularity is present without overt edema.No pneumothorax. Heart and mediastinum are unremarkable. Bones are unremarkable. IMPRESSION: 1. Multiple life support tubes and lines appear in expected positions. No pneumothorax. 2. Low lung volumes and probable bilateral lower lobe atelectasis. Signed: Lia Lewisepthu Verified Date/Time: 01/15/2020 12:03:38 Reading Location: [address] Transitional Reading Room BLOOD GAS, [id number] 11:01:00 Test Item Value Reference Range Interpretation [...] (BEAKER) (test code = 1819) 100.0 GLUCOSE-STAT [id number] 11:01:00 Test Item Value Reference Range Interpretation Comments GLUCOSE RANDOM (BEAKER) (test code 329 mg/dL 70-110 H = 652) POTASSIUM-STAT [id number] 11:01:00 Test Item Value Reference Range Interpretation Comments POTASSIUM (BEAKER) (test code = 2.9 meq/L 3.6-5.5 L 379) HGB/HCT (H&H) - STAT [id number] 11:00:00 Test Item Value Reference Range Interpretation Comments HEMOGLOBIN (BEAKER) (test code = 12.9 GM/DL 12.0-15.0 410) HEMATOCRIT (BEAKER) (test code = 38.0 % 36.0-45.0 411) SODIUM NA-STAT [id number] 10:59:00 Test Item Value Reference Range Interpretation Comments SODIUM (BEAKER) (test code = 381) 136 meq/L 136-145 TROPONIN [id number] 10:50:00 Test Item Value Reference Range Interpretation [...] failure, acidosis, acute neurological disease, and persistent tachyarrhythmia.Instructional Technology Instructor ID - EDASIOperator ID - EDASI LACTIC ACID, [id number] 10:43:00 Test Item Value Reference Range Interpretation Comments LACTATE BLOOD 9.0 mmol/L 0.5-2.2 HH Specimen sligh tly ARTERIAL (2) (BEAKER) hemoly zed (test code = 2874) Instructional Technology Instructor ID - EDASICOMPREHENSIVE METABOLIC [id number] 10:42:00 Test Item Value Reference Range Interpretation [...] 1092) DATA TO CALCULA TE ESTIMATED GFR. Instructional Technology Instructor ID - [id number] 10:30:00 Test Item Value Reference Range Interpretation [...] 0-0 (BEAKER) (test code = 413) CALCIUM, [id number] 09:55:00 Test Item Value Reference Range Interpretation Comments CALCIUM IONIZED (BEAKER) (test 1.13 mmol/L 1.12-1.27 code = 698) PH, BLOOD (BEAKER) (test code = 7.27 1810) OXYGEN SATURATION, [id number] 09:53:00 Test Item Value Reference Range Interpretation Comments O2 SATURATION (MEASURED) (BEAKER) 88.6 % (test code = 1455) [id number] 07:04:00 Test Item Value Reference Range Interpretation Comments ACTIVATED CLOTTING TIME 401 sec : 74 -137 seconds, (BEAKER) (test code = Abdelrahman ne: TESTED AT 441) [facility] [address] [facility], [address]: Instructional Technology Instructor/Techni edgardo ID = [id number] for PAULETTE KRAMER [id number] 06:13:00 Test Item Value Reference Range Interpretation Comments ACTIVATED CLOTTING TIME 241 sec : 74 -137 seconds, (BEAKER) (test code = Baseli ne: TESTED AT [facility]) [facility] [address] [facility], [address]: Instructional Technology Instructor/Techni edgardo ID = [id number] for LORENZOYINPAULETTE
[2022-03-30] MEDS ORDERED: ALBUTEROL 2.5 MG/3 ML NEB SOL ONE (13:07)
[2022-03-30] MEDS ORDERED: IPRATROPIUM BROM 0.5MG/2.5ML ONE (13:07)
--- NOTE | 2022-03-30 13:17 | RAD REPORT ---
EXAM DESCRIPTION: RAD - Chest Single View - 03/30/2022 1:12 pm CLINICAL HISTORY: COPD COMPARISON: Chest Single View dated 02/25/2021; Chest Single View dated 01/15/2020 FINDINGS: Lines: None. Lungs: No evidence of edema or pneumonia. Pleural: No significant pleural effusions or pneumothorax. Cardiac: Cardiomegaly Mediastinum: Within normal limits. Bones: No acute fractures. Other: None IMPRESSION: No acute cardiopulmonary disease.
[2022-03-30] MEDS ORDERED: dexAMETHasone 10 MG/ML VIAL ONE (13:20)
[2022-03-30 13:22] LABS: Absolute Lymphocytes (CBC) 1.4 K/uL (0.7-4.9); Lymphocytes % 15.2 % (15.3-44.8); MCV 72.6 fL (80-100); RBC Red Blood Cell Count 4.41 M/uL (3.86-4.86)
[2022-03-30 13:28] LABS: Protime INR 1.11
[2022-03-30 13:47] LABS: Albumin 3.1 g/dL (3.4-5.0); Bilirubin Direct 0.2 mg/dL (0-0.2); Bilirubin Total 0.4 mg/dL (0.2-1.0); Magnesium 2.2 mg/dL (1.6-2.4); Potassium 3.4 mmol/L (3.5-5.1); Protein, Total 6.4 g/dL (6.4-8.2); Troponin High Sensitivity 24.2 pg/mL (<58.9)
[2022-03-30 13:47] LABS: SARS-COV-2 RT PCR NEGATIVE (NEGATIVE)
[2022-03-30] MEDS ORDERED: BUMETANIDE 1 MG/4 ML VIAL IV ONE (14:00)
[2022-03-30 15:23] LABS: Arterial Blood Carboxyhemoglob 4.1 % (0-1.5); Blood Gas Oxyhemoglobin 87.6 % (94-97); Blood O2 Saturation 92.9 % (92-98.5)
--- NOTE | 2022-03-30 15:54 | EDPHYS ---
Physician Documentation [facility] Name: aDnette Stapleton Age: 52 yrs Sex: Female : 1970 Arrival Date: 03/30/2022 Time: 12:35 Bed 14 Private MD: Earl Rogers H ED Physician Jax Adkins HPI: 03/30 14:49 This 52 yrs old Female presents to ER via Ambulatory with complaints of Shortness Of snw Breath. 14:49 The patient has shortness of breath at rest, with light activity. Duration: The snw symptoms are continuous. The patient's shortness of breath is aggravated by pt did not take all of regular medications for a time second to financial problems. Historical: - Allergies: 20:34 No Known Allergies; ke1 - Home Meds: 12:57 amiodarone 100 mg Oral tab 2 tabs 2 times per day [Active]; carvedilol oral 2 times per mb9 day [Active]; clopidogrel oral [Active]; lisinopril 2.5 mg Oral tab 1 tab once daily [Active]; atorvastatin oral [Active]; aspirin 81 mg Oral cap 1 cap once daily [Active]; Bumetanide Oral [Active]; - PMHx: 12:43 CVA; Hypertension; Myocardial infarction; ko1 - Immunization history:: Client reports receiving the 1st dose of the Covid vaccine. - Social history:: Smoking status: Patient reports the use of cigarette tobacco products, smokes one-half pack cigarettes per day. ROS: 14:49 Eyes: Negative for injury, pain, redness, and discharge, ENT: Negative for injury, snw pain, and discharge, Neck: Negative for injury, pain, and swelling, Cardiovascular: Negative for chest pain, palpitations, and edema. 14:49 Abdomen/GI: Negative for abdominal pain, nausea, vomiting, diarrhea, and constipation, Back: Negative for injury and pain, : Negative for injury, bleeding, discharge, and swelling, MS/Extremity: Negative for injury and deformity, Skin: Negative for injury, rash, and discoloration, Neuro: Negative for headache, weakness, numbness, tingling, and seizure, Psych: Negative for depression, anxiety, suicide ideation, homicidal ideation, and hallucinations. 14:49 Constitutional: Positive for body aches. 14:49 Respiratory: Positive for cough, shortness of breath, at rest. Exam: 14:48 Constitutional: This is a well developed, well nourished patient who is awake, alert, snw and in no acute distress. Head/Face: Normocephalic, atraumatic. Eyes: Pupils equal round and reactive to light, extra-ocular motions intact. Lids and lashes normal. Conjunctiva and sclera are non-icteric and not injected. Cornea within normal limits. Periorbital areas with no swelling, redness, or edema. ENT: Nares patent. No nasal discharge, no septal abnormalities noted. Tympanic membranes are normal and external auditory canals are clear. Oropharynx with no redness, swelling, or masses, exudates, or evidence of obstruction, uvula midline. Mucous membranes moist. Neck: Trachea midline, no thyromegaly or masses palpated, and no cervical lymphadenopathy. Supple, full range of motion without nuchal rigidity, or vertebral point tenderness. No Meningismus. Chest/axilla: Normal chest wall appearance and motion. Nontender with no deformity. No lesions are appreciated. Cardiovascular: Regular rate and rhythm with a normal S1 and S2. No gallops, murmurs, or rubs. Normal PMI, no JVD. No pulse deficits. 14:48 Back: No spinal tenderness. No costovertebral tenderness. Full range of motion. Skin: Warm, dry with normal turgor. Normal color with no rashes, no lesions, and no evidence of cellulitis. MS/ Extremity: Pulses equal, no cyanosis. Neurovascular intact. Full, normal range of motion. Neuro: Awake and alert, GCS 15, oriented to person, place, time, and situation. Cranial nerves II-XII grossly intact. Motor strength 5/5 in all extremities. Sensory grossly intact. Cerebellar exam normal. Normal gait. Psych: Awake, alert, with orientation to person, place and time. Behavior, mood, and affect are within normal limits. 14:48 Respiratory: mild respiratory distress is noted, moderate respiratory distress is noted, Respirations: shallow respirations, that is moderate, tachypnea, that is mild, Breath sounds: + upper airway congestion. wheezing: Vital Signs: 12:42 BP 176 / 82; Pulse 71; Resp 22; Temp 97.8; Pulse Ox 94% ; Weight 104.33 kg; Height 5 ko1 ft. 2 in. (157.48 cm); 13:10 Pulse Ox 100% on Nebulizer Mask; db 13:30 BP 147 / 88; Pulse 66 MON; Resp 28; Pulse Ox 92% on R/A; db 18:05 BP 194 / 98; Pulse 78; Resp 18; Pulse Ox 98% on 2 lpm NC; db 21:35 BP 165 / 91; Pulse 68; Resp 17; Temp 97.8; Pulse Ox 100% ; ke1 12:42 Body Mass Index 42.07 (104.33 kg, 157.48 cm) ko1 MDM: 12:48 Patient medically screened. snw 15:50 Differential diagnosis: Anxiety Reaction asthma, Bronchitis CHF exacerbation, Chronic snw Obstructive Pulmonary Disease pneumonia. Data reviewed: vital signs, nurses notes. Management of patient was discussed with the following: Hospitalist: Dr. Hartley. Historians other than the Patient:. Care significantly affected by the following Social Determinants of Health: did not take all medications as Spouse lost job and could not afford them. Pt smokes 2 ppd. Counseling: I had a detailed discussion with the patient and/or guardian regarding: the historical points, exam findings, and any diagnostic results supporting the discharge/admit diagnosis, the presence of at least one elevated blood pressure reading (>120/80) during this emergency department visit, lab results, radiology results, the need for further work-up and treatment in the hospital. 17:33 ED course: pt requested BiPap come off secondary to headache. Pt with significant snw expiratory wheeze. Nebs to be given. 03/30 12:58 Order name: Basic Metabolic Panel; Complete Time: 13:55 w 03/30 12:58 Order name: CBC with Diff; Complete Time: 13:28 w 03/30 12:58 Order name: LFT's; Complete Time: 13:55 snw 03/30 12:58 Order name: Magnesium; Complete Time: 13:55 w 03/30 12:58 Order name: NT PRO-BNP; Complete Time: 13:55 w 03/30 12:58 Order name: PT-INR; Complete Time: 13:30 w 03/30 12:58 Order name: Troponin HS; Complete Time: 13:55 w 03/30 12:58 Order name: COVID-19/FLU A+B/RSV; Complete Time: 13:55 w 03/30 14:43 Order name: ABG; Complete Time: 15:56 w 03/30 16:54 Order name: CBC with Automated Diff EDMS 03/30 16:54 Order name: CBC with Automated Diff EDMS 03/30 16:54 Order name: Comprehensive Metabolic Panel EDMS 03/30 16:54 Order name: Comprehensive Metabolic Panel EDMS 03/30 16:54 Order name: Lipid Profile EDMS 03/30 12:58 Order name: XRAY Chest (1 view); Complete Time: 13:22 w 03/30 16:54 Order name: Lipid Profile EDMS 03/30 16:54 Order name: Troponin High Sensitivity EDMS 03/30 16:54 Order name: Troponin High Sensitivity EDMS 03/30 16:54 Order name: Troponin High Sensitivity EDMS 03/30 16:54 Order name: Troponin High Sensitivity EDMS 03/30 16:55 Order name: Ferritin EDMS 03/30 16:55 Order name: Folic Acid, RBC EDMS 03/30 16:55 Order name: Iron EDMS 03/30 16:55 Order name: NT PRO-BNP EDMS 03/30 16:55 Order name: Retic Count EDMS 03/30 16:55 Order name: T4 Free EDMS 03/30 16:55 Order name: Thyroid Stimulating Hormone EDMS 03/30 16:55 Order name: Vitamin B12 Level EDMS 03/30 16:55 Order name: Transferrin Sat/Iron Binding EDMS 03/30 16:55 Order name: Transferrin Sat/Iron Binding EDMS 03/30 12:58 Order name: EKG; Complete Time: 12:59 03/30 12:58 Order name: Cardiac monitoring; Complete Time: 13:01 03/30 12:58 Order name: EKG - Nurse/Tech; Complete Time: 13:47 w 03/30 12:58 Order name: IV Saline Lock; Complete Time: 13:16 03/30 12:58 Order name: Labs collected and sent; Complete Time: 13:16 03/30 12:58 Order name: O2 Per Protocol; Complete Time: 13:01 03/30 12:58 Order name: O2 Sat Monitoring; Complete Time: 13:01 03/30 16:54 Order name: CONS Physician Consult EDMS 03/30 16:54 Order name: Heart Healthy [facility] 03/30 16:54 Order name: Echo with Doppler [facility] 03/30 16:54 Order name: Echo with Doppler [facility] 03/30 16:54 Order name: Chest Single View [facility] 03/30 16:54 Order name: Chest Single View [facility] EC:30 Rate is 66 beats/min. Rhythm is regular with LVH. [place] interval is normal. QRS interval snw is normal. Clinical impression: NSR w/ Non-specific ST/T Changes. Administered Medications: 13:08 Drug: Albuterol - atroVENT (ipratropium) (3:1) (2.5 mg - 0.5 mg) 3 ml Route: Nebulizer; mb9 13:23 Follow up: Response: No adverse reaction mb9 13:23 Drug: Decadron - Dexamethasone 10 mg Route: IVP; Site: right antecubital; mb9 13:47 Follow up: Response: No adverse reaction db 14:55 Drug: Bumex (bumetanide) 1 mg Route: IVP; Site: right antecubital; db 18:09 Follow up: Response: No adverse reaction db 18:05 Drug: Potassium Effervescent Tablet 50 mEq Route: PO; db 18:57 Follow up: Response: No adverse reaction db Disposition Summary: 03/30/22 15:53 Hospitalization Ordered Hospitalization Status: Observation snw Provider: Lizzy Hartley Location: Telemetry/MedSurg (observation) snw Condition: Stable snw Problem: an acute exacerbation snw Symptoms: have improved snw Bed/Room Type: Standard snw Room Assignment: 429(03/30/22 18:52) eb Diagnosis - COPD/ Chronic obstructive pulmonary disease with (acute) exacerbation snw - Iron deficiency anemia, unspecified snw - Hypokalemia snw - Tobacco use - abuse snw Forms: - Medication Reconciliation Form snw - SBAR form snw Signatures: Dispatcher [employer] [facility] Loida Darling FNP-C SOCK DRIER-Csnw Carla Fairbanks Kouassi RN RN ke1 Ashli Falk RN RN ko1 Anneliese Olivia RN RN Maddi Damon RN RN mb9 Corrections: (The following items were deleted from the chart) 18:52 15:53 snw eb
--- NOTE | 2022-03-30 15:54 | ER ---
Nurse's Notes [facility] Name: Danette Stapleton Age: 52 yrs Sex: Female : 1970 Arrival Date: 03/30/2022 Time: 12:35 Bed 14 Private MD: Earl Rogers H Diagnosis: COPD/ Chronic obstructive pulmonary disease with (acute) exacerbation;Iron deficiency anemia, unspecified;Hypokalemia;Tobacco use-abuse Presentation: 03/30 12:42 Chief complaint: Patient states: shortness of breath, wheezes x 1 week. Coronavirus ko1 screen: Vaccine status: Patient reports receiving the 1st dose of the Covid vaccine. Ebola Screen: No symptoms or risks identified at this time. Initial Sepsis Screen: Does the patient meet any 2 criteria? RR > 20 per min. Does the patient have a suspected source of infection? No. Patient's initial sepsis screen is negative. Risk Assessment: Do you want to hurt yourself or someone else? Patient reports no desire to harm self or others. Onset of symptoms was March 30, 2022. 12:42 Method Of Arrival: Ambulatory ko1 12:42 Acuity: KESHIA 2 ko1 Triage Assessment: 12:43 General: Appears in no apparent distress. uncomfortable, Behavior is calm, cooperative, ko1 appropriate for age. Pain: Denies pain. Respiratory: Reports shortness of breath on exertion cough that is productive, the patient has moderate shortness of breath. Historical: - Allergies: 20:34 No Known Allergies; ke1 - Home Meds: 12:57 amiodarone 100 mg Oral tab 2 tabs 2 times per day [Active]; carvedilol oral 2 times per mb9 day [Active]; clopidogrel oral [Active]; lisinopril 2.5 mg Oral tab 1 tab once daily [Active]; atorvastatin oral [Active]; aspirin 81 mg Oral cap 1 cap once daily [Active]; Bumetanide Oral [Active]; - PMHx: 12:43 CVA; Hypertension; Myocardial infarction; ko1 - Immunization history:: Client reports receiving the 1st dose of the Covid vaccine. - Social history:: Smoking status: Patient reports the use of cigarette tobacco products, smokes one-half pack cigarettes per day. Screenin:[facility] Fall Risk Assessment (Adult) History of falling in the last 3 months, db including since admission No falls in past 3 months (0 pts) Confusion or Disorientation No (0 pts) Intoxicated or Sedated No (0 pts) Impaired Gait No (0 pts) Mobility Assist Device Used No (0 pt) Altered Elimination No (0 pt) Score/Fall Risk Level 0 - 2 = Low Risk Oriented to surroundings, Maintained a safe environment. Abuse screen: Denies threats or abuse. Denies injuries from another. Nutritional screening: No deficits noted. Tuberculosis screening: No symptoms or risk factors identified. Assessment: 13:05 Reassessment: Patient appears in no apparent distress at this time. Patient and/or db family updated on plan of care and expected duration. Pain level reassessed. Patient is alert, oriented x 3, equal unlabored respirations, skin warm/dry/pink. patient with SOB x 1 week worse today. O2 sat at home was 80%. General: Appears in no apparent distress. Behavior is calm, cooperative. Pain: Denies pain. Neuro: No deficits noted. Level of Consciousness is awake, alert, obeys commands, Oriented to person, place, time, Moves all extremities. Speech is normal. Cardiovascular: Reports None Rhythm is regular. Respiratory: Reports shortness of breath cough that is Airway is patent Respiratory effort is even, labored, Respiratory pattern is regular, symmetrical, Breath sounds are coarse bilaterally. 13:18 Reassessment: Out of Bumex in ED, Faxed medication to pharmacy. mb9 14:18 Reassessment: patient O2 saturation dropped to 86% while resting. Patient placed on [facility] 2L O2. Will notify provider. 14:54 Reassessment: Patient appears in no apparent distress at this time. Bumex received from pharmacy. 16:00 Reassessment: Patient appears in no apparent distress at this time. No changes from previously documented assessment. Patient and/or family updated on plan of care and expected duration. Pain level reassessed. Patient is alert, oriented x 3, equal unlabored respirations, skin warm/dry/pink. 17:05 Reassessment: Patient appears in no apparent distress at this time. Patient and/or db family updated on plan of care and expected duration. Pain level reassessed. Patient is alert, oriented x 3, equal unlabored respirations, skin warm/dry/pink. patient ambulatory to restroom. 17:05 Reassessment: Patient appears in no apparent distress at this time. Patient and/or db family updated on plan of care and expected duration. Pain level reassessed. Patient is alert, oriented x 3, equal unlabored respirations, skin warm/dry/pink. patient given medications. sitting with no complaints. spouse at bedside. Vital Signs: 12:42 BP 176 / 82; Pulse 71; Resp 22; Temp 97.8; Pulse Ox 94% ; Weight 104.33 kg; Height 5 ko1 ft. 2 in. (157.48 cm); 13:10 Pulse Ox 100% on Nebulizer Mask; db 13:30 BP 147 / 88; Pulse 66 MON; Resp 28; Pulse Ox 92% on R/A; db 18:05 BP 194 / 98; Pulse 78; Resp 18; Pulse Ox 98% on 2 lpm NC; db 21:35 BP 165 / 91; Pulse 68; Resp 17; Temp 97.8; Pulse Ox 100% ; ke1 12:42 Body Mass Index 42.07 (104.33 kg, 157.48 cm) ko1 Vitals: 18:05 Cardiac Rhythm Assessment Regular Sinus rhythm. db ED Course: 12:35 Patient arrived in ED. rg4 12:35 Earl Rogers DO is Private Physician. rg4 12:43 Triage completed. ko1 12:43 Arm band placed on right wrist. ko1 12:47 Loida Darling FNP-C [facility]. snw 12:47 Jax Adkins MD is Attending Physician. snw 13:07 Anneliese Olivia, RN is Primary Nurse. db 13:08 COVID-19/FLU A+B/RSV Sent. mb9 13:13 XRAY Chest (1 view) In Process Unspecified. EDMS 13:14 Inserted saline lock: 20 gauge in right antecubital area, using aseptic technique. db Blood collected. 13:42 Patient maintains SpO2 saturation greater than 95% on room air. Response to oxygen db therapy: improved after Nebulizer treatment. 13:48 Patient has correct armband on for positive identification. Bed in low position. Call db light in reach. Side rails up X2. Client placed on continuous cardiac and pulse oximetry monitoring. NIBP monitoring applied. Warm blanket given. 15:53 Lizzy Hartley MD is Hospitalizing Provider. snw 19:11 Primary Nurse role handed off by Anneliese Olivia, RN mw2 19:38 Isidoro Bianchi, ANIL is Primary Nurse. ke1 20:33 No provider procedures requiring assistance completed. Patient admitted, IV remains in ke1 place. Administered Medications: 13:08 Drug: Albuterol - atroVENT (ipratropium) (3:1) (2.5 mg - 0.5 mg) 3 ml Route: Nebulizer; mb9 13:23 Follow up: Response: No adverse reaction mb9 13:23 Drug: Decadron - Dexamethasone 10 mg Route: IVP; Site: right antecubital; mb9 13:47 Follow up: Response: No adverse reaction db 14:55 Drug: Bumex (bumetanide) 1 mg Route: IVP; Site: right antecubital; db 18:09 Follow up: Response: No adverse reaction db 18:05 Drug: Potassium Effervescent Tablet 50 mEq Route: PO; db 18:57 Follow up: Response: No adverse reaction db Medication: 20:33 VIS not applicable for this client. ke1 Outcome: 15:53 Decision to Hospitalize by Provider. snw 21:35 Admitted to Med/surg accompanied by tech. ke1 21:35 Condition: stable 21:35 Instructed on the need for admit. 21:37 Patient left the ED. ke1 Signatures: Dispatcher [employer] EDMS Loida Darling, CALVIN-C OCCUPANCY SPECIALIST-CsnJosefina Hunter rg4 Senia Garrido mw2 Isidoro Bianchi, ANIL RN ke1 Ashli Falk RN RN ko1 Anneliese Olivia, RN RN Maddi Damon, RN RN mb9
[2022-03-30] MEDS ORDERED: ONDANSETRON 4 MG/2 ML VIAL IV PRN (16:45)
[2022-03-30] MEDS ORDERED: ACETAMINOPHEN 500 MG TAB PO PRN (16:45)
[2022-03-30] MEDS ORDERED: MORPHINE 2 MG/ML SYR IV PRN (16:45)
--- NOTE | 2022-03-30 16:53 | P.HP ---
Certification for Inpatient Patient admitted to: Inpatient With expected LOS: >2 Midnights Patient will require the following post-hospital care: None Practitioner: I am a practitioner with admitting privileges, knowledge of patient current condition, hospital course, and medical plan of care. Services: Services provided to patient in accordance with Admission requirements found in Title 42 Section 412.3 of the Code of Federal Regulations Patient History Date of Service: 03/30/22 Reason for admission: shortness of breath History of Present Illness: Patient is a 52-year-old female who came to the hospital with difficulty breathing. Patient was found to have shortness of breath. Patient has history of tobacco use. Patient also has coronary artery disease with stent placement. Patient was placed on BiPAP however her ABG revealed compensated hypercapnic respiratory failure. She also appears to have obstructive sleep apnea. Her was watching her sleep while she was on the monitor in the emergency room stated that she was going into the 80s when she fell asleep. We did talk to her about refraining from tobacco use going forward. She states she is down to 10 cigarettes a day. She had quit for a little while but started back up because her kids smoke in the house. Otherwise, she does need to follow-up with a provider network mgr as well as Cardiology. I will get an echocardiogram in the morning. If this is unremarkable and her pulmonary status is stable anticipate discharge home. Will check room air O2 sats as well. Allergies No Known Allergies Allergy (Verified 03/30/22 21:52) Home Medications: Amiodarone HCl 100 mg PO BID 03/30/22 Aspirin [Aspirin EC 81 MG] 81 mg PO DAILY 03/30/22 Atorvastatin Calcium 40 mg PO BEDTIME 03/30/22 Bumetanide 2 mg PO DAILY 03/30/22 Clopidogrel Bisulfate [Plavix] 75 mg PO DAILY 03/30/22 Lisinopril [Zestril] 2.5 mg PO DAILY 03/30/22 Ropinirole HCl 2 mg PO BEDTIME 03/30/22 carvediloL [Carvedilol] 6.25 mg PO BID 03/30/22 - Past Medical/Surgical History -: COPD -: coronary artery disease -: restless leg syndrome -: hypertension -: cardiac catheterization with stent placement - Family History Mother Medical History: Cancer Notes: BREAST CA Father Medical History: Heart disease - Social History Smoking Status: Current every day smoker Alcohol use: No CD- Drugs: No Review of Systems 10-point ROS is otherwise unremarkable Physical Examination - Vital Signs Temperature: 98 F Blood Pressure: 140/80 Pulse: 88 Respirations: 18 Pulse Ox (%): 95 - Physical Exam General: Alert, In no apparent distress, Oriented x3 HEENT: Atraumatic, PERRLA, Mucous membr. moist/pink, EOMI, Sclerae nonicteric Neck: Supple, 2+ carotid pulse no bruit, No LAD, Without JVD or thyroid abnormality Respiratory: Diminished, Expiratory wheezes Cardiovascular: Regular rate/rhythm, Normal S1 S2, Systolic murmur Gastrointestinal: Normal bowel sounds, Soft and benign, Non-distended, No tenderness Musculoskeletal: No clubbing, No swelling, No tenderness Integumentary: No rashes Neurological: Normal gait, Normal speech, Normal strength at 5/5 x4 extr, Normal tone, Sensation intact, Cranial nerves 3-12 intact, Normal affect Lymphatics: No axilla or inguinal lymphadenopathy - Studies Laboratory Data (last 24 hrs) 03/30/22 13:14: PT 12.2, INR 1.11 03/30/22 13:14: WBC 9.40, Hgb 9.8 L, Hct 32.0 L, Plt Count 464 H 03/30/22 13:14: Sodium 140, Potassium 3.4 L, BUN 17, Creatinine 1.17 H, Glucose 177 H, Magnesium 2.2, Total Bilirubin 0.4, AST 16, ALT 32, Alkaline Phosphatase 149 H Assessment & Plan - Problems (Diagnosis) (1) COPD with acute exacerbation Current Visit: Yes Status: Acute (2) Tobacco abuse Current Visit: Yes Status: Acute (3) CAD (coronary artery disease) Current Visit: Yes Status: Acute (4) CHF (congestive heart failure) Current Visit: Yes Status: Acute - Plan -nebs, steroids, and antibiotics -O2 per protocol. -Will check an echocardiogram -repeat chest x-ray -pulmonary consultation -low dose lasix Discharge Plan: Home Plan to discharge in: 24 Hours - Advance Directives Does patient have a Living Will: No Does patient have a Durable POA for Healthcare: No - Code Status/Comfort Care Code Status Assessed: Yes Code Status: Full Code Critical Care: No Time Spent Managing PTS Care (In Minutes): 45
[2022-03-30] MEDS ORDERED: POTASSIUM 25 MEQ EFFERV TAB ONE (18:05)
[2022-03-30] MEDS ORDERED: FUROSEMIDE 20 MG/ 2ML VIAL ONE (19:44)
[2022-03-30] MEDS ORDERED: METHYLPREDNISOLONE 40 MG INJ ONE (19:44)
[2022-03-30] MEDS: METHYLPREDNISOLONE 40 MG INJ IV SCH (19:46)
[2022-03-30] MEDS: FUROSEMIDE 20 MG/ 2ML VIAL IV SCH (19:46)
[2022-03-30] MEDS: ALBUTEROL 2.5 MG/3 ML NEB SOL NEB SCH (20:00)
[2022-03-30] MEDS: IPRATROPIUM BROM 0.5MG/2.5ML NEB SCH (20:00)
[2022-03-30] MEDS: CEFTRIAXONE 1,000 MG in NA CHLORIDE 0.9% 50 ML IVPB SCH (22:14)
[2022-03-31] MEDS: METHYLPREDNISOLONE 40 MG INJ IV SCH ×2 (00:07→08:45)
[2022-03-31] MEDS: HYDRALAZINE HCL 20 MG/ML VIAL IV PRN ×2 (00:19→05:23)
[2022-03-31] MEDS: IPRATROPIUM BROM 0.5MG/2.5ML NEB SCH ×3 (02:20→14:00)
[2022-03-31] MEDS: ALBUTEROL 2.5 MG/3 ML NEB SOL NEB SCH ×3 (02:20→14:20)
[2022-03-31 04:30] VITALS: O2SAT 96
[2022-03-31 04:42] VITALS: BMI 41.7
[2022-03-31 06:21] LABS: RBC Red Blood Cell Count 4.61 M/uL (3.86-4.86)
[2022-03-31 06:22] LABS: Hematocrit 33.5 % (36.0-45.0); Lymphocytes % 8.1 % (15.3-44.8); MCV 72.9 fL (80-100); MPV 7.4 fL (7.6-11.3); RBC Red Blood Cell Count 4.59 M/uL (3.86-4.86)
[2022-03-31 07:07] LABS: Albumin 3.3 g/dL (3.4-5.0); Bilirubin Total 0.3 mg/dL (0.2-1.0); Ferritin 12.1 ng/mL (8-388); Protein, Total 7.1 g/dL (6.4-8.2); Thyroid Stimulating Hormone 0.535 uIU/mL (0.358-3.740); Troponin High Sensitivity 18.2 pg/mL (<58.9)
[2022-03-31] MEDS ORDERED: INFLUENZA VACCINE (for 6+ mo) 0.5 ML DOSE IMVAC ONE ×2 (08:00→15:00)
[2022-03-31] MEDS ORDERED: CEFTRIAXONE 1000 MG/VIAL ONE (08:44)
[2022-03-31] MEDS: FUROSEMIDE 20 MG/ 2ML VIAL IV SCH (08:45)
[2022-03-31] MEDS: CEFTRIAXONE 1,000 MG in NA CHLORIDE 0.9% 50 ML IVPB SCH (08:46)
[2022-03-31] MEDS ORDERED: NA CHLORIDE 0.9% 50 ML ONE (08:47)
--- NOTE | 2022-03-31 08:59 | RAD REPORT ---
EXAM DESCRIPTION: RAD - Chest Single View - 03/31/2022 5:56 am CLINICAL HISTORY: COPD Chest pain. COMPARISON: Chest Single View dated 03/30/2022; Chest Single View dated 02/25/2021; Chest Single View dated 01/15/2020 FINDINGS: Portable technique limits examination quality. Mild bilateral interstitial lung prominence shows no real change since could study. The heart is mild ly enlarged. No displaced fractures. IMPRESSION: Slight progression in bilateral interstitial opacities since prior study.
--- NOTE | 2022-03-31 12:03 | P.CNS ---
Date of Consult: 03/31/22 Reason for Consult: COPD exacerbation Chief Complaint: shortness of breath History of Present Illness: Patient is 52 years of age admitted with shortness of breath she continues to smoke history of COPD is not on any bronchodilators admitted with hypercapnic respiratory failure doing better today she is history of coronary artery disease and worse over the past week he also had a stroke before Allergies No Known Allergies Allergy (Verified 03/30/22 21:52) Home Medications: Amiodarone HCl 100 mg PO BID 03/30/22 Aspirin [Aspirin EC 81 MG] 81 mg PO DAILY 03/30/22 Atorvastatin Calcium 40 mg PO BEDTIME 03/30/22 Bumetanide 2 mg PO DAILY 03/30/22 Clopidogrel Bisulfate [Plavix*] 75 mg PO DAILY 03/30/22 Lisinopril [Zestril] 2.5 mg PO DAILY 03/30/22 Ropinirole HCl 2 mg PO BEDTIME 03/30/22 carvediloL [Carvedilol] 6.25 mg PO BID 03/30/22 - Past Medical/Surgical History Diabetic: No -: COPD -: coronary artery disease -: restless leg syndrome -: hypertension -: RLS -: cardiac catheterization with stent placement -: CARDIAC CATH WITH STENT - Family History Mother Medical History: Cancer Notes: BREAST CA Father Medical History: Heart disease - Social History Smoking Status: Current every day smoker Alcohol use: No CD- Drugs: No Caffeine use: No Place of Residence: Home Review of Systems 10-point ROS is otherwise unremarkable Respiratory: Cough, Shortness of Breath Physical Examination Temp Pulse Resp BP Pulse Ox 97.5 F 80 17 157/72 H 95 03/31/22 08:00 03/31/22 08:00 03/31/22 08:00 03/31/22 08:00 03/31/22 08:00 General: Alert, In no apparent distress, Oriented x3 Respiratory: Clear to auscultation bilaterally, Diminished, Expiratory wheezes Cardiovascular: No edema, Regular rate/rhythm Gastrointestinal: Normal bowel sounds, Soft and benign, Non-distended Laboratory Data (last 24 hrs) 03/30/22 13:14: PT 12.2, INR 1.11 03/30/22 13:14: WBC 9.40, Hgb 9.8 L, Hct 32.0 L, Plt Count 464 H 03/30/22 13:14: Sodium 140, Potassium 3.4 L, BUN 17, Creatinine 1.17 H, Glucose 177 H, Magnesium 2.2, Total Bilirubin 0.4, AST 16, ALT 32, Alkaline Phosphatase 149 H - Problems (1) Respiratory failure Current Visit: Yes Status: Acute Plan: Patient is 52 years of age with a history of presumed COPD admitted with worsening dyspnea hypoxic hypercapnic respiratory failure x-ray shows cardiomegaly history of coronary artery disease history of strokes she does take amiodarone with Plavix mild microcytic anemia blood pressure elevated oxygenation stable plan to discharge home on low-dose prednisone 10 mg twice a day for a week in addition to an inhaler BNP is also elevated may have underlying congestive heart failure patient is on Lasix beta-blockers and diuretics vies to stop smoking to follow-up with me in 2-week Qualifiers: Chronicity: acute on chronic
[2022-03-31 16:33] VITALS: BP 150/64; TEMP 97.9
--- NOTE | 2022-03-31 16:40 | P.DS ---
Admission Date: 03/30/22 Discharge Date: 03/31/22 Disposition: ROUTINE DISCHARGE Discharge Condition: GOOD Reason for Admission: shortness of breath Consultations: 1. Pulmonary Medicine Hospital Course: DIAGNOSES: # Acute Chronic Obstructive Pulmonary Disease Exacerbation # Coronary Artery Disease s/p PCI # Chronic Congestive Heart Failure # Hypertension # Tobacco Use Disorder # Restless Leg Syndrome HOSPITAL COURSE: Mr. Danette Stapleton is a pleasant 52 year old female with a past medical history significant for chronic obstructive pulmonary disease, coronary artery disease s/p PCI, chronic congestive heart failure, and hypertension who was admitted to the [facility] on 03/30/2022 for shortness of breath. She was admitted to the Medicine service. She was treated with IV methyprednisolone and bronchodilators with significant improvement in her symptoms. Her chest x-ray revealed, "no acute cardiopulmonary disease." [facility] and she was evaluated by Dr. Prieto. He has cleared her for discharge with Dulera and a 5-day course of prednisone. Upon presentation, she met criteria for home oxygen. With the assistance of case management, this was arranged. This morning, she stated that she felt significantly better would like to be discharged home. On 03/31/2022, she was seen on rounds and deemed medically stable for discharge. She was discharged with instructions to schedule follow-up appointments with her PCP (Dr. Rogers) and with Pulmonary Medicine (Dr. Prieto). She was provided prescriptions for Dulera and prednisone. She was given the opportunity to ask questions and reported no further questions. Furthermore, all questions were answered to the best of my ability. A copy of this discharge summary will be sent to the above providers to facilitate continuity of care. Today, I personally spent 25 minutes on her case, of which greater than 50% of the time was spent in patient education, counseling, and coordination of care as described above. Vital Signs/Physical Exam: Temp Pulse Resp BP Pulse Ox 97.9 F 67 16 150/64 H 96 03/31/22 16:00 03/31/22 16:00 03/31/22 16:00 03/31/22 16:00 03/31/22 16:00 General: Alert, In no apparent distress, Oriented x3 HEENT: Atraumatic, Mucous membr. moist/pink, EOMI, Sclerae nonicteric Neck: JVD not distended Respiratory: Clear to auscultation bilaterally, Normal air movement Cardiovascular: No edema, Regular rate/rhythm, Normal S1 S2, No gallops, No rubs, No murmurs Gastrointestinal: Normal bowel sounds, Soft and benign, Non-distended, No tenderness, No rebound, No guarding Musculoskeletal: No clubbing Integumentary: No rashes Neurological: Normal speech, Cranial nerves 3-12 intact, Normal affect Laboratory Data at Discharge: WBC Cancelled 03/31/22 07:19 Hgb Cancelled 03/31/22 07:19 Hct Cancelled 03/31/22 07:19 Plt Count Cancelled 03/31/22 07:19 PT 12.2 SECONDS (9.5-12.5) 03/30/22 13:14 INR 1.11 03/30/22 13:14 Sodium 136 mmol/L (136-145) 03/31/22 05:57 Potassium 4.0 mmol/L (3.5-5.1) D 03/31/22 05:57 BUN 20 mg/dL (7-18) H 03/31/22 05:57 Creatinine 1.16 mg/dL (0.55-1.02) H 03/31/22 05:57 Glucose 324 mg/dL (74-106) H 03/31/22 05:57 Magnesium 2.2 mg/dL (1.6-2.4) 03/30/22 13:14 Total Bilirubin 0.3 mg/dL (0.2-1.0) 03/31/22 05:57 AST 9 U/L (15-37) L 03/31/22 05:57 ALT 32 U/L (13-56) 03/31/22 05:57 Alkaline Phosphatase 178 U/L (45-117) H 03/31/22 05:57 Triglycerides 112 mg/dL (<150) 03/31/22 05:57 Cholesterol 148 mg/dL (<200) 03/31/22 05:57 HDL Cholesterol 56 mg/dL (40-60) 03/31/22 05:57 Cholesterol/HDL Ratio 2.64 03/31/22 05:57 Home Medications: Amiodarone HCl 100 mg PO BID 03/30/22 Aspirin [Aspirin EC 81 MG] 81 mg PO DAILY 03/30/22 Atorvastatin Calcium 40 mg PO BEDTIME 03/30/22 Bumetanide 2 mg PO DAILY 03/30/22 Clopidogrel Bisulfate [Plavix*] 75 mg PO DAILY 03/30/22 Lisinopril [Zestril] 2.5 mg PO DAILY 03/30/22 Ropinirole HCl 2 mg PO BEDTIME 03/30/22 carvediloL [Carvedilol] 6.25 mg PO BID 03/30/22 Mometasone/Formoterol [Dulera 100 Mcg/5 Mcg Inhaler] 2 puff IH BID #1 inhaler 03/31/22 predniSONE [Prednisone*] 20 mg PO BID 5 Days #10 tab 03/31/22 New Medications: Mometasone/Formoterol [Dulera 100 Mcg/5 Mcg Inhaler] 2 puff IH BID #1 inhaler predniSONE [Prednisone*] 20 mg PO BID 5 Days #10 tab Physician Discharge Instructions: 1. Please call and schedule a follow-up appointment with your PCP (Dr. Rogers) in 3-5 days 2. Please call and schedule a follow-up appointment with your City Solicitor (Dr. Prieto) in 5-7 days Diet: AHA Activity: Ad troy Followup: Earl Rogers DO, DO [Primary Care Provider] - Reinaldo Prieto MD [ACTIVE - CAN ADMIT] - Time spent managing pt's care (in minutes): 25
[2022-03-31] MEDS ORDERED: carvediloL 6.25 MG TAB PO SCH (21:00)
[2022-03-31] MEDS ORDERED: predniSONE 20 MG TAB PO SCH (21:00)
[2022-03-31] MEDS ORDERED: AMIODARONE HCL 200 MG TAB PO SCH (21:00)
[2022-03-31] MEDS ORDERED: ROPINIROLE HCL 1 MG TAB PO SCH (21:00)
[2022-03-31] MEDS ORDERED: ATORVASTATIN 40 MG TAB PO SCH (21:00)
[2022-03-31] MEDS ORDERED: DULERA 100/5 (MOMETASONE/FORMOTEROL) INHALER IH SCH (21:00)
--- NOTE | 2022-04-01 08:43 | ECHO ---
HEIGHT: 5 ft 2 in WEIGHT: 228 lb 0 oz DATE OF STUDY: 03/31/[address]: Lizzy Hartley MD 2-DIMENSIONAL: YES M.MODE: YES DOPPLER: YES COLOR FLOW: YES TDS: PORTABLE: YES DEFINITY: BUBBLE STUDY: DIAGNOSIS: HISTORY OF CONGESTIVE HEART FAILURE CARDIAC HISTORY: CATHERIZATION: YES SURGERY: NO PROSTHETIC VALVE: NO PACEMAKER: NO MEASUREMENTS (cm) DIASTOLIC (NORMALS) SYSTOLIC (NORMALS) IVSd 1.3 (0.6-1.2) LA Diam 3.2 (1.9-4.0) LVEF 54% LVIDd 4.5 (3.5-5.7) LVIDs 3.2 (2.0-3.5) %FS 28% LVPWd 1.4 (0.6-1.2) Ao Diam 2.9 (2.0-3.7) 2 DIMENSIONAL ASSESSMENT: RIGHT ATRIUM: NORMAL LEFT ATRIUM: NORMAL RIGHT VENTRICLE: NORMAL LEFT VENTRICLE: NORMAL TRICUSPID VALVE: MILD TRICUSPID REGURGITATION MITRAL VALVE: MILD MITRAL REGURGITATION PULMONIC VALVE: NORMAL AORTIC VALVE: NORMAL PERICARDIAL EFFUSION: NONE AORTIC ROOT: NORMAL LEFT VENTRICULAR WALL MOTION: NORMAL DOPPLER/COLOR FLOW: SEE BELOW COMMENTS: 1. NORMAL LEFT VENTRICULAR EJECTION FRACTION 55-60% 2. NORMAL WALL MOTION 3. DIASTOLIC DYSFUNCTION 4. MILD MITRAL REGURGITATION 5. MILD TRICUSPID REGURGITATION TECHNOLOGIST: ANANDA EDMONDSON
[2022-04-01] MEDS ORDERED: lisinopriL 5 MG TAB PO SCH (09:00)
[2022-04-01] MEDS ORDERED: ASPIRIN EC 81 MG TAB PO SCH (09:00)
[2022-04-01] MEDS ORDERED: BUMETANIDE 1 MG TABLET PO SCH (09:00)
--- NOTE | 2022-04-01 17:02 | EKG ---
Test Date: 2022-03-30 Test Time: 13:26:51 Jinriksha Driver: EULALIA MEASUREMENT RESULTS: Intervals: Rate: 66 NM: 184 QRSD: 88 QT: 448 QTc: 469 Pisek: P: 40 NM: 184 QRS: 11 T: 43 INTERPRETIVE STATEMENTS: Normal sinus rhythm Moderate voltage criteria for LVH, may be normal variant Cannot rule out Inferior infarct, age undetermined Abnormal ECG Compared to ECG 01/15/2020 01:49:45 Left ventricular hypertrophy now present Sinus bradycardia no longer present First degree AV block no longer present ST (T wave) deviation no longer present Myocardial infarct finding still present Electronically Signed On 04-01-22 16:57:48 [facility] by Dallin Mcdonald
== END 2022-03-31 18:00 | disposition home or self-care (01) ==
LOC: ER 12:32 → ERHOLD 16:45 → 4TH 19:47
PROVIDERS: ADMIT Hospitalist; ATTEND Internal Medicine
DX: J44.1 Chronic obstructive pulmonary disease with (acute) exacerbation (principal); J96.02 Acute respiratory failure with hypercapnia; J96.01 Acute respiratory failure with hypoxia; I25.10 Atherosclerotic heart disease of native coronary artery without angina pectoris; F17.210 Nicotine dependence, cigarettes, uncomplicated; G25.81 Restless legs syndrome; I10 Essential (primary) hypertension; D72.829 Elevated white blood cell count, unspecified; I51.7 Cardiomegaly; I25.2 Old myocardial infarction; I50.9 Heart failure, unspecified; Z95.5 Presence of coronary angioplasty implant and graft; Z23 Encounter for immunization; Z20.822 Contact with and (suspected) exposure to COVID-19; Z86.73 Personal history of transient ischemic attack (TIA), and cerebral infarction without residual deficits
CPT/HCPCS: 94660 ×2; 93005; 93306; 85025 ×2; 80048; 36415; 83735; 85610; 85044; 80061; 82947; 80076; 84443; 84484 ×2; 84439; 82728; 82607; 83540; 80053; 83880 ×2; 0241U; 82747; 84466; 71045 ×2; 94640 ×4; 82805; 96375; 96374; 99285; J0360 ×2; J1940 ×2; J7613 ×4; J7644 ×4; J1100; J3535; J2920 ×3; G0378

== ENCOUNTER → 2023-04-03 | Emergency (ER) | payer OTHER, SELFPAY ==
[~2023-04-03] MED LIST: AZITHROMYCIN 500 MG INJ IVPB ONE; CEFTRIAXONE 1000 MG/VIAL ONE; EPINEPHrine 1 MG/10 ML SYR IV ONE; MIDAZOLAM HCL IN 0.9 % NACL/PF 100 MG/100 ML BAG IVPB ONE; NA CHLORIDE 0.9% 250 ML ONE; WATER FOR INJ,STERILE 10 ML ONE; propofoL 1,000 MG/100 ML VIAL IV ONE
[2023-04-03 17:22] LABS: Absolute Lymphocytes (CBC) 3.9 K/uL (0.7-4.9); Hematocrit 41.8 % (36.0-45.0); Lymphocytes % 31.9 % (15.3-44.8); MPV 8.1 fL (7.6-11.3); Platelets 305 thou/uL (152-406)
[2023-04-03 17:26] LABS: Protime INR 1.1
[2023-04-03 17:42] LABS: Albumin 2.8 g/dL (3.4-5.0); Bilirubin Direct 0.2 mg/dL (0-0.2); Bilirubin Indirect, Calculated 0.3 mg/dL (0.2-0.8); Bilirubin Total 0.5 mg/dL (0.2-1.0); Magnesium 2.8 mg/dL (1.6-2.4); Potassium 4.8 mEq/L (3.5-5.1); Protein, Total 6.2 g/dL (6.4-8.2); Troponin High Sensitivity 18.4 pg/mL (<58.9)
--- NOTE | 2023-04-03 18:09 | RAD REPORT ---
EXAM DESCRIPTION: [facility] Single View04/03/2023 5:37 pm CLINICAL HISTORY: Cardiac arrest COMPARISON: 2022 FINDINGS: Endotracheal tube with its tip in the right mainstem bronchus Nasogastric tube with its tip in the gastric fundus Mild haziness overlying the left lung could represent overlying soft tissue or mild infiltrate Right lung appears clear IMPRESSION: Endotracheal tube with its tip in the right mainstem bronchus. Dr Addison notified
--- NOTE | 2023-04-03 18:43 | RAD REPORT ---
EXAM DESCRIPTION: CT - Head C Spine Mpr Wo Con - 04/03/2023 6:17 pm CLINICAL HISTORY: Head and neck pain COMPARISON: January 2023 TECHNIQUE: Computed axial tomography of the head and cervical spine was obtained. Sagittal and coronal reconstruction was performed. All CT scans are performed using dose optimization technique as appropriate and may include automated exposure control or mA/KV adjustment according to patient size. FINDINGS: An intracranial bleed is not seen. The ventricles are normal in caliber. Moderate low-density is periventricular, deep and subcortical white matter likely ischemic changes se condary to small vessel disease. Small subacute infarct right chan radiata. Old right parietal lobe infarction. An extra-axial fluid collection is not noted. A cervical fracture is not visualized. No dislocation is noted. No high-grade central/foraminal stenosis IMPRESSION: No acute intracranial abnormality is seen. A cervical fracture is not visualized. If the patient continues to have symptoms to suggest intracranial /spinal cord pathology then MRI wou ld be recommended
--- NOTE | 2023-04-03 18:49 | RAD REPORT ---
EXAM DESCRIPTION: CT - Chest For Pe Angio - 04/03/2023 6:19 pm CLINICAL HISTORY: Cardiac arrest COMPARISON: None. TECHNIQUE: Contrast administration was approved by the ordering physician. Dynamically enhanced axia l 3 mm thick images of the chest were obtained during administration of 100 mL Isovue 370 IV contrast . Coronal and oblique reconstruction images were generated and reviewed. Exam utilizes a protocol for optimal evaluation of pulmonary arterial tree. Maximum intensity projections 3D imaging was utilized All CT scans are performed using dose optimization technique as appropriate and may include automated exposure control or mA/KV adjustment according to patient size. FINDINGS: A pulmonary embolus is not seen. A thoracic aortic aneurysm is not noted. A pleural effusion is not seen. A pericardial effusion is not seen. Left upper and left lower lobe consolidations Endotracheal tube with its tip well above the bang. Nasogastric tube with its tip in the gastric fu ndus IMPRESSION: Negative for a pulmonary embolism. Left upper and left lower lobe consolidations may represent pneumonia or atelectasis
--- NOTE | 2023-04-03 18:55 | RAD REPORT ---
EXAM DESCRIPTION: CT - Abdomen Pelvis W Contrast - 04/03/2023 6:20 pm CLINICAL HISTORY: Abdominal pain COMPARISON: none. TECHNIQUE: Computed axial tomography of the abdomen pelvis was obtained. 100 cc Isovue-300 was admin istered intravenously. Oral contrast was not requested which limits evaluation of bowel and appendix All CT scans are performed using dose optimization technique as appropriate and may include automated exposure control or mA/KV adjustment according to patient size. FINDINGS: The liver, spleen, pancreas, adrenal and kidneys appear unremarkable. There is no evidence of diverticulitis. Normal appendix Moderate anterior subluxation L4 on L5 with sclerosis involving the vertebral endplates. Spondylolysi s L4 Uterus is enlarged measuring 15 centimeters containing multiple large fibroids. Some are calcified. Right hip arthroplasty Prostate is mildly distended measuring 7 centimeters IMPRESSION: Mild cecal distention. No evidence of an obstruction. Fibroid uterus
[2023-04-03 18:58] LABS: Arterial Blood Carboxyhemoglob 1.7 % (0-1.5); Blood Gas Oxyhemoglobin 94.8 % (94-97); Blood O2 Saturation 98.3 % (92-98.5)
[2023-04-03 19:00] LABS: Arterial Blood Carboxyhemoglob 1.7 % (0-1.5); Blood Gas Oxyhemoglobin 84.7 % (94-97)
--- NOTE | 2023-04-03 19:05 | ER ---
Nurse's Notes [facility] Name: Danette Stapleton Age: 53 yrs Sex: Female : 1970 Arrival Date: 04/03/2023 Time: 17:08 Bed 3 Private MD: Diagnosis: Cardiac arrest, cause unspecified;Shortness of breath;Renal Insufficiency Presentation: 04/03 17:02 Chief complaint: EMS states: Family reports pt became SOB that progressed to hb unresponsive and not breathing at approx 1627, CPR started by PD at 1632, upon EMS arrival on scene, pt in asystole and apneic, CPR resumed, pt intubated ETT 7.0, 23 at teeth, epi x 3, bicarb x 1, calcium gluconate x 1 administered to 18g L left leg IO, asystole x 2 then PEA, ROSC at 1659. BGL 331. 17:02 Coronavirus screen: Client presents with at least one sign or symptom that may indicate hb coronavirus-19. Provider contacted for isolation considerations. Ebola Screen: No symptoms or risks identified at this time. Initial Sepsis Screen:. Risk Assessment: Do you want to hurt yourself or someone else? Patient reports no desire to harm self or others. Onset of symptoms was April 03, 2023. 17:02 Method Of Arrival: EMS: [facility] hb 17:02 Acuity: KESHIA 1 hb 17:32 Initial Sepsis Screen: Does the patient meet any 2 criteria? No. Patient's initial ko1 sepsis screen is negative. Does the patient have a suspected source of infection? No. Patient's initial sepsis screen is negative. Triage Assessment: 17:32 General: Appears ill, obese, Behavior is unresponsive. ko1 Historical: - Allergies: 17:25 No Known Allergies; hb - PMHx: 17:25 CVA; Hypertension; Myocardial infarction; COPD (Myocardial infarction); hb - PSHx: 17:25 CVA (Myocardial infarction); KS (Myocardial infarction); hb - Immunization history:: Adult Immunizations unknown. - Social history:: Smoking status: unknown. Screenin:24 [facility] ED Fall Risk Assessment (Adult) History of falling in the last 3 months, ko1 including since admission No falls in past 3 months (0 pts). Abuse screen: Denies threats or abuse. Denies injuries from another. Nutritional screening: No deficits noted. Tuberculosis screening: No symptoms or risk factors identified. Assessment: 17:24 Pain: Unable to use pain scale. Patient is unresponsive. ko1 19:00 General: Appears ill, Behavior is unresponsive. rv 19:00 Pain: Unable to use pain scale. Patient is intubated. Patient is unresponsive. Neuro: rv Level of Consciousness is unresponsive, Pupils are PERRLA, Pupil Size: 2. Cardiovascular: Capillary refill < 3 seconds Patient's skin is warm and dry. Rhythm is junctional rhythm. Respiratory: Ventilator assessment: ET Tube: 7.0 Ventilator Mode: Assist Control (AC) Tidal Volume: 500 Respiratory Rate: 20 FiO2: 50 PEEP: 5 HOB > 30 degrees. GI: No deficits noted. : No deficits noted. Derm: Skin is intact. 21:03 Reassessment: REPORT GIVEN TO MELIA MA ED MARIANNE BELLE. rv Vital Signs: 17:02 Pulse 39; hb 17:04 Pulse 89; Resp 18 A; hb 17:09 BP 178 / 95; Pulse 62; Resp 20 A; hb 17:38 BP 197 / 98; Pulse 72; Resp 21; Pulse Ox 96% on ETT vent; ko1 18:07 Weight 102 kg; hb 18:28 BP 167 / 83; Pulse 79; Resp 20; Pulse Ox 90% on ETT vent; ko1 19:24 BP 135 / 64; Pulse 62; Resp 16; Temp 98.2; Pulse Ox 93% on ETT vent; rv1 20:00 BP 101 / 57; Pulse 57; Resp 20; Temp 98.3(Ca); Pulse Ox 97% on ETT vent; rv 20:30 BP 102 / 89; Pulse 58; Resp 20; Temp 98.4; Pulse Ox 99% on ETT vent; rv 21:00 BP 115 / 70; Pulse 59; Resp 20; Temp 98.4; Pulse Ox 97% ; rv Madison Coma Score: 20:06 Eye Response: none(1). Modifying Factors: Intubated. Modifying Factors: Medicated. rv Motor Response: none(1). Verbal Response: none(1). Total: 3. 21:11 Eye Response: none(1). Modifying Factors: Intubated. Modifying Factors: Medicated. rv Motor Response: none(1). Verbal Response: none(1). Total: 3. ED Course: 17:08 Inserted saline lock: 22 gauge in left wrist, using aseptic technique. aa5 17:11 Patient arrived in ED. ms3 17:11 Rodríguez Addison DO is Attending Physician. ms3 17:11 Arm band placed on. aa5 17:15 Initial lab(s) drawn, by me, sent to lab. aa5 17:15 Inserted saline lock: 20 gauge in left upper arm, using aseptic technique. aa5 17:24 Ashli Falk, RN is Primary Nurse. ko1 17:24 Patient has correct armband on for positive identification. Bed in low position. Call ko1 light in reach. Side rails up X2. Client placed on continuous cardiac and pulse oximetry monitoring. NIBP monitoring applied. phototypesetting equipment monitor on. Noise minimized. Warm blanket given. 17:24 NGT: inserted 16 Fr. via right nare. verified placement of air over stomach, verified ko1 return of gastric contents, to intermittent suction. Returned gastric contents. Patient tolerated well. Maintain EMS IV. Dressing intact. Good blood return noted. Site clean \T\ dry. Gauge \T\ site: left tibia IO 45mm. 17:25 Triage completed. hb 17:38 XRAY Chest (1 view) In Process Unspecified. EDMS 18:18 CT Head C Spine In Process Unspecified. EDMS 18:19 CT Chest For PE Angio In Process Unspecified. EDMS 18:19 CT Abd/Pelvis - IV Contrast Only In Process Unspecified. EDMS 19:20 Thakur cath inserted, using sterile technique, 16 Fr., by me, balloon inflated, to rv gravity drainage, returned clear yellow urine. Patient tolerated SEDATED/UNRESPONSIVE. 19:20 No provider procedures requiring assistance completed. rv 19:24 Called [facility] No Answer. ty 19:25 Inserted saline lock: 18 gauge in right upper arm, using aseptic technique. ,using rv aseptic technique. MIDLINE Blood collected. 19:27 Initiated transfer with Danii at [facility] to [facility]. ty 20:00 [facility] called back and advised [facility] was at capacity. ty 20:01 Initiated transfer to [facility]. ty 20:05 Accessed IO LEFT LOWER LEG.. rv 20:23 Called back by Melania Ahumada who advised acceptance of patient to [facility]. ty 20:23 Accepting physician Troy Yeung MD. ty 20:23 EMS Contacted for transport / Accepted. ETA 15 Min. ty 21:10 Patient transferred, IV remains in place. rv Administered Medications: 20:03 Discontinued: propofol5 mcg/kg/min IV at calculated rate See Administration rv Instructions; Standard concentration 1000 mg / 100 mL; Recommended max rate 50 mcg/kg/min; Titrate 2 mcg/kg/min every 5 minutes to achieve goal (see titration policy); Goal parameter RASS score 0 to -2 18:06 Drug: Propofol IV 5 mcg/kg/min IV at calculated rate See Administration Instructions; hb Standard concentration 1000 mg / 100 mL; Recommended max rate 50 mcg/kg/min; Titrate 2 mcg/kg/min every 5 minutes to achieve goal (see titration policy); Goal parameter RASS score 0 to -2 Route: IV; Rate: calculated rate; Site: left antecubital; 20:03 Follow up: IV Status: Order to discontinue infusion; rest of the medication is still at rv the bedside. 20:02 Drug: Rocephin IV 1 grams IV at calculated rate once; Given slow IV push per pharmacy rv instructions Route: IV; Rate: calculated rate; Site: right upper arm; 21:10 Follow up: Response: No adverse reaction; IV Status: Completed infusion rv 20:03 Drug: AZITHromycin IVPB 500 mg IVPB once over 1 hrs; (mix in 250 mL NS) Route: IVPB; rv Infused Over: 1 hrs; Site: left upper arm; 21:10 Follow up: Response: No adverse reaction; IV Status: Completed infusion; IV Intake: rv 250ml 20:03 Drug: Midazolam IVP or IV 0.01 mg/kg/h IV at calculated rate See Administration rv Instructions; (Standard concentration: 100 mg / 100 mL NS); Recommended max rate 0.1 mg/kg/hr; Titrate 0.01 mg/kg/hr as often as every 30 minutes to achieve goal (see titration policy); Goal parameter RASS 0 to -2 Route: IV; Rate: calculated rate; Site: right upper arm; 21:10 Follow up: IV Status: Infusion continued; Infusion continued upon transfer rv Medication: 20:23 VIS not applicable for this client. rv Intake: 21:10 IV: 250ml; Total: 250ml. rv Ventilator: 20: Fi02: 50%; Rate: 20min; T.V.: 500ml; Peep: 5cm; rv Outcome: 19:00 Outcome Resuscitation successful rv 19:00 Transferred by ground EMS to other acute care facility: [facility] ED. Transfer form rv completed. X-rays sent w/ patient. 19:00 Condition: stable 19:04 ER care complete, transfer ordered by ms3 21:40 Patient left the ED. rv Signatures: Dispatcher [employer] EDMS Alicia Mahoney, RN RN aa5 Miladis Baxter RN RN Petr Chambers RN RN rv Rodríguez Addison DO DO ms3 Ashli Falk RN RN ko1 Yasmine Rob rv1 Stuart Mejia Corrections: (The following items were deleted from the chart) 17:28 17:02 Chief complaint: EMS states: Family reports pt became SOB that progressed to hb unresponsive at approx 1627, CPR started by PD at 1632, upon EMS arrival on scene, pt in asystole, apneic, CPR resumed, pt intubated ETT 7.0, 23 at teeth, epi x 3, bicarb x 1, calcium gluconate x 1 administered to 18g L lef IO, ROSC at 1659. BGL 331. hb 17:31 17:02 Chief complaint: EMS states: Family reports pt became SOB that progressed to hb unresponsive and not breathing at approx 1627, CPR started by PD at 1632, upon EMS arrival on scene, pt in asystole, apneic, CPR resumed, pt intubated ETT 7.0, 23 at teeth, epi x 3, bicarb x 1, calcium gluconate x 1 administered to 18g L lef IO, ROSC at 1659. BGL 331. hb 17:32 17:02 Chief complaint: EMS states: Family reports pt became SOB that progressed to hb unresponsive and not breathing at approx 1627, CPR started by PD at 1632, upon EMS arrival on scene, pt in asystole, apneic, CPR resumed, pt intubated ETT 7.0, 23 at teeth, epi x 3, bicarb x 1, calcium gluconate x 1 administered to 18g L lef IO, asystole x 2 then PEA, ROSC at 1659. BGL 331. hb 17:32 17:02 Chief complaint: EMS states: Family reports pt became SOB that progressed to hb unresponsive and not breathing at approx 1627, CPR started by PD at 1632, upon EMS arrival on scene, pt in asystole and apneic, CPR resumed, pt intubated ETT 7.0, 23 at teeth, epi x 3, bicarb x 1, calcium gluconate x 1 administered to 18g L lef IO, asystole x 2 then PEA, ROSC at 1659. BGL 331. hb
--- NOTE | 2023-04-03 19:05 | EDPHYS ---
Physician Documentation [facility] Name: Danette Stapleton Age: 53 yrs Sex: Female : 1970 Arrival Date: 04/03/2023 Time: 17:08 Bed 3 Private MD: ED Physician Rodríguez Addison HPI: 04/03 18:21 This 53 yrs old Female presents to ER via EMS with complaints of CPR. ms3 18:21 Preceding the arrest, the patient was dyspneic. The arrest occurred at home. ms3 Pre-hospital course: The arrest was witnessed Bystanders at the scene did not perform CPR. EMS care prior to arrival: initiation of ACLS, intubation was successfully performed, Time elapsed prior to ACLS is unknown. ACLS has been in progress for an unknown time. 53-year-old female with past medical history of CVA, hypertension, myocardial infarction, COPD presents to the emergency department via [facility] status postcardiac arrest. EMS notes patient's son stated patient was having shortness of breath prior to collapse. EMS administered 3 rounds of epinephrine, 1 round of sodium bicarbonate, 1 calcium chloride with return of spontaneous circulation 1658. On collaborating history from patient's son. Patient dropped her granddaughter off at her house after school and then drove to her house and upon pulling up in the driveway was walking the horn. Patient's son came out and patient stated she was short of breath. Patient's son states they were in route to the hospital when patient became unresponsive and slumped forward. 911 was called and he returned back to the house.. Historical: - Allergies: 17:25 No Known Allergies; hb - PMHx: 17:25 CVA; Hypertension; Myocardial infarction; COPD (Myocardial infarction); hb - PSHx: 17:25 CVA (Myocardial infarction); CA (Myocardial infarction); hb - Immunization history:: Adult Immunizations unknown. - Social history:: Smoking status: unknown. ROS: 18:25 Unable to obtain ROS due to Postcardiac arrest, unresponsive, intubated, ms3 Exam: 18:25 Head/Face: Normocephalic, atraumatic. Cardiovascular: Regular rate and rhythm with a ms3 normal S1 and S2. No gallops, murmurs, or rubs. Normal PMI, no JVD. No pulse deficits. 18:25 Skin: Warm, dry with normal turgor. Normal color with no rashes, no lesions, and no evidence of cellulitis. 18:25 Eyes: Pupils: are fixed and dilated, 18:25 Cardiovascular: Rate: bradycardic, Rhythm: regular, Pulses: no pulse deficits are appreciated, Heart sounds: normal, normal S1and S2, 18:25 Respiratory: 18:25 Abdomen/GI: Inspection: obese Bowel sounds: normal, Palpation: soft, mass, that is hard, of the right lower quadrant, 18:25 Neuro: Patient unresponsive, Vital Signs: 17:02 Pulse 39; hb 17:04 Pulse 89; Resp 18 A; hb 17:09 BP 178 / 95; Pulse 62; Resp 20 A; hb 17:38 BP 197 / 98; Pulse 72; Resp 21; Pulse Ox 96% on ETT vent; ko1 18:07 Weight 102 kg; hb 18:28 BP 167 / 83; Pulse 79; Resp 20; Pulse Ox 90% on ETT vent; ko1 19:24 BP 135 / 64; Pulse 62; Resp 16; Temp 98.2; Pulse Ox 93% on ETT vent; rv1 20:00 BP 101 / 57; Pulse 57; Resp 20; Temp 98.3(Ca); Pulse Ox 97% on ETT vent; rv 20:30 BP 102 / 89; Pulse 58; Resp 20; Temp 98.4; Pulse Ox 99% on ETT vent; rv 21:00 BP 115 / 70; Pulse 59; Resp 20; Temp 98.4; Pulse Ox 97% ; rv Oneil Coma Score: 20:06 Eye Response: none(1). Modifying Factors: Intubated. Modifying Factors: Medicated. rv Motor Response: none(1). Verbal Response: none(1). Total: 3. 21:11 Eye Response: none(1). Modifying Factors: Intubated. Modifying Factors: Medicated. rv Motor Response: none(1). Verbal Response: none(1). Total: 3. Ventilator: 20:22 Fi02: 50%; Rate: 20min; T.V.: 500ml; Peep: 5cm; rv MDM: 17:11 Patient medically screened. ms3 18:25 Differential diagnosis: arrythmia, cardiac arrest, respiratory arrest. ms3 18:37 ED course: ABG reviewed with increase in CO2 and slight improvement in pH. TV increased ms3 to 500 mL and rate increased from 16 to 20.. 19:26 ED course: Transfer to [facility] initiated. ED course: Transfer center called at states no ms3 ICU beds at [facility] or [facility].. 20:03 Data reviewed: vital signs, nurses notes, lab test result(s), EKG, radiologic studies, ms3 and as a result, I will transfer patient. Consideration of Admission/Observation Will transfer patient. I considered the following discharge prescriptions or medication management in the emergency department Medications were administered in the Emergency Department. See MAR. Independent interpretation of the following test(s) in the Emergency Department EKG: See my EKG interpretation above CT Scan: My interpretation is CT Head without contrast does not show ICH. Historians other than the Patient: EMS: [facility]. Spouse/Significant Other: Patient's . Daughter/Son: Patient's son. Care significantly affected by the following chronic conditions: Hypertension. Response to treatment: the patient's symptoms have mildly improved after treatment, and as a result, I will transfer patient. 20:31 ED course: Case discussed with Dr Yeung at [facility] and he accepts patient.. ms3 04/03 17:13 Order name: Basic Metabolic Panel; Complete Time: 17:49 ms3 04/03 17:13 Order name: CBC with Diff; Complete Time: 17:49 ms3 04/03 17:13 Order name: LFT's; Complete Time: 17:49 ms3 04/03 17:13 Order name: Magnesium; Complete Time: 17:49 ms3 04/03 17:13 Order name: NT PRO-BNP; Complete Time: 17:49 ms3 04/03 17:13 Order name: PT-INR; Complete Time: 17:49 ms3 04/03 17:13 Order name: Troponin HS; Complete Time: 17:49 ms3 04/03 17:55 Order name: ABG Arterial Blood Gas; Complete Time: 19:27 EDMS 04/03 18:44 Order name: ABG Arterial Blood Gas; Complete Time: 19:27 EDMS 04/03 18:57 Order name: Blood Culture Adult (2) ms3 04/03 19:37 Order name: SARS RAPID; Complete Time: 20:08 ms3 04/03 17:13 Order name: XRAY Chest (1 view); Complete Time: 18:16 ms3 04/03 17:24 Order name: CT Head C Spine; Complete Time: 18:47 ms3 04/03 17:24 Order name: CT Chest For PE Angio; Complete Time: 18:56 ms3 04/03 17:24 Order name: CT Abd/Pelvis - IV Contrast Only; Complete Time: 19:45 ms3 04/03 17:13 Order name: EKG; Complete Time: 17:14 ms3 04/03 17:13 Order name: Cardiac monitoring; Complete Time: 17:14 ms3 04/03 17:13 Order name: EKG - Nurse/Tech; Complete Time: 17:14 ms3 04/03 17:13 Order name: IV Saline Lock; Complete Time: 17:14 ms3 04/03 17:13 Order name: Labs collected and sent; Complete Time: 17:14 ms3 04/03 17:13 Order name: O2 Per Protocol; Complete Time: 17:14 ms3 04/03 17:13 Order name: O2 Sat Monitoring; Complete Time: 17:14 ms3 Administered Medications: 20:03 Discontinued: propofol5 mcg/kg/min IV at calculated rate See Administration rv Instructions; Standard concentration 1000 mg / 100 mL; Recommended max rate 50 mcg/kg/min; Titrate 2 mcg/kg/min every 5 minutes to achieve goal (see titration policy); Goal parameter RASS score 0 to -2 18:06 Drug: Propofol IV 5 mcg/kg/min IV at calculated rate See Administration Instructions; hb Standard concentration 1000 mg / 100 mL; Recommended max rate 50 mcg/kg/min; Titrate 2 mcg/kg/min every 5 minutes to achieve goal (see titration policy); Goal parameter RASS score 0 to -2 Route: IV; Rate: calculated rate; Site: left antecubital; 20:03 Follow up: IV Status: Order to discontinue infusion; rest of the medication is still at rv the bedside. 20:02 Drug: Rocephin IV 1 grams IV at calculated rate once; Given slow IV push per pharmacy rv instructions Route: IV; Rate: calculated rate; Site: right upper arm; 21:10 Follow up: Response: No adverse reaction; IV Status: Completed infusion rv 20:03 Drug: AZITHromycin IVPB 500 mg IVPB once over 1 hrs; (mix in 250 mL NS) Route: IVPB; rv Infused Over: 1 hrs; Site: left upper arm; 21:10 Follow up: Response: No adverse reaction; IV Status: Completed infusion; IV Intake: rv 250ml 20:03 Drug: Midazolam IVP or IV 0.01 mg/kg/h IV at calculated rate See Administration rv Instructions; (Standard concentration: 100 mg / 100 mL NS); Recommended max rate 0.1 mg/kg/hr; Titrate 0.01 mg/kg/hr as often as every 30 minutes to achieve goal (see titration policy); Goal parameter RASS 0 to -2 Route: IV; Rate: calculated rate; Site: right upper arm; 21:10 Follow up: IV Status: Infusion continued; Infusion continued upon transfer rv Disposition: 20:03 Critical Care:. ms3 20:31 Chart complete. ms3 Disposition Summary: 04/03/23 19:04 Transfer Ordered Notes: Transfer Location: Other Acute Care Facility ms3 Reason: Higher level of care ms3 Condition: Stable ms3 Problem: new ms3 Symptoms: are unchanged ms3 Accepting Physician: Dr Yeung(04/03/23 21:40) rv Diagnosis - Cardiac arrest, cause unspecified ms3 - Shortness of breath ms3 - Renal Insufficiency ms3 Forms: - Medication Reconciliation Form ms3 - SBAR form ms3 Critical care time excluding procedures: 20:03 Critical care time: Bedside Care: 55 minutes, Family Intervention: 10 minutes. Total ms3 time: 65 minutes Signatures: Dispatcher [employer] EDMiladis Wang RN RN Petr Chambers RN RN rv Sims, Marcus, DO DO ms3 Ashli Falk RN RN ko1 Corrections: (The following items were deleted from the chart) 17:28 17:14 Head C Spine CAP W Con+CT.RAD.BRZ ordered. YAZMIN ARCE 20:31 19:04 Dr cota ms3 21:40 20:31 Dr Gamal [email or web address] rv
[2023-04-03 20:06] LABS: SARS-CoV-2 Antigen Rapid Res Negative (Negative)
[2023-04-03 22:33] VITALS: BP 115/70; TEMP 98.4; O2SAT 97
--- NOTE | 2023-04-06 15:08 | EKG ---
Test Date: 2023-04-03 Test Time: 17:12:03 [employer]: AIDE MEASUREMENT RESULTS: Intervals: Rate: 52 NV: 230 QRSD: 96 QT: 432 QTc: 401 [place]: P: 48 NV: 230 QRS: 39 T: 92 INTERPRETIVE STATEMENTS: Sinus bradycardia with marked sinus arrhythmia with 1st degree AV block Inferior infarct, age undetermined Abnormal ECG Compared to ECG 03/30/2022 13:26:51 First degree AV block now present Sinus rhythm no longer present Left ventricular hypertrophy no longer present Myocardial infarct finding still present Electronically Signed On 04-06-23 15:01:55 FIELD CANE SCALE CLERK by Dallin Mcdonald
== END ==
LOC: ER 17:08
DX: I46.9 Cardiac arrest, cause unspecified (principal); N28.9 Disorder of kidney and ureter, unspecified
CPT/HCPCS: 36415; 36600; 70450; 71045; 71275; 72125; 74177; 80048; 80076; 82805; 83735; 83880; 84484; 85025; 85610; 87040; 87811; 93005; 94002; 94003; J0696; J2250; J2704; J7050; Q9967